=== PATIENT | male | born 1945 | race Caucasian/White ===

== ENCOUNTER → 2020-05-18 13:09 | Outpatient (BNVA) | payer MEDICARE, OTHER, SELFPAY | PROVIDERS: Visit Provider Urology | DX: Z13.89 Encounter for screening for other disorder (principal) | CPT/HCPCS: Q3014 ==

== ENCOUNTER 2020-05-29 07:12 | Day surgery (SDC) | payer MEDICARE, OTHER, SELFPAY ==
[2020-05-23 09:48] VITALS: BMI 25.1
--- NOTE | 2020-05-26 07:07 | HO.ANESPROP2 ---
Documented by User: Marisa Vasquez 05/26/20 07:07 HPI - Anesthesia Eval Consult details Narrative: 75yo M for Colonoscopy [facility] Active Problems Active Problems: All Active Problems (Updated 05/23/20 @ 09:13 by Gayla Conroy) Balanitis (Acute) Past Medical History Medical History Arthritis Elevated cholesterol GERD (gastroesophageal reflux disease) HTN (hypertension) Hx of meningioma of the brain Hx of renal calculi Hx of spinal stenosis Surgical History Surgical History H/O colonoscopy History of esophagogastroduodenoscopy (EGD) History of excision of pilonidal cyst Hx of arthroscopic knee surgery Hx of brain surgery Hx of lithotripsy Social History Social History Smoking Status: Never smoker Use of substances other than those prescribed or required for medical reasons: No Advance Directives Information Provided: No Meds Allergies Allergy/AdvReac Type Severity Reaction Status Date / Time aspirin [Aspirin] AdvReac Intermediate GI UPSET, Verified 05/23/20 09:13 abd pain, abd pain, abd pain, abd pain Home Medications Medication Instructions Recorded Confirmed Last Taken Type fluconazole 150 mg tablet 150 mg PO QWEEK 05/18/20 Unknown History lisinopril 5 mg tablet 5 mg PO DAILY 05/18/20 05/23/20 Unknown History lorazepam 1 mg tablet 1 mg PO DAILY PRN 05/18/20 Unknown History omeprazole 20 mg capsule,delayed 20 mg PO DAILY 05/18/20 05/23/20 Unknown History release multivitamin 1 tab PO DAILY 05/23/20 05/23/20 Unknown History Exam Exam Date and Time: May 26, 2020 0707 Height,Weight and Vital Signs: Height 5 ft 7.5 in Weight 73.936 kg Assessment and Plan Assessment Anesthesia Assessment: Chart Reviewed Documented by User: Janneth Verduzco 05/29/20 08:06 [facility] Past Medical History Medical History Arthritis Elevated cholesterol GERD (gastroesophageal reflux disease) HTN (hypertension) Hx of meningioma of the brain Hx of renal calculi Hx of spinal stenosis Surgical History Surgical History H/O colonoscopy History of esophagogastroduodenoscopy (EGD) History of excision of pilonidal cyst Hx of arthroscopic knee surgery Hx of brain surgery Hx of lithotripsy Social History Social History Smoking Status: Never smoker Use of substances other than those prescribed or required for medical reasons: No Advance Directives Information Provided: No Meds Allergies Allergy/AdvReac Type Severity Reaction Status Date / Time aspirin [Aspirin] AdvReac Intermediate GI UPSET, Verified 05/23/20 09:13 abd pain, abd pain, abd pain, abd pain Home Medications Medication Instructions Recorded Confirmed Last Taken Type fluconazole 150 mg tablet 150 mg PO QWEEK 05/18/20 Unknown History lisinopril 5 mg tablet 5 mg PO DAILY 05/18/20 05/23/20 Unknown History lorazepam 1 mg tablet 1 mg PO DAILY PRN 05/18/20 Unknown History omeprazole 20 mg capsule,delayed 20 mg PO DAILY 05/18/20 05/23/20 Unknown History release multivitamin 1 tab PO DAILY 05/23/20 05/23/20 Unknown History Exam Airway Mallampati Class: II TM Dist: >3cm Neck ROM: Full Loose/Missing/Broken Teeth: No Heart: RRR Lungs: CTA Assessment and Plan Assessment Anesthesia Assessment: Anesthesia Plan Discussed and Chart Reviewed Final Anesthetic Review NPO: Yes ASA Class: II Final Preanesthetic Review: Meds/Allgs Chart Reviewed, Consent Obtained/Reviewed and Anes Risks/Benef Reviewed Patient Risk: Low Procedure Risk: Low Anesthetic Plan Anesthetic Plan: MAC: Disposition: Standard PACU
[2020-05-29 07:52] VITALS: BP 138/87; PULSE 71; RESP 16; TEMP 36.1; O2SAT 100
[2020-05-29] MEDS: Lactated Ringers 1,000 ML 100 ML IVCONT (07:55)
[2020-05-29 09:38] VITALS: BP 97/51; PULSE 68; RESP 14; TEMP 36.1; O2SAT 97
--- NOTE | 2020-05-29 09:40 | PM.OP ---
Brief Operative Note Date of Service: 05/29/20 Pre-op diagnosis: Screening Post-op diagnosis: other (Colon polyps, Diverticulosis) Procedure: Colonoscopy to cecum and TI with snare polypectomies, biopsies, and placement of 2 Resolution clips on proximal ascending colon polypectomy site Surgeon: Eddie Santizo Anesthesia: MAC Estimated blood loss (mL): 4.0 Pathology: other (A. Cecal polyp B. Proximal ascending colon polyps) Condition: stable Disposition: PACU
[2020-05-29 09:54] VITALS: BP 101/63; PULSE 59; RESP 16; O2SAT 96
[2020-05-29 10:06] VITALS: BP 119/72; PULSE 58; RESP 16; O2SAT 99
--- NOTE | 2020-05-29 10:13 | OP_ITS ---
SURGEON: Eddie Santizo MD INDICATIONS: The patient presents for evaluation of personal history of tubular adenomas of the colon, and need for colorectal cancer screening. Full consent has been obtained from him for this, including risks of bleeding and perforation. PREOPERATIVE DIAGNOSIS: POSTOPERATIVE DIAGNOSIS: PROCEDURE PERFORMED: Colonoscopy to the cecum and terminal ileum with snare polypectomy, biopsy, and placement of 2 resolution clips on the proximal ascending colon polypectomy site. ESTIMATED BLOOD LOSS: COMPLICATIONS: ANESTHESIA: Monitored anesthesia care. ASSISTANTS: SPECIMENS: PREOPERATIVE DIAGNOSES: Personal history of tubular adenomas of the colon and colorectal cancer screening. POSTOPERATIVE DIAGNOSES: Personal history of tubular adenomas of the colon and colorectal cancer screening, colon polyps, diverticulosis, and internal hemorrhoids. DESCRIPTION OF PROCEDURE: The patient was placed in the left lateral decubitus position. The digital rectal exam revealed no abnormalities. The Olympus video pediatric colonoscope was entered into the rectum and advanced easily to the cecum. Once in the cecum, I did identify cecal pouch with appendiceal orifice and a normal-appearing ileocecal valve. The terminal ileum was cannulated and appeared normal. The scope was withdrawn back into the colon. The entire cecum was well visualized. In the cecum, was an approximately 8 mm slightly raised grossly adenomatous polyp, which was snared and recovered by suction. The polypectomy site appeared clean, without any sign of residual polyp nor bleeding. The remainder of the cecum appeared normal. The scope was then slowly withdrawn assessing all mucosal surfaces carefully. Preparation was excellent. In the very proximal most portion of the ascending colon just about bordering on entering the cecum, were 3 adenomatous appearing polyps from 8 to 10mm in diameter. Theses were all snared and recovered by suction. There was also a flat broad-based adenomatous appearing lesion encompassing at least 1/3 the circumference of the colon in this same area.. I removed about 1/3 of this with snare polypectomy in piecemeal fashion. Other portions were biopsied. All pieces were recovered by suction. I did place 2 resolution clips on a portion of the polypectomy site with good hemostasis and good deployment. These specimens were placed in the same container as the other 3 polyps in the same area Overall, there was a significant amount of polypoid tissue remaining and I felt that we needed to see what the pathology would show before attempting to remove any more. Given the size of this lesion and its location, this may ultimately need surgical resection or at least 1 or 2 more colonoscopies to remove it. The remainder of the colon appeared normal without any sign of other polyps, colitis, nor angiodysplasia. There was a moderate amount of diverticulosis of the sigmoid colon and a mild amount of diverticulosis in the ascending colon. In the rectum, scope was retroflexed visualizing internal hemorrhoids, but no other pathology. The rectal mucosa appeared normal. The scope was straightened out and withdrawn from the patient. He tolerated the procedure well and was returned to the recovery area in stable condition. IMPRESSION: 1. Colon polyps, status post snare polypectomy, biopsy, and placement of 2 resolution clips. 2. Diverticulosis. 3. Internal hemorrhoids. PLAN: The results of the pathology will be checked. As mentioned in the body of this report, we shall decide about further attempts at removal of the larger polyp once we have the pathology results. He was advised not to use any aspirin and NSAIDs for at least 2 weeks. He will be seen within a month or so in the office to review this and make further plans. This has been discussed with his . MD DAWNA Nichols/JEREMY / [id number] MTDD
--- NOTE | 2020-05-29 10:33 | PC.NURSE ---
1015 AWAKE ALERT BEAN PO MONITORS DCD IVF DC ASST OOB CH STEADY DRESSED SELF CALL ROWELL IN REACH PLAN DC IV AND AMB TO DC AREA
== END 2020-05-29 11:04 | disposition home or self-care (01) ==
PROVIDERS: PCP Family Medicine; Visit Provider Internal Medicine
PROC: 0DJD8ZZ Inspection of Lower Intestinal Tract, Via Natural or Artificial Opening Endoscopic (ICD-10-PCS; CPT 45378; principal; 2020-05-29 08:20)
DX: Z12.11 Encounter for screening for malignant neoplasm of colon (principal); Z86.010 Personal history of colon polyps; Z80.0 Family history of malignant neoplasm of digestive organs; D12.0 Benign neoplasm of cecum; D12.2 Benign neoplasm of ascending colon; K57.30 Diverticulosis of large intestine without perforation or abscess without bleeding; K64.8 Other hemorrhoids; K21.9 Gastro-esophageal reflux disease without esophagitis; K80.20 Calculus of gallbladder without cholecystitis without obstruction; I10 Essential (primary) hypertension; E78.5 Hyperlipidemia, unspecified; Z79.899 Other long term (current) drug therapy; Z86.011 Personal history of benign neoplasm of the brain; Z88.8 Allergy status to other drugs, medicaments and biological substances
CPT/HCPCS: 45385; 45380; 88305

== ENCOUNTER 2020-07-10 07:42 | Outpatient (REF) | payer MEDICARE, OTHER, SELFPAY ==
[2020-07-10 09:06] LABS: PSA,Total (Free>4and<10) 0.72 ng/mL (0.00-4.00)
== END 2020-07-10 07:43 | disposition home or self-care (01) ==
LOC: HO.LAB 07:42
PROVIDERS: PCP Family Medicine; Visit Provider Urology
DX: N40.0 Benign prostatic hyperplasia without lower urinary tract symptoms (principal); Z12.5 Encounter for screening for malignant neoplasm of prostate
CPT/HCPCS: 36415; 84153

== ENCOUNTER → 2020-07-20 08:36 | Outpatient (BNVA) | payer MEDICARE, OTHER, SELFPAY | PROVIDERS: Visit Provider Urology | DX: N28.1 Cyst of kidney, acquired (principal); N48.1 Balanitis | CPT/HCPCS: 51798; 99212 ==

== ENCOUNTER 2020-07-24 07:20 | Day surgery (SDC) | payer MEDICARE, OTHER, SELFPAY ==
[2020-07-18 14:55] VITALS: BMI 25.0
--- NOTE | 2020-07-19 10:13 | HO.ANESPROP2 ---
Documented by User: Marisa Vasquez 07/19/20 10:14 HPI - Anesthesia Eval Consult details Narrative: 75yo M for Colonoscopy s/p colonoscopy with MAC 05/2020. Repeat to futher remove large polyp PMFSH Active Problems Active Problems: All Active Problems (Updated 05/26/20 @ 07:07 by Marisa Vasquez) Balanitis (Acute) Past Medical History Medical History Arthritis BPH (benign prostatic hyperplasia) Chronic gastritis Elevated cholesterol Gall bladder stones GERD (gastroesophageal reflux disease) HTN (hypertension) HTN (hypertension) Hx of meningioma of the brain Hx of renal calculi Hx of spinal stenosis Tubular adenoma of colon Surgical History Surgical History H/O colonoscopy History of esophagogastroduodenoscopy (EGD) History of excision of pilonidal cyst Hx of arthroscopic knee surgery Hx of brain surgery Hx of lithotripsy Social History Social History Alcohol intake: current Alcohol intake frequency: a few times a week Smoking Status: Never smoker Use of substances other than those prescribed or required for medical reasons: No Have you been hit, kicked, punched, or otherwise hurt by someone within the past year? If so, by whom?: No Advance Directives Information Provided: No Recently lost weight without trying: No Eating poorly because of decreased appetite: No Nutrition Risks: No Nutritional Risk Meds Allergies Allergy/AdvReac Type Severity Reaction Status Date / Time aspirin [Aspirin] AdvReac Intermediate gastrointestinal Verified 07/24/20 07:59 upset/pain Home Medications Medication Instructions Recorded Confirmed Last Taken Type fluconazole 150 mg tablet 150 mg PO QWEEK 05/18/20 Unknown History lisinopril 5 mg tablet 5 mg PO DAILY 05/18/20 07/18/20 Unknown History lorazepam 1 mg tablet 1 mg PO DAILY PRN 05/18/20 07/18/20 Unknown History omeprazole 20 mg capsule,delayed 20 mg PO DAILY 05/18/20 07/18/20 Unknown History release multivitamin 1 tab PO DAILY 05/23/20 07/18/20 Unknown History [id number] C-Mn 1 cap PO DAILY 07/18/20 07/18/20 Unknown History [Glucosamine 1500 Complex] ketoconazole 2 % topical cream appl TOPICAL BEDTIME 07/20/20 Unknown History Exam Exam Date and Time: July 19, 2020 1013 Height,Weight and Vital Signs: Height 5 ft 7.5 in Weight 73.482 kg Assessment and Plan Assessment Anesthesia Assessment: Chart Reviewed Documented by User: Apolinar Mccoy MD 07/24/20 09:07 [facility] Past Medical History Medical History Arthritis BPH (benign prostatic hyperplasia) Chronic gastritis Elevated cholesterol Gall bladder stones GERD (gastroesophageal reflux disease) HTN (hypertension) HTN (hypertension) Hx of meningioma of the brain Hx of renal calculi Hx of spinal stenosis Tubular adenoma of colon Surgical History Surgical History H/O colonoscopy History of esophagogastroduodenoscopy (EGD) History of excision of pilonidal cyst Hx of arthroscopic knee surgery Hx of brain surgery Hx of lithotripsy Social History Social History Alcohol intake: current Alcohol intake frequency: a few times a week Smoking Status: Never smoker Use of substances other than those prescribed or required for medical reasons: No Have you been hit, kicked, punched, or otherwise hurt by someone within the past year? If so, by whom?: No Advance Directives Information Provided: No Recently lost weight without trying: No Eating poorly because of decreased appetite: No Nutrition Risks: No Nutritional Risk Meds Allergies Allergy/AdvReac Type Severity Reaction Status Date / Time aspirin [Aspirin] AdvReac Intermediate gastrointestinal Verified 07/24/20 07:59 upset/pain Home Medications Medication Instructions Recorded Confirmed Last Taken Type fluconazole 150 mg tablet 150 mg PO QWEEK 05/18/20 Unknown History lisinopril 5 mg tablet 5 mg PO DAILY 05/18/20 07/18/20 Unknown History lorazepam 1 mg tablet 1 mg PO DAILY PRN 05/18/20 07/18/20 Unknown History omeprazole 20 mg capsule,delayed 20 mg PO DAILY 05/18/20 07/18/20 Unknown History release multivitamin 1 tab PO DAILY 05/23/20 07/18/20 Unknown History [id number]-cor C-Mn 1 cap PO DAILY 07/18/20 07/18/20 Unknown History [Glucosamine 1500 Complex] ketoconazole 2 % topical cream appl TOPICAL BEDTIME 07/20/20 Unknown History Exam Airway Mallampati Class: III TM Dist: >3cm Neck ROM: Full Loose/Missing/Broken Teeth: No Heart: RRR Lungs: NL Assessment and Plan Assessment Anesthesia Assessment: Anesthesia Plan Discussed and Chart Reviewed Final Anesthetic Review NPO: Yes ASA Class: II Final Preanesthetic Review: No Changes in Pt Med Stat, Meds/Allgs Chart Reviewed, Consent Obtained/Reviewed and Anes Risks/Benef Reviewed Patient Risk: Low Procedure Risk: Low Anesthetic Plan Anesthetic Plan: MAC: Disposition: Standard PACU
[2020-07-24 08:01] VITALS: BP 145/90; PULSE 79; RESP 18; TEMP 36.6; O2SAT 98
[2020-07-24] MEDS: Lactated Ringers 1,000 ML 100 ML IVCONT (08:05)
--- NOTE | 2020-07-24 09:42 | P.BOP_ITS ---
Brief Operative Note Date of Service: 07/24/20 Pre-op diagnosis: Screening, Hx of colon polyps Post-op diagnosis: other (Colon polyp) Procedure: Colonoscopy to the cecum and TI with Orise submucosal injection, snare polypectomy, and placement of Resolution clips x 5. Surgeon: Eddie Santizo Anesthesia: MAC Was an [employer] Loan Orig[employer] Assistant used for this Procedure?: No Estimated blood loss (mL): 4.0 Pathology: other (A. Proximal Ascending colon polyp) Condition: stable Disposition: PACU
[2020-07-24 09:45] VITALS: BP 102/72; PULSE 78; RESP 16; TEMP 36; O2SAT 96
[2020-07-24 10:00] VITALS: BP 127/80; PULSE 57; RESP 16; TEMP 36.1; O2SAT 100
--- NOTE | 2020-07-24 21:14 | OP_ITS ---
SURGEON: Eddie Santizo MD INDICATIONS: Full consent has been obtained from him for this, including risks of bleeding and perforation. PREOPERATIVE DIAGNOSIS: POSTOPERATIVE DIAGNOSIS: PROCEDURE PERFORMED: Colonoscopy to the cecum and terminal ileum with snare polypectomy using ORISE submucosal injection, and subsequent placement of 5 resolution clips. ESTIMATED BLOOD LOSS: COMPLICATIONS: ANESTHESIA: Monitored anesthesia care. ASSISTANTS: SPECIMENS: PREOPERATIVE DIAGNOSES: Colorectal cancer screening and personal history of a tubulovillous adenoma of the proximal ascending colon. POSTOPERATIVE DIAGNOSES: Colorectal cancer screening and personal history of a tubulovillous adenoma of the proximal ascending colon, proximal ascending colon polyp, diverticulosis, and internal hemorrhoids. DESCRIPTION OF PROCEDURE: The patient was placed in the left lateral decubitus position. The digital rectal exam revealed no abnormalities. The Olympus video pediatric colonoscope was entered into the rectum and advanced easily to the cecum. Once in the cecum, I did identify normal-appearing cecal pouch with appendiceal orifice and a normal-appearing ileocecal valve. The terminal ileum was cannulated and appeared normal. The scope was withdrawn back in the colon. The entire cecum appeared normal. The scope was slowly withdrawn assessing all mucosal surfaces carefully. Preparation was excellent. In the very proximal ascending colon, at the location that had been worked on back in May, I was able to visualize a single remaining resolution clip that had been applied at that time. The area of the mucosa where the clip was located appeared normal and did not seem to have any residual adenomatous or polypoid tissue. Adjacent to this area, extending toward the ileocecal valve was the flat, but slightly raised residual polypoid tissue, which again appeared grossly adenomatous. A portion of this which was somewhat more raised was snared and removed, and then recovered by suction. This was approximately 1 cm in diameter. The polypectomy site at this area appeared clean, without any sign of residual polyp nor bleeding. The remaining adenomatous appearing tissue was quite flat and extending for about 1.5 to 2 cm in that area. Using the sclerotherapy needle and the ORISE solution, several injections were made just beneath the polypoid appearing tissue with good submucosal lift noted. Using the snare, I was able to remove and/or cauterize the great majority of this residual polypoid tissue without any sign of bleeding. However, I did apply 5 resolution clips along the polypectomy site. There was good deployment and good hemostasis. The area was irrigated and observed for at least 5 minutes, and there was no sign of any active bleeding. The scope was then slowly withdrawn assessing the remainder of the colon carefully. I did not visualize any other polyps, colitis, nor angiodysplasia. There was a mild amount of sigmoid diverticulosis. In the rectum, scope was retroflexed visualizing internal hemorrhoids, but no other pathology. The rectal mucosa appeared normal. The scope was straightened and withdrawn from the patient. He tolerated the procedure well and was returned to the recovery area in stable condition. IMPRESSION: Proximal ascending colon polyp, status post snare polypectomy with submucosal injection, and placement of 5 resolution clips. PLAN: The results of the pathology will be checked. I would recommend a repeat colonoscopy within 1 year for followup. He was advised to see me by the fall for a followup visit. He was advised not to use any aspirin and NSAIDs for at least 2 weeks. MD DAWNA Nichols/JEREMY / [id number] MTDD
== END 2020-07-24 11:04 | disposition home or self-care (01) ==
PROVIDERS: PCP Family Medicine; Visit Provider Internal Medicine
PROC: 0DJD8ZZ Inspection of Lower Intestinal Tract, Via Natural or Artificial Opening Endoscopic (ICD-10-PCS; CPT 45378; principal; 2020-07-24 08:30)
DX: Z12.11 Encounter for screening for malignant neoplasm of colon (principal); Z86.010 Personal history of colon polyps; D12.2 Benign neoplasm of ascending colon; K57.30 Diverticulosis of large intestine without perforation or abscess without bleeding; K64.8 Other hemorrhoids; I10 Essential (primary) hypertension; Z86.011 Personal history of benign neoplasm of the brain
CPT/HCPCS: 45385; 45381; 88305

== ENCOUNTER 2020-09-05 11:41 | Outpatient (REF) | payer MEDICARE, OTHER, SELFPAY ==
[2020-09-06 06:21] LABS: Lyme Abs Screen <0.90 index
== END 2020-09-05 11:42 | disposition home or self-care (01) ==
LOC: HO.LAB 11:41
PROVIDERS: PCP Family Medicine; Referring Provider Family Medicine; Visit Provider Internal Medicine
DX: T14.8XXA Other injury of unspecified body region, initial encounter (principal); W57.XXXA Bitten or stung by nonvenomous insect and other nonvenomous arthropods, initial encounter
CPT/HCPCS: 36415; 86617; 86618

== ENCOUNTER 2020-09-18 08:17 | Outpatient (REF) | payer MEDICARE, OTHER, SELFPAY ==
--- NOTE | ~2020-09-18 | US_ITS ---
EXAMINATION: US ABDOMEN COMPLETE CLINICAL INFORMATION: Right upper quadrant pain. History of cholelithiasis. Rule out cholecystitis. COMPARISON: Renal ultrasound 04/01/2019. Abdominal ultrasound 12/05/2014. CT abdomen and pelvis 08/01/2015. MR abdomen 07/09/2017. TECHNIQUE: Real-time imaging of the abdominal viscera. FINDINGS: PANCREAS: Not well visualized. ABDOMINAL AORTA: The proximal, mid, and distal segments are normal in caliber. INFERIOR VENA CAVA: Visualized portions are normal. LIVER: Liver echotexture is increased suggestive of fatty infiltration.. There is a 7.5 x 7 x 7.3 cm complex cyst in the right lobe of the liver. This has multiple thickened septations. This appears more complex than seen on previous MRI July 2017. This is increased in size from previous MRI when this measured 6 cm. There are 2 smaller cysts in the left lobe measuring 1.7 x 1.2 x 1.7 cm and 1.2 x 1.1 x 1.3 cm which also appear complex. GALLBLADDER: There is a large gallstone in the neck of the gallbladder measuring 2 x 3 cm. The gallbladder wall does not appear thickened or edematous. There is no pericholecystic fluid.. COMMON BILE DUCT: Normal in caliber measuring 0.5 cm in diameter. RIGHT KIDNEY: Normal. No hydronephrosis. No renal calculi or focal parenchymal lesions. The kidney measures 10.6 cm in maximum dimension. LEFT KIDNEY: There is a cyst in the upper pole measuring 5 x 2.8 x 3.9 cm. This appears complex with single thin septation. There is a 3 x 4 mm echogenic density with twinkle artifact in the lower pole suggestive of a stone. No hydronephrosis. The kidney measures 12.8 cm in maximum dimension. SPLEEN: Not well visualized. The spleen measures 9.0 cm in maximum dimension. FREE FLUID: None. US/US abdomen complete IMPRESSION: Large 2 x 3 cm gallstone in the neck of the gallbladder. No evidence of cholecystitis seen. Echogenic liver suggestive of fatty infiltration. Multiple liver cysts. The largest cyst in the right lobe appears complex with multiple thickened septations and slightly increased in size compared to previous exam. Follow-up contrast-enhanced CT or MRI should be considered. Smaller complex cysts in the left lobe of the liver and left kidney. Question small left renal stone. Limited visualization of the pancreas and spleen.
== END 2020-09-18 08:18 | disposition home or self-care (01) ==
LOC: HO.US 08:17
PROVIDERS: Visit Provider Family Medicine
DX: R10.10 Upper abdominal pain, unspecified (principal); K80.80 Other cholelithiasis without obstruction; N20.0 Calculus of kidney; N28.1 Cyst of kidney, acquired
CPT/HCPCS: 76700

== ENCOUNTER 2021-02-06 09:57 | Outpatient (REF) | payer MEDICARE, OTHER, SELFPAY ==
[2021-02-06 12:26] LABS: Alanine Aminotransferase 18 U/L (0-40); Anion Gap 12 (12-20); Aspartate Amino Transferase 18 U/L (5-37); Blood Urea Nitrogen 21 mg/dL (9-16); Carbon Dioxide 27 mmol/L (22-29); Chloride 105 mmol/L (96-108); Estimated Glomerular Filt Rate 59; Potassium 4.4 mmol/L (3.3-5.1); Sodium 140 mmol/L (135-145)
== END 2021-02-06 09:58 | disposition home or self-care (01) ==
LOC: HO.10HDL 09:57
PROVIDERS: Visit Provider Family Medicine
DX: I10 Essential (primary) hypertension (principal); K75.81 Nonalcoholic steatohepatitis (NASH)
CPT/HCPCS: 36415; 80051; 82565; 84450; 84460; 84520

== ENCOUNTER 2021-06-01 10:17 | Outpatient (REF) | payer MEDICARE, OTHER, SELFPAY ==
[2021-06-01 10:41] LABS: MANUAL DIFF FLAG NO
[2021-06-01 10:57] LABS: Basophils Absolute Auto 0.1 X10*3/uL (0.0-0.2); Basophils Percent Auto 1.1 % (0-2); Eosinophils Absolute Auto 0.2 X10*3/uL (0.0-0.4); Eosinophils Percent Auto 3.7 % (0-4); Hematocrit 41.6 % (42.0-52.0); Hemoglobin 13.7 g/dl (14.0-18.0); Imm Gran Abs Auto 0.02 X10*3/uL (0.00-0.03); Imm Gran Pct Auto 0.3 % (0.0-0.4); Lymphocytes Absolute Auto 1.8 X10*3/uL (1.2-4.9); Lymphocytes Percent Auto 28.1 % (20-40); Mean Corpuscular HGB Conc 32.9 g/dl (31.0-36.0); Mean Corpuscular Hemoglobin 31.5 pg (27.0-33.0); Mean Corpuscular Volume 95.6 fL (80.0-98.0); Mean Platelet Volume 9.2 fL (9.4-12.4); Monocytes Absolute Auto 0.8 X10*3/uL (0.1-1.2); Monocytes Percent Auto 11.6 % (2-11); Neutrophils Absolute Auto 3.6 x10*3/uL (2.0-8.3); Neutrophils Percent Auto 55.2 % (45-73); Platelet Count 280 X10*3/uL (160-400); Red Blood Count 4.35 X10*6/uL (4.60-5.80); Red Cell Distribution Width 11.9 % (11.0-16.0); White Blood Count 6.6 X10*3/uL (4.8-10.8)
[2021-06-01 11:59] LABS: Alanine Aminotransferase 23 U/L (0-40); Albumin Level 4.1 g/dL (3.5-5.0); Alkaline Phosphatase 88 U/L (39-117); Aspartate Amino Transferase 19 U/L (5-37); Bilirubin Direct 0.2 mg/dL (0.0-0.5); Bilirubin Total 0.5 mg/dL (0.0-1.0); Lipase 23 U/L (8-78); Total Protein 7.1 g/dL (6.5-8.0)
== END 2021-06-01 10:18 | disposition home or self-care (01) ==
LOC: HO.LAB 10:17
PROVIDERS: PCP Family Medicine; Visit Provider Family Medicine
DX: R10.13 Epigastric pain (principal)
CPT/HCPCS: 36415; 80076; 83690; 85025

== ENCOUNTER 2021-06-19 07:38 | Outpatient (REF) | payer MEDICARE, OTHER, SELFPAY ==
--- NOTE | ~2021-06-19 | US_ITS ---
EXAMINATION: US ABDOMEN COMPLETE CLINICAL INFORMATION: Right upper quadrant pain, history of gallstones. COMPARISON: Ultrasound abdomen complete 09/18/2020. US retroperitoneal limited (renal only) 04/01/2019. XR abdomen KUB 09/09/2018. MR abdomen without and with contrast 07/09/2017. CT abdomen and pelvis with contrast 08/01/2015. TECHNIQUE: Real-time imaging of the abdominal viscera. FINDINGS: PANCREAS: Body the pancreas is normal-appearing. The head and tail are not well visualized due to bowel gas. ABDOMINAL AORTA: There is evidence of atherosclerotic disease. The abdominal aorta is normal in caliber. INFERIOR VENA CAVA: Visualized portions are normal. LIVER: The liver is normal in size. The liver contour is normal. Parenchymal echogenicity is normal. There is a 1 cm echogenic lesion in the left lobe. There is a 1 cm cyst in the left lobe. There is a 5.5 x 4.9 x 5.5 cm complex cyst in the right lobe with thickened septations and thickened wall. This is slightly decreased in size from 7.5 x 7 x 7.3 cm on most recent ultrasound September 2020 and increased in complexity. There is no intrahepatic biliary duct dilatation seen. GALLBLADDER: The gallbladder is physiologically distended. There is a large gallstone measuring 2.6 x 1.6 x 2.1 cm. The gallbladder wall is normal. COMMON BILE DUCT: Normal in caliber measuring 0.6 cm in diameter. RIGHT KIDNEY: No hydronephrosis. No renal calculi or focal parenchymal lesions. The kidney measures 10.7 cm in maximum dimension. LEFT KIDNEY: There is a complex cyst in the upper pole that measures 6 x 3.3 x 3.2 cm. This demonstrates several septations. This is increased in size and complexity from previous ultrasound September 2020 when this measured 5 x 2.8 x 3.9 cm. There is a 6 x 3 x 3 mm stone in the lower pole. No hydronephrosis. The kidney measures 12.4 cm in maximum dimension. SPLEEN: Normal. The spleen measures 11.0 cm in maximum dimension. FREE FLUID: None. US/US abdomen complete IMPRESSION: Complex cyst in the right lobe the liver. This is decreased in size and increased in complexity compared to previous ultrasound September 2020. Other smaller simple cysts in the left lobe. 1 cm echogenic lesion questionable for a hemangioma in the left lobe. 6 x 3.3 x 3.2 cm complex cyst in the upper pole of the left kidney also increased in size and complexity from previous exams. Follow-up CT or MRI imaging with and without contrast of the liver and left kidney should be considered. Gallstone. Left renal stone. Limited visualization of the pancreas.
== END 2021-06-19 07:39 | disposition home or self-care (01) ==
LOC: HO.US 07:38
PROVIDERS: PCP Family Medicine; Visit Provider Family Medicine
DX: R10.11 Right upper quadrant pain (principal)
CPT/HCPCS: 76700

== ENCOUNTER 2021-07-02 14:38 | Outpatient (REF) | payer MEDICARE, OTHER, SELFPAY ==
[2021-07-02 16:02] LABS: Blood Urea Nitrogen 21 mg/dL (9-16); Estimated Glomerular Filt Rate 60
== END 2021-07-02 14:39 | disposition home or self-care (01) ==
LOC: HO.LAB 14:38
PROVIDERS: PCP Family Medicine; Visit Provider Family Medicine
DX: Z01.812 Encounter for preprocedural laboratory examination (principal); I10 Essential (primary) hypertension
CPT/HCPCS: 36415; 82565; 84520

== ENCOUNTER 2021-07-06 07:44 | Outpatient (REF) | payer MEDICARE, OTHER, SELFPAY ==
--- NOTE | ~2021-07-06 | CT_ITS ---
EXAMINATION: CT ABDOMEN AND PELVIS WITHOUT AND WITH CONTRAST CLINICAL INFORMATION: Liver and left kidney cyst, increasing. COMPARISON: Ultrasound abdomen 06/19/2021 TECHNIQUE: Multidetector volumetric imaging was performed of the abdomen and pelvis before and after the IV administration of 85 mL of Omnipaque 350 intravenous contrast. Sagittal and coronal reformatted images were obtained on the technologist's workstation. This CT examination was performed using dose optimization techniques as appropriate, variously including the following: *Automated exposure control *Adjustment of mA and/or kV according to patient size (this includes techniques or standardized protocols for targeted exams where dose is matched to indication/reason for exam; i.e. extremities or head) *Use of iterative reconstruction technique DLP: 559 mGy-cm FINDINGS: LUNG BASES: Both lung bases are well-expanded and clear. Heart size is normal. A small hiatal hernia is noted. LIVER, GALLBLADDER, AND BILIARY TREE: The liver is normal in size, shape, and attenuation. There are punctate hypodensities seen scattered throughout the liver, the largest in the right hepatic lobe segment 6, measures 5.0 x 4.6 x 4.8 cm. There is no intrahepatic ductal dilatation. The gallbladder is unremarkable with no evidence of radiopaque gallstones, gallbladder wall thickening, or obvious pericholecystic inflammatory changes. PANCREAS: Unremarkable SPLEEN: Unremarkable ADRENAL GLANDS: Unremarkable KIDNEYS AND URETERS: The kidneys are normal in size, shape, and attenuation. There is a 3 mm nonobstructive radiopaque calculi, lower pole left kidney. No additional radiopaque calculi are seen. There is a nonenhancing moderate size cyst, upper pole left kidney, extending through the cortex and measures 4.6 x 2.8 cm. BLADDER: Unremarkable GASTROINTESTINAL TRACT: There is diffuse colonic diverticuli with stool and gas without distention or diverticulitis. No mural thickening or pericolic fat stranding seen. The small bowel loops are normal caliber. Appendix is not visualized. ABDOMINAL WALL: No significant hernia is appreciated. LYMPH NODES: Normal VASCULAR: Unremarkable PELVIC VISCERA: The prostate gland is normal size. There is no free fluid. No abnormal pelvic lymph nodes. The right testes is positioned high in the inguinal ring. OSSEOUS STRUCTURES: There are degenerative disc changes with posterior spondylosis L1-L2, L2-L3, L3-L4, L5-S1 disc levels. Grade 1 anterolisthesis L4 over L5 is noted. CT/CT abdomen pelvis wo/w con IMPRESSION: 1. Large right hepatic lobe cyst without solid component and smaller cyst in the right and left hepatic lobes. 2. Moderate size left renal upper pole cyst without any solid component or septation. Nonobstructive radiopaque calculi, lower pole left kidney, without caliectasis or hydronephrosis. 3. Diffuse colonic diverticulosis without visible diverticulitis. Fleischner guidelines were followed.
[2021-07-06] MEDS: iohexoL 350 MG/ML 100 ML INFUS..BTL IV (08:44)
== END 2021-07-06 07:45 | disposition home or self-care (01) ==
LOC: HO.CT 07:44
PROVIDERS: PCP Family Medicine; Visit Provider Family Medicine
DX: N28.1 Cyst of kidney, acquired (principal); Q44.6 Cystic disease of liver
CPT/HCPCS: 74178; Q9967

== ENCOUNTER 2021-07-23 06:23 | Day surgery (SDC) | payer MEDICARE, OTHER, SELFPAY ==
[2021-07-17 15:34] VITALS: BMI 25.0
--- NOTE | 2021-07-20 10:48 | HO.ANESPROP2 ---
Documented by User: Marisa Vasquez NP 07/20/21 10:50 HPI - Anesthesia Eval Consult details Narrative: 76yo M for Colonoscopy s/p colo 07/2020 with [facility] PMFSH Active Problems Active Problems: All Active Problems (Updated 07/17/21 @ 15:32 by Jayda Harris, RN) Balanitis (Acute) Complex renal cyst (Acute) Past Medical History Medical History (Updated 07/17/21 @ 15:32 by Jayda Harris RN) Arthritis BPH (benign prostatic hyperplasia) Chronic gastritis Elevated cholesterol Gall bladder stones GERD (gastroesophageal reflux disease) HTN (hypertension) Hx of meningioma of the brain Hx of renal calculi Hx of spinal stenosis Transient global amnesia Tubular adenoma of colon Surgical History Surgical History (Updated 07/17/21 @ 15:26 by Jayda Harris RN) H/O colonoscopy History of esophagogastroduodenoscopy (EGD) History of excision of pilonidal cyst Hx of arthroscopic knee surgery Hx of brain surgery Hx of lithotripsy Social History Social History Alcohol intake: current Alcohol intake frequency: holidays/special occasions only Patient Tobacco Use Status: Never used Tobacco Use of substances other than those prescribed or required for medical reasons: No Are you DNR?: No Advance Directives: No Advance Directives Information Provided: Yes Meds Allergies Allergy/AdvReac Type Severity Reaction Status Date / Time aspirin [Aspirin] AdvReac Intermediate gastrointestinal Verified 07/23/21 06:31 upset/pain Home Medications Medication Instructions Recorded Confirmed Last Taken Type lisinopril 5 mg tablet 5 mg PO DAILY 05/18/20 07/17/21 Unknown History lorazepam 1 mg tablet 0.5 mg PO DAILY PRN 05/18/20 07/17/21 Unknown History omeprazole 20 mg capsule,delayed 20 mg PO DAILY 05/18/20 07/17/21 Unknown History release multivitamin 1 tab PO DAILY 05/23/20 07/17/21 Unknown History ywjknrjgtub-vuncqoyly-gfw C-Mn 500 1 cap PO DAILY 07/18/20 07/17/21 Unknown History mg-400 mg capsule ketoconazole 2 % topical cream appl TOPICAL BEDTIME 07/20/20 Unknown History buspirone 5 mg tablet 1 tab PO BEDTIME 07/17/21 07/17/21 Unknown History Exam Exam Date and Time: July 20, 2021 1048 Height,Weight and Vital Signs: Height 5 ft 7.5 in Weight 73.482 kg Pertinent Lab Results Pertinent Lab Results: Laboratory Tests 02/06/21 06/01/21 07/02/21 10:04 10:39 14:52 WBC 6.6 Hgb 13.7 L Hct 41.6 L Plt Count 280 Sodium 140 Potassium 4.4 Chloride 105 Carbon Dioxide 27 BUN 21 H Creatinine 1.18 Assessment and Plan Assessment Anesthesia Assessment: Chart Reviewed Documented by User: Bulmaro Sanders MD 07/23/21 07:57 PMFSH Past Medical History Medical History (Updated 07/17/21 @ 15:32 by Jayda Harris, RN) Arthritis BPH (benign prostatic hyperplasia) Chronic gastritis Elevated cholesterol Gall bladder stones GERD (gastroesophageal reflux disease) HTN (hypertension) Hx of meningioma of the brain Hx of renal calculi Hx of spinal stenosis Transient global amnesia Tubular adenoma of colon Functional capacity: independent ambulation Family History Family history of problems with anesthesia: No Surgical History Surgical History (Updated 07/17/21 @ 15:26 by Jayda Harris RN) H/O colonoscopy History of esophagogastroduodenoscopy (EGD) History of excision of pilonidal cyst Hx of arthroscopic knee surgery Hx of brain surgery Hx of lithotripsy History of Problems with Anesthesia: No Social History Social History Alcohol intake: current Alcohol intake frequency: holidays/special occasions only Patient Tobacco Use Status: Never used Tobacco Use of substances other than those prescribed or required for medical reasons: No Are you DNR?: No Advance Directives: No Advance Directives Information Provided: Yes Meds Allergies Allergy/AdvReac Type Severity Reaction Status Date / Time aspirin [Aspirin] AdvReac Intermediate gastrointestinal Verified 07/23/21 06:31 upset/pain Home Medications Medication Instructions Recorded Confirmed Last Taken Type lisinopril 5 mg tablet 5 mg PO DAILY 05/18/20 07/17/21 Unknown History lorazepam 1 mg tablet 0.5 mg PO DAILY PRN 05/18/20 07/17/21 Unknown History omeprazole 20 mg capsule,delayed 20 mg PO DAILY 05/18/20 07/17/21 Unknown History release multivitamin 1 tab PO DAILY 05/23/20 07/17/21 Unknown History lwqihnvwzvx-orgkdhmyl-uaj C-Mn 500 1 cap PO DAILY 07/18/20 07/17/21 Unknown History mg-400 mg capsule ketoconazole 2 % topical cream appl TOPICAL BEDTIME 07/20/20 Unknown History buspirone 5 mg tablet 1 tab PO BEDTIME 07/17/21 07/17/21 Unknown History Exam Airway Mallampati Class: III TM Dist: >3cm Neck ROM: Full Loose/Missing/Broken Teeth: Yes (Crowns . ) Heart: S1 , S2 Lungs: b/l breath sounds Assessment and Plan Assessment Anesthesia Assessment: Anesthesia Plan Discussed Final Anesthetic Review Family History of Problems with Anesthesia: No History of Problems with Anesthesia: No NPO: Yes ASA Class: III Final Preanesthetic Review: Meds/Allgs Chart Reviewed, Consent Obtained/Reviewed and Anes Risks/Benef Reviewed Patient Risk: Intermediate Procedure Risk: Intermediate Anesthetic Plan Anesthetic Plan: MAC: Disposition: Standard PACU
[2021-07-23 06:50] VITALS: BMI 25.0
[2021-07-23 06:54] VITALS: BP 135/75; PULSE 68; RESP 16; TEMP 36.4; O2SAT 98
[2021-07-23] MEDS: Lactated Ringers 1,000 ML 100 ML IVCONT (07:03)
[2021-07-23 08:39] VITALS: BP 110/48; PULSE 63; RESP 16; TEMP 36.1; O2SAT 97
--- NOTE | 2021-07-23 08:42 | PM.OP ---
Brief Operative Note Date of Service: 07/23/21 Pre-op diagnosis: Screening Post-op diagnosis: other (Colon polyps) Procedure: Colonoscopy to the cecum and TI with hot snare polypectomy x 2 with placement of Resolution clips on each site Surgeon: Eddie Santizo Anesthesia: MAC Was an Marine Steam Fitter used for this Procedure?: No Estimated blood loss (mL): 2.0 Pathology: other (A. Ascending colon polyp B. Transverse colon polyp) Condition: stable Disposition: PACU
[2021-07-23 08:54] VITALS: BP 120/71; PULSE 68; RESP 16; TEMP 36.1; O2SAT 98
--- NOTE | 2021-07-23 19:17 | OP_ITS ---
SURGEON: Eddie Santizo MD PREOPERATIVE DIAGNOSIS: POSTOPERATIVE DIAGNOSIS: PROCEDURE PERFORMED: Colonoscopy to the cecum and terminal ileum with hot snare polypectomy and placement of Resolution Clips. Full consent was obtained from him for this, including risks of bleeding and perforation. ESTIMATED BLOOD LOSS: COMPLICATIONS: ANESTHESIA: Monitored anesthesia care. ASSISTANTS: SPECIMENS: PREOPERATIVE DIAGNOSES: Colorectal cancer screening and personal history of tubular adenoma of the colon. POSTOPERATIVE DIAGNOSES: Colorectal cancer screening and personal history of tubular adenoma of the colon, colon polyps, diverticulosis, and internal hemorrhoids. DESCRIPTION OF PROCEDURE: The patient was placed in the left lateral decubitus position. The digital rectal exam revealed no abnormalities. The Olympus video pediatric colonoscope was entered into the rectum and advanced easily to the cecum. Once in the cecum, I did identify normal-appearing cecal pouch with appendiceal orifice and a normal-appearing ileocecal valve. The terminal ileum was cannulated and appeared normal. The scope was withdrawn back in the colon. The entire cecum and ileocecal valve appeared normal. The scope was then slowly withdrawn assessing all mucosal surfaces carefully. Preparation was excellent. In the proximal ascending colon, on a fold, was some residual polypoid tissue, which was removed completely with hot snare polypectomy. Post polypectomy, there did not appear to be any definitive residual polyp tissue nor bleeding. Three Resolution Clips were applied with good hemostasis and good deployment. In the area of the proximal transverse colon was another flat polyp on a fold measuring approximately 12 mm in diameter. This was removed in piecemeal fashion with hot snare polypectomy with small pieces recovered by suction. The polypectomy site did not have any sign of bleeding nor definitive residual polyp tissue. A single clip was applied with good deployment and good hemostasis. I did not visualize any other polyps, colitis, nor angiodysplasia. There was a moderate amount of diverticulosis in the transverse colon, descending colon, and sigmoid colon. In the rectum, scope was retroflexed visualizing some small internal hemorrhoids, but no other pathology. The rectal mucosa appeared normal. The scope was straightened and withdrawn from the patient. He tolerated the procedure well and was returned to recovery area in stable condition. IMPRESSION: 1. Colon polyps. 2. Diverticulosis. 3. Internal hemorrhoids. PLAN: The results of the pathology will be checked. He was advised not to use any aspirin and NSAIDs for least 1 week. I would recommend a repeat colonoscopy within 1-2 years for further surveillance. He will see me otherwise on a p.r.n. basis. This has been discussed with his . MD DAWNA Nichols/JEREMY / [id number] MTDD
== END 2021-07-23 09:31 | disposition home or self-care (01) ==
PROVIDERS: PCP Family Medicine; Visit Provider Internal Medicine
PROC: 0DJD8ZZ Inspection of Lower Intestinal Tract, Via Natural or Artificial Opening Endoscopic (ICD-10-PCS; CPT 45378; principal; 2021-07-23 07:30)
DX: Z12.11 Encounter for screening for malignant neoplasm of colon (principal); Z86.010 Personal history of colon polyps; D12.3 Benign neoplasm of transverse colon; D12.2 Benign neoplasm of ascending colon; K57.30 Diverticulosis of large intestine without perforation or abscess without bleeding; K64.8 Other hemorrhoids; K80.80 Other cholelithiasis without obstruction; K21.9 Gastro-esophageal reflux disease without esophagitis; I10 Essential (primary) hypertension; E78.5 Hyperlipidemia, unspecified; Z79.899 Other long term (current) drug therapy; Z86.011 Personal history of benign neoplasm of the brain; Z87.442 Personal history of urinary calculi
CPT/HCPCS: 45385; 88305

== ENCOUNTER 2021-08-18 10:13 | Outpatient (REF) | payer MEDICARE, OTHER, SELFPAY ==
[2021-08-18 11:30] LABS: Uric Acid 6.9 mg/dL (3.4-7.0)
[2021-08-18 11:49] LABS: Erythrocyte Sedimentation Rate 16 MM/HR (0-15)
== END 2021-08-18 10:14 | disposition home or self-care (01) ==
LOC: HO.LAB 10:13
PROVIDERS: PCP Family Medicine; Visit Provider Family Medicine
DX: M10.9 Gout, unspecified (principal)
CPT/HCPCS: 36415; 84550; 85652

== ENCOUNTER 2021-09-07 07:42 | Outpatient (REF) | payer MEDICARE, OTHER, SELFPAY ==
--- NOTE | ~2021-09-07 | US_ITS ---
EXAMINATION: US RETROPERITONEAL LIMITED (RENAL ONLY) CLINICAL INFORMATION: Cyst of kidney, acquired. COMPARISON: CT abdomen and pelvis 07/06/2021. Ultrasound abdomen complete 06/19/2021 and 09/18/2020. X-ray KUB 09/09/2018. MRI abdomen 07/09/2017. TECHNIQUE: Real-time imaging of the kidneys. FINDINGS: RIGHT KIDNEY: 11.6 x 6.1 x 5.8 cm (SAG x AP x TRV). The kidney is normal in size, contour, and echogenicity. Renal cortical thickness is normal. No calculi or focal parenchymal lesions. No hydronephrosis. LEFT KIDNEY: 12.1 x 5.1 x 4.4 cm (SAG x AP x TRV). The kidney is normal in size, contour, and echogenicity. Renal cortical thickness is normal. There is a 6 mm stone in the lower pole. There is a 5.5 x 4.2 x 3.2 cm complex cyst in the upper pole with septation. This is not appreciably changed in size. No hydronephrosis. US/US renal BI IMPRESSION: Stable complex cyst in the upper pole of the left kidney. Left renal stone.
== END 2021-09-07 07:43 | disposition home or self-care (01) ==
LOC: HO.US 07:42
PROVIDERS: PCP Family Medicine; Visit Provider Urology
DX: N28.1 Cyst of kidney, acquired (principal); N20.0 Calculus of kidney
CPT/HCPCS: 76775

== ENCOUNTER → 2021-09-20 09:38 | Outpatient (BNVA) | payer MEDICARE, OTHER, SELFPAY | PROVIDERS: PCP Family Medicine; Visit Provider Urology | DX: N28.1 Cyst of kidney, acquired (principal) | CPT/HCPCS: 99212 ==

== ENCOUNTER 2022-03-20 10:34 | Outpatient (REF) | payer MEDICARE, OTHER, SELFPAY ==
[2022-03-20 12:00] LABS: Anion Gap 12 (12-20); Blood Urea Nitrogen 18 mg/dL (9-16); Carbon Dioxide 25 mmol/L (22-29); Chloride 105 mmol/L (96-108); Estimated Glomerular Filt Rate > 60; Potassium 4.3 mmol/L (3.3-5.1); Sodium 138 mmol/L (135-145)
== END 2022-03-20 10:35 | disposition home or self-care (01) ==
LOC: HO.10HDL 10:34
PROVIDERS: Visit Provider Family Medicine
DX: I10 Essential (primary) hypertension (principal)
CPT/HCPCS: 36415; 80051; 82565; 84520

== ENCOUNTER 2022-04-10 11:17 | Emergency (ER) | payer MEDICARE, OTHER, SELFPAY ==
--- NOTE | ~2022-04-10 | CT_ITS ---
EXAMINATION: CT ABDOMEN AND PELVIS WITHOUT CONTRAST CLINICAL INFORMATION: Left flank pain. COMPARISON: Renal ultrasound 09/07/2021, CT abdomen pelvis 07/06/2021 TECHNIQUE: Multidetector volumetric imaging was performed from the superior aspect of the liver through the pubic symphysis. Sagittal and coronal reformatted images were obtained on the technologist's workstation. This CT examination was performed using dose optimization techniques as appropriate, variously including the following: *Automated exposure control *Adjustment of mA and/or kV according to patient size (this includes techniques or standardized protocols for targeted exams where dose is matched to indication/reason for exam; i.e. extremities or head) *Use of iterative reconstruction technique DLP: 448 mGy-cm FINDINGS: LUNG BASES: The visualized lung bases are unremarkable. Hiatal hernia is again seen. LIVER, GALLBLADDER, AND BILIARY TREE: The liver is normal in size, shape, and attenuation. Benign water density hepatic cysts are present. No worrisome solid focal hepatic lesion or biliary ductal dilatation is present. The gallbladder is unremarkable with no evidence of radiopaque gallstones, gallbladder wall thickening, or obvious pericholecystic inflammatory changes. PANCREAS: Unremarkable. 2 tiny punctate calcifications seen, one in the pancreatic head along with one in the pancreatic tail. No suspicious masses or ductal dilatation. SPLEEN: Unremarkable. ADRENAL GLANDS: Unremarkable. KIDNEYS AND URETERS: Left: There is a 3 mm obstructing mid ureteral calculus associated with dilatation of the proximal ureter and pelvicalyceal system. There is a nonobstructing left lower pole 4 mm calculus present. Which measures about 400 Hounsfield units and is 10 cm from the posterior axillary line. No left-sided renal masses are seen aside from the presence of an upper pole benign Bosniak class I simple cyst. Right: The right kidney and ureter appear normal.. BLADDER: Unremarkable. GASTROINTESTINAL TRACT: Extensive colonic diverticular changes are present without diverticulitis The small and large bowel are unremarkable. The appendix is unremarkable. ABDOMINAL WALL: No significant hernia is appreciated. Small inguinal hernias seen containing only fat. LYMPH NODES: No retroperitoneal lymphadenopathy VASCULAR: Calcific plaque present in the abdominal aorta and branch vessels without aneurysm PELVIC VISCERA: Mild BPH OSSEOUS STRUCTURES: Marked degenerative changes in spine most marked from L1 through L3 and L5-S1. CT/CT abdomen pelvis wo IV con IMPRESSION: 1. Obstructing 3 mm left mid ureteral calculus with associated hydronephrosis. 2. Nonobstructing 4 mm left lower pole renal calculus. 3. Other incidental findings as described above. Fleischner guidelines were followed.
[2022-04-10 11:19] VITALS: BP 136/80; PULSE 82; RESP 18; TEMP 36.7; O2SAT 98; BMI 27.4
--- NOTE | 2022-04-10 11:19 | ED_ITS ---
HPI - Abdominal Pain General Chief Complaint: Abdominal Pain <Yanira Watts NP - Last Filed: 04/10/22 11:21> Stated Complaint: Kidney stone <Yanira Watts NP - Last Filed: 04/10/22 11:21> Time Seen by Provider: 04/10/22 11:29 <Yanira Watts NP - Last Filed: 04/10/22 11:21> Source: patient <Meseret Miranda CNP - Last Filed: 04/10/22 18:06> Mode of arrival: ambulatory <Meseret Miranda CNP - Last Filed: 04/10/22 18:06> Limitations: no limitations <Meseret Miranda CNP - Last Filed: 04/10/22 18:06> History of Present Illness HPI narrative: Patient is a 76-year-old male presents emergency department for evaluation of left flank pain. He reports yesterday beginning with left flank pain that is radiating into the lateral side and the left abdomen. Has associated nausea. He reports a history of renal colic, large complicated renal cyst on the right. Denies fevers, chills, chest pain, shortness of breath, nausea, vomiting, upper abdominal pain, right-sided abdominal pain, dysuria, urinary frequency/urgency/hesitancy, hematuria, constipation, diarrhea. Denies any recent known sick contacts. <Meseret Miranda CNP - Last Filed: 04/10/22 18:06> Related Data Home Medications: Home Medications Medication Instructions Recorded Confirmed lisinopril 5 mg tablet 5 mg PO DAILY 05/18/20 04/10/22 lorazepam 1 mg tablet 0.5 mg PO Q12H PRN Anxiety 05/18/20 04/10/22 omeprazole 20 mg capsule,delayed 20 mg PO DAILY 05/18/20 04/10/22 release multivitamin 1 tab PO DAILY 05/23/20 04/10/22 buspirone 5 mg tablet 1 tab PO BEDTIME 07/17/21 04/10/22 Previous Rx's Medication Instructions Recorded oxycodone 5 mg tablet 5 mg PO Q6H PRN pain #14 tabs 04/10/22 prednisone 20 mg tablet 20 mg PO DAILY #5 tabs 04/10/22 tamsulosin 0.4 mg capsule 0.4 mg PO DAILY #10 caps 04/10/22 <Yanira Watts NP - Last Filed: 04/10/22 11:21> Allergies/Adverse Reactions: Allergies Allergy/AdvReac Type Severity Reaction Status Date / Time aspirin [Aspirin] AdvReac Intermediate gastrointestinal Verified 09/20/21 09:46 upset/pain <Yanira Watts NP - Last Filed: 04/10/22 11:21> FORMERLY [facility] Past Medical History Medical History: Medical History Arthritis BPH (benign prostatic hyperplasia) Chronic gastritis Elevated cholesterol Gall bladder stones GERD (gastroesophageal reflux disease) HTN (hypertension) Hx of meningioma of the brain Hx of renal calculi Hx of spinal stenosis Transient global amnesia Tubular adenoma of colon <Yanira Watts NP - Last Filed: 04/10/22 11:21> Surgical History: Surgical History H/O colonoscopy History of esophagogastroduodenoscopy (EGD) History of excision of pilonidal cyst Hx of arthroscopic knee surgery Hx of brain surgery Hx of lithotripsy <Yanira Watts NP - Last Filed: 04/10/22 11:21> Social History Social History: Social History Alcohol intake: current Alcohol intake frequency: a few times a week Alcohol type: wine Patient Tobacco Use Status: Never used Tobacco Smoked in Last 30 Days: No Use of substances other than those prescribed or required for medical reasons: No Advance Directives: No Advance Directives Information Provided: Yes <Yanira Watts NP - Last Filed: 04/10/22 11:21> Physical Exam ED Vital Signs: Vital Signs - 24 hr 04/10/22 11:19 04/10/22 14:27 04/10/22 15:59 Temperature 98.1 F 98.4 F Pulse Rate 82 73 81 Respiratory Rate 18 20 20 Blood Pressure 136/80 143/78 H 133/70 Pulse Oximetry 98 95 97 Oxygen Delivery Method Room Air Room Air Room Air 04/10/22 18:00 Temperature 98.9 F Pulse Rate 80 Respiratory Rate 16 Blood Pressure 131/70 Pulse Oximetry 98 Oxygen Delivery Method Room Air BMI result Body Mass Index 27.4 <Yanira Watts NP - Last Filed: 04/10/22 11:21> Vital Signs - 24 hr 04/10/22 11:19 04/10/22 14:27 04/10/22 15:59 Temperature 98.1 F 98.4 F Pulse Rate 82 73 81 Respiratory Rate 18 20 20 Blood Pressure 136/80 143/78 H 133/70 Pulse Oximetry 98 95 97 Oxygen Delivery Method Room Air Room Air Room Air 04/10/22 18:00 Temperature 98.9 F Pulse Rate 80 Respiratory Rate 16 Blood Pressure 131/70 Pulse Oximetry 98 Oxygen Delivery Method Room Air BMI result Body Mass Index 27.4 <Meseret Miranda CNP - Last Filed: 04/10/22 18:06> Vital Signs - 24 hr 04/10/22 11:19 04/10/22 14:27 04/10/22 15:59 Temperature 98.1 F 98.4 F Pulse Rate 82 73 81 Respiratory Rate 18 20 20 Blood Pressure 136/80 143/78 H 133/70 Pulse Oximetry 98 95 97 Oxygen Delivery Method Room Air Room Air Room Air 04/10/22 18:00 Temperature 98.9 F Pulse Rate 80 Respiratory Rate 16 Blood Pressure 131/70 Pulse Oximetry 98 Oxygen Delivery Method Room Air BMI result Body Mass Index 27.4 <PATRICK Hinton - Last Filed: 04/10/22 19:34> Course Course Course Narrative: This is a rapid medical exam. Defer additional HPI, ROS, PE to primary provider. 76-year-old male w/ history of renal colic, left sided renal cyst, brain tumor (meningioma) s/p resection 2007 here with left-sided flank pain with radiation to the left abdomen since yesterday with nausea. History renal colic. No other symptoms. WIll obtain labs, UA, covid screen. VSS. <Yanira Watts NP - Last Filed: 04/10/22 11:21> Reevaluation(s) Reevaluation #1: CBC reveals mild leukocytosis 12.5 with left shift. CMP reveals acute kidney injury with BUN 23 creatinine 1.7, urinalysis without evidence of infection or microscopic hematuria. patient to receive 1 L normal saline IV fluid, morphine IV for pain, zofran for nausea <Meseret Enrique LESTER Miranda - Last Filed: 04/10/22 18:06> Reevaluation #2: CT reveals an obstructing 3 mm left mid ureteral calculus with hydronephrosis. At this time patient reports improvement in pain, currently 2/10, not completely resolved after receiving morphine. Patient received an additional L of lactated Ringer's, repeat renal function in afterwards. Con sulted with Urology, Dr. Brenner, if renal function improves after hydration, patient can be discharged home with outpatient follow-up, patient will be discharged with prednisone, tamsulosin, oxycodone. Patient is a gdoinez a bowl with plan of care. <Meseret Miranda CNP - Last Filed: 04/10/22 18:06> Time: 16:42 <Meseret Miranda CNP - Last Filed: 04/10/22 18:06> Reevaluation #3: Patient signed out to Arely NGUYEN pending repeat BMP. <Meseret Miranda CNP - Last Filed: 04/10/22 18:06> Time: 17:53 <Meseret Miranda CNP - Last Filed: 04/10/22 18:06> Additional Reevaluation(s): I went to speak to patient, he tells me he is feeling better. Requesting to drink p.o. fluids, tolerating p.o. without difficulty. Repeat BMP with improvement in acute kidney injury, I did offer patient hospital admission for observation, hydration and re-evaluation of kidney function, patient is adamant that he would like to go home tells me he will follow up with Dr. Brenner and he would not like to stay in the hospital tonight. I explained to him risks versus benefits he verbalizes understanding. At this time patient will go home. Educated patient on diagnosis and treatment plan, answered all question, patient verbalizes understanding. At this time patient will be discharged home, advised to return with new or worsening symptoms. Educated on worrisome signs and symptoms and when to return. At this time I feel comfortable discharge home. <PATRICK Hinton - Last Filed: 04/10/22 19:34> Medical Decision Making Medical Decision Making MDM Narrative: Patient is a 76-year-old male with past medical history of renal colic, complex renal cyst on the left, meningioma s/p resection 2007 presenting to emergency department for evaluation of left flank/ABD pain. Patient at the time of examination appears uncomfortable, vitals are currently stable, afebrile without tachycardia tachypnea or hypoxia. Will obtain CBC to evaluate for leukocytosis/ anemia, CMP and lipase to evaluate for abnormal electrolytes / abnormal renal function/ abnormal hepatic/biliary function, CT of the abdomen and pelvis and Urinalysis. <Meseret Miranda CNP - Last Filed: 04/10/22 18:06> Differential Diagnosis Differential Diagnoses: The differential diagnosis associated with the presentation includes (Pyelonephritis, nephrolithiasis, ureteral calculus, hydronephrosis, obstructive stone, urinary tract infection, diverticulitis, bowel obstruction, colitis, musculoskeletal pain) <Meseret Miranda CNP - Last Filed: 04/10/22 18:06> Lab Data MDM Lab Attestation statement: I reviewed the patient's lab results. <Meseret Miranda CNP - Last Filed: 04/10/22 18:06> Result Diagrams: 04/10/22 11:30 04/10/22 11:30 <Yanira Watts NP - Last Filed: 04/10/22 11:21> Labs: Lab Results 04/10/22 04/10/22 04/10/22 Range/Units 11:30 11:30 11:30 WBC 12.5 H (4.8-10.8) X10*3/uL RBC 4.79 (4.60-5.80) X10*6/uL Hgb 15.3 (14.0-18.0) g/dl Hct 44.7 (42.0-52.0) % MCV 93.3 (80.0-98.0) fL MCH 31.9 (27.0-33.0) pg MCHC 34.2 (31.0-36.0) g/dl RDW 11.9 (11.0-16.0) % Plt Count 270 (160-400) X10*3/uL MPV 9.8 (9.4-12.4) fL Immature Gran % (Auto) 0.5 H (0.0-0.4) % Neut % (Auto) 75.3 H (45-73) % Lymph % (Auto) 12.9 L (20-40) % [place] % (Auto) 9.7 (2-11) % Eos % (Auto) 1.1 (0-4) % Baso % (Auto) 0.5 (0-2) % Lymph # (Auto) 1.6 (1.2-4.9) X10*3/uL [place] # (Auto) 1.2 (0.1-1.2) X10*3/uL Eos # (Auto) 0.1 (0.0-0.4) X10*3/uL Baso # (Auto) 0.1 (0.0-0.2) X10*3/uL Abs Immat Gran (auto) 0.06 H (0.00-0.03) X10*3/uL Absolute Neuts (auto) 9.4 H (2.0-8.3) x10*3/uL Absolute Nucleated RBC 0.000 (0.0-0.012) X10*3/uL Nucleated RBC % (auto) 0.0 (0.0-0.2) /100WBC Sodium 137 (135-145) mmol/L Potassium 4.4 (3.3-5.1) mmol/L Chloride 104 (96-108) mmol/L Carbon Dioxide 26 (22-29) mmol/L Anion Gap 11 L (12-20) BUN 23 H (9-16) mg/dL Creatinine 1.70 H (0.5-1.4) mg/dL Estim Creat Clear Calc 35.5 Estimated GFR 39 Random Glucose 122 H (60-115) mg/dL Calcium 9.2 (8.4-10.2) mg/dL Total Bilirubin 1.5 H (0.0-1.0) mg/dL Direct Bilirubin 0.4 (0.0-0.5) mg/dL AST 25 (5-37) U/L ALT 22 (0-40) U/L Alkaline Phosphatase 99 (39-117) U/L Total Protein 7.2 (6.5-8.0) g/dL Albumin 4.3 (3.5-5.0) g/dL Lipase 10 (8-78) U/L Urine Color Urine Appearance Urine pH (5.0-9.0) Ur Specific [place] (1.005-1.025) Urine Protein (Neg-Trace) mg/dL Urine Glucose (UA) (Negative) mg/dL Urine Ketones (Negative) mg/dL Urine Blood (Negative) Urine Nitrite (Negative) Ur Leukocyte Esterase (Negative) COVID-19 (CARA) Negative (Negative) COVID-19 Clin Com See Note 04/10/22 04/10/22 Range/Units 13:10 18:13 WBC (4.8-10.8) X10*3/uL RBC (4.60-5.80) X10*6/uL Hgb (14.0-18.0) g/dl Hct (42.0-52.0) % MCV (80.0-98.0) fL MCH (27.0-33.0) pg MCHC (31.0-36.0) g/dl RDW (11.0-16.0) % Plt Count (160-400) X10*3/uL MPV (9.4-12.4) fL Immature Gran % (Auto) (0.0-0.4) % Neut % (Auto) (45-73) % Lymph % (Auto) (20-40) % [place] % (Auto) (2-11) % Eos % (Auto) (0-4) % Baso % (Auto) (0-2) % Lymph # (Auto) (1.2-4.9) X10*3/uL [place] # (Auto) (0.1-1.2) X10*3/uL Eos # (Auto) (0.0-0.4) X10*3/uL Baso # (Auto) (0.0-0.2) X10*3/uL Abs Immat Gran (auto) (0.00-0.03) X10*3/uL Absolute Neuts (auto) (2.0-8.3) x10*3/uL Absolute Nucleated RBC (0.0-0.012) X10*3/uL Nucleated RBC % (auto) (0.0-0.2) /100WBC Sodium 134 L (135-145) mmol/L Potassium 4.8 (3.3-5.1) mmol/L Chloride 105 (96-108) mmol/L Carbon Dioxide 25 (22-29) mmol/L Anion Gap 9 L (12-20) BUN 19 H (9-16) mg/dL Creatinine 1.53 H (0.5-1.4) mg/dL Estim Creat Clear Calc 39.5 Estimated GFR 44 Random Glucose 119 H (60-115) mg/dL Calcium 8.3 L D (8.4-10.2) mg/dL Total Bilirubin (0.0-1.0) mg/dL Direct Bilirubin (0.0-0.5) mg/dL AST (5-37) U/L ALT (0-40) U/L Alkaline Phosphatase (39-117) U/L Total Protein (6.5-8.0) g/dL Albumin (3.5-5.0) g/dL Lipase (8-78) U/L Urine Color Yellow Urine Appearance Clear Urine pH 6.0 (5.0-9.0) Ur Specific [place] >= 1.030 H (1.005-1.025) Urine Protein Negative (Neg-Trace) mg/dL Urine Glucose (UA) Negative (Negative) mg/dL Urine Ketones 15 (Negative) mg/dL Urine Blood Negative (Negative) Urine Nitrite Negative (Negative) Ur Leukocyte Esterase Negative (Negative) COVID-19 (CARA) (Negative) COVID-19 Clin Com <Yanira Watts, GLOBAL MANAGER - Last Filed: 04/10/22 11:21> Lab Results 04/10/22 04/10/22 04/10/22 Range/Units 11:30 11:30 11:30 WBC 12.5 H (4.8-10.8) X10*3/uL RBC 4.79 (4.60-5.80) X10*6/uL Hgb 15.3 (14.0-18.0) g/dl Hct 44.7 (42.0-52.0) % MCV 93.3 (80.0-98.0) fL MCH 31.9 (27.0-33.0) pg MCHC 34.2 (31.0-36.0) g/dl RDW 11.9 (11.0-16.0) % Plt Count 270 (160-400) X10*3/uL MPV 9.8 (9.4-12.4) fL Immature Gran % (Auto) 0.5 H (0.0-0.4) % Neut % (Auto) 75.3 H (45-73) % Lymph % (Auto) 12.9 L (20-40) % [place] % (Auto) 9.7 (2-11) % Eos % (Auto) 1.1 (0-4) % Baso % (Auto) 0.5 (0-2) % Lymph # (Auto) 1.6 (1.2-4.9) X10*3/uL [place] # (Auto) 1.2 (0.1-1.2) X10*3/uL Eos # (Auto) 0.1 (0.0-0.4) X10*3/uL Baso # (Auto) 0.1 (0.0-0.2) X10*3/uL Abs Immat Gran (auto) 0.06 H (0.00-0.03) X10*3/uL Absolute Neuts (auto) 9.4 H (2.0-8.3) x10*3/uL Absolute Nucleated RBC 0.000 (0.0-0.012) X10*3/uL Nucleated RBC % (auto) 0.0 (0.0-0.2) /100WBC Sodium 137 (135-145) mmol/L Potassium 4.4 (3.3-5.1) mmol/L Chloride 104 (96-108) mmol/L Carbon Dioxide 26 (22-29) mmol/L Anion Gap 11 L (12-20) BUN 23 H (9-16) mg/dL Creatinine 1.70 H (0.5-1.4) mg/dL Estim Creat Clear Calc 35.5 Estimated GFR 39 Random Glucose 122 H (60-115) mg/dL Calcium 9.2 (8.4-10.2) mg/dL Total Bilirubin 1.5 H (0.0-1.0) mg/dL Direct Bilirubin 0.4 (0.0-0.5) mg/dL AST 25 (5-37) U/L ALT 22 (0-40) U/L Alkaline Phosphatase 99 (39-117) U/L Total Protein 7.2 (6.5-8.0) g/dL Albumin 4.3 (3.5-5.0) g/dL Lipase 10 (8-78) U/L Urine Color Urine Appearance Urine pH (5.0-9.0) Ur Specific [place] (1.005-1.025) Urine Protein (Neg-Trace) mg/dL Urine Glucose (UA) (Negative) mg/dL Urine Ketones (Negative) mg/dL Urine Blood (Negative) Urine Nitrite (Negative) Ur Leukocyte Esterase (Negative) COVID-19 (CARA) Negative (Negative) COVID-19 Clin Com See Note 04/10/22 04/10/22 Range/Units 13:10 18:13 WBC (4.8-10.8) X10*3/uL RBC (4.60-5.80) X10*6/uL Hgb (14.0-18.0) g/dl Hct (42.0-52.0) % MCV (80.0-98.0) fL MCH (27.0-33.0) pg MCHC (31.0-36.0) g/dl RDW (11.0-16.0) % Plt Count (160-400) X10*3/uL MPV (9.4-12.4) fL Immature Gran % (Auto) (0.0-0.4) % Neut % (Auto) (45-73) % Lymph % (Auto) (20-40) % [place] % (Auto) (2-11) % Eos % (Auto) (0-4) % Baso % (Auto) (0-2) % Lymph # (Auto) (1.2-4.9) X10*3/uL [place] # (Auto) (0.1-1.2) X10*3/uL Eos # (Auto) (0.0-0.4) X10*3/uL Baso # (Auto) (0.0-0.2) X10*3/uL Abs Immat Gran (auto) (0.00-0.03) X10*3/uL Absolute Neuts (auto) (2.0-8.3) x10*3/uL Absolute Nucleated RBC (0.0-0.012) X10*3/uL Nucleated RBC % (auto) (0.0-0.2) /100WBC Sodium 134 L (135-145) mmol/L Potassium 4.8 (3.3-5.1) mmol/L Chloride 105 (96-108) mmol/L Carbon Dioxide 25 (22-29) mmol/L Anion Gap 9 L (12-20) BUN 19 H (9-16) mg/dL Creatinine 1.53 H (0.5-1.4) mg/dL Estim Creat Clear Calc 39.5 Estimated GFR 44 Random Glucose 119 H (60-115) mg/dL Calcium 8.3 L D (8.4-10.2) mg/dL Total Bilirubin (0.0-1.0) mg/dL Direct Bilirubin (0.0-0.5) mg/dL AST (5-37) U/L ALT (0-40) U/L Alkaline Phosphatase (39-117) U/L Total Protein (6.5-8.0) g/dL Albumin (3.5-5.0) g/dL Lipase (8-78) U/L Urine Color Yellow Urine Appearance Clear Urine pH 6.0 (5.0-9.0) Ur Specific [place] >= 1.030 H (1.005-1.025) Urine Protein Negative (Neg-Trace) mg/dL Urine Glucose (UA) Negative (Negative) mg/dL Urine Ketones 15 (Negative) mg/dL Urine Blood Negative (Negative) Urine Nitrite Negative (Negative) Ur Leukocyte Esterase Negative (Negative) COVID-19 (CARA) (Negative) COVID-19 Clin Com <Meseret Miranda, HUNTING SALES LEADER - Last Filed: 04/10/22 18:06> Lab Results 04/10/22 04/10/22 04/10/22 Range/Units 11:30 11:30 11:30 WBC 12.5 H (4.8-10.8) X10*3/uL RBC 4.79 (4.60-5.80) X10*6/uL Hgb 15.3 (14.0-18.0) g/dl Hct 44.7 (42.0-52.0) % MCV 93.3 (80.0-98.0) fL MCH 31.9 (27.0-33.0) pg MCHC 34.2 (31.0-36.0) g/dl RDW 11.9 (11.0-16.0) % Plt Count 270 (160-400) X10*3/uL MPV 9.8 (9.4-12.4) fL Immature Gran % (Auto) 0.5 H (0.0-0.4) % Neut % (Auto) 75.3 H (45-73) % Lymph % (Auto) 12.9 L (20-40) % [place] % (Auto) 9.7 (2-11) % Eos % (Auto) 1.1 (0-4) % Baso % (Auto) 0.5 (0-2) % Lymph # (Auto) 1.6 (1.2-4.9) X10*3/uL [place] # (Auto) 1.2 (0.1-1.2) X10*3/uL Eos # (Auto) 0.1 (0.0-0.4) X10*3/uL Baso # (Auto) 0.1 (0.0-0.2) X10*3/uL Abs Immat Gran (auto) 0.06 H (0.00-0.03) X10*3/uL Absolute Neuts (auto) 9.4 H (2.0-8.3) x10*3/uL Absolute Nucleated RBC 0.000 (0.0-0.012) X10*3/uL Nucleated RBC % (auto) 0.0 (0.0-0.2) /100WBC Sodium 137 (135-145) mmol/L Potassium 4.4 (3.3-5.1) mmol/L Chloride 104 (96-108) mmol/L Carbon Dioxide 26 (22-29) mmol/L Anion Gap 11 L (12-20) BUN 23 H (9-16) mg/dL Creatinine 1.70 H (0.5-1.4) mg/dL Estim Creat Clear Calc 35.5 Estimated GFR 39 Random Glucose 122 H (60-115) mg/dL Calcium 9.2 (8.4-10.2) mg/dL Total Bilirubin 1.5 H (0.0-1.0) mg/dL Direct Bilirubin 0.4 (0.0-0.5) mg/dL AST 25 (5-37) U/L ALT 22 (0-40) U/L Alkaline Phosphatase 99 (39-117) U/L Total Protein 7.2 (6.5-8.0) g/dL Albumin 4.3 (3.5-5.0) g/dL Lipase 10 (8-78) U/L Urine Color Urine Appearance Urine pH (5.0-9.0) Ur Specific [place] (1.005-1.025) Urine Protein (Neg-Trace) mg/dL Urine Glucose (UA) (Negative) mg/dL Urine Ketones (Negative) mg/dL Urine Blood (Negative) Urine Nitrite (Negative) Ur Leukocyte Esterase (Negative) COVID-19 (CARA) Negative (Negative) COVID-19 Clin Com See Note 04/10/22 04/10/22 Range/Units 13:10 18:13 WBC (4.8-10.8) X10*3/uL RBC (4.60-5.80) X10*6/uL Hgb (14.0-18.0) g/dl Hct (42.0-52.0) % MCV (80.0-98.0) fL MCH (27.0-33.0) pg MCHC (31.0-36.0) g/dl RDW (11.0-16.0) % Plt Count (160-400) X10*3/uL MPV (9.4-12.4) fL Immature Gran % (Auto) (0.0-0.4) % Neut % (Auto) (45-73) % Lymph % (Auto) (20-40) % [place] % (Auto) (2-11) % Eos % (Auto) (0-4) % Baso % (Auto) (0-2) % Lymph # (Auto) (1.2-4.9) X10*3/uL [place] # (Auto) (0.1-1.2) X10*3/uL Eos # (Auto) (0.0-0.4) X10*3/uL Baso # (Auto) (0.0-0.2) X10*3/uL Abs Immat Gran (auto) (0.00-0.03) X10*3/uL Absolute Neuts (auto) (2.0-8.3) x10*3/uL Absolute Nucleated RBC (0.0-0.012) X10*3/uL Nucleated RBC % (auto) (0.0-0.2) /100WBC Sodium 134 L (135-145) mmol/L Potassium 4.8 (3.3-5.1) mmol/L Chloride 105 (96-108) mmol/L Carbon Dioxide 25 (22-29) mmol/L Anion Gap 9 L (12-20) BUN 19 H (9-16) mg/dL Creatinine 1.53 H (0.5-1.4) mg/dL Estim Creat Clear Calc 39.5 Estimated GFR 44 Random Glucose 119 H (60-115) mg/dL Calcium 8.3 L D (8.4-10.2) mg/dL Total Bilirubin (0.0-1.0) mg/dL Direct Bilirubin (0.0-0.5) mg/dL AST (5-37) U/L ALT (0-40) U/L Alkaline Phosphatase (39-117) U/L Total Protein (6.5-8.0) g/dL Albumin (3.5-5.0) g/dL Lipase (8-78) U/L Urine Color Yellow Urine Appearance Clear Urine pH 6.0 (5.0-9.0) Ur Specific [place] >= 1.030 H (1.005-1.025) Urine Protein Negative (Neg-Trace) mg/dL Urine Glucose (UA) Negative (Negative) mg/dL Urine Ketones 15 (Negative) mg/dL Urine Blood Negative (Negative) Urine Nitrite Negative (Negative) Ur Leukocyte Esterase Negative (Negative) COVID-19 (CARA) (Negative) COVID-19 Clin Com <PATRICK Hinton - Last Filed: 04/10/22 19:34> Independent Interpretation I performed an independent interpretation of an: CT Scan <Meseret Miranda CNP - Last Filed: 04/10/22 18:06> Radiology Impression Discussion of test interpretation with radiology: I have reviewed the radiologist's reading. <Meseret Miranda CNP - Last Filed: 04/10/22 18:06> Radiologist Impression: CT/CT abdomen pelvis wo IV con IMPRESSION: 1.? Obstructing 3 mm left mid ureteral calculus with associated hydronephrosis. 2.? Nonobstructing 4 mm left lower pole renal calculus. 3.? Other incidental findings as described above. ? Fleischner guidelines were followed. <Meseret Miranda CNP - Last Filed: 04/10/22 18:06> Prescription Management I considered prescription management with: Pain Medication <Meseretluba Miranda CNP - Last Filed: 04/10/22 18:06> Medications Administered Discontinued Medications Generic Name Dose Route Start Last Admin Trade Name Freq PRN Reason Stop Dose Admin Sodium Chloride 1,000 mls @ 999 mls/hr 04/10/22 13:30 04/10/22 16:50 Ns IV 04/10/22 14:30 Infused .Q1H1M SLADE Infusion Lactated Ringer's 1,000 mls @ 999 mls/hr 04/10/22 17:00 04/10/22 17:09 Lr IV 04/10/22 18:00 999 mls/hr .Q1H1M SLADE Administration Morphine Sulfate 4 mg 04/10/22 13:27 04/10/22 14:30 Morphine Sulfate 4 Mg/Ml Cartridge IVPUSH 04/10/22 13:28 4 mg ONCE ONE Administration Protocol Ondansetron HCl 4 mg 04/10/22 13:27 04/10/22 14:30 Ondansetron Hcl 4 Mg/2 Ml Vial IVPUSH 04/10/22 13:28 4 mg ONCE ONE Administration <Yanira Watts NP - Last Filed: 04/10/22 11:21> Medications Administered Discontinued Medications Generic Name Dose Route Start Last Admin Trade Name [place] PRN Reason Stop Dose Admin Sodium Chloride 1,000 mls @ 999 mls/hr 04/10/22 13:30 04/10/22 16:50 Ns IV 04/10/22 14:30 Infused .Q1H1M SLADE Infusion Lactated Ringer's 1,000 mls @ 999 mls/hr 04/10/22 17:00 04/10/22 17:09 Lr IV 04/10/22 18:00 999 mls/hr .Q1H1M SLADE Administration Morphine Sulfate 4 mg 04/10/22 13:27 04/10/22 14:30 Morphine Sulfate 4 Mg/Ml Cartridge IVPUSH 04/10/22 13:28 4 mg ONCE ONE Administration Protocol Ondansetron HCl 4 mg 04/10/22 13:27 04/10/22 14:30 Ondansetron Hcl 4 Mg/2 Ml Vial IVPUSH 04/10/22 13:28 4 mg ONCE ONE Administration <Meseret Miranda CNP - Last Filed: 04/10/22 18:06> Medications Administered Discontinued Medications Generic Name Dose Route Start Last Admin Trade Name Jt PRN Reason Stop Dose Admin Sodium Chloride 1,000 mls @ 999 mls/hr 04/10/22 13:30 04/10/22 16:50 Ns IV 04/10/22 14:30 Infused .Q1H1M SLADE Infusion Lactated Ringer's 1,000 mls @ 999 mls/hr 04/10/22 17:00 04/10/22 17:09 Lr IV 04/10/22 18:00 999 mls/hr .Q1H1M SLADE Administration Morphine Sulfate 4 mg 04/10/22 13:27 04/10/22 14:30 Morphine Sulfate 4 Mg/Ml Cartridge IVPUSH 04/10/22 13:28 4 mg ONCE ONE Administration Protocol Ondansetron HCl 4 mg 04/10/22 13:27 04/10/22 14:30 Ondansetron Hcl 4 Mg/2 Ml Vial IVPUSH 04/10/22 13:28 4 mg ONCE ONE Administration <PATRICK Hinton - Last Filed: 04/10/22 19:34> Discharge Plan Discharge Clinical Impression: Hydronephrosis with urinary obstruction due to ureteral calculus, Acute kidney injury <Yanira Watts NP - Last Filed: 04/10/22 11:21> Patient Disposition: Still a Patient <Yanira Watts NP - Last Filed: 04/10/22 11:21> Instructions: Ureteral Stones (ED) <Yanira Watts NP - Last Filed: 04/10/22 11:21> Additional Instructions: A prescription for tamsulosin was sent to your pharmacy to take daily, in addition to prednisone to take daily, and oxycodone to use as needed for severe pain in addition to Tylenol. The oxycodone is a narcotic medication, it can be addictive, it can make you drowsy. Should not drive or drink alcohol while taking this medication. IT IS IMPORTANT to not take your Ativan/ Lorazepam while taking oxycodone as the combination of these medications may be dangerous It is important to let your family members know if you are taking this medication, because it may cause your walking to be unsteady. Contact Urology office tomorrow to arrange for a follow-up appointment. <Yanira Watts NP - Last Filed: 04/10/22 11:21> Prescriptions: New tamsulosin 0.4 mg capsule 0.4 mg PO DAILY Qty: 10 0RF prednisone 20 mg tablet 20 mg PO DAILY Qty: 5 0RF oxycodone 5 mg tablet 5 mg PO Q6H PRN (Reason: pain) Qty: 14 0RF Rx Instructions: Partial Fill upon patient request. No Action multivitamin Tablet 1 tab PO DAILY buspirone 5 mg tablet 1 tab PO BEDTIME lorazepam 1 mg tablet 0.5 mg PO Q12H PRN (Reason: Anxiety) omeprazole 20 mg capsule,delayed release(DR/EC) 20 mg PO DAILY lisinopril 5 mg tablet 5 mg PO DAILY <Yanira Watts NP - Last Filed: 04/10/22 11:21> Referrals: Stu Brenner MD [Physician] - Arnold Pandya MD [Primary Care Provider] - <Yanira Watts NP - Last Filed: 04/10/22 11:21> Stand Alone Forms: Work/School Release <Yanira Watts NP - Last Filed: 04/10/22 11:21>
[2022-04-10 11:39] LABS: MANUAL DIFF FLAG NO
[2022-04-10 11:45] LABS: Basophils Absolute Auto 0.1 X10*3/uL (0.0-0.2); Basophils Percent Auto 0.5 % (0-2); Eosinophils Absolute Auto 0.1 X10*3/uL (0.0-0.4); Eosinophils Percent Auto 1.1 % (0-4); Hematocrit 44.7 % (42.0-52.0); Hemoglobin 15.3 g/dl (14.0-18.0); Imm Gran Abs Auto 0.06 X10*3/uL (0.00-0.03); Imm Gran Pct Auto 0.5 % (0.0-0.4); Lymphocytes Absolute Auto 1.6 X10*3/uL (1.2-4.9); Lymphocytes Percent Auto 12.9 % (20-40); Mean Corpuscular HGB Conc 34.2 g/dl (31.0-36.0); Mean Corpuscular Hemoglobin 31.9 pg (27.0-33.0); Mean Corpuscular Volume 93.3 fL (80.0-98.0); Mean Platelet Volume 9.8 fL (9.4-12.4); Monocytes Absolute Auto 1.2 X10*3/uL (0.1-1.2); Monocytes Percent Auto 9.7 % (2-11); Neutrophils Absolute Auto 9.4 x10*3/uL (2.0-8.3); Neutrophils Percent Auto 75.3 % (45-73); Platelet Count 270 X10*3/uL (160-400); Red Blood Count 4.79 X10*6/uL (4.60-5.80); Red Cell Distribution Width 11.9 % (11.0-16.0); White Blood Count 12.5 X10*3/uL (4.8-10.8)
[2022-04-10 11:51] LABS: COVID-19 Test Negative (Negative); IDNOW Serial# 16C4AD1C
[2022-04-10 12:02] LABS: Alanine Aminotransferase 22 U/L (0-40); Albumin Level 4.3 g/dL (3.5-5.0); Alkaline Phosphatase 99 U/L (39-117); Anion Gap 11 (12-20); Aspartate Amino Transferase 25 U/L (5-37); Bilirubin Direct 0.4 mg/dL (0.0-0.5); Bilirubin Total 1.5 mg/dL (0.0-1.0); Blood Urea Nitrogen 23 mg/dL (9-16); Calcium 9.2 mg/dL (8.4-10.2); Carbon Dioxide 26 mmol/L (22-29); Chloride 104 mmol/L (96-108); Creatinine Clr Calc Pharmacy 35.5; Estimated Glomerular Filt Rate 39; Glucose Random 122 mg/dL (60-115); Lipase 10 U/L (8-78); Potassium 4.4 mmol/L (3.3-5.1); Sodium 137 mmol/L (135-145); Total Protein 7.2 g/dL (6.5-8.0)
[2022-04-10 13:17] LABS: Appearance Urine Clear; Color Urine Yellow; Glucose Urine UA Negative (Negative); Leukocyte Esterase Urine Negative (Negative); Nitrite Urine Negative (Negative); Specific Gravity - Urine >= 1.030 (1.005-1.025); Urine Blood Negative (Negative); Urine Ketones 15 mg/dL (Negative); Urine Protein Negative (Neg-Trace)
[2022-04-10] MEDS: 0.9 % Sodium Chloride 1,000 ML 999 ML IV (14:14)
[2022-04-10 14:27] VITALS: BP 143/78; PULSE 73; RESP 20; O2SAT 95
[2022-04-10] MEDS: ondansetron HCL 4 MG/2 ML VIAL IVPUSH (14:30)
[2022-04-10] MEDS: Morphine Sulfate 4 MG/ML CARTRIDGE IVPUSH (14:30)
[2022-04-10 15:59] VITALS: BP 133/70; PULSE 81; RESP 20; TEMP 36.9; O2SAT 97
[2022-04-10] MEDS: Lactated Ringers 1,000 ML 999 ML IV (17:09)
[2022-04-10 18:00] VITALS: BP 131/70; PULSE 80; RESP 16; TEMP 37.2; O2SAT 98
--- NOTE | 2022-04-10 18:14 | MHC.EDTECH ---
PT 1800 VITALS SIGN TAKEN AND REPEATED LAB DRAWN AND SEND TO LAB .
[2022-04-10 18:43] LABS: Anion Gap 9 (12-20); Blood Urea Nitrogen 19 mg/dL (9-16); Calcium 8.3 mg/dL (8.4-10.2); Carbon Dioxide 25 mmol/L (22-29); Chloride 105 mmol/L (96-108); Creatinine Clr Calc Pharmacy 39.5; Estimated Glomerular Filt Rate 44; Glucose Random 119 mg/dL (60-115); Potassium 4.8 mmol/L (3.3-5.1); Sodium 134 mmol/L (135-145)
--- NOTE | 2022-04-10 19:16 | PHA.MEDREC ---
Pharmacy Consult ? Medication Reconciliation Pharmacy has completed the medication reconciliation.
[2022-04-10] MEDS: Tamsulosin HCL 0.4 MG CAPSULE PO (19:42)
[2022-04-10 19:43] VITALS: BP 136/68; PULSE 70; RESP 16; TEMP 36.3; O2SAT 98
== END 2022-04-10 19:48 | disposition still patient (30) ==
PROVIDERS: Nurse Practitioner Family; Emergency Provider Student in an Organized Health Care Education/Training Program; PCP Family Medicine
DX: N13.1 Hydronephrosis with ureteral stricture, not elsewhere classified (principal); Z20.822 Contact with and (suspected) exposure to COVID-19; Z20.828 Contact with and (suspected) exposure to other viral communicable diseases; Z79.899 Other long term (current) drug therapy
CPT/HCPCS: 36415; 74176; 80048; 80076; 81003; 83690; 85025; 87635; 96361; 96374; 96375; 99284; 99285; J2270; J2405

== ENCOUNTER 2022-08-29 07:41 | Outpatient (REF) | payer MEDICARE, OTHER, SELFPAY ==
--- NOTE | ~2022-08-29 | US_ITS ---
EXAMINATION: US RETROPERITONEAL LIMITED (RENAL ONLY) CLINICAL INFORMATION: Cyst of kidney, acquired. COMPARISON: CT abdomen and pelvis 04/10/2022. Renal ultrasound 09/07/2021. Ultrasound abdomen complete 06/19/2021. X-ray KUB 09/09/2018. MRI abdomen 07/09/2017. TECHNIQUE: Real-time imaging of the kidneys. FINDINGS: RIGHT KIDNEY: 11.1 x 5.1 x 4.8 cm (SAG x AP x TRV). The kidney is normal in size, contour, and echogenicity. Renal cortical thickness is normal. No calculi or focal parenchymal lesions. No hydronephrosis. LEFT KIDNEY: 12.2 x 6.6 x 3.9 cm (SAG x AP x TRV). The kidney is normal in size, contour, and echogenicity. Renal cortical thickness is normal. No calculi or focal parenchymal lesions. No hydronephrosis. US/US renal BI IMPRESSION: No abnormalities.
== END 2022-08-29 07:42 | disposition home or self-care (01) ==
LOC: HO.US 07:41
PROVIDERS: PCP Family Medicine; Visit Provider Urology
DX: N28.1 Cyst of kidney, acquired (principal)
CPT/HCPCS: 76775

== ENCOUNTER 2022-12-13 09:33 | Emergency (ER) | payer MEDICARE, OTHER, SELFPAY ==
[2022-12-13 09:36] VITALS: BP 114/69; PULSE 113; RESP 16; TEMP 36.8; O2SAT 96; BMI 24.3
--- NOTE | 2022-12-13 09:52 | ED.GENADULT ---
HPI - General Adult General Chief complaint: Abdominal Pain Stated complaint: Abd Pain Sent By Dr Pandya Time Seen by Provider: 12/13/22 09:51 Source: patient Mode of arrival: ambulatory Limitations: no limitations History of Present Illness HPI narrative: Patient is a 77 year old assigned male at with a history of diverticulosis, renal cysts, kidney stones, and liver cysts presenting to the emergency department today with lower abdominal pain. Patient states that he is having lower abdominal pain while having a BM. Patient denies any dizziness, lightheadedness, nausea, vomiting, fever, chills, blurry vision, double vision, loss of vision, chest pain, difficulty breathing, shortness of breath, back pain, night sweats, pain with urination, increased urinary frequency, increased urinary urgency, blood in his urine or stool, syncope or a near syncopal episode, recent trauma or falls, bowel incontinence, bladder incontinence, bowel retention, bladder retention, or any other complaints at this time. Onset (ago): day(s) Location: abdomen Radiation: non-radiation Severity: mild Severity scale (1-10): 3 Quality: aching and dull Pain Consistency: intermittent and now resolved Relieving factors: none Exacerbating factors: other (bowel movement) Associated symptoms: denies other symptoms Treatments prior to arrival: none Related Data Home Medications Medication Instructions Recorded Confirmed lisinopril 5 mg tablet 5 mg PO DAILY 05/18/20 04/10/22 lorazepam 1 mg tablet 0.5 mg PO Q12H PRN Anxiety 05/18/20 04/10/22 omeprazole 20 mg capsule,delayed 20 mg PO DAILY 05/18/20 04/10/22 release multivitamin 1 tab PO DAILY 05/23/20 04/10/22 buspirone 5 mg tablet 1 tab PO BEDTIME 07/17/21 04/10/22 Previous Rx's Medication Instructions Recorded oxycodone 5 mg tablet 5 mg PO Q6H PRN pain #14 tabs 04/10/22 prednisone 20 mg tablet 20 mg PO DAILY #5 tabs 04/10/22 tamsulosin 0.4 mg capsule 0.4 mg PO DAILY #10 caps 04/10/22 amoxicillin 875 mg-potassium 1 tab PO BID 10 days #20 tabs 12/13/22 clavulanate 125 mg tablet Allergies Allergy/AdvReac Type Severity Reaction Status Date / Time aspirin [Aspirin] AdvReac Intermediate gastrointestinal Verified 09/20/21 09:46 upset/pain Review of Systems Constitutional: Constitutional: Reports no additional constitutional complaints, Denies chills, Denies fever(s) and Denies night sweats Eyes: Eyes: Reports no additional eye complaints, Denies blurry vision, Denies change in vision, Denies diplopia, Denies eye discharge, Denies loss of vision and Denies eye pain ENT: Denies dizziness Cardiovascular: Cardiovascular: Reports no additional cardiovascular complaints, Denies chest pain, Denies lightheadedness, Denies Loss of Consciousness and Denies dyspnea Respiratory: Respiratory: Reports no additional respiratory complaints and Denies dyspnea Gastrointestinal: Gastrointestinal: Reports abdominal pain, Denies melena, Denies hematochezia, Denies change in bowel habits, Denies change in stool character, Denies constipation, Denies diarrhea, Denies nausea and Denies vomiting Genitourinary: Genitourinary: Reports no additional male genitourinary complaints, Denies hematuria, Denies oliguria, Denies difficulty urinating, Denies dysuria, Denies urinary frequency, Denies urinary hesitancy, Denies urinary incontinence and Denies urinary urgency Musculoskeletal: Musculoskeletal: Reports no additional musculoskeletal complaints, Denies numbness and Denies tingling Neurologic: Denies dizziness, Denies loss of vision, Denies numbness and Denies tingling Psychiatric: Psychiatric: Reports no additional psychiatric complaints Endocrine: Endocrine: Reports no additional endocrine complaints Hematologic/Lymphatic: Hematologic/Lymphatic: Reports no additional hematologic/lymphatic complaints Allergic/Immunologic: Allergic/Immunologic: Reports no additional allergic/immunologic complaints [facility] Past Medical History Attestation statement: The following information was validated with the patient. Source: old records reviewed and nursing notes reviewed Medical History Transient global amnesia BPH (benign prostatic hyperplasia) Gall bladder stones Chronic gastritis HTN (hypertension) Tubular adenoma of colon Arthritis Hx of meningioma of the brain GERD (gastroesophageal reflux disease) Hx of renal calculi Hx of spinal stenosis Elevated cholesterol Surgical History History of excision of pilonidal cyst Hx of arthroscopic knee surgery Hx of lithotripsy Hx of brain surgery History of esophagogastroduodenoscopy (EGD) H/O colonoscopy Social History Social History Alcohol intake: current Alcohol intake frequency: a few times a week Alcohol type: wine Patient Tobacco Use Status: Never used Tobacco Smoked in Last 30 Days: No Use of substances other than those prescribed or required for medical reasons: No Advance Directives: No Advance Directives Information Provided: Yes Physical Exam ED Vital Signs: Vital Signs - 24 hr 12/13/22 09:36 12/13/22 11:14 12/13/22 14:54 Temperature 98.3 F 97.4 F 98.2 F Pulse Rate 113 H 89 85 Respiratory Rate 16 18 16 Blood Pressure 114/69 108/61 110/63 Pulse Oximetry 96 96 96 Oxygen Delivery Method Room Air Room Air Room Air BMI result Body Mass Index 24.3 Const General: cooperative, no acute distress, alert and awake Nutritional Appearance: well nourished Orientation/consciousness: patient oriented x3 Limitations: no limitations HENMT Head: Yes normal to inspection and Yes atraumatic Ears: hearing grossly normal bilaterally and external ears normal General nose exam: Normal external nose present, no nasal discharge noted and no epistaxis Face and sinus: Yes normal facial exam, No abrasion and No laceration Mouth: Normal oral and palatal mucosa present, no drooling and no muffled voice Eyes General: appearance normal, both eyes and all related structures Periorbital: periorbital findings normal Eyelids: Yes eyelids normal Conjunctivae: conjunctivae normal Pupils: Equal, round and reactive pupils present EOM: EOMs intact bilaterally Neck Neck: Yes normal visual inspection, Yes full ROM and Yes no lymphadenopathy Chest Chest palpation & inspection: normal inspection of the chest Resp Effort & Inspection: normal respiratory effort and able to speak in complete sentences Auscultation: clear to auscultation bilaterally Cardio Rate: regular rate Rhythm: regular rhythm GI Other: lower left abdomen tender and mildly firm to palpation compared to right. Abdomen symmetric, nondistended, no herniation present. Inspection: Yes normal to inspection Palpation (GI): Soft to palpation, not firm, nontender and no guarding Neuro General: patient oriented x3 and moves all extremities Cranial nerves: Yes Equal, round and reactive pupils present Cognition (Neuro): normal cognition Motor exam (neuro): 5/5 motor strength present throughout Sensory Exam: Normal double simultaneous stimulation for sensation Coordination: [id number] test normal Extrem General: Yes normal to inspection, Yes full ROM and Yes capillary refill normal Psych Appearance: grossly normal Mental Status: mental status grossly normal Affect: normal affect Attitude: cooperative Thought process: Normal thought process present Thought content: Normal thought content present Insight: Good insight present (Psych) Medications Administered Discontinued Medications Generic Name Dose Route Start Last Admin Trade Name Jt PRN Reason Stop Dose Admin Iohexol 85 ml 12/13/22 11:59 12/13/22 12:01 Iohexol 350 Mg/Ml 100 Ml Infus..Btl IV 12/13/22 12:00 85 ml ONCE ONE Administration Medical Decision Making Medical Decision Making MDM Narrative: Patient is a 77 year old assigned male at with a history of kidney stones, diverticulosis, cystic liver, and cystic kidneys presenting to the emergency department today with abdominal pain. Patient's physical exam was unremarkable. Patient's blood work was unremarkable. Patient's urine showed no acute process. Patient's abdomen / pelvis CT showed diverticulitis. I explained my physical exam findings as well as all test results to the patient. I answered all questions asked by the patient. I stressed the importance of the patient taking his medication as prescribed. I stressed the importance of the patient following up with his primary care provider and his GI specialist. I stressed the importance of the patient returning to the emergency department immediately if his symptoms were to worsen or if he were to develop any dizziness, shortness of breath, difficulty breathing, chest pain, blurry vision, loss of vision, nausea, vomiting, abdominal pain, fever, chills, back pain, or any other complaints. Patient verbalized agreement and understanding with this treatment plan and discharge. Differential Diagnosis Differential Diagnoses: The differential diagnosis associated with the presentation includes Abdominal pain Diverticulitis Admission/Observation Consideration of admission/observation: Escalation of care including admission/observation considered Patient would have been admitted to the hospital had his work up had any findings where hospital admission was appropriate and his clinical presentation warranted hospital admission. Lab Data MDM Lab Attestation statement: I reviewed the patient's lab results. My interpretation of these studies and their corresponding values is that they are grossly normal. 12/13/22 10:34 12/13/22 10:34 Labs: Lab Results 12/13/22 12/13/22 Range/Units 10:34 13:01 WBC 10.6 (4.8-10.8) X10*3/uL RBC 4.09 L (4.60-5.80) X10*6/uL Hgb 13.1 L (14.0-18.0) g/dl Hct 38.8 L (42.0-52.0) % MCV 94.9 (80.0-98.0) fL MCH 32.0 (27.0-33.0) pg MCHC 33.8 (31.0-36.0) g/dl RDW 12.5 (11.0-16.0) % Plt Count 213 (160-400) X10*3/uL MPV 9.6 (9.4-12.4) fL Immature Gran % (Auto) 0.4 (0.0-0.4) % Neut % (Auto) 76.9 H (45-73) % Lymph % (Auto) 10.0 L (20-40) % [place] % (Auto) 11.3 H (2-11) % Eos % (Auto) 0.9 (0-4) % Baso % (Auto) 0.5 (0-2) % Lymph # (Auto) 1.1 L (1.2-4.9) X10*3/uL [place] # (Auto) 1.2 (0.1-1.2) X10*3/uL Eos # (Auto) 0.1 (0.0-0.4) X10*3/uL Baso # (Auto) 0.1 (0.0-0.2) X10*3/uL Abs Immat Gran (auto) 0.04 H (0.00-0.03) X10*3/uL Absolute Neuts (auto) 8.1 (2.0-8.3) x10*3/uL Absolute Nucleated RBC 0.000 (0.0-0.012) X10*3/uL Nucleated RBC % (auto) 0.0 (0.0-0.2) /100WBC Sodium 137 (135-145) mmol/L Potassium 4.5 (3.3-5.1) mmol/L Chloride 105 (96-108) mmol/L Carbon Dioxide 21 L (22-29) mmol/L Anion Gap 16 (12-20) BUN 17 H (9-16) mg/dL Creatinine 1.05 (0.5-1.4) mg/dL Estim Creat Clear Calc 54.2 Estimated GFR > 60 Random Glucose 156 H (60-115) mg/dL Calcium 8.6 (8.4-10.2) mg/dL Magnesium 2.1 (1.6-2.6) mg/dL Total Bilirubin 0.9 (0.0-1.0) mg/dL AST 16 (5-37) U/L ALT 11 (0-40) U/L Alkaline Phosphatase 72 (39-117) U/L Total Protein 6.8 (6.5-8.0) g/dL Albumin 3.7 (3.5-5.0) g/dL Urine Color Yellow Urine Appearance Clear Urine pH 6.5 (5.0-9.0) Ur Specific [place] >= 1.030 H (1.005-1.025) Urine Protein Negative (Neg-Trace) mg/dL Urine Glucose (UA) Negative (Negative) mg/dL Urine Ketones Negative (Negative) mg/dL Urine Blood Negative (Negative) Urine Nitrite Negative (Negative) Ur Leukocyte Esterase Negative (Negative) Independent Interpretation I performed an independent interpretation of an: CT Scan Interpretation: My interpretation is in agreement with the radiologist's impression of this imaging study. EXAMINATION: CT ABDOMEN AND PELVIS WITH CONTRAST CLINICAL INFORMATION: Abdominal pain COMPARISON: CT abdomen and pelvis from 04/10/2022 and 07/06/2021 TECHNIQUE: Multidetector volumetric images were obtained from the superior aspect of the liver through the pubic symphysis following administration 85 mL of Omnipaque 350 intravenous contrast. Sagittal and coronal reformatted images were obtained on the technologist's workstation. Oral contrast: Not administered This CT examination was performed using dose optimization techniques as appropriate, variously including the following: *Automated exposure control *Adjustment of mA and/or kV according to patient size (this includes techniques or standardized protocols for targeted exams where dose is matched to indication/reason for exam; i.e. extremities or head) *Use of iterative reconstruction technique DLP: 432 mGy-cm FINDINGS: LUNG BASES: The visualized lung bases are unremarkable. LIVER, GALLBLADDER, AND BILIARY TREE: There are stable cysts in the left lobe of the liver. Another low-attenuation lesion in segment 7 of right lobe of the liver measured 3.1 x 2.5 x 2.4 cm diminished in size since previous examinations, there is trace of ascites adjacent to the right lobe of the liver and inseparable from the cyst. Gallbladder is unremarkable. PANCREAS: Unremarkable. SPLEEN: Unremarkable. ADRENAL GLANDS: Unremarkable. KIDNEYS AND URETERS: Seen previously cyst in the left upper lobe has been resolved, replaced by cortical scarring and small left upper renal cyst. There is nonobstructing 0.4 cm calculus in the lower pole of left kidney right kidney is unremarkable. BLADDER: Unremarkable. GASTROINTESTINAL TRACT: Extensive degenerative changes of diverticulosis and there is sigmoid colon diverticulitis with haziness of the surrounding mesentery no obvious abscess formation or perforation seen. Appendix is not seen. ABDOMINAL WALL: No significant hernia is appreciated. LYMPH NODES: Normal. VASCULAR: There are calcifications seen are the fractures nondilated. PELVIC VISCERA: Unremarkable. OSSEOUS STRUCTURES: Multilevel degenerative changes in lumbar spine. There is grade 1 anterior listhesis of L4 over L5. CT/CT abdomen pelvis w IV con IMPRESSION: 1. Sigmoid colon diverticulitis and diverticular. 2. Stable cysts in the left lobe of the liver. 3. Decrease in size of low-attenuation lesion/cyst in the right lobe of the liver with trace of perihepatic ascites. 4. Left renal cyst resolved on the current study and nonobstructing calculus in the lower pole of the left kidney. 5. Degenerative changes in lumbar spine with grade 1 anterolisthesis of L4 over L5. Fleischner guidelines were followed. Dictated By: Carroll Pandya MD Signed By: Electronically signed by Carroll Pandya MD 12/13/22 3042 Radiology Impression Discussion of test interpretation with radiology: I have reviewed the radiologist's reading. External Record Review External record reviewed: Office record and Outpatient record Prescription Management I considered prescription management with: Antibiotic (Patient prescribed an antibiotic for his diverticulitis.) Discharge Plan Discharge Clinical Impression: Abdominal pain, Diverticulitis Patient Disposition: Home, Self-Care Instructions: Diverticulitis (ED), Abdominal Pain (ED) Additional Instructions: Follow up with your primary care provider and your GI specialist. Return to the emergency department immediately if your symptoms worsen or if you develop any dizziness, shortness of breath, difficulty breathing, chest pain, blurry vision, loss of vision, nausea, vomiting, abdominal pain, fever, chills, back pain, or any other complaints. Prescriptions: New amoxicillin-pot clavulanate 875-125 mg tablet 1 tab PO BID 10 Days Qty: 20 0RF No Action multivitamin Tablet 1 tab PO DAILY tamsulosin 0.4 mg capsule 0.4 mg PO DAILY Qty: 10 0RF prednisone 20 mg tablet 20 mg PO DAILY Qty: 5 0RF oxycodone 5 mg tablet 5 mg PO Q6H PRN (Reason: pain) Qty: 14 0RF Rx Instructions: Partial Fill upon patient request. buspirone 5 mg tablet 1 tab PO BEDTIME lorazepam 1 mg tablet 0.5 mg PO Q12H PRN (Reason: Anxiety) omeprazole 20 mg capsule,delayed release(DR/EC) 20 mg PO DAILY lisinopril 5 mg tablet 5 mg PO DAILY Referrals: Arnold Pandya MD [Primary Care Provider] - Eddie Santizo MD [Physician] - (Follow up with your GI specialist.) Interventions: ED Discharge Assessment Last Done: 12/13/22 15:49 Discharge Date/Time: 12/13/22 15:50 Print Language: Hungarian
[2022-12-13 11:14] VITALS: BP 108/61; PULSE 89; RESP 18; TEMP 36.3; O2SAT 96
--- NOTE | 2022-12-13 14:26 | PC.NURSE ---
pt resting comfortably with eyes closed, breathing even and unlabored. awaiting CT results
[2022-12-13 14:54] VITALS: BP 110/63; PULSE 85; RESP 16; TEMP 36.8; O2SAT 96
== END 2022-12-13 15:50 | disposition home or self-care (01) ==
PROVIDERS: Emergency Provider Emergency Medicine; PCP Family Medicine
DX: K57.32 Diverticulitis of large intestine without perforation or abscess without bleeding (principal); R10.30 Lower abdominal pain, unspecified; I10 Essential (primary) hypertension; E78.5 Hyperlipidemia, unspecified; Z79.899 Other long term (current) drug therapy
CPT/HCPCS: 36415; 74177; 80053; 81003; 83735; 85025; 99284; Q9967

== ENCOUNTER 2023-06-18 08:43 | Outpatient (REF) | payer MEDICARE, OTHER, SELFPAY ==
[2023-06-18 10:04] LABS: Anion Gap 13 (12-20); Blood Urea Nitrogen 17 mg/dL (9-16); Carbon Dioxide 26 mmol/L (22-29); Chloride 105 mmol/L (96-108); Estimated Glomerular Filt Rate > 60; Potassium 4.1 mmol/L (3.3-5.1); Sodium 140 mmol/L (135-145)
== END 2023-06-18 08:44 | disposition home or self-care (01) ==
LOC: HO.LAB 08:43
PROVIDERS: PCP Family Medicine; Visit Provider Family Medicine
DX: I10 Essential (primary) hypertension (principal)
CPT/HCPCS: 36415; 80051; 82565; 84520

== ENCOUNTER 2023-06-30 14:53 | Outpatient (REF) | payer MEDICARE, OTHER, SELFPAY ==
--- NOTE | ~2023-06-30 | US_ITS ---
EXAMINATION: US PELVIS LIMITED (BLADDER) CLINICAL INFORMATION: Rule out urinary retention. COMPARISON: CT abdomen and pelvis 12/13/2022. Renal ultrasound 08/29/2022 and 09/07/2021. X-ray abdomen 09/09/2018. MR abdomen without and with contrast 07/09/2017. TECHNIQUE: Real-time imaging of the bladder. FINDINGS: BLADDER: Well distended and normal. Bilateral ureteral jets are demonstrated. Prevoid bladder volume is 157 mL. Postvoid bladder volume is 110 mL. The prostate volume is 25.6 mL. US/US bladder IMPRESSION: Large post void residual.
[2023-06-30 16:16] LABS: Appearance Urine Clear; Color Urine Yellow; Glucose Urine UA Negative (Negative); Leukocyte Esterase Urine Moderate (2+) (Negative); Nitrite Urine Positive (Negative); PH 5.5 (5.0-9.0); UMIC TRIGGER UA YES; Urine Blood Trace (Negative); Urine Ketones Negative (Negative); Urine Protein Negative (Neg-Trace)
[2023-06-30 16:23] LABS: Bacteria Urine 4+ (None Seen); Hyaline Casts Urine 0-2 /LPF (0-2); RBC Urine 0-2 /HPF (0-2); WBC Urine >50 /HPF (0-5)
== END 2023-06-30 14:54 | disposition home or self-care (01) ==
LOC: HO.US 14:53
PROVIDERS: PCP Family Medicine; Visit Provider Family Medicine
DX: Z12.5 Encounter for screening for malignant neoplasm of prostate (principal); N40.0 Benign prostatic hyperplasia without lower urinary tract symptoms; R35.1 Nocturia; R35.0 Frequency of micturition
CPT/HCPCS: 36415; 76857; 81001; 84153

== ENCOUNTER 2023-07-16 08:20 | Day surgery (SDC) | payer MEDICARE, OTHER, SELFPAY ==
[2023-07-15 06:58] VITALS: BMI 23.8
--- NOTE | 2023-07-15 09:09 | HO.ANESPROP2 ---
Documented by User: Marisa Vasquez NP 07/15/23 09:10 HPI - Anesthesia Eval Consult details Narrative: 78yo M for Colonoscopy PMFSH Active Problems Active Problems: All Active Problems Complex renal cyst (Acute) Balanitis (Acute) Past Medical History Medical History Kidney stone Meningioma Spinal stenosis H/O pilonidal cyst Transient global amnesia BPH (benign prostatic hyperplasia) Gall bladder stones Chronic gastritis HTN (hypertension) Tubular adenoma of colon Arthritis Hx of meningioma of the brain GERD (gastroesophageal reflux disease) Hx of renal calculi Hx of spinal stenosis Elevated cholesterol Family History Family history of problems with anesthesia: No Surgical History Surgical History History of excision of pilonidal cyst Hx of arthroscopic knee surgery Hx of lithotripsy Hx of brain surgery History of esophagogastroduodenoscopy (EGD) H/O colonoscopy History of Problems with Anesthesia: No Social History Social History Alcohol intake: current Alcohol intake frequency: a few times a week Alcohol type: wine Patient Tobacco Use Status: Never used Tobacco Use of substances other than those prescribed or required for medical reasons: No Are you DNR?: No Advance Directives: No Advance Directives Information Provided: Yes Meds Allergies Allergy/AdvReac Type Severity Reaction Status Date / Time aspirin [Aspirin] AdvReac Intermediate gastrointestinal Verified 09/20/21 09:46 upset/pain Home Medications ?Medication ?Instructions ?Recorded ?Confirmed ?Last Taken ?Type lisinopril 5 mg tablet 5 mg PO DAILY 05/18/20 07/15/23 04/09/22 History lorazepam 1 mg tablet 0.5 mg PO Q12H PRN Anxiety 05/18/20 07/15/23 04/09/22 History omeprazole 20 mg capsule,delayed 20 mg PO DAILY 05/18/20 07/15/23 04/09/22 History release multivitamin 1 tab PO DAILY 05/23/20 07/15/23 04/09/22 History Exam Height,Weight and Vital Signs: Height 5 ft 7 in Weight 68.946 kg Pertinent Lab Results Pertinent Lab Results: Laboratory Tests 12/13/22 06/18/23 10:34 09:00 WBC 10.6 Hgb 13.1 L Hct 38.8 L Plt Count 213 Sodium 140 Potassium 4.1 Chloride 105 Carbon Dioxide 26 BUN 17 H Creatinine 0.99 Assessment and Plan Assessment Anesthesia Assessment: Chart Reviewed Final Anesthetic Review Family History of Problems with Anesthesia: No History of Problems with Anesthesia: No Documented by User: Micheal Bailon MD 07/16/23 09:55 PMF Past Medical History Medical History Kidney stone Meningioma Spinal stenosis H/O pilonidal cyst Transient global amnesia BPH (benign prostatic hyperplasia) Gall bladder stones Chronic gastritis HTN (hypertension) Tubular adenoma of colon Arthritis Hx of meningioma of the brain GERD (gastroesophageal reflux disease) Hx of renal calculi Hx of spinal stenosis Elevated cholesterol Surgical History Surgical History History of excision of pilonidal cyst Hx of arthroscopic knee surgery Hx of lithotripsy Hx of brain surgery History of esophagogastroduodenoscopy (EGD) H/O colonoscopy Social History Social History Alcohol intake: current Alcohol intake frequency: a few times a week Alcohol type: wine Patient Tobacco Use Status: Never used Tobacco Use of substances other than those prescribed or required for medical reasons: No Are you DNR?: No Advance Directives: No Advance Directives Information Provided: Yes Meds Allergies Allergy/AdvReac Type Severity Reaction Status Date / Time aspirin [Aspirin] AdvReac Intermediate gastrointestinal Verified 09/20/21 09:46 upset/pain Home Medications ?Medication ?Instructions ?Recorded ?Confirmed ?Last Taken ?Type lisinopril 5 mg tablet 5 mg PO DAILY 05/18/20 07/15/23 04/09/22 History lorazepam 1 mg tablet 0.5 mg PO Q12H PRN Anxiety 05/18/20 07/15/23 04/09/22 History omeprazole 20 mg capsule,delayed 20 mg PO DAILY 05/18/20 07/15/23 04/09/22 History release multivitamin 1 tab PO DAILY 05/23/20 07/15/23 04/09/22 History Exam Airway Mallampati Class: II TM Dist: >3cm Neck ROM: Full Loose/Missing/Broken Teeth: No Heart: ok Lungs: ok Assessment and Plan Assessment Anesthesia Assessment: Anesthesia Plan Discussed Final Anesthetic Review NPO: Yes ASA Class: III Final Preanesthetic Review: No Changes in Pt Med Stat, Meds/Allgs Chart Reviewed, Consent Obtained/Reviewed and Anes Risks/Benef Reviewed Patient Risk: High Procedure Risk: Low Anesthetic Plan Anesthetic Plan: MAC: and Agree w/ Assess. and Plan Disposition: Standard PACU
[2023-07-16 08:51] VITALS: BMI 21.3
[2023-07-16] MEDS: Sodium Phosphate,Mono-Dibasic 133 ML ENEMA PR (09:03)
[2023-07-16 09:13] VITALS: BP 132/66; PULSE 59; RESP 20; TEMP 36.7; O2SAT 100
[2023-07-16] MEDS: Lactated Ringers 1,000 ML 100 ML IVCONT (09:27)
[2023-07-16 10:36] VITALS: BP 97/60; PULSE 86; RESP 18; TEMP 36.7; O2SAT 95
--- NOTE | 2023-07-16 10:36 | P.BOP_ITS ---
Brief Operative Note Date of Service: 07/16/23 Pre-op diagnosis: Screening Post-op diagnosis: other (Polyps) Procedure: Colonoscopy to the cecum with hot snare polypectomy x 2 Surgeon: Eddie Santizo MD Anesthesia: MAC Was an Chemical Laboratory Chief used for this Procedure?: No Estimated blood loss (mL): 0 Pathology: other (A. Ascending colon polyps) Condition: stable Disposition: PACU
[2023-07-16 10:51] VITALS: BP 101/66; PULSE 78; RESP 16; O2SAT 99
[2023-07-16 11:06] VITALS: BP 113/60; PULSE 72; RESP 18; TEMP 36.4; O2SAT 100
--- NOTE | 2023-07-17 00:07 | OP_ITS ---
DATE OF SERVICE: 07/16/2023 SURGEON: Eddie Santizo MD INDICATIONS: The patient presents for followup of colorectal cancer screening and personal history of tubular adenoma of the colon. Full consent has been obtained from him for this, including risks of bleeding and perforation. PREOPERATIVE DIAGNOSIS: POSTOPERATIVE DIAGNOSIS: PROCEDURE PERFORMED: Colonoscopy to the cecum with hot snare polypectomy x2. ESTIMATED BLOOD LOSS: COMPLICATIONS: ANESTHESIA: Monitored anesthesia care. ASSISTANTS: SPECIMENS: PREOPERATIVE DIAGNOSES: Colorectal cancer screening, personal history of tubular adenoma of the colon, family history of colon cancer. POSTOPERATIVE DIAGNOSES: Colorectal cancer screening, personal history of tubular adenoma of the colon, family history of colon cancer, colon polyps, diverticulosis, and internal hemorrhoids. Limited prep in the left colon. DESCRIPTION OF PROCEDURE: The patient was placed in left decubitus position. The digital rectal exam revealed no abnormalities. The [employer] video pediatric colonoscope was entered into the rectum and advanced easily to the cecum. Once in the cecum, I did identify a normal-appearing cecal pouch with appendiceal orifice and a normal-appearing ileocecal valve. The entire cecum was well visualized and appeared normal. The scope was then slowly withdrawn assessing all mucosal surfaces carefully. Preparation in the ascending and transverse colon was very good. Preparation in the left colon and sigmoid colon was somewhat limited due to retained liquid stool, which was irrigated and suctioned away as best as possible but did limit the view to some degree. In the area of what appeared to be either the distal ascending colon or proximal transverse colon, possibly in the area of his previous polyps, were 2 polypoid lesions. One was approximately 8 to 10 mm in diameter and was removed by hot snare polypectomy and recovered by suction. The polypectomy site appeared clean, without any sign of residual polyp nor bleeding. In the same vicinity was a larger approximately 1.5 cm flat but raised polyp, which was removed by hot snare polypectomy in piecemeal fashion and recovered by suction as well. The polypectomy site appeared clean, without any sign of residual polyp nor bleeding. I did not visualize any other polyps, colitis, nor angiodysplasia. There was a moderate amount of sigmoid diverticulosis. In the rectum, scope was retroflexed visualizing internal hemorrhoids but no other pathology. The rectal mucosa appeared normal. The scope was straightened and withdrawn from the patient. He tolerated the procedure well and was returned to the recovery area in stable condition. IMPRESSION: 1. Colon polyps. 2. Diverticulosis. 3. Internal hemorrhoids. 4. Limited colon prep in left colon. PLAN: The results of the pathology will be checked. He was advised not to use any aspirin or NSAIDs for at least 1 week. Given his previous history, family history, and today's findings, I would recommend a repeat colonoscopy within 1 to 2 years for further screening and surveillance. However, at that point, he would be at least 79 years old, and we would need to take his clinical condition to account. This has been discussed with his . MD DAWNA Nichols/JEREMY / [id number]
== END 2023-07-16 11:14 | disposition home or self-care (01) ==
PROVIDERS: PCP Family Medicine; Visit Provider Internal Medicine
PROC: 0DJD8ZZ Inspection of Lower Intestinal Tract, Via Natural or Artificial Opening Endoscopic (ICD-10-PCS; CPT 45378; principal; 2023-07-16 09:40)
DX: Z12.11 Encounter for screening for malignant neoplasm of colon (principal); D12.2 Benign neoplasm of ascending colon; K57.30 Diverticulosis of large intestine without perforation or abscess without bleeding; K64.8 Other hemorrhoids; Z86.010 Personal history of colon polyps; Z80.0 Family history of malignant neoplasm of digestive organs; I10 Essential (primary) hypertension
CPT/HCPCS: 45385; 88305; J2704

== ENCOUNTER 2023-08-01 09:56 | Inpatient (IN) | payer MEDICARE, OTHER, SELFPAY ==
[2023-08-01] VITALS (17 sets, daily range): BP systolic 97–124; BP diastolic 51–66; PULSE 61–100; RESP 14–18; TEMP 36.4–39.1; O2SAT 92–99; BMI 20.4; BMI 22.2
--- NOTE | ~2023-08-01 | FL_ITS ---
EXAMINATION: XR FLUOROSCOPY WITH IMAGES CLINICAL INFORMATION: Retrograde stent placement COMPARISON: CT abdomen pelvis 08/01/2023 TECHNIQUE: Fluoroscopy Supervised By: Urology. Fluoroscopy Time: 15 seconds. Cumulative Dose: 3.29 mGy. Images: 0. FINDINGS: Fluoroscopy provided. FL/FL guidance in OR IMPRESSION: Fluoroscopy provided.
--- NOTE | ~2023-08-01 | XR_ITS ---
EXAMINATION: XR CHEST CLINICAL INFORMATION: Shortness of breath. COMPARISON: Chest radiograph dated 04/19/2013. TECHNIQUE: Frontal view of the chest was obtained. FINDINGS: The cardiac silhouette remains stable in size and configuration. The lungs are clear. There is no pleural effusion. No pneumothorax. No acute osseous abnormality. XR/XR chest 1V IMPRESSION: No acute cardiopulmonary disease.
--- NOTE | ~2023-08-01 | CT_ITS ---
EXAMINATION: CT ABDOMEN AND PELVIS WITH CONTRAST CLINICAL INFORMATION: Abdominal pain. Weight loss. COMPARISON: 12/13/2022 TECHNIQUE: Multidetector volumetric images were obtained from the superior aspect of the liver through the pubic symphysis following administration 85 mL of Omnipaque 350 intravenous contrast. Sagittal and coronal reformatted images were obtained on the technologist's workstation. Oral contrast: No This CT examination was performed using dose optimization techniques as appropriate, variously including the following: *Automated exposure control *Adjustment of mA and/or kV according to patient size (this includes techniques or standardized protocols for targeted exams where dose is matched to indication/reason for exam; i.e. extremities or head) *Use of iterative reconstruction technique DLP: 356 mGy-cm FINDINGS: LUNG BASES: No pleural or pericardial effusion. Small hiatal hernia. LIVER, GALLBLADDER, AND BILIARY TREE: The liver is normal size and contour. There is a hypodensity in the posterior right hepatic lobe measuring 2.1 x 2.7 x 2.4 cm with extension to the hepatic capsule where there is capsular retraction. There are scattered hepatic cysts that require no further imaging follow-up. No biliary ductal dilatation is present. Possible tumefactive sludge in the gallbladder. PANCREAS: No ductal dilatation. Scattered parenchymal calcifications. SPLEEN: Not enlarged. ADRENAL GLANDS: No adrenal mass. KIDNEYS AND URETERS: 5 mm calculus in the mid left ureter with mild to moderate left hydroureteronephrosis. There is irregular appearance of the left renal parenchyma with ill-defined infiltrative hypodensity involving the upper pole of the left kidney. The left kidney enhances entirely heterogeneously with striated nephrograms. There is left perinephric stranding. The right kidney is unremarkable. BLADDER: Mild wall thickening left superior bladder dome. No gas in the urinary bladder. GASTROINTESTINAL TRACT: Pericolonic stranding of the sigmoid colon with extensive underlying diverticular disease. There is a focal diverticulum adherent to the bladder dome with surrounding inflammation on image 31 of series 6. There is no definite fistulous communication on the current study. No small bowel obstruction. ABDOMINAL WALL: No significant hernia is appreciated. LYMPH NODES: No bulky lymphadenopathy. VASCULAR: Normal caliber abdominal aorta. PELVIC VISCERA: Enlarged prostate gland. OSSEOUS STRUCTURES: No destructive bone lesions. CT/CT abdomen pelvis w IV con IMPRESSION: 5 mm calculus in the left mid ureter with mild to moderate left hydroureteronephrosis. Heterogeneous enhancement and enlargement of the left kidney with associated striated nephrograms. This could represent acute pyelonephritis. Correlation with urinalysis is recommended. Follow-up imaging is advised to exclude underlying mass. Inflammatory stranding of the mid sigmoid colon with extensive underlying diverticular disease. There is an inflamed diverticulum adherent to the left superior bladder dome causing wall thickening. Short interval follow-up imaging is advised. Indeterminate liver hypodensity in the posterior right hepatic lobe measuring 2.1 x 2.7 x 2.4 cm with capsular retraction. MRI abdomen is recommended for further characterization. Findings were reviewed and discussed with PATRICK Murdock at 1:20 PM on 08/01/2023.
--- NOTE | 2023-08-01 09:59 | ECG_ITS ---
Test Reason : weakness Blood Pressure : / mmHG Vent. Rate : 101 BPM Atrial Rate : 101 BPM P-R Int : 116 ms QRS Dur : 090 ms QT Int : 346 ms P-R-T Axes : 046 008 046 degrees QTc Int : 448 ms Sinus tachycardia with frequent Premature ventricular complexes Otherwise normal ECG When compared with ECG of 01-AUG-2015 00:47, Premature ventricular complexes are now Present Referred By: Pauly Murdock Electronically Signed By:Wayne Erazo
--- NOTE | 2023-08-01 10:10 | ED.GENADULT ---
HPI - General Adult General Chief complaint: General Medical Stated complaint: weakness Time Seen by Provider: 08/01/23 10:00 Source: patient and other (PCP office PCP came w/ ) Mode of arrival: ambulatory Limitations: no limitations History of Present Illness ED Provider: Greer RENEE HPI narrative: This is a 78-year-old male history of essential tremor, BPH, depression, hyperlipidemia, anxiety, hypertension, IBS presenting to the emergency department for evaluation of fatigue, malaise, myalgias, weakness, unintentional weight loss of 20 lb over the past few weeks, urinary frequency, incomplete emptying, mild abd discomfort throughout, poor p.o. intake ongoing for the past few weeks. Patient reports that he started experiencing all of this about 2 weeks ago and symptoms have been worsening ever since. He reports this not like him at all. Thinks he may have a urinary tract infection. Reports recent colonoscopy which was unremarkable and done here at [facility] by Dr. Santizo. Reports fevers and chills at night that come and go. No cp, sob, hx of malignancy, nausea, vomting, headache, vision changes, dizziness. Related Data Home Medications ?Medication ?Instructions ?Recorded ?Confirmed lisinopril 5 mg tablet 5 mg PO DAILY 05/18/20 07/15/23 lorazepam 1 mg tablet 0.5 mg PO Q12H PRN Anxiety 05/18/20 07/15/23 omeprazole 20 mg capsule,delayed 20 mg PO DAILY 05/18/20 07/15/23 release multivitamin 1 tab PO DAILY 05/23/20 07/15/23 Allergies Allergy/AdvReac Type Severity Reaction Status Date / Time aspirin [Aspirin] AdvReac Intermediate gastrointestinal Verified 08/01/23 10:05 upset/pain Review of Systems Review of Systems: Yes all other systems are reviewed and are negative PMFSH Past Medical History Attestation statement: The following information was validated with the patient. Source: old records reviewed and nursing notes reviewed Medical History (Updated 08/01/23 @ 13:22 by PATRICK Hinton) Kidney stone Meningioma Spinal stenosis H/O pilonidal cyst Transient global amnesia BPH (benign prostatic hyperplasia) Gall bladder stones Chronic gastritis HTN (hypertension) Tubular adenoma of colon Arthritis Hx of meningioma of the brain GERD (gastroesophageal reflux disease) Hx of renal calculi Hx of spinal stenosis Elevated cholesterol Surgical History History of excision of pilonidal cyst Hx of arthroscopic knee surgery Hx of lithotripsy Hx of brain surgery History of esophagogastroduodenoscopy (EGD) H/O colonoscopy Social History Social History Alcohol intake: current Alcohol intake frequency: a few times a week Alcohol type: wine Patient Tobacco Use Status: Never used Tobacco Advance Directives: Yes Advance Directives on File: Yes Advance Directives Date on File: 12/17/22 Physical Exam ED Vital Signs: Vital Signs - 24 hr 08/01/23 10:03 08/01/23 10:33 08/01/23 12:04 Temperature 98.2 F 102.4 F H Pulse Rate 100 78 Respiratory Rate 18 18 Blood Pressure 112/58 L 100/51 L Pulse Oximetry 92 95 Oxygen Delivery Method Room Air Room Air 08/01/23 12:19 08/01/23 12:34 Temperature 99.1 F Pulse Rate 80 85 Respiratory Rate 18 16 Blood Pressure 105/57 L 119/54 L Pulse Oximetry 96 96 Oxygen Delivery Method Room Air Room Air BMI result Body Mass Index 20.4 hypotension tachy febrile Appearance: Alert.? Oriented X3.? No acute distress.? Head: Normocephalic, atraumatic, no step-offs or deformities Eyes: Pupils equal, round and reactive to light.? Neck: Normal inspection.? Neck supple.? CVS: Rapid rate normal rhythm likely sinus tachycardia.? Pulses normal.? Respiratory: No respiratory distress.? Breath sounds normal.? Abdomen: Soft and mild abd discomfort throughout normal BS throughout .? Skin: Skin warm and dry.? Normal skin color.? Normal skin turgor.? Extremities: No lower extremity edema.? No calf ttp. Gloabal weakness. Neuro: Oriented X 3.? No motor deficit.? No sensory deficit. CN 2-12 intact Course Reevaluation(s) Reevaluation #1: Nursing recorded and elevated temperature reading 102.4, hypotension, tahcycardia, patient is 92% on room air. White count 17.5. Chemistry pending. At this time infection is suspected, blood cultures, lactic acid were ordered previously I will cover with empiric antibiotics and give a 30 cc/kilos bolus. Septic focused exam was done on arrival. Time: 10:37 Reevaluation #2: Differential showing elevated neutrophil count as well as elevated band count concerning for sepsis. Chemistry with low sodium 132 IV fluids running. BUN and creatinine elevated likely secondary to acute infection and or sepsis or from postobstructive process will rule out with CT abdomen. Elevated transaminases as well as alk-phos again likely secondary to sepsis/UTI and or obstructive process. Again imaging is still pending. Tylenol was ordered for the fever. Fluids are running, antibiotics ordered. Time: 11:12 Reevaluation #3: Obstructive stone in the left mid ureter, likely causing MAURA, infection. Discuss this with urology who will likely stent patient later today. Plan is for hospital admission. Time: 13:30 Medications Administered Discontinued Medications Generic Name Dose Route Start Last Admin Trade Name Freq PRN Reason Stop Dose Admin Acetaminophen 650 mg 08/01/23 10:36 08/01/23 10:41 Acetaminophen 325 Mg Tablet PO 08/01/23 10:37 650 mg ONCE ONE Administration Sodium Chloride 1,824 mls @ 1,824 mls/hr 08/01/23 10:36 08/01/23 11:50 Ns 30 ml/kg infuse over 1 hr (1824 ml) 08/01/23 11:35 Infused IV Infusion .Q1H STA Ceftriaxone Sodium 1 gm/ 50 mls @ 100 mls/hr 08/01/23 10:36 08/01/23 11:11 Sodium Chloride IV 08/01/23 11:05 Infused ONCE ONE Infusion Iohexol 100 ml 08/01/23 12:02 08/01/23 12:02 Iohexol 350 Mg/Ml 100 Ml Infus..Btl IV 08/01/23 12:03 85 ml ONCE ONE Administration Medical Decision Making Medical Decision Making [facility] Narrative: 1012 78-year-old male presents with urinary symptoms, unintentional weight loss ongoing for the past 2 weeks. Also reporting fatigue, malaise and myalgias. Brought in by his primary care provider. Physical exam global weakness. Patient appears cachectic. Rapid rate normal rhythm likely sinus tachycardia. Vital signs stable. Concerns for possible malignancy versus UTI versus cystitis versus obstructing uropathy versus kidney stone. Will rule out metabolic derangements. Unlikely eating disorder. Dehydration suspection. Plan at this time labs, imaging, urine. Differential Diagnosis Differential Diagnoses: The differential diagnosis associated with the presentation includes Concerns for possible malignancy versus UTI versus cystitis versus obstructing uropathy versus kidney stone. Will rule out metabolic derangements. Unlikely eating disorder.Dehydration suspection. Admission/Observation Consideration of admission/observation: Escalation of care including admission/observation considered Likely Consult Healthcare Provider Management of the patient was discussed with: Primary Care Provider (PCP ) Lab Data MDM Lab Attestation statement: I reviewed the patient's lab results. 08/01/23 10:21 08/01/23 10:21 Labs: Lab Results 08/01/23 08/01/23 08/01/23 Range/Units 10:21 10:22 10:33 WBC 17.5 H (4.8-10.8) X10*3/uL RBC 3.97 L (4.60-5.80) X10*6/uL Hgb 12.5 L (14.0-18.0) g/dl Hct 36.3 L (42.0-52.0) % MCV 91.4 (80.0-98.0) fL MCH 31.5 (27.0-33.0) pg MCHC 34.4 (31.0-36.0) g/dl RDW 13.7 (11.0-16.0) % Plt Count 194 (160-400) X10*3/uL MPV 10.3 (9.4-12.4) fL Immature Gran % (Auto) Cancelled Neut % (Auto) Cancelled Lymph % (Auto) Cancelled [place] % (Auto) Cancelled Eos % (Auto) Cancelled Baso % (Auto) Cancelled Lymph # (Auto) Cancelled [place] # (Auto) Cancelled Eos # (Auto) Cancelled Baso # (Auto) Cancelled Abs Immat Gran (auto) Cancelled Absolute Neuts (auto) Cancelled Absolute Nucleated RBC 0.000 (0.0-0.012) X10*3/uL Nucleated RBC % (auto) 0.0 (0.0-0.2) /100WBC Neutrophils % (Manual) 90 H (45-73) % Band Neutrophils % 6 H (3-5) % Lymphocytes % (Manual) 1 L (20-40) % Monocytes % (Manual) 2 (2-11) % Metamyelocytes % 1 % Abs Neuts (Manual) 16.8 H (2.0-8.3) X10*3/uL Lymphocytes # (Manual) 0.2 L (1.2-4.9) X10*3/uL Monocytes # (Manual) 0.4 (0.1-1.2) X10*3/uL Metamyelocytes # 0.2 X10*3/uL Toxic Vacuolation PRESENT Dohle Bodies PRESENT Platelet Estimate NORMAL (NORMAL) Plt Morphology Comment NORMAL RBC Morphology NOTED [place] Cells 2+ (3-5) /OIF Acanthocytes (Spur) 1+ (0-2) /OIF PT 13.0 (11.1-13.3) SEC INR 1.1 (0.9-1.1) Sodium 132 L (135-145) mmol/L Potassium 4.4 (3.3-5.1) mmol/L Chloride 101 (96-108) mmol/L Carbon Dioxide 19 L (22-29) mmol/L Anion Gap 16 (12-20) BUN 35 H (9-16) mg/dL Creatinine 1.46 H (0.5-1.4) mg/dL Estim Creat Clear Calc 35.2 Estimated GFR 47 Random Glucose 137 H (60-115) mg/dL Lactic Acid 1.0 (0.5-2.0) mmol/L Calcium 8.2 L (8.4-10.2) mg/dL Magnesium 2.1 (1.6-2.6) mg/dL Total Bilirubin 0.9 (0.0-1.0) mg/dL AST 79 H (5-37) U/L ALT 54 H (0-40) U/L Alkaline Phosphatase 159 H (39-117) U/L Troponin I High Sens 16.8 (<3.5-35.0) ng/L Total Protein 7.4 (6.5-8.0) g/dL Albumin 3.0 L (3.5-5.0) g/dL Urine Color Dark Yellow Urine Appearance Turbid Urine pH 5.5 (5.0-9.0) Ur Specific [place] 1.020 (1.005-1.025) Urine Protein 100 (2+) H (Neg-Trace) mg/dL Urine Glucose (UA) Negative (Negative) mg/dL Urine Ketones Trace (Negative) mg/dL Urine Blood Large (3+) H (Negative) Urine Nitrite Positive H (Negative) Ur Leukocyte Esterase Large (3+) H (Negative) Urine RBC 3-5 H (0-2) /HPF Urine WBC >50 H (0-5) /HPF Ur Squamous Epith Cells 3-5 (0-2) /HPF Urine Bacteria 4+ (None Seen) Hyaline Casts 0-2 (0-2) /LPF Independent Interpretation I performed an independent interpretation of an: CT Scan Radiology Impression Discussion of test interpretation with radiology: I have reviewed the radiologist's reading. Independent Historian Clinical information obtained from an independent historian. History obtained from or confirmed by: Other (Patients PCP ) External Record Review External record reviewed: Inpatient record, Office record, Outpatient record, Prior outpatient labs, Prior outpatient radiology, Primary care record and Outside ED record Chronic Conditions Patient?s care impacted by: Other (tremor, bph, depression, anxiety, hld, ibs ) Critical Care Time Critical Care Time Critical Care Time: Yes Total Critical Care Time: 60 Attestation: I attest to this time spent taking care of the patient, obtaining history, physical, reviewing labs, imaging, speaking to my attending, specialist or hospitalist. Discharge Plan Discharge Clinical Impression: Sepsis, Acute UTI, MAURA (acute kidney injury), Transaminitis, Acute hyponatremia, Acute pyelonephritis, Obstructed, uropathy Patient Disposition: Admitted As Inpatient Prescriptions: No Action multivitamin Tablet 1 tab PO DAILY lorazepam 1 mg tablet 0.5 mg PO Q12H PRN (Reason: Anxiety) omeprazole 20 mg capsule,delayed release(DR/EC) 20 mg PO DAILY lisinopril 5 mg tablet 5 mg PO DAILY Print Language: Georgian
[2023-08-01 10:27] LABS: Hematocrit 36.3 % (42.0-52.0); Hemoglobin 12.5 g/dl (14.0-18.0); Mean Corpuscular HGB Conc 34.4 g/dl (31.0-36.0); Mean Corpuscular Hemoglobin 31.5 pg (27.0-33.0); Mean Corpuscular Volume 91.4 fL (80.0-98.0); Mean Platelet Volume 10.3 fL (9.4-12.4); Platelet Count 194 X10*3/uL (160-400); Red Blood Count 3.97 X10*6/uL (4.60-5.80); Red Cell Distribution Width 13.7 % (11.0-16.0); White Blood Count 17.5 X10*3/uL (4.8-10.8)
[2023-08-01 10:38] LABS: INTERNATIONAL NORM RATIO 1.1 (0.9-1.1)
[2023-08-01 10:41] LABS: Appearance Urine Turbid; Color Urine Dark Yellow; Glucose Urine UA Negative (Negative); Leukocyte Esterase Urine Large (3+) (Negative); Nitrite Urine Positive (Negative); PH 5.5 (5.0-9.0); UMIC TRIGGER UACC YES; Urine Blood Large (3+) (Negative); Urine Ketones Trace mg/dL (Negative); Urine Protein 100 (2+) mg/dL (Neg-Trace)
[2023-08-01] MEDS: Acetaminophen 325 MG TABLET 650 MG PO (10:41)
[2023-08-01] MEDS: cefTRIAXone sodium 1 GM in 0.9 % Sodium Chloride 50 ML IV (10:41)
[2023-08-01] MEDS: SODIUM CHLORIDE 1824 ML IV (10:42)
[2023-08-01 10:49] LABS: Band Neutrophils Percent 6 % (3-5); Lymphocytes Absolute Manual 0.2 X10*3/uL (1.2-4.9); Lymphocytes Percent Manual 1 % (20-40); Metamyelocytes Absolute 0.2 X10*3/uL; Metamyelocytes Percent 1 %; Monocytes Absolute Manual 0.4 X10*3/uL (0.1-1.2); Monocytes Percent Manual 2 % (2-11); Neutrophils Absolute Manual 16.8 X10*3/uL (2.0-8.3); Neutrophils Percent Manual 90 % (45-73)
[2023-08-01 10:53] LABS: Alanine Aminotransferase 54 U/L (0-40); Alkaline Phosphatase 159 U/L (39-117); Anion Gap 16 (12-20); Aspartate Amino Transferase 79 U/L (5-37); Bilirubin Total 0.9 mg/dL (0.0-1.0); Blood Urea Nitrogen 35 mg/dL (9-16); Calcium 8.2 mg/dL (8.4-10.2); Carbon Dioxide 19 mmol/L (22-29); Chloride 101 mmol/L (96-108); Creatinine Clr Calc Pharmacy 35.2; Estimated Glomerular Filt Rate 47; Glucose Random 137 mg/dL (60-115); Magnesium 2.1 mg/dL (1.6-2.6); Potassium 4.4 mmol/L (3.3-5.1); Sodium 132 mmol/L (135-145); Total Protein 7.4 g/dL (6.5-8.0)
[2023-08-01 10:54] LABS: Acanthocytes 1+ (0-2) /OIF; Burr Cells 2+ (3-5) /OIF; Dohle Bodies PRESENT; Platelet Estimate NORMAL (NORMAL); Platelet Morphology Comment NORMAL; RBC Morphology NOTED; Toxic Vacuolation PRESENT
[2023-08-01 10:57] LABS: Bacteria Urine 4+ (None Seen); Hyaline Casts Urine 0-2 /LPF (0-2); UACC Culture Trigger YES; WBC Urine >50 /HPF (0-5)
[2023-08-01 10:59] LABS: Troponin-I High Sensitivity 16.8 ng/L (<3.5-35.0)
[2023-08-01] MEDS: iohexoL 350 MG/ML 100 ML INFUS..BTL IV (12:02)
--- NOTE | 2023-08-01 13:52 | PM.IMHP ---
History of Present Illness Date of Service: 08/01/23 Chief Complaint: urinary frequency 78M PMH htn, bph, mood disorder, presented with urinary frequency, fatigue, unintentional 20 lb weight loss. Patient denies any fevers, chills, flank pain. UA grossly positive, febrile with leukocytosis in the ED. CT abdomen with 5 mm calculus in the left mid ureter with mild to moderate left hydronephrosis, heterogeneous enhancement and enlargement of the left kidney with associated history of nephrograms consistent with acute pyelonephritis can not rule out underlying mass, indeterminate liver hypodensity. Also with MAURA, creatinine 1.46. Review of Systems Review of Systems: Yes all other systems are reviewed and are negative [facility] Medical History Kidney stone Meningioma Spinal stenosis H/O pilonidal cyst Transient global amnesia BPH (benign prostatic hyperplasia) Gall bladder stones Chronic gastritis HTN (hypertension) Tubular adenoma of colon Arthritis Hx of meningioma of the brain GERD (gastroesophageal reflux disease) Hx of renal calculi Hx of spinal stenosis Elevated cholesterol Surgical History History of excision of pilonidal cyst Hx of arthroscopic knee surgery Hx of lithotripsy Hx of brain surgery History of esophagogastroduodenoscopy (EGD) H/O colonoscopy Social History Alcohol intake: current Alcohol intake frequency: a few times a week Alcohol type: wine Patient Tobacco Use Status: Never used Tobacco Advance Directives: Yes Advance Directives on File: Yes Advance Directives Date on File: 12/17/22 Meds Allergies Allergy/AdvReac Type Severity Reaction Status Date / Time aspirin [Aspirin] AdvReac Intermediate gastrointestinal Verified 08/01/23 10:05 upset/pain Home Medications ?Medication ?Instructions ?Recorded ?Confirmed ?Last Taken ?Type lisinopril 5 mg tablet 5 mg PO DAILY 05/18/20 07/15/23 04/09/22 History omeprazole 20 mg capsule,delayed 20 mg PO DAILY 05/18/20 07/15/23 04/09/22 History release multivitamin 1 tab PO DAILY 05/23/20 07/15/23 04/09/22 History prazosin 1 mg capsule 1 mg PO BEDTIME 08/01/23 08/01/23 Unknown History Physical Exam Vital Signs and Narrative: Vital Signs: Last Vital Signs Temp 99.1 F 08/01/23 12:34 Pulse 85 08/01/23 12:34 Resp 16 08/01/23 12:34 BP 119/54 L 08/01/23 12:34 Pulse Ox 96 08/01/23 12:34 O2 Del Method Room Air 08/01/23 12:34 BMI result Body Mass Index 20.4 General: AO X 3, no acute distress Resp: CTA bilateral, no accessory muscles used CVS: S1,S2,RRR GI: soft, non tender, non distended Neuro: motor grossly intact, alert Psych: appropriate affect, appropriate insight Results Labs 08/01/23 10:21 08/01/23 10:21 Labs: Laboratory Results - last 24 hr 08/01/23 08/01/23 08/01/23 10:21 10:22 10:33 MCV 91.4 MCH 31.5 MCHC 34.4 RDW 13.7 Plt Count 194 MPV 10.3 Immature Gran % (Auto) Cancelled Neut % (Auto) Cancelled Lymph % (Auto) Cancelled [place] % (Auto) Cancelled Eos % (Auto) Cancelled Baso % (Auto) Cancelled Lymph # (Auto) Cancelled [place] # (Auto) Cancelled Eos # (Auto) Cancelled Baso # (Auto) Cancelled Abs Immat Gran (auto) Cancelled Absolute Neuts (auto) Cancelled Absolute Nucleated RBC 0.000 Nucleated RBC % (auto) 0.0 Neutrophils % (Manual) 90 H Band Neutrophils % 6 H Lymphocytes % (Manual) 1 L Monocytes % (Manual) 2 Metamyelocytes % 1 Abs Neuts (Manual) 16.8 H Lymphocytes # (Manual) 0.2 L Monocytes # (Manual) 0.4 Metamyelocytes # 0.2 Toxic Vacuolation PRESENT Dohle Bodies PRESENT Platelet Estimate NORMAL Plt Morphology Comment NORMAL RBC Morphology NOTED [place] Cells 2+ (3-5) Acanthocytes (Spur) 1+ (0-2) PT 13.0 INR 1.1 Anion Gap 16 Estim Creat Clear Calc 35.2 Estimated GFR 47 Random Glucose 137 H Lactic Acid 1.0 Calcium 8.2 L Magnesium 2.1 Total Bilirubin 0.9 AST 79 H ALT 54 H Alkaline Phosphatase 159 H Troponin I High Sens 16.8 Total Protein 7.4 Albumin 3.0 L Urine Color Dark Yellow Urine Appearance Turbid Urine pH 5.5 Ur Specific [place] 1.020 Urine Protein 100 (2+) H Urine Glucose (UA) Negative Urine Ketones Trace Urine Blood Large (3+) H Urine Nitrite Positive H Ur Leukocyte Esterase Large (3+) H Urine RBC 3-5 H Urine WBC >50 H Ur Squamous Epith Cells 3-5 Urine Bacteria 4+ Hyaline Casts 0-2 Imaging Radiologist's Impressions: Impressions Abdomen/Pelvis CT 08/01/23 12:01 IMPRESSION: 5 mm calculus in the left mid ureter with mild to moderate left hydroureteronephrosis. Heterogeneous enhancement and enlargement of the left kidney with associated striated nephrograms. This could represent acute pyelonephritis. Correlation with urinalysis is recommended. Follow-up imaging is advised to exclude underlying mass. Inflammatory stranding of the mid sigmoid colon with extensive underlying diverticular disease. There is an inflamed diverticulum adherent to the left superior bladder dome causing wall thickening. Short interval follow-up imaging is advised. Indeterminate liver hypodensity in the posterior right hepatic lobe measuring 2.1 x 2.7 x 2.4 cm with capsular retraction. MRI abdomen is recommended for further characterization. Findings were reviewed and discussed with PATRICK Murdock at 1:20 PM on 08/01/2023. Assessment and Plan (1) Acute pyelonephritis: Status: Acute Plan 78M PMH htn, bph, mood disorder, presented with urinary frequency, fatigue, unintentional 20 lb weight loss Sepsis secondary to acute pyelonephritis due to obstructing left ureteral stone with [id number] hydronephrosis Ceftriaxone, urology eval, follow-up cultures Acute kidney injury Likely combination of obstructive and prerenal IV fluids, Urology eval, monitor Unintentional weight loss Question underlying renal malignancy Hypertension Low normal blood pressures, will hold antihypertensives for now DVT prophylaxis with Lovenox Full Code Patient with sepsis due to pyelonephritis, and MAURA, requiring IV antibiotics and IV fluids close monitoring of labs and following up with blood cultures, therefore expected require at least 2 midnights inpatient Quality Stroke Does the patient have a stroke diagnosis?: No VTE Prior VTE?: No VTE Risk Level:: Medical - moderate - high VTE Device Contraindication: Treatment Not Indicated VTE Drug Contraindication: N/A - Med Ordered
--- NOTE | 2023-08-01 14:01 | PHA.MEDREC ---
Pharmacy Consult ? Medication Reconciliation Pharmacy has completed the medication reconciliation.Confirmed meds with patient. Patient stated he is no longer taking the lorazepam.
--- NOTE | 2023-08-01 14:54 | P.CNUR_ITS ---
History of Present Illness Consult details Consult date: 08/01/23 Narrative: Consulting complaint: Mid left ureteric stone with question sepsis 78-year-old male Presentation to emergency room with febrile leukocytosis. Unintentional 20 lb weight loss. Primary care concern regarding neoplastic process Creatinine 1.5, BUN 35, white count 17, PSA 14.3, alk-phos 160, albumin 3.0 Imaging - CT 5 mm calculus in the mid left ureter with mild to moderate left hydroureteronephrosis. There is irregular appearance of the left renal parenchyma with ill-defined infiltrative hypodensity involving the upper pole of the left kidney. The left kidney enhances entirely heterogeneously with striated nephrograms Acute kidney injury - plan for cystoscopy, left retrograde, stent placement Review of Systems 2 Constitutional: Constitutional: Reports as per HPI and Reports no additional constitutional complaints Cardiovascular: Cardiovascular: Reports as per HPI and Reports no additional cardiovascular complaints Respiratory: Respiratory: Reports as per HPI and Reports no additional respiratory complaints Gastrointestinal: Gastrointestinal: Reports as per HPI and Reports no additional gastrointestinal complaints Genitourinary: Genitourinary: Reports as per HPI Musculoskeletal: Musculoskeletal: Reports no additional musculoskeletal complaints and Reports as per HPI Neurologic: Reports system reviewed and no additional complaints, except as documented and Reports as per HPI PMFSH Past Medical History Medical History Kidney stone Meningioma Spinal stenosis H/O pilonidal cyst Transient global amnesia BPH (benign prostatic hyperplasia) Gall bladder stones Chronic gastritis HTN (hypertension) Tubular adenoma of colon Arthritis Hx of meningioma of the brain GERD (gastroesophageal reflux disease) Hx of renal calculi Hx of spinal stenosis Elevated cholesterol Surgical History Surgical History History of excision of pilonidal cyst Hx of arthroscopic knee surgery Hx of lithotripsy Hx of brain surgery History of esophagogastroduodenoscopy (EGD) H/O colonoscopy Social History Social History Alcohol intake: current Alcohol intake frequency: a few times a week Alcohol type: wine Patient Tobacco Use Status: Never used Tobacco Advance Directives: Yes Advance Directives on File: Yes Advance Directives Date on File: 12/17/22 Meds Allergies Allergy/AdvReac Type Severity Reaction Status Date / Time aspirin [Aspirin] AdvReac Intermediate gastrointestinal Verified 08/01/23 10:05 upset/pain Active Medications: Current Medications Buspirone HCl (Buspirone Hcl 5 Mg Tablet) 5 mg PO DAILY [facility] Enoxaparin Sodium (Enoxaparin Sodium 40 Mg/0.4 Ml Syringe) 40 mg SUBCUT Q24H [facility] Ceftriaxone Sodium 1 gm/ (Sodium Chloride) 50 mls @ 100 mls/hr IV Q24H [facility] Sodium Chloride (Ns) 1,000 mls @ 80 mls/hr IVCONT .[id number] [facility] Levofloxacin (Levaquin) 500 mg in 100 mls @ 100 mls/hr IV PREOP ONE Stop: 08/01/23 15:35 Multivitamins/Vitamin C (Multivitamin Tablet) 1 tab PO DAILY [facility] Omeprazole (Omeprazole 20 Mg Capsule.Dr) 20 mg PO DAILY@0630 [facility] Prazosin HCl (Prazosin Hcl 1 Mg Capsule) 1 mg PO BEDTIME [facility]; Protocol Sertraline HCl (Sertraline Hcl 25 Mg Tablet) 25 mg PO DAILY [facility] Sodium Chloride (0.9 % Sodium Chloride Flush 3 Ml Syringe) 3 ml IVFLUSH QSHIFT [facility] Home Medications ?Medication ?Instructions ?Recorded ?Confirmed ?Last Taken ?Type lisinopril 5 mg tablet 5 mg PO DAILY 05/18/20 08/01/23 04/09/22 History omeprazole 20 mg capsule,delayed 20 mg PO DAILY 05/18/20 08/01/23 04/09/22 History release multivitamin 1 tab PO DAILY 05/23/20 08/01/23 04/09/22 History buspirone 5 mg tablet 5 mg PO DAILY 08/01/23 08/01/23 Unknown History prazosin 1 mg capsule 1 mg PO BEDTIME 08/01/23 08/01/23 Unknown History sertraline 25 mg tablet 25 mg PO QAM 08/01/23 08/01/23 Unknown History Physical Exam 2 Vital Signs: Vital Signs: Last Vital Signs Temp 97.6 F 08/01/23 14:38 Pulse 70 08/01/23 14:38 Resp 14 08/01/23 14:38 BP 112/66 08/01/23 14:38 Pulse Ox 96 08/01/23 14:38 O2 Del Method Room Air 08/01/23 14:38 BMI result Body Mass Index 20.4 Const: General: cooperative, healthy appearing, comfortable and no acute distress Orientation/consciousness: patient oriented x3 HEENT: Face and sinus: Yes normal facial exam Mouth: moist mucous membranes Neck: Neck: Yes normal visual inspection, Yes full ROM and Yes trachea midline Chest: Chest palpation & inspection: normal inspection of the chest Resp: Effort & Inspection: normal respiratory effort, able to speak in complete sentences and no respiratory distress GI: Inspection: Yes normal to inspection Back/Spine/Pelvis: Cervical Spine: normal cervical lordosis Thoracic/Lumbar Spine: thoracic and lumbar spine normal to inspection Skin: General skin exam: no rashes or lesions noted Neuro: General: patient oriented x3, tone normal and moves all extremities Extrem: General: Yes normal to inspection and Yes capillary refill normal Results Labs 08/01/23 10:21 08/01/23 10:21 Labs: Abnormal lab results 08/01/23 08/01/23 Range/Units 10:21 10:33 WBC 17.5 H (4.8-10.8) X10*3/uL RBC 3.97 L (4.60-5.80) X10*6/uL Hgb 12.5 L (14.0-18.0) g/dl Hct 36.3 L (42.0-52.0) % Neutrophils % (Manual) 90 H (45-73) % Band Neutrophils % 6 H (3-5) % Lymphocytes % (Manual) 1 L (20-40) % Abs Neuts (Manual) 16.8 H (2.0-8.3) X10*3/uL Lymphocytes # (Manual) 0.2 L (1.2-4.9) X10*3/uL Sodium 132 L (135-145) mmol/L Carbon Dioxide 19 L (22-29) mmol/L BUN 35 H (9-16) mg/dL Creatinine 1.46 H (0.5-1.4) mg/dL Random Glucose 137 H (60-115) mg/dL Calcium 8.2 L (8.4-10.2) mg/dL AST 79 H (5-37) U/L ALT 54 H (0-40) U/L Alkaline Phosphatase 159 H (39-117) U/L Albumin 3.0 L (3.5-5.0) g/dL Urine Protein 100 (2+) H (Neg-Trace) mg/dL Urine Blood Large (3+) H (Negative) Urine Nitrite Positive H (Negative) Ur Leukocyte Esterase Large (3+) H (Negative) Urine RBC 3-5 H (0-2) /HPF Urine WBC >50 H (0-5) /HPF Short CBC 08/01/23 Range/Units 10:21 WBC 17.5 H (4.8-10.8) X10*3/uL Hgb 12.5 L (14.0-18.0) g/dl Hct 36.3 L (42.0-52.0) % Plt Count 194 (160-400) X10*3/uL BMP 08/01/23 10:21 Sodium 132 L Potassium 4.4 Chloride 101 Carbon Dioxide 19 L BUN 35 H Creatinine 1.46 H Calcium 8.2 L Liver Function 08/01/23 Range/Units 10:21 Total Bilirubin 0.9 (0.0-1.0) mg/dL AST 79 H (5-37) U/L ALT 54 H (0-40) U/L Alkaline Phosphatase 159 H (39-117) U/L Albumin 3.0 L (3.5-5.0) g/dL Urine 08/01/23 Range/Units 10:33 Urine Color Dark Yellow Urine Appearance Turbid Urine pH 5.5 (5.0-9.0) Ur Specific [place] 1.020 (1.005-1.025) Urine Protein 100 (2+) H (Neg-Trace) mg/dL Urine Glucose (UA) Negative (Negative) mg/dL All other labs normal. Assessment and Plan (1) Kidney stone: Status: Acute (2) Sepsis: Status: Acute (3) Acute pyelonephritis: Status: Acute Plan Risks, benefits and alternatives to therapy were discussed. These include but are not limited to infection, bleeding, damage to local organs and tissues, need for further interventions. Anesthetic risks regarding cardiac arrhythmia, blood clots, and potential mortality were discussed. The patient understands the typical recovery time and the outpatient nature of the procedure. After consideration of these risks the patient gives full informed consent and they wish to move ahead with the procedure. Cystoscopy, left retrograde, stent placement Procedures Date of Service Date of Service: 08/01/23
--- NOTE | 2023-08-01 15:24 | PC.NURSE ---
pt to OR. report given
--- NOTE | 2023-08-01 15:40 | P.CONAN_ITS ---
[facility] Active Problems Active Problems: All Active Problems Kidney stone (Acute) Obstructed, uropathy (Acute) Acute pyelonephritis (Acute) Acute hyponatremia (Acute) Transaminitis (Acute) MAURA (acute kidney injury) (Acute) Acute UTI (Acute) Sepsis (Acute) Complex renal cyst (Acute) Balanitis (Acute) Past Medical History Medical History (Updated 08/01/23 @ 14:58 by Stu Brenner MD) Kidney stone Meningioma Spinal stenosis H/O pilonidal cyst Transient global amnesia BPH (benign prostatic hyperplasia) Gall bladder stones Chronic gastritis HTN (hypertension) Tubular adenoma of colon Arthritis Hx of meningioma of the brain GERD (gastroesophageal reflux disease) Hx of renal calculi Hx of spinal stenosis Elevated cholesterol Family History Family history of problems with anesthesia: No Surgical History Surgical History History of excision of pilonidal cyst Hx of arthroscopic knee surgery Hx of lithotripsy Hx of brain surgery History of esophagogastroduodenoscopy (EGD) H/O colonoscopy History of Problems with Anesthesia: No Social History Social History Alcohol intake: current Alcohol intake frequency: a few times a week Alcohol type: wine Patient Tobacco Use Status: Never used Tobacco Advance Directives: Yes Advance Directives on File: Yes Advance Directives Date on File: 12/17/22 Meds Allergies Allergy/AdvReac Type Severity Reaction Status Date / Time aspirin [Aspirin] AdvReac Intermediate gastrointestinal Verified 08/01/23 10:05 upset/pain Active Medications: Current Medications Buspirone HCl (Buspirone Hcl 5 Mg Tablet) 5 mg PO DAILY [facility] Enoxaparin Sodium (Enoxaparin Sodium 40 Mg/0.4 Ml Syringe) 40 mg SUBCUT Q24H [facility] Ceftriaxone Sodium 1 gm/ (Sodium Chloride) 50 mls @ 100 mls/hr IV Q24H [facility] Sodium Chloride (Ns) 1,000 mls @ 80 mls/hr IVCONT .[id number] [facility] Multivitamins/Vitamin C (Multivitamin Tablet) 1 tab PO DAILY [facility] Omeprazole (Omeprazole 20 Mg Capsule.Dr) 20 mg PO DAILY@0630 [facility] Prazosin HCl (Prazosin Hcl 1 Mg Capsule) 1 mg PO BEDTIME [facility]; Protocol Sertraline HCl (Sertraline Hcl 25 Mg Tablet) 25 mg PO DAILY [facility] Sodium Chloride (0.9 % Sodium Chloride Flush 3 Ml Syringe) 3 ml IVFLUSH QSHIFT [facility] Home Medications ?Medication ?Instructions ?Recorded ?Confirmed ?Last Taken ?Type lisinopril 5 mg tablet 5 mg PO DAILY 05/18/20 08/01/23 04/09/22 History omeprazole 20 mg capsule,delayed 20 mg PO DAILY 05/18/20 08/01/23 04/09/22 History release multivitamin 1 tab PO DAILY 05/23/20 08/01/23 04/09/22 History buspirone 5 mg tablet 5 mg PO DAILY 08/01/23 08/01/23 Unknown History prazosin 1 mg capsule 1 mg PO BEDTIME 08/01/23 08/01/23 Unknown History sertraline 25 mg tablet 25 mg PO QAM 08/01/23 08/01/23 Unknown History Exam Height,Weight and Vital Signs: Height 5 ft 8 in Weight 60.8 kg Last Vital Signs Temp 97.6 F 08/01/23 14:38 Pulse 70 08/01/23 14:38 Resp 14 08/01/23 14:38 BP 112/66 08/01/23 14:38 Pulse Ox 96 08/01/23 14:38 O2 Del Method Room Air 08/01/23 14:38 Pertinent Lab Results Pertinent Lab Results: Laboratory Tests 08/01/23 08/01/23 08/01/23 10:21 10:22 10:33 WBC 17.5 H RBC 3.97 L Hgb 12.5 L Hct 36.3 L MCV 91.4 MCH 31.5 MCHC 34.4 RDW 13.7 Plt Count 194 MPV 10.3 Immature Gran % (Auto) Cancelled Neut % (Auto) Cancelled Lymph % (Auto) Cancelled Will % (Auto) Cancelled Eos % (Auto) Cancelled Baso % (Auto) Cancelled Lymph # (Auto) Cancelled Will # (Auto) Cancelled Eos # (Auto) Cancelled Baso # (Auto) Cancelled Abs Immat Gran (auto) Cancelled Absolute Neuts (auto) Cancelled Absolute Nucleated RBC 0.000 Nucleated RBC % (auto) 0.0 Neutrophils % (Manual) 90 H Band Neutrophils % 6 H Lymphocytes % (Manual) 1 L Monocytes % (Manual) 2 Metamyelocytes % 1 Abs Neuts (Manual) 16.8 H Lymphocytes # (Manual) 0.2 L Monocytes # (Manual) 0.4 Metamyelocytes # 0.2 Toxic Vacuolation PRESENT Dohle Bodies PRESENT Platelet Estimate NORMAL Plt Morphology Comment NORMAL RBC Morphology NOTED [place] Cells 2+ (3-5) Acanthocytes (Spur) 1+ (0-2) PT 13.0 INR 1.1 Sodium 132 L Potassium 4.4 Chloride 101 Carbon Dioxide 19 L Anion Gap 16 BUN 35 H Creatinine 1.46 H Estim Creat Clear Calc 35.2 Estimated GFR 47 Random Glucose 137 H Lactic Acid 1.0 Calcium 8.2 L Magnesium 2.1 Total Bilirubin 0.9 AST 79 H ALT 54 H Alkaline Phosphatase 159 H Troponin I High Sens 16.8 Total Protein 7.4 Albumin 3.0 L Urine Color Dark Yellow Urine Appearance Turbid Urine pH 5.5 Ur Specific [place] 1.020 Urine Protein 100 (2+) H Urine Glucose (UA) Negative Urine Ketones Trace Urine Blood Large (3+) H Urine Nitrite Positive H Ur Leukocyte Esterase Large (3+) H Urine RBC 3-5 H Urine WBC >50 H Ur Squamous Epith Cells 3-5 Urine Bacteria 4+ Hyaline Casts 0-2 Airway Mallampati Class: II TM Dist: >3cm Neck ROM: Full Loose/Missing/Broken Teeth: No Heart: rrr Lungs: cta Assessment and Plan Assessment Anesthesia Assessment: Anesthesia Plan Discussed and Chart Reviewed Final Anesthetic Review Family History of Problems with Anesthesia: No History of Problems with Anesthesia: No NPO: Yes ASA Class: III and Emergency Final Preanesthetic Review: Meds/Allgs Chart Reviewed, Consent Obtained/Reviewed and Anes Risks/Benef Reviewed Patient Risk: Intermediate Procedure Risk: Intermediate Anesthetic Plan Anesthetic Plan: GA Disposition: Standard PACU
--- NOTE | 2023-08-01 15:50 | PC.NURSE ---
Patient arrived to preop from ED. One PRN angio present, #20 right AC. Site asymptomatic, flushed well.
--- NOTE | 2023-08-01 16:13 | MHC.SHP ---
Pre-Procedural Eval Section A - 24 Hr Update-Section A only Date of Service: 08/01/23 The patient is an INPATIENT: Yes Changes since office visit: No Cold of Flu in the past 2 weeks, No New Medical Problems, No Changes in Medication and No Patient answered all questions The patient has been examined within 24 hours of the surgical procedure. The History & Physical has been completed within 30 days and I have reviewed it.: Yes Section B - Complete if H&P > 30 days Chief Complaint: sepsis uti Allergies: Allergies Allergy/AdvReac Type Severity Reaction Status Date / Time aspirin [Aspirin] AdvReac Intermediate gastrointestinal Verified 08/01/23 15:53 upset/pain Plan Diagnosis/Plan: Unchanged (cysto, left retro, left stent placement) I have reviewed the history and physical and performed a pertinent physical examination on my patient. No changes have occurred unless specified. Time Spent With Patient Time: Total time managing care of this patient today ____ minutes.
--- NOTE | 2023-08-01 16:45 | W.PM.OPN ---
Operative Note Operative Note Date of Service: 08/01/23 Narrative: PreOperative Diagnosis: MAURA with urosepsis and obstructing left ureteric stone Post Operative Diagnosis: The above Procedure: Cystoscopy, left retrograde, left stent placement Surgeon: Dr Stu Brenner Anesthesia: Sedation Indications for procedure: MAURA with creatinine 1.5, WBC 17.[address] obstructing mid left ureteric stone Procedure: After informed consent was verified the patient was brought to the operating room and placed in a supine position. Anesthesia was administered per protocol. The patient was placed in modified dorsal lithotomy position and prepped and draped in a sterile fashion. A safety pause time-out was performed. Laterality of procedure and antibiotics were confirmed, appropriate imaging was available A 22 Lebanese cystoscope was introduced per urethra. No abnormality was noted of urethra or bladder. Both ureteric orifices were seen in a normal position. Mucous seen throughout bladder. The left ureter was cannulated with an open ended catheter and a retrograde examination was performed. Stone seen with proximal hydrodistention. Sensor wire placed. Open-ended catheter advanced. Wire removed. Aspiration performed which will be sent for culture. . A Sensor guidewire was placed under fluoroscopy and a good coil was seen within the renal pelvis. A 6 Lebanese by 26 cm double J stent was advanced over the wire and up to the level of the renal pelvis under fluoroscopic and direct visualization. The stent was seen with appropriate coil within the renal pelvis and in the bladder after deployment. Decision made to place Card catheter to allow drainage for next 12-24 hours. The patient tolerated the procedure well and was transferred in a stable condition to the recovery area. Pathology: Renal aspiration Drains: As above
[2023-08-01] MEDS: 0.9 % Sodium Chloride 1,000 ML 80 ML IVCONT (18:12)
[2023-08-01] MEDS: Sertraline HCL 25 MG TABLET PO (19:57)
[2023-08-01] MEDS: Prazosin HCL 1 MG CAPSULE PO (19:57)
[2023-08-01] MEDS: Enoxaparin Sodium 40 MG/0.4 ML SYRINGE SUBCUT (19:57)
[2023-08-02 00:20] VITALS: BP 117/61; PULSE 100; RESP 18; TEMP 37.1; O2SAT 93
[2023-08-02 03:46] VITALS: BP 103/62; PULSE 82; RESP 16; TEMP 36.4; O2SAT 96
[2023-08-02] MEDS: Omeprazole 20 MG CAPSULE.DR PO (05:52)
[2023-08-02] MEDS: 0.9 % Sodium Chloride 1,000 ML 80 ML IVCONT ×2 (05:53→14:49)
[2023-08-02 06:44] LABS: Hematocrit 32.4 % (42.0-52.0); Mean Corpuscular Hemoglobin 31.3 pg (27.0-33.0); Mean Platelet Volume 10.4 fL (9.4-12.4); Platelet Count 153 X10*3/uL (160-400); Red Blood Count 3.52 X10*6/uL (4.60-5.80); Red Cell Distribution Width 14.1 % (11.0-16.0); White Blood Count 12.8 X10*3/uL (4.8-10.8)
[2023-08-02 06:58] LABS: Blood Urea Nitrogen 27 mg/dL (9-16); Estimated Glomerular Filt Rate > 60; Glucose Fasting 117 mg/dL (60-99)
[2023-08-02 07:15] LABS: Anion Gap 13 (12-20); Calcium 7.4 mg/dL (8.4-10.2); Carbon Dioxide 21 mmol/L (22-29); Chloride 107 mmol/L (96-108); Potassium 3.4 mmol/L (3.3-5.1); Sodium 138 mmol/L (135-145)
[2023-08-02 07:50] VITALS: BP 103/59; PULSE 72; RESP 20; TEMP 36.5; O2SAT 97
[2023-08-02] MEDS: Multivitamin TABLET 1 TAB PO (08:24)
[2023-08-02] MEDS: Sertraline HCL 25 MG TABLET PO (08:25)
[2023-08-02] MEDS: busPIRone HCl 5 MG TABLET PO (08:25)
[2023-08-02] MEDS: 0.9 % Sodium Chloride Flush 3 ML SYRINGE IVFLUSH (08:25)
[2023-08-02] MEDS: cefTRIAXone sodium 1 GM in 0.9 % Sodium Chloride 50 ML IV (08:26)
--- NOTE | 2023-08-02 09:32 | HO.PM.IMPN ---
Subjective Subjective Date of Service: 08/02/23 Interval History: no new complaints Physical Exam Vital Signs: Vital Signs: Last Vital Signs Temp 97.7 F 08/02/23 07:50 Pulse 72 08/02/23 07:50 Resp 20 08/02/23 07:50 BP 103/59 L 08/02/23 07:50 Pulse Ox 97 08/02/23 07:50 O2 Del Method Room Air 08/02/23 07:50 O2 Flow Rate 6 08/01/23 17:03 BMI result Body Mass Index 22.2 Const: General: cooperative, healthy appearing, comfortable and no acute distress Orientation/consciousness: patient oriented x3 HEENT: Face and sinus: Yes normal facial exam Mouth: moist mucous membranes Neck: Neck: Yes normal visual inspection, Yes full ROM and Yes trachea midline Chest: Chest palpation & inspection: normal inspection of the chest Resp: Effort & Inspection: normal respiratory effort, able to speak in complete sentences and no respiratory distress GI: Inspection: Yes normal to inspection Back/Spine/Pelvis: Cervical Spine: normal cervical lordosis Thoracic/Lumbar Spine: thoracic and lumbar spine normal to inspection Skin: General skin exam: no rashes or lesions noted Neuro: General: patient oriented x3, tone normal and moves all extremities Extrem: General: Yes normal to inspection and Yes capillary refill normal Objective Data Active Medications Buspirone HCl (Buspirone Hcl 5 Mg Tablet) 5 mg PO DAILY [facility] Last Admin: 08/02/23 08:25 Dose: 5 mg Documented By: YAO Enoxaparin Sodium (Enoxaparin Sodium 40 Mg/0.4 Ml Syringe) 40 mg SUBCUT Q24H [facility] Last Admin: 08/01/23 19:57 Dose: 40 mg Documented By: OSMAN Ceftriaxone Sodium 1 gm/ (Sodium Chloride) 50 mls @ 100 mls/hr IV Q24H [facility] Last Infusion: 08/02/23 09:01 Dose: Infused Documented By: YAO Sodium Chloride (Ns) 1,000 mls @ 80 mls/hr IVCONT .[id number] [facility] Last Admin: 08/02/23 05:53 Dose: 80 mls/hr Documented By: OSMAN Multivitamins/Vitamin C (Multivitamin Tablet) 1 tab PO DAILY [facility] Last Admin: 08/02/23 08:24 Dose: 1 tab Documented By: YAO Omeprazole (Omeprazole 20 Mg Capsule.Dr) 20 mg PO DAILY@0630 [facility] Last Admin: 08/02/23 05:52 Dose: 20 mg Documented By: OSMAN Prazosin HCl (Prazosin Hcl 1 Mg Capsule) 1 mg PO BEDTIME [facility]; Protocol Last Admin: 08/01/23 19:57 Dose: 1 mg Documented By: OSMAN Sertraline HCl (Sertraline Hcl 25 Mg Tablet) 25 mg PO DAILY [facility] Last Admin: 08/02/23 08:25 Dose: 25 mg Documented By: YAO Sodium Chloride (0.9 % Sodium Chloride Flush 3 Ml Syringe) 3 ml IVFLUSH QSHIFT [facility] Last Admin: 08/02/23 08:25 Dose: 3 ml Documented By: YAO Labs 08/02/23 06:20 08/02/23 06:20 Labs: Laboratory Results - last 24 hr 08/01/23 08/01/23 08/01/23 10:21 10:22 10:33 MCV 91.4 MCH 31.5 MCHC 34.4 RDW 13.7 Plt Count 194 MPV 10.3 Immature Gran % (Auto) Cancelled Neut % (Auto) Cancelled Lymph % (Auto) Cancelled [place] % (Auto) Cancelled Eos % (Auto) Cancelled Baso % (Auto) Cancelled Lymph # (Auto) Cancelled [place] # (Auto) Cancelled Eos # (Auto) Cancelled Baso # (Auto) Cancelled Abs Immat Gran (auto) Cancelled Absolute Neuts (auto) Cancelled Absolute Nucleated RBC 0.000 Nucleated RBC % (auto) 0.0 Neutrophils % (Manual) 90 H Band Neutrophils % 6 H Lymphocytes % (Manual) 1 L Monocytes % (Manual) 2 Metamyelocytes % 1 Abs Neuts (Manual) 16.8 H Lymphocytes # (Manual) 0.2 L Monocytes # (Manual) 0.4 Metamyelocytes # 0.2 Toxic Vacuolation PRESENT Dohle Bodies PRESENT Platelet Estimate NORMAL Plt Morphology Comment NORMAL RBC Morphology NOTED [place] Cells 2+ (3-5) Acanthocytes (Spur) 1+ (0-2) PT 13.0 INR 1.1 Anion Gap 16 Estim Creat Clear Calc 35.2 Estimated GFR 47 Random Glucose 137 H Fasting Glucose Lactic Acid 1.0 Calcium 8.2 L Magnesium 2.1 Total Bilirubin 0.9 AST 79 H ALT 54 H Alkaline Phosphatase 159 H Troponin I High Sens 16.8 Total Protein 7.4 Albumin 3.0 L Urine Color Dark Yellow Urine Appearance Turbid Urine pH 5.5 Ur Specific [place] 1.020 Urine Protein 100 (2+) H Urine Glucose (UA) Negative Urine Ketones Trace Urine Blood Large (3+) H Urine Nitrite Positive H Ur Leukocyte Esterase Large (3+) H Urine RBC 3-5 H Urine WBC >50 H Ur Squamous Epith Cells 3-5 Urine Bacteria 4+ Hyaline Casts 0-2 08/02/23 06:20 MCV 92.0 MCH 31.3 MCHC 34.0 RDW 14.1 Plt Count 153 L MPV 10.4 Immature Gran % (Auto) Neut % (Auto) Lymph % (Auto) [place] % (Auto) Eos % (Auto) Baso % (Auto) Lymph # (Auto) [place] # (Auto) Eos # (Auto) Baso # (Auto) Abs Immat Gran (auto) Absolute Neuts (auto) Absolute Nucleated RBC 0.000 Nucleated RBC % (auto) 0.0 Neutrophils % (Manual) Band Neutrophils % Lymphocytes % (Manual) Monocytes % (Manual) Metamyelocytes % Abs Neuts (Manual) Lymphocytes # (Manual) Monocytes # (Manual) Metamyelocytes # Toxic Vacuolation Dohle Bodies Platelet Estimate Plt Morphology Comment RBC Morphology [place] Cells Acanthocytes (Spur) PT INR Anion Gap 13 Estim Creat Clear Calc 54.0 Estimated GFR > 60 Random Glucose Fasting Glucose 117 H Lactic Acid Calcium 7.4 L D Magnesium 2.0 Total Bilirubin AST ALT Alkaline Phosphatase Troponin I High Sens Total Protein Albumin Urine Color Urine Appearance Urine pH Ur Specific [place] Urine Protein Urine Glucose (UA) Urine Ketones Urine Blood Urine Nitrite Ur Leukocyte Esterase Urine RBC Urine WBC Ur Squamous Epith Cells Urine Bacteria Hyaline Casts Microbiology Microbiology Results: Microbiology 08/01/23 10:32 Blood Culture - Preliminary Blood - Venous Gram negative stefanie 08/01/23 10:21 Blood Culture - Preliminary Blood - Venous Gram negative stefanie Assessment and Plan (1) Obstructed, uropathy: Status: Acute Plan 78M PMH htn, bph, mood disorder, presented with urinary frequency, fatigue, unintentional 20 lb weight loss Sepsis secondary to acute pyelonephritis due to obstructing left ureteral stone with [id number] hydronephrosis complicated by GNR bacteremia Ceftriaxone, follow-up cultures s/p left ureteral stent 08/01/23 Acute kidney injury Likely combination of obstructive and prerenal IV fluids, resolved Unintentional weight loss Question underlying renal malignancy also with questionable liver lesion - outpatient mri Hypertension Low normal blood pressures, will hold antihypertensives for now DVT prophylaxis with Lovenox Full Code reason for continued hospitalization:awaiting cultures Quality Stroke Does the patient have a stroke diagnosis?: No VTE Prior VTE?: No VTE Risk Level:: Medical - moderate - high VTE Device Contraindication: Treatment Not Indicated VTE Drug Contraindication: N/A - Med Ordered
--- NOTE | 2023-08-02 15:43 | HO.POSTANES ---
Post Anesthesia Evaluation Post Anesthesia Evaluation Date of Service: 08/02/23 Vital Signs: Vital Signs Temp Pulse Resp BP Pulse Ox O2 Del Method 08/02/23 07:50 97.7 F 72 20 103/59 L 97 Room Air 08/02/23 03:46 97.6 F 82 16 103/62 96 Room Air Anesthesia: General LMA Mental Status: Awake Pain Control: Satisfactory Nausea/Vomiting: None Hydration: Adequate Anesthesia-Related Issues: No Anes. Related Issues
[2023-08-02 15:51] VITALS: BP 100/53; PULSE 80; RESP 20; TEMP 37.3; O2SAT 97
--- NOTE | 2023-08-02 18:13 | PC.NURSE ---
paged pt requesting something to help him sleep tonight.
[2023-08-02 19:39] VITALS: BP 113/65; PULSE 70; RESP 18; TEMP 36.6; O2SAT 95
[2023-08-02] MEDS: Enoxaparin Sodium 40 MG/0.4 ML SYRINGE SUBCUT (20:03)
[2023-08-02] MEDS: traZODone HCL 50 MG TABLET PO (21:36)
[2023-08-03 02:11] VITALS: BP 129/65; PULSE 74; RESP 18; TEMP 37.4; O2SAT 93
[2023-08-03] MEDS: Omeprazole 20 MG CAPSULE.DR PO (05:54)
[2023-08-03] MEDS: 0.9 % Sodium Chloride 1,000 ML 80 ML IVCONT (05:55)
[2023-08-03] MEDS: ondansetron HCL 4 MG/2 ML VIAL IVPUSH (06:48)
[2023-08-03 07:06] LABS: Hematocrit 34.8 % (42.0-52.0); Hemoglobin 11.7 g/dl (14.0-18.0); Mean Corpuscular HGB Conc 33.6 g/dl (31.0-36.0); Mean Corpuscular Hemoglobin 30.9 pg (27.0-33.0); Mean Corpuscular Volume 91.8 fL (80.0-98.0); Mean Platelet Volume 10.9 fL (9.4-12.4); Platelet Count 173 X10*3/uL (160-400); Red Blood Count 3.79 X10*6/uL (4.60-5.80); White Blood Count 13.1 X10*3/uL (4.8-10.8)
--- NOTE | 2023-08-03 07:11 | PC.NURSE ---
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 MD Eli was notified of the situation. PRN Zofran was ordered and administrated to pt at 06:48AM, effectiveness pending. Will continue to monitor.
[2023-08-03 07:16] LABS: Anion Gap 11 (12-20); Blood Urea Nitrogen 20 mg/dL (9-16); Calcium 7.6 mg/dL (8.4-10.2); Carbon Dioxide 24 mmol/L (22-29); Chloride 105 mmol/L (96-108); Creatinine Clr Calc Pharmacy 61.7; Estimated Glomerular Filt Rate > 60; Glucose Fasting 106 mg/dL (60-99); Potassium 3.8 mmol/L (3.3-5.1); Sodium 136 mmol/L (135-145)
[2023-08-03 07:36] VITALS: BP 138/66; PULSE 66; RESP 17; TEMP 36.6; O2SAT 97
--- NOTE | 2023-08-03 08:41 | P.PNIM_ITS ---
Subjective Subjective Date of Service: 08/03/23 Interval History: no new complaints Physical Exam 2 Vital Signs: Vital Signs: Last Vital Signs Temp 97.9 F 08/03/23 07:36 Pulse 66 08/03/23 07:36 Resp 17 08/03/23 07:36 BP 138/66 08/03/23 07:36 Pulse Ox 97 08/03/23 07:36 O2 Del Method Room Air 08/03/23 07:36 O2 Flow Rate 6 08/01/23 17:03 BMI result Body Mass Index 22.2 Const: General: cooperative, healthy appearing, comfortable and no acute distress Orientation/consciousness: patient oriented x3 HEENT: Face and sinus: Yes normal facial exam Mouth: moist mucous membranes Neck: Neck: Yes normal visual inspection, Yes full ROM and Yes trachea midline Chest: Chest palpation & inspection: normal inspection of the chest Resp: Effort & Inspection: normal respiratory effort, able to speak in complete sentences and no respiratory distress GI: Inspection: Yes normal to inspection Back/Spine/Pelvis: Cervical Spine: normal cervical lordosis Thoracic/Lumbar Spine: thoracic and lumbar spine normal to inspection Skin: General skin exam: no rashes or lesions noted Neuro: General: patient oriented x3, tone normal and moves all extremities Extrem: General: Yes normal to inspection and Yes capillary refill normal Objective Data Active Medications Buspirone HCl (Buspirone Hcl 5 Mg Tablet) 5 mg PO DAILY [facility] Last Admin: 08/02/23 08:25 Dose: 5 mg Documented By: YAO Enoxaparin Sodium (Enoxaparin Sodium 40 Mg/0.4 Ml Syringe) 40 mg SUBCUT Q24H [facility] Last Admin: 08/02/23 20:03 Dose: 40 mg Documented By: OSMAN Ceftriaxone Sodium 1 gm/ (Sodium Chloride) 50 mls @ 100 mls/hr IV Q24H [facility] Last Infusion: 08/02/23 09:01 Dose: Infused Documented By: YAO Sodium Chloride (Ns) 1,000 mls @ 80 mls/hr IVCONT .[id number] [facility] Last Admin: 08/03/23 05:55 Dose: 80 mls/hr Documented By: OSMAN Multivitamins/Vitamin C (Multivitamin Tablet) 1 tab PO DAILY [facility] Last Admin: 08/02/23 08:24 Dose: 1 tab Documented By: YAO Omeprazole (Omeprazole 20 Mg Capsule.) 20 mg PO DAILY@0630 [facility] Last Admin: 08/03/23 05:54 Dose: 20 mg Documented By: OSMAN Ondansetron HCl (Ondansetron Hcl 4 Mg/2 Ml Vial) 4 mg IVPUSH Q6H PRN PRN Reason: Nausea and Vomiting Last Admin: 08/03/23 06:48 Dose: 4 mg Documented By: OSMAN Prazosin HCl (Prazosin Hcl 1 Mg Capsule) 1 mg PO BEDTIME [facility]; Protocol Last Admin: 08/02/23 20:11 Dose: Not Given Documented By: OSMAN Non-Admin Reason: Physician Held Med Comments: pt had 2 low BP's 100/53, 103/59. MD Eli made aware and to hold medication. Sertraline HCl (Sertraline Hcl 25 Mg Tablet) 25 mg PO DAILY [facility] Last Admin: 08/02/23 08:25 Dose: 25 mg Documented By: YAO Sodium Chloride (0.9 % Sodium Chloride Flush 3 Ml Syringe) 3 ml IVFLUSH QSHIFT [facility] Last Admin: 08/03/23 00:19 Dose: Not Given Documented By: OSMAN Non-Admin Reason: IV Running Trazodone HCl (Trazodone Hcl 50 Mg Tablet) 50 mg PO BEDTIME PRN PRN Reason: Insomnia Last Admin: 08/02/23 21:36 Dose: 50 mg Documented By: OSMAN Labs 08/03/23 06:14 08/03/23 06:14 Labs: Laboratory Results - last 24 hr 08/03/23 06:14 MCV 91.8 MCH 30.9 MCHC 33.6 RDW 14.0 Plt Count 173 MPV 10.9 Absolute Nucleated RBC 0.000 Nucleated RBC % (auto) 0.0 Anion Gap 11 L Estim Creat Clear Calc 61.7 Estimated GFR > 60 Fasting Glucose 106 H Calcium 7.6 L Microbiology Microbiology Results: Microbiology 08/01/23 10:32 Blood Culture - Preliminary Blood - Venous Gram negative stefanie 08/01/23 10:21 Blood Culture - Preliminary Blood - Venous Gram negative stefanie 08/01/23 17:05 Urine Culture - Final Urine Catheterized - Straight Catheter Escherichia coli 08/01/23 Unknown Urine Culture - Preliminary Urine clean catch - Urine godinez top Culture in progress. Assessment and Plan (1) Obstructed, uropathy: Status: Acute Plan 78M PMH htn, bph, mood disorder, presented with urinary frequency, fatigue, unintentional 20 lb weight loss Sepsis secondary to acute pyelonephritis due to obstructing left ureteral stone with oimo-[id number]-oddtpluf hydronephrosis complicated by GNR bacteremia Ceftriaxone, follow-up blood cultures, urine growing ecoli s/p left ureteral stent 08/01/23 Acute kidney injury Likely combination of obstructive and prerenal IV fluids, resolved Unintentional weight loss Question underlying renal malignancy also with questionable liver lesion - outpatient mri Hypertension Low normal blood pressures, will hold antihypertensives for now DVT prophylaxis with Lovenox Full Code reason for continued hospitalization:awaiting cultures Quality Stroke Does the patient have a stroke diagnosis?: No VTE Prior VTE?: No VTE Risk Level:: Medical - moderate - high VTE Device Contraindication: Treatment Not Indicated VTE Drug Contraindication: N/A - Med Ordered
[2023-08-03] MEDS: Sertraline HCL 25 MG TABLET PO (09:00)
[2023-08-03] MEDS: Multivitamin TABLET 1 TAB PO (09:00)
[2023-08-03] MEDS: cefTRIAXone sodium 1 GM in 0.9 % Sodium Chloride 50 ML IV (09:00)
[2023-08-03] MEDS: busPIRone HCl 5 MG TABLET PO (09:00)
[2023-08-03] MEDS: 0.9 % Sodium Chloride Flush 3 ML SYRINGE IVFLUSH ×3 (09:02→19:38)
[2023-08-03 15:00] VITALS: O2SAT 97
[2023-08-03 16:00] VITALS: BP 112/69; PULSE 70; RESP 18; TEMP 36.4; O2SAT 97
[2023-08-03 19:14] VITALS: BP 124/68; PULSE 67; RESP 18; TEMP 36.2; O2SAT 97
[2023-08-03] MEDS: Enoxaparin Sodium 40 MG/0.4 ML SYRINGE SUBCUT (19:36)
[2023-08-03] MEDS: traZODone HCL 50 MG TABLET PO (19:36)
[2023-08-03] MEDS: Prazosin HCL 1 MG CAPSULE PO (19:36)
[2023-08-04 03:23] VITALS: BP 134/70; PULSE 80; RESP 18; TEMP 37.1; O2SAT 96
[2023-08-04] MEDS: Omeprazole 20 MG CAPSULE.DR PO (06:39)
[2023-08-04 07:06] VITALS: BP 127/69; PULSE 68; RESP 16; TEMP 36.8; O2SAT 96
[2023-08-04] MEDS: cefTRIAXone sodium 1 GM in 0.9 % Sodium Chloride 50 ML IV (08:09)
[2023-08-04] MEDS: 0.9 % Sodium Chloride Flush 3 ML SYRINGE IVFLUSH (08:11)
[2023-08-04] MEDS: Sertraline HCL 25 MG TABLET PO (08:13)
[2023-08-04] MEDS: busPIRone HCl 5 MG TABLET PO (08:13)
[2023-08-04] MEDS: Multivitamin TABLET 1 TAB PO (08:13)
--- NOTE | 2023-08-04 10:40 | P.DS_ITS ---
DS: Providers Provider Date of Service: 08/04/23 Date of admission: 08/01/23 13:58 Primary care physician: Arnold Pandya MD Consults: 08/01/23 13:51 Consult to Urology Routine Consulting Provider: Stu Brenner Reason for consultation: obstructing stone DS: Diagnosis Discharge Diagnosis (1) Obstructed, uropathy: Status: Acute DS: Summary Hospital Course Hospital Course: from initial hpi: 78M PMH htn, bph, mood disorder, presented with urinary frequency, fatigue, unintentional 20 lb weight loss. Patient denies any fevers, chills, flank pain. UA grossly positive, febrile with leukocytosis in the ED. CT abdomen with 5 mm calculus in the left mid ureter with mild to moderate left hydronephrosis, heterogeneous enhancement and enlargement of the left kidney with associated history of nephrograms consistent with acute pyelonephritis can not rule out underlying mass, indeterminate liver hypodensity. Also with MAURA, creatinine 1.46. hospital course: Patient was admitted for sepsis secondary to acute pyelonephritis due to obstructing left ureteral stone with [id number] hydronephrosis complicated by E coli bacteremia. He was she was ceftriaxone and sepsis resolved. He underwent cystoscopy with left ureteral stent 08/01/2023. We will continue 7 more days of cefuroxime and follow up with Urology as outpatient. For acute kidney injury likely combination of obstructive and prerenal, improved after stent placement and IV fluids. For unintentional weight loss there is a question of underlying renal malignancy and also question of liver lesion, MRI liver should be done as outpatient and should follow up with Urology regarding possible renal malignancy. For hypertension patient had low normal blood pressures and lisinopril has been held. Patient is feeling better will be discharged home. Time Attestation Discharge Coordination Time (in mins): 35 Quality: Safe Use of Opioids Does Pt have an Active Cancer Diagnosis on the Problem List?: No Quality: Stroke Does the patient have a stroke diagnosis?: No Physical Exam Vital Signs: Vital Signs: Last Vital Signs Temp 98.3 F 08/04/23 07:06 Pulse 68 08/04/23 07:06 Resp 16 08/04/23 07:06 BP 127/69 08/04/23 07:06 Pulse Ox 96 08/04/23 07:06 O2 Del Method Room Air 08/04/23 07:06 O2 Flow Rate 6 05/24/24 17:03 BMI result Body Mass Index 22.2 General: AO X 3, no acute distress Resp: CTA bilateral, no accessory muscles used CVS: S1,S2,RRR GI: soft, non tender, non distended Neuro: motor grossly intact, alert Psych: appropriate affect, appropriate insight DS: Data Data Completed and Pending Labs on day of discharge: Preliminary micro results at discharge 08/01/23 Unknown Urine Culture - Preliminary Urine clean catch - Urine godinez top Escherichia coli Discharge Plan Discharge Anticipated Discharge Date/Time: 08/04/23 10:38 Patient Disposition: Home, Self-Care Discharge Diagnosis: sepsis, uti, kidney stone, maura Referrals: Stu Brenner MD [Physician] - 1 Week Arnold Pandya MD [Primary Care Provider] - 1 Week Discharge Medications: New cefuroxime axetil 500 mg tablet 500 mg PO BID Qty: 14 0RF Continued multivitamin Tablet 1 tab PO DAILY prazosin 1 mg capsule 1 mg PO BEDTIME buspirone 5 mg tablet 5 mg PO DAILY sertraline 25 mg tablet 25 mg PO QAM omeprazole 20 mg capsule,delayed release(DR/EC) 20 mg PO DAILY Discontinued lisinopril 5 mg tablet 5 mg PO DAILY Discharge Orders: Discharge Order (Routine); Ordered 08/04/23 Ordered By: Dennis Estes Diet: Advance to usual diet Activity on Discharge: As tolerated Stand Alone Forms: Patient Portal Discharge page Print Language: [place] Care Plan Goals: [facility] Concerns: Urinary tract infection with kidney stone Plan of Treatment: 1 more week of cefuroxime, follow-up with Urology, lisinopril held For now for low normal blood pressures, continue to monitor Assessment: See above
--- NOTE | 2023-08-04 10:49 | MHC.CM.PN ---
PT REPORTS HE LIVES AT HOME WITH HIS AND IS INDEPENDENT WITH CARE AND MOBILITY PT HAS NO SERVICES AND NO DME HE COMPLETED A NEW HCP YESTERDAY NAMING HIS SON HIS AGENT, NOW ON FILE MOLST ALSO ON FILE PCP: [facility] IMM DELIVERED PT WILL DC HOME TODAY WITH NO SERVICES VIA FAM[facility] TRAN[facility]
--- NOTE | 2023-08-04 14:24 | PC.NURSE ---
Pt voided twice this shift after mittal removal. Denies pain
== END 2023-08-04 15:53 | disposition home or self-care (01) | DRG 854 ==
LOC: HO.ED 13:31 → HO.EDOVER 14:05 → HO.S3 18:08
PROVIDERS: Physician Assistant; Urology; Admitting Provider Internal Medicine; Emergency Provider Emergency Medicine Emergency Medical Services; PCP Family Medicine; Visit Provider Internal Medicine
PROC: 0T778DZ Dilation of Left Ureter with Intraluminal Device, Via Natural or Artificial Opening Endoscopic (ICD-10-PCS; principal; 2023-08-01 16:30)
DX: A41.9 Sepsis, unspecified organism (principal); C64.2 Malignant neoplasm of left kidney, except renal pelvis; N13.6 Pyonephrosis; N17.9 Acute kidney failure, unspecified; B96.20 Unspecified Escherichia coli [E. coli] as the cause of diseases classified elsewhere; K76.9 Liver disease, unspecified; I10 Essential (primary) hypertension; G25.0 Essential tremor; Z79.899 Other long term (current) drug therapy
CPT/HCPCS: 36415; 71045; 74177; 80048; 80053; 81001; 83605; 83735; 84484; 85007; 85027; 85610; 87040; 87077; 87086; 87088; 87186; 87205; 93005; 99284; C1758; C1769; C2617; J0696; J1650; J1956; J2405; J2704; J3010; Q9967

== ENCOUNTER → 2023-08-01 09:59 | Outpatient (BNV) | payer MEDICARE, OTHER, SELFPAY | PROVIDERS: Admitting Provider Internal Medicine; Emergency Provider Emergency Medicine Emergency Medical Services; PCP Family Medicine; Visit Provider Internal Medicine Cardiovascular Disease | DX: R53.1 Weakness (principal) | CPT/HCPCS: 93010 ==

== ENCOUNTER → 2023-08-01 10:55 | Outpatient (BNV) | payer MEDICARE, OTHER, SELFPAY | PROVIDERS: Emergency Provider Emergency Medicine Emergency Medical Services; PCP Family Medicine; Visit Provider Internal Medicine | DX: A41.9 Sepsis, unspecified organism (principal); N10 Acute pyelonephritis; N13.9 Obstructive and reflux uropathy, unspecified; R63.4 Abnormal weight loss | CPT/HCPCS: 99223; 99232; 99239 ==

== ENCOUNTER → 2023-08-01 13:58 | Outpatient (BNV) | payer MEDICARE, OTHER, SELFPAY | PROVIDERS: Admitting Provider Internal Medicine; Emergency Provider Emergency Medicine Emergency Medical Services; PCP Family Medicine; Visit Provider Urology | DX: N20.0 Calculus of kidney (principal); A41.9 Sepsis, unspecified organism; N10 Acute pyelonephritis | CPT/HCPCS: 52332; 74420; 99223 ==

== ENCOUNTER 2023-08-08 12:35 | Outpatient (AMB) | payer MEDICARE, OTHER, SELFPAY ==
--- NOTE | 2023-08-08 12:44 | MHC.OFFVIS ---
Intake Visit Reasons: Discuss next Procedure ([place] [facility] [place] Intake Note: Patient presents today to discuss next procedure: Meds- Prazosin Allergies to Antibiotic- No Known Allergies Blood Thinner- None Senior Engineering Team Leader Required: No Accompanied by: Self / Same As Patient Allergies aspirin [Aspirin] Adverse Reaction (Intermediate, Verified 08/08/23 12:47) gastrointestinal upset/pain HPI Comments Details: Bony is a 78-year-old male who was initially evaluated by Dr. Brenner in consultation on 08/01/2023, due to MAURA with UTI sepsis secondary to obstructing left ureteral stone. Both blood cultures and urine cultures were positive for E coli. He is status post cystoscopy left ureteral stent on 08/01/2023. I have discussed definitive management of ureteral stone with ureteroscopy laser lithotripsy. [facility] Medical History Kidney stone Meningioma Spinal stenosis H/O pilonidal cyst Transient global amnesia BPH (benign prostatic hyperplasia) Gall bladder stones Chronic gastritis HTN (hypertension) Tubular adenoma of colon Arthritis Hx of meningioma of the brain GERD (gastroesophageal reflux disease) Hx of renal calculi Hx of spinal stenosis Elevated cholesterol Surgical History History of excision of pilonidal cyst Hx of arthroscopic knee surgery Hx of lithotripsy Hx of brain surgery History of esophagogastroduodenoscopy (EGD) H/O colonoscopy Social History Household Members: Spouse Housing: House Do you presently have visiting nurse or other home services: No Alcohol intake: current Alcohol intake frequency: does not drink Alcohol type: wine Patient Tobacco Use Status: Never used Tobacco Advance Directives Date on File: 12/17/22 service: Yes Review of Systems Const All systems reviewed & are unremarkable except as noted in HPI and below Reports no additional complaints Eyes Reports no additional complaints ENT Reports no additional complaints Card Reports no additional complaints Resp Reports no additional complaints GI Reports no additional complaints Reports as per HPI Musc Reports no additional complaints Skin/Breast Reports system reviewed and no additional complaints, except as documented Neuro Reports no additional complaints Psych Reports no additional complaints Endo Reports no additional complaints Larry/Lymph Reports no additional complaints Aller/Immun Reports no additional complaints Results AMB Urinalysis, Automated UA Leukoctes 70 Lamine/uL Last Edit by Frantz Saleem [facility] on 08/08/23 13:04 1+ Frantz Saleem 08/08/23 13:04 UA Nitrite Negative Last Edit by Frantz Saleem [facility] on 08/08/23 13:04 UA Urobilinogen 0.2 mg/dL Last Edit by Frantz Saleem [facility] on 08/08/23 13:04 UA Protein 30 mg/dL Last Edit by Frantz Saleem, [facility] on 08/08/23 13:04 1+ Frantz Saleem 08/08/23 13:04 UA pH 6.0 Last Edit by Frantz Saleem [facility] on 08/08/23 13:04 UA Blood 200 Scott/uL Last Edit by Frantz Saleem [facility] on 08/08/23 13:04 3+ Frantz Saleem 08/08/23 13:04 UA Specific [place] 1.015 Last Edit by Frantz Saleem [facility] on 08/08/23 13:04 UA Ketone Negative Last Edit by Frantz Saleem [facility] on 08/08/23 13:04 UA Bilirubin 0 mg/dL Last Edit by Frantz Saleem [facility] on 08/08/23 13:04 UA Glucose 0 mg/dL Last Edit by Frantz Saleem [facility] on 08/08/23 13:04 Results Reviewed Results Reviewed: Laboratory Last Values Urine pH (Auto) 6.0 08/08/23 12:54 Specific [place] (Auto) 1.015 08/08/23 12:54 Urine Protein (Auto) 30 mg/dL 08/08/23 12:54 Glucose (UA)(Auto) 0 mg/dL 08/08/23 12:54 Urine Ketones (Auto) Negative 08/08/23 12:54 Urine Blood (Auto) 200 Scott/uL 08/08/23 12:54 Urine Nitrite (Auto) Negative 08/08/23 12:54 Urine Bilirubin (Auto) 0 mg/dL 08/08/23 12:54 Urine Urobilinogen (Auto) 0.2 mg/dL 08/08/23 12:54 Leukocyte Esterase (Auto) 70 Lamine/uL 08/08/23 12:54 Date of Service: 08/01/23 EXAMINATION: CT ABDOMEN AND PELVIS WITH CONTRAST CLINICAL INFORMATION: Abdominal pain. Weight loss. COMPARISON: 12/13/2022 TECHNIQUE: Multidetector volumetric images were obtained from the superior aspect of the liver through the pubic symphysis following administration 85 mL of Omnipaque 350 intravenous contrast. Sagittal and coronal reformatted images were obtained on the technologist's workstation. Oral contrast: No This CT examination was performed using dose optimization techniques as appropriate, variously including the following: *Automated exposure control *Adjustment of mA and/or kV according to patient size (this includes techniques or standardized protocols for targeted exams where dose is matched to indication/reason for exam; i.e. extremities or head) *Use of iterative reconstruction technique DLP: 356 mGy-cm FINDINGS: LUNG BASES: No pleural or pericardial effusion. Small hiatal hernia. LIVER, GALLBLADDER, AND BILIARY TREE: The liver is normal size and contour. There is a hypodensity in the posterior right hepatic lobe measuring 2.1 x 2.7 x 2.4 cm with extension to the hepatic capsule where there is capsular retraction. There are scattered hepatic cysts that require no further imaging follow-up. No biliary ductal dilatation is present. Possible tumefactive sludge in the gallbladder. PANCREAS: No ductal dilatation. Scattered parenchymal calcifications. SPLEEN: Not enlarged. ADRENAL GLANDS: No adrenal mass. KIDNEYS AND URETERS: 5 mm calculus in the mid left ureter with mild to moderate left hydroureteronephrosis. There is irregular appearance of the left renal parenchyma with ill-defined infiltrative hypodensity involving the upper pole of the left kidney. The left kidney enhances entirely heterogeneously with striated nephrograms. There is left perinephric stranding. The right kidney is unremarkable. BLADDER: Mild wall thickening left superior bladder dome. No gas in the urinary bladder. GASTROINTESTINAL TRACT: Pericolonic stranding of the sigmoid colon with extensive underlying diverticular disease. There is a focal diverticulum adherent to the bladder dome with surrounding inflammation on image 31 of series 6. There is no definite fistulous communication on the current study. No small bowel obstruction. ABDOMINAL WALL: No significant hernia is appreciated. LYMPH NODES: No bulky lymphadenopathy. VASCULAR: Normal caliber abdominal aorta. PELVIC VISCERA: Enlarged prostate gland. OSSEOUS STRUCTURES: No destructive bone lesions. IMPRESSION: 5 mm calculus in the left mid ureter with mild to moderate left hydroureteronephrosis. Heterogeneous enhancement and enlargement of the left kidney with associated striated nephrograms. This could represent acute pyelonephritis. Correlation with urinalysis is recommended. Follow-up imaging is advised to exclude underlying mass. Inflammatory stranding of the mid sigmoid colon with extensive underlying diverticular disease. There is an inflamed diverticulum adherent to the left superior bladder dome causing wall thickening. Short interval follow-up imaging is advised. Indeterminate liver hypodensity in the posterior right hepatic lobe measuring 2.1 x 2.7 x 2.4 cm with capsular retraction. MRI abdomen is recommended for further characterization. Assessment & Plan Assessment & Plan (1) Obstructed, uropathy: Code(s): N13.9 - Obstructive and reflux uropathy, unspecified Category: Medical (2) Urolithiasis: Code(s): N20.9 - Urinary calculus, unspecified Category: Medical (3) Pyelonephritis: Code(s): N12 - Tubulo-interstitial nephritis, not specified as acute or chronic Category: Medical (4) Left ureteral stone: Code(s): N20.1 - Calculus of ureter Category: Medical Plan Plan for Cystoscopy, leftureteroscopy, possible laser lithotripsy, possible ureteral stent exchange verrsus stent removal. Risks discussed included but not limited to, possible need to repeat procedure if stone is not completely fragmented, Irritative voiding symptoms, bladder spasms, urgency, blood in urine. Orders: Orders AMB Urinalysis Automated 08/08/23 Z13.9 - Encounter for screening, unspecified XR KUB 08/11/23 N20.9 - Urinary calculus, unspecified, N20.1 - Calculus of ureter Patient Instructions: The patient had an opportunity to ask questions regarding treatment plan. The patient expressed understanding and agreement with the above treatment plan. The patient is aware they should contact our office by phone for worsening of their current condition or the appearance of new symptoms. Compliance is encouraged with any medications and followup testing that is ordered. It is a privilege to be allowed the opportunity to participate in the urologic care of your patient. If you have any questions or concerns regarding treatment for the above conditions please do not hesitate to contact me. The office telephone contact is [phone]. This note is constructed in part using voice recognition software. While every effort has been made to ensure accuracy penology professor errors may have been included. Yours sincerely, Lyndsey Pulliam MD Coding Level of Care Code Est Pt Level 4 (77479) Diagnoses Obstructed, uropathy N13.9 Urolithiasis N20.9 Pyelonephritis N12 Left ureteral stone N20.1
== END 2023-08-08 13:48 | disposition home or self-care (01) ==
PROVIDERS: PCP Family Medicine; Visit Provider Urology
DX: N13.9 Obstructive and reflux uropathy, unspecified (principal); N20.9 Urinary calculus, unspecified; N12 Tubulo-interstitial nephritis, not specified as acute or chronic; N20.1 Calculus of ureter
CPT/HCPCS: 99214

== ENCOUNTER → 2023-08-08 12:35 | Outpatient (BNVA) | payer MEDICARE, OTHER, SELFPAY | PROVIDERS: PCP Family Medicine; Visit Provider Urology | DX: N13.9 Obstructive and reflux uropathy, unspecified (principal); N20.9 Urinary calculus, unspecified; N12 Tubulo-interstitial nephritis, not specified as acute or chronic; N20.1 Calculus of ureter | CPT/HCPCS: 81003; 99212 ==

== ENCOUNTER 2023-08-11 09:33 | Outpatient (REF) | payer MEDICARE, OTHER, SELFPAY ==
--- NOTE | ~2023-08-11 | XR_ITS ---
EXAMINATION: XR ABDOMEN KUB CLINICAL INDICATION: Urinary calculus, unspecified COMPARISON: None available. TECHNIQUE: AP view of the abdomen. FINDINGS: The bowel gas pattern is normal with no evidence of ileus or obstruction. There is a double-J ureteral stent extending from the midportion of the left kidney to the bladder. The kidneys and bladder are obscured by bowel gas and stool. Small calcification is seen in the left side of the pelvis which likely represents a phlebolith. No acute osseous abnormality. Multilevel degenerative changes are seen in the lumbar spine. XR/XR KUB IMPRESSION: 1. Double-J ureteral stent in place. 2. The kidneys and bladder are obscured by bowel gas and stool.
== END 2023-08-11 09:34 | disposition home or self-care (01) ==
LOC: HO.XRAY 09:33
PROVIDERS: PCP Family Medicine; Visit Provider Urology
DX: N20.9 Urinary calculus, unspecified (principal); N20.1 Calculus of ureter; K76.9 Liver disease, unspecified
CPT/HCPCS: 74018

== ENCOUNTER 2023-09-09 07:14 | Day surgery (SDC) | payer MEDICARE, OTHER, SELFPAY ==
[2023-09-09] VITALS (8 sets, daily range): BP systolic 120–142; BP diastolic 67–83; PULSE 61–72; RESP 14–16; TEMP 36.1–36.6; O2SAT 99; BMI 20.2
--- NOTE | ~2023-09-09 | FL_ITS ---
EXAMINATION: XR FLUOROSCOPY WITH IMAGES CLINICAL INFORMATION: Cysto, uretero, retro, laser, left. COMPARISON: CT of the abdomen and pelvis 08/01/2023. TECHNIQUE: Fluoroscopy Supervised By: Dr. Pulliam. Fluoroscopy Time: 6.2 sec. Cumulative Dose: 1.28 mGy. DAP: None given. Images: 10. FINDINGS: Intraoperative fluoroscopy and spot films were performed during a procedure in the OR. The cystoscope along with guidewires are seen in the left renal collecting system. One image demonstrates the midportion of a presumed ureteral stent. Neither the proximal or distal ends are included on the radiographs. Please correlate with Dr. Pulliam's report for complete details. FL/FL guidance in OR IMPRESSION: Intraoperative fluoroscopy and spot films were obtained. Please see Dr. Pulliam's report for complete details.
[2023-09-09] MEDS: Lactated Ringers 1,000 ML 80 ML IVCONT (07:53)
--- NOTE | 2023-09-09 07:54 | P.CONAN_ITS ---
[facility] Active Problems Active Problems: All Active Problems Left ureteral stone (Acute) Pyelonephritis (Acute) Urolithiasis (Acute) Obstructed, uropathy (Acute) Acute pyelonephritis (Acute) Acute UTI (Acute) Complex renal cyst (Acute) Balanitis (Acute) Kidney stone (Acute) Past Medical History Medical History Kidney stone Meningioma Spinal stenosis H/O pilonidal cyst Transient global amnesia BPH (benign prostatic hyperplasia) Gall bladder stones Chronic gastritis HTN (hypertension) Tubular adenoma of colon Arthritis Hx of meningioma of the brain GERD (gastroesophageal reflux disease) Hx of renal calculi Hx of spinal stenosis Elevated cholesterol Family History Family history of problems with anesthesia: No Surgical History Surgical History History of excision of pilonidal cyst Hx of arthroscopic knee surgery Hx of lithotripsy Hx of brain surgery History of esophagogastroduodenoscopy (EGD) H/O colonoscopy History of Problems with Anesthesia: No Social History Social History Household Members: Spouse Housing: House Do you presently have visiting nurse or other home services: No Alcohol intake: current Alcohol intake frequency: does not drink Alcohol type: wine Patient Tobacco Use Status: Never used Tobacco Use of substances other than those prescribed or required for medical reasons: No Are you DNR?: No Advance Directives: No Advance Directives Information Provided: Yes Advance Directives Date on File: 12/17/22 service: Yes Meds Allergies Allergy/AdvReac Type Severity Reaction Status Date / Time aspirin [Aspirin] AdvReac Intermediate gastrointestinal Verified 09/09/23 07:24 upset/pain Active Medications: Current Medications Lactated Ringer's (Lr) 1,000 mls @ 80 mls/hr IVCONT .[id number] SLADE Last Admin: 09/09/23 07:53 Dose: 80 mls/hr Home Medications ?Medication ?Instructions ?Recorded ?Confirmed ?Last Taken ?Type omeprazole 20 mg capsule,delayed 20 mg PO DAILY 05/18/20 08/01/23 04/09/22 History release multivitamin 1 tab PO DAILY 05/23/20 08/01/23 04/09/22 History buspirone 5 mg tablet 5 mg PO DAILY 08/01/23 08/01/23 Unknown History prazosin 1 mg capsule 1 mg PO BEDTIME 08/01/23 08/01/23 Unknown History sertraline 25 mg tablet 25 mg PO QAM 08/01/23 08/01/23 Unknown History Exam Height,Weight and Vital Signs: Height 5 ft 8 in Weight 60.328 kg Last Vital Signs Temp 97.9 F 09/09/23 07:51 Pulse 72 09/09/23 07:51 Resp 16 09/09/23 07:51 BP 138/71 09/09/23 07:51 Pulse Ox 99 09/09/23 07:51 O2 Del Method Room Air 09/09/23 07:51 Airway Mallampati Class: III TM Dist: >3cm Neck ROM: Limited Loose/Missing/Broken Teeth: No Heart: RRR Lungs: CTA Assessment and Plan Assessment Anesthesia Assessment: Anesthesia Plan Discussed and Chart Reviewed Final Anesthetic Review Family History of Problems with Anesthesia: No History of Problems with Anesthesia: No NPO: Yes ASA Class: III Final Preanesthetic Review: Meds/Allgs Chart Reviewed, Consent Obtained/Reviewed and Anes Risks/Benef Reviewed Patient Risk: Intermediate Procedure Risk: Low Anesthetic Plan Anesthetic Plan: GA Disposition: Standard PACU
--- NOTE | 2023-09-09 08:58 | MHC.SHP ---
Pre-Procedural Eval Section A - 24 Hr Update-Section A only Date of Service: 09/09/23 The patient is an INPATIENT: No The patient has been examined within 24 hours of the surgical procedure. The History & Physical has been completed within 30 days and I have reviewed it.: Yes Section B - Complete if H&P > 30 days Chief Complaint: Calculus of ureter Allergies: Allergies Allergy/AdvReac Type Severity Reaction Status Date / Time aspirin [Aspirin] AdvReac Intermediate gastrointestinal Verified 09/09/23 07:24 upset/pain Plan Diagnosis/Plan: Unchanged I have reviewed the history and physical and performed a pertinent physical examination on my patient. No changes have occurred unless specified. Plan for Cystoscopy, Left ureteroscopy, possible laser lithotripsy, ureteral stent exchange. Risks discussed included but not limited to, possible need to repeat procedure if stone is not completely fragmented, Irritative voiding symptoms, bladder spasms, urgency, blood in urine. Time Spent With Patient Time: Total time managing care of this patient today ____ minutes.
--- NOTE | 2023-09-09 10:27 | P.OP_ITS ---
Operative Note Operative Note Date of Service: 09/09/23 Narrative: PreOperative Diagnosis:?? left ureteral stone, s/p left ureteral stent Post Operative Diagnosis:?? left ureteral stone, s/p left ureteral stent Procedure: Cystoscopy, left ureteroscopy stone extraction, stent removal Surgeon:?Dr Lyndsey Pulliam Anesthesia:? General Procedure: After informed consent was verified the patient was brought to the operating placed on the OR table in supine position.? General Anesthesia was administered per protocol.? The patient was placed in lithotomy position, prepped and draped in the usual sterile fashion.? Safety pause time-out and side of surgery confirmed.? Antibiotics confirmed. A 22 Green[place] cystoscope was inserted transurethrally, the bulbous urethra was within normal limits. The prostatic urethra noted bilobar enlargement. The bladder was visualized.? Both ureteric orifices were in normal position. The left ureteral stent was curled in the bladder. The distal end of the ureteral stent was grasped with the flexible grasping forceps. The stent was pulled retrograde through the urethra. A guidewire was passed through the stent. The cystoscope was removed, leaving the guidewire in place. The guidewire was used as the safety and was attached to the draping. The semi rigid ureteroscope was passed transurethrally to the level of the stone the 0 degree basket was used to remove the stone which was small and it was sent for analysis. The ureteroscope was removed. The cystoscope was passed transurethrally, the guide wire was removed. The bladder was emptied.? The rigid cystoscope was removed. ? The patient tolerated the procedure well and was brought to the recovery room in stable condition. Complications: None Drains: none
[2023-09-09] MEDS: Phenazopyridine HCL 200 MG TABLET PO (10:46)
[2023-09-17 21:49] LABS: Stone Source URETERAL STONE
== END 2023-09-09 12:10 | disposition home or self-care (01) ==
PROVIDERS: PCP Family Medicine; Visit Provider Urology
PROC: (CPT 52352; principal; 2023-09-09 09:00)
DX: N20.1 Calculus of ureter (principal); Z46.6 Encounter for fitting and adjustment of urinary device; Z87.442 Personal history of urinary calculi; N40.0 Benign prostatic hyperplasia without lower urinary tract symptoms; I10 Essential (primary) hypertension; E78.00 Pure hypercholesterolemia, unspecified; G45.4 Transient global amnesia; Z86.011 Personal history of benign neoplasm of the brain; Z79.899 Other long term (current) drug therapy; Z88.4 Allergy status to anesthetic agent; Z98.890 Other specified postprocedural states
CPT/HCPCS: 52352; 82365; 87086; 88300; C1758; C1769; J1100; J1956; J2405; J2704; J3010; Q9967

== ENCOUNTER → 2023-09-09 07:14 | Outpatient (BNV) | payer MEDICARE, OTHER, SELFPAY | PROVIDERS: PCP Family Medicine; Visit Provider Urology | DX: N20.1 Calculus of ureter (principal) | CPT/HCPCS: 52352 ==

== ENCOUNTER 2023-09-19 10:23 | Outpatient (AMB) | payer MEDICARE, OTHER, SELFPAY ==
--- NOTE | 2023-09-19 10:27 | MHC.OFFVIS ---
Intake Visit Reasons: FU ureteroscopy Intake Note: Patient presents today for stent removal Meds- Prazosin Allergies to Antibiotic- No Known Allergies Blood Thinner- None [employer] Technician Required: No Accompanied by: Self / Same As Patient Allergies aspirin [Aspirin] Adverse Reaction (Intermediate, Verified 09/19/23 10:28) gastrointestinal upset/pain HPI Comments Details: 09/19/23--Bony is s/p ureteroscopy, stone extraction and stent removal on 09/09/23--he is here for follow up. On renal US left kidney noted ill defined mass. Plan MRI abd, and discussed metabolic work up. Review of chart: 08/08/23--Bony is a 78-year-old male who was initially evaluated by Dr. Brenner in consultation on 08/01/2023, due to MAURA with UTI sepsis secondary to obstructing left ureteral stone. Both blood cultures and urine cultures were positive for E coli. He is status post cystoscopy left ureteral stent on 08/01/2023. I have discussed definitive management of ureteral stone with ureteroscopy laser lithotripsy. [facility] Medical History Kidney stone Meningioma Spinal stenosis H/O pilonidal cyst Transient global amnesia BPH (benign prostatic hyperplasia) Gall bladder stones Chronic gastritis HTN (hypertension) Tubular adenoma of colon Arthritis Hx of meningioma of the brain GERD (gastroesophageal reflux disease) Hx of renal calculi Hx of spinal stenosis Elevated cholesterol Surgical History History of excision of pilonidal cyst Hx of arthroscopic knee surgery Hx of lithotripsy Hx of brain surgery History of esophagogastroduodenoscopy (EGD) H/O colonoscopy Social History Household Members: Spouse Housing: House Do you presently have visiting nurse or other home services: No Alcohol intake: current Alcohol intake frequency: does not drink Alcohol type: wine Patient Tobacco Use Status: Never used Tobacco Advance Directives Date on File: 12/17/22 service: Yes Review of Systems Const All systems reviewed & are unremarkable except as noted in HPI and below Reports no additional complaints Eyes Reports no additional complaints ENT Reports no additional complaints Card Reports no additional complaints Resp Reports no additional complaints GI Reports no additional complaints Reports as per HPI Musc Reports no additional complaints Skin/Breast Reports system reviewed and no additional complaints, except as documented Neuro Reports no additional complaints Psych Reports no additional complaints Endo Reports no additional complaints Larry/Lymph Reports no additional complaints Aller/Immun Reports no additional complaints Results AMB Urinalysis, Automated UA Leukoctes 0 Lamine/uL Last Edit by QUYNH Cabrera on 09/19/23 10:55 UA Nitrite Negative Last Edit by Elzbieta Baxter [facility] on 09/19/23 10:55 UA Urobilinogen 0.2 mg/dL Last Edit by Elzbieta Baxter [facility] on 09/19/23 10:55 UA Protein 0 mg/dL Last Edit by Elzbieta Baxter [facility] on 09/19/23 10:55 UA pH 6.0 Last Edit by Elzbieta Baxter [facility] on 09/19/23 10:55 UA Blood 0 Scott/uL Last Edit by Elzbieta Baxter [facility] on 09/19/23 10:55 UA Specific [place] 1.020 Last Edit by Elzbieta Baxter [facility] on 09/19/23 10:55 UA Ketone Negative Last Edit by Elzbieta Baxter [facility] on 09/19/23 10:55 UA Bilirubin 0 mg/dL Last Edit by Elzbieta Baxter [facility] on 09/19/23 10:55 UA Glucose 0 mg/dL Last Edit by Elzbieta Baxter [facility] on 09/19/23 10:55 Results Reviewed Results Reviewed: Laboratory Last Values Urine pH (Auto) 6.0 09/19/23 10:54 Specific [place] (Auto) 1.020 09/19/23 10:54 Urine Protein (Auto) 0 mg/dL 09/19/23 10:54 Glucose (UA)(Auto) 0 mg/dL 09/19/23 10:54 Urine Ketones (Auto) Negative 09/19/23 10:54 Urine Blood (Auto) 0 Scott/uL 09/19/23 10:54 Urine Nitrite (Auto) Negative 09/19/23 10:54 Urine Bilirubin (Auto) 0 mg/dL 09/19/23 10:54 Urine Urobilinogen (Auto) 0.2 mg/dL 09/19/23 10:54 Leukocyte Esterase (Auto) 0 Lamine/uL 07/12/24 10:54 FOSTER: 09/09/23 STATUS: COMP REQ : [id number] RECD: 09/09/23-[address]: Lyndsey Pulliam MD COMP: 09/17/23-2148 ENTERED: 09/09/23-[address] [facility] [address]: Arnold Pandya MD ORDERED: Kidney Stone QUERIES: Kidney Stone Source: [id number] Test Result Flag Reference Component 1 SEE NOTE Calcium Oxalate Dihydrate (Weddellite) 20% Calcium Oxalate Monohydrate (Whewellite) 80% Unable to photograph, tiny stone submitted. Stone Weight 0.001 g This test was developed and its analytical performance characteristics have been determined by [employer]. It has not been cleared or approved by FDA. This assay has been validated pursuant to the CLIA regulations and is used for clinical purposes. THIS TEST WAS PERFORMED AT: [employer]/[facility] [address] [place] [address] ROYA SUERO MD,PHD,JENNIFER Stone Source URETERAL STONE Date of Service: 08/01/23 EXAMINATION: CT ABDOMEN AND PELVIS WITH CONTRAST CLINICAL INFORMATION: Abdominal pain. Weight loss. COMPARISON: 12/13/2022 TECHNIQUE: Multidetector volumetric images were obtained from the superior aspect of the liver through the pubic symphysis following administration 85 mL of Omnipaque 350 intravenous contrast. Sagittal and coronal reformatted images were obtained on the technologist's workstation. Oral contrast: No This CT examination was performed using dose optimization techniques as appropriate, variously including the following: *Automated exposure control *Adjustment of mA and/or kV according to patient size (this includes techniques or standardized protocols for targeted exams where dose is matched to indication/reason for exam; i.e. extremities or head) *Use of iterative reconstruction technique DLP: 356 mGy-cm FINDINGS: LUNG BASES: No pleural or pericardial effusion. Small hiatal hernia. LIVER, GALLBLADDER, AND BILIARY TREE: The liver is normal size and contour. There is a hypodensity in the posterior right hepatic lobe measuring 2.1 x 2.7 x 2.4 cm with extension to the hepatic capsule where there is capsular retraction. There are scattered hepatic cysts that require no further imaging follow-up. No biliary ductal dilatation is present. Possible tumefactive sludge in the gallbladder. PANCREAS: No ductal dilatation. Scattered parenchymal calcifications. SPLEEN: Not enlarged. ADRENAL GLANDS: No adrenal mass. KIDNEYS AND URETERS: 5 mm calculus in the mid left ureter with mild to moderate left hydroureteronephrosis. There is irregular appearance of the left renal parenchyma with ill-defined infiltrative hypodensity involving the upper pole of the left kidney. The left kidney enhances entirely heterogeneously with striated nephrograms. There is left perinephric stranding. The right kidney is unremarkable. BLADDER: Mild wall thickening left superior bladder dome. No gas in the urinary bladder. GASTROINTESTINAL TRACT: Pericolonic stranding of the sigmoid colon with extensive underlying diverticular disease. There is a focal diverticulum adherent to the bladder dome with surrounding inflammation on image 31 of series 6. There is no definite fistulous communication on the current study. No small bowel obstruction. ABDOMINAL WALL: No significant hernia is appreciated. LYMPH NODES: No bulky lymphadenopathy. VASCULAR: Normal caliber abdominal aorta. PELVIC VISCERA: Enlarged prostate gland. OSSEOUS STRUCTURES: No destructive bone lesions. IMPRESSION: 5 mm calculus in the left mid ureter with mild to moderate left hydroureteronephrosis. Heterogeneous enhancement and enlargement of the left kidney with associated striated nephrograms. This could represent acute pyelonephritis. Correlation with urinalysis is recommended. Follow-up imaging is advised to exclude underlying mass. Inflammatory stranding of the mid sigmoid colon with extensive underlying diverticular disease. There is an inflamed diverticulum adherent to the left superior bladder dome causing wall thickening. Short interval follow-up imaging is advised. Indeterminate liver hypodensity in the posterior right hepatic lobe measuring 2.1 x 2.7 x 2.4 cm with capsular retraction. MRI abdomen is recommended for further characterization. Assessment & Plan Assessment & Plan (1) Kidney stone: Code(s): N20.0 - Calculus of kidney Category: Medical (2) Abnormal ultrasound of kidney: Code(s): R93.429 - Abnormal radiologic findings on diagnostic imaging of unspecified kidney Category: Medical Plan History of nephrolithiasis. Stone analysis calcium oxalate. 24 hour urine collection Heterogeneous changes left kidney. MRI abdomen Orders: Orders AMB Urinalysis Automated 09/19/23 Z13.9 - Encounter for screening, unspecified MR abdomen wo/w con 3 Months N28.89 - Other specified disorders of kidney and ureter Patient Instructions: The patient had an opportunity to ask questions regarding treatment plan. The patient expressed understanding and agreement with the above treatment plan. The patient is aware they should contact our office by phone for worsening of their current condition or the appearance of new symptoms. Compliance is encouraged with any medications and followup testing that is ordered. It is a privilege to be allowed the opportunity to participate in the urologic care of your patient. If you have any questions or concerns regarding treatment for the above conditions please do not hesitate to contact me. The office telephone contact is [phone]. This note is constructed in part using voice recognition software. While every effort has been made to ensure accuracy hearing specialist errors may have been included. Yours sincerely, Lyndsey Pulliam MD Coding Level of Care Code Est Pt Level 4 (40515) Diagnoses Kidney stone N20.0 Abnormal ultrasound of kidney R93.429
== END 2023-09-19 11:27 | disposition home or self-care (01) ==
PROVIDERS: PCP Family Medicine; Visit Provider Urology
DX: N20.0 Calculus of kidney (principal); R93.429 Abnormal radiologic findings on diagnostic imaging of unspecified kidney
CPT/HCPCS: 99214

== ENCOUNTER → 2023-09-19 10:23 | Outpatient (BNVA) | payer MEDICARE, OTHER, SELFPAY | PROVIDERS: PCP Family Medicine; Visit Provider Urology | DX: N20.0 Calculus of kidney (principal); R93.429 Abnormal radiologic findings on diagnostic imaging of unspecified kidney | CPT/HCPCS: 81003; 99212 ==

== ENCOUNTER 2023-09-22 09:48 | Outpatient (REF) | payer MEDICARE, OTHER, SELFPAY ==
[2023-09-22 10:01] LABS: MANUAL DIFF FLAG NO
[2023-09-22 10:39] LABS: Basophils Absolute Auto 0.1 X10*3/uL (0.0-0.2); Eosinophils Absolute Auto 0.2 X10*3/uL (0.0-0.4); Eosinophils Percent Auto 1.8 % (0-4); Hematocrit 38.9 % (42.0-52.0); Hemoglobin 12.9 g/dl (14.0-18.0); Imm Gran Abs Auto 0.06 X10*3/uL (0.00-0.03); Imm Gran Pct Auto 0.7 % (0.0-0.4); Lymphocytes Absolute Auto 2.5 X10*3/uL (1.2-4.9); Lymphocytes Percent Auto 27.8 % (20-40); Mean Corpuscular HGB Conc 33.2 g/dl (31.0-36.0); Mean Corpuscular Hemoglobin 31.4 pg (27.0-33.0); Mean Corpuscular Volume 94.6 fL (80.0-98.0); Mean Platelet Volume 9.2 fL (9.4-12.4); Monocytes Absolute Auto 0.7 X10*3/uL (0.1-1.2); Monocytes Percent Auto 7.7 % (2-11); Neutrophils Absolute Auto 5.6 x10*3/uL (2.0-8.3); Platelet Count 346 X10*3/uL (160-400); Red Blood Count 4.11 X10*6/uL (4.60-5.80); White Blood Count 9.1 X10*3/uL (4.8-10.8)
[2023-09-22 11:03] LABS: Iron 100 mcg/dL (45-160); Percent Iron Saturation 39 % (15-50); Total Iron Binding Capacity 258 mcg/dL (228-428); Unsaturated Iron Binding 158 ug/dL
[2023-09-22 11:22] LABS: Ferritin 285 ng/mL (20-250)
[2023-09-22 12:19] LABS: Folate 12.9 ng/mL (> or = 4.0); Vitamin B12 308 pg/mL (200-900)
== END 2023-09-22 09:49 | disposition home or self-care (01) ==
LOC: HO.LAB 09:48
PROVIDERS: PCP Family Medicine; Visit Provider Family Medicine
DX: D64.9 Anemia, unspecified (principal); R63.4 Abnormal weight loss
CPT/HCPCS: 36415; 82607; 82728; 82746; 83540; 84439; 85025

== ENCOUNTER 2024-01-13 15:54 | Outpatient (REF) | payer MEDICARE, OTHER, SELFPAY ==
[2024-01-13] MEDS: gadobutroL 7.5 ML VIAL IVPUSH (16:40)
== END 2024-01-13 15:55 | disposition home or self-care (01) ==
LOC: HO.MRI 15:54
PROVIDERS: PCP Family Medicine; Visit Provider Urology
DX: K76.9 Liver disease, unspecified (principal); N28.89 Other specified disorders of kidney and ureter
CPT/HCPCS: 74183; A9585

== ENCOUNTER → 2024-01-13 16:37 | Outpatient (BNV) | payer MEDICARE, OTHER, SELFPAY | PROVIDERS: PCP Family Medicine; Visit Provider Radiology Diagnostic Radiology | DX: N28.1 Cyst of kidney, acquired (principal) | CPT/HCPCS: 74183 ==

== ENCOUNTER 2024-03-22 08:03 | Outpatient (REF) | payer MEDICARE, OTHER, SELFPAY | END 2024-03-22 08:04 | disposition home or self-care (01) | LOC: HO.LNP 08:03 | PROVIDERS: PCP Family Medicine; Visit Provider Urology | DX: N39.0 Urinary tract infection, site not specified (principal); B96.20 Unspecified Escherichia coli [E. coli] as the cause of diseases classified elsewhere; R97.20 Elevated prostate specific antigen [PSA]; N20.0 Calculus of kidney; N40.1 Benign prostatic hyperplasia with lower urinary tract symptoms; R82.71 Bacteriuria; Z13.9 Encounter for screening, unspecified | CPT/HCPCS: 81003; 87086; 87088; 87186; 99212 ==

== ENCOUNTER 2024-03-22 08:03 | Outpatient (AMB) | payer MEDICARE, OTHER, SELFPAY ==
--- NOTE | 2024-03-21 14:36 | MHC.OFFVIS ---
Intake Visit Reasons: MRI/Litholink results Intake Note: Patient is present for MRI/Litholink results Urology Med: None Antibiotic Allergy: None Blood Thinner: None LABS: Patient Symptoms: Accompanied by: Spouse Allergies aspirin [Aspirin] Adverse Reaction (Intermediate, Verified 03/22/24 08:36) gastrointestinal upset/pain HPI Comments Details: 03/22/24--Bony is followed for h/o kidney stones. Prior CT has questionable left kidney indeterminant lesion. MRI abdomen reviewed--No kidney lesion, 3 cm cyst in liver (3 cm nonenhancing cystic lesion with hemorrhagic/blood products components suggesting possible biopsy.) I reviewed MRI results-no suspicious renal lesions.Discussed 24 hour urine results: Total volume 1.94 mL, Calcium 67 mg; Oxalate 27 mg, Sodium 132, Citrate 230 mg. Instructed on importance of fluid intake, adding citrate 2 diet. Low oxalate diet, low sodium diet. Pamphlet provided. The patient states that he was told he had an elevated PSA of up to 18. I will start Avodart and follow-up in 3 months with a PSA at that time. Urinalysis leukocytes present, nitrite positive. Patient denies UTI symptoms. We will send urine culture. Review of chart: 09/19/23--Bony is s/p ureteroscopy, stone extraction and stent removal on 09/09/23--he is here for follow up. On renal US left kidney noted ill defined mass. Plan MRI abd, and discussed metabolic work up. 08/08/23--Bony is a 78-year-old male who was initially evaluated by Dr. Brenner in consultation on 08/01/2023, due to MAURA with UTI sepsis secondary to obstructing left ureteral stone. Both blood cultures and urine cultures were positive for E coli. He is status post cystoscopy left ureteral stent on 08/01/2023. I have discussed definitive management of ureteral stone with ureteroscopy laser lithotripsy. [facility] Medical History Kidney stone Meningioma Spinal stenosis H/O pilonidal cyst Transient global amnesia BPH (benign prostatic hyperplasia) Gall bladder stones Chronic gastritis HTN (hypertension) Tubular adenoma of colon Arthritis Hx of meningioma of the brain GERD (gastroesophageal reflux disease) Hx of renal calculi Hx of spinal stenosis Elevated cholesterol Surgical History History of excision of pilonidal cyst Hx of arthroscopic knee surgery Hx of lithotripsy Hx of brain surgery History of esophagogastroduodenoscopy (EGD) H/O colonoscopy Social History Household Members: Spouse Housing: House Do you presently have visiting nurse or other home services: No Alcohol intake: current Alcohol intake frequency: does not drink Alcohol type: wine Patient Tobacco Use Status: Never used Tobacco Advance Directives Date on File: 12/17/22 service: Yes Review of Systems Const All systems reviewed & are unremarkable except as noted in HPI and below Reports no additional complaints Eyes Reports no additional complaints ENT Reports no additional complaints Card Reports no additional complaints Resp Reports no additional complaints GI Reports no additional complaints Reports as per HPI Musc Reports no additional complaints Skin/Breast Reports system reviewed and no additional complaints, except as documented Neuro Reports no additional complaints Psych Reports no additional complaints Endo Reports no additional complaints Larry/Lymph Reports no additional complaints Aller/Immun Reports no additional complaints Results AMB Urinalysis, Automated UA Leukoctes 70 Lamine/uL Last Edit by Deanne Harris CMA on 03/22/24 08:52 UA Nitrite Positive Last Edit by Deanne Harris CMA on 03/22/24 08:52 UA Urobilinogen 0.2 mg/dL Last Edit by Deanne Harris CMA on 03/22/24 08:52 UA Protein 15 mg/dL Last Edit by Deanne Harris, GERALD on 03/22/24 08:52 UA pH 5.0 Last Edit by Deanne Harris, GERALD on 03/22/24 08:52 UA Blood 0 Scott/uL Last Edit by Deanne Harris CMA on 03/22/24 08:52 UA Specific [place] 1.020 Last Edit by Deanne Harris CMA on 03/22/24 08:52 UA Ketone Negative Last Edit by Deanne Harris CMA on 03/22/24 08:52 UA Bilirubin 0 mg/dL Last Edit by Deanne Harris, GERALD on 03/22/24 08:52 UA Glucose 0 mg/dL Last Edit by Deanne Harris CMA on 03/22/24 08:52 Results Reviewed Results Reviewed: Laboratory Last Values Urine pH (Auto) 5.0 03/22/24 08:47 Specific [place] (Auto) 1.020 03/22/24 08:47 Urine Protein (Auto) 15 mg/dL 03/22/24 08:47 Glucose (UA)(Auto) 0 mg/dL 03/22/24 08:47 Urine Ketones (Auto) Negative 03/22/24 08:47 Urine Blood (Auto) 0 Scott/uL 03/22/24 08:47 Urine Nitrite (Auto) Positive 03/22/24 08:47 Urine Bilirubin (Auto) 0 mg/dL 03/22/24 08:47 Urine Urobilinogen (Auto) 0.2 mg/dL 03/22/24 08:47 Leukocyte Esterase (Auto) 70 Lamine/uL 03/22/24 08:47 Date of Service: 01/13/24 MR ABDOMEN WITHOUT AND WITH CONTRAST CLINICAL INFORMATION: Liver lesions. Weight loss. COMPARISON: No prior MRI abdomen. Correlated to CT abdomen dated August 01, 2023. TECHNIQUE: MR abdomen was performed without and with use of 7 mL intravenous Gadavist gadolinium contrast. Postcontrast images are performed in multiphase dynamic sequences. Imaging was performed in 3 planes. No reported immediate complications FINDINGS: Submitted for interpretation on February 26, 2024. LIVER, GALLBLADDER, AND BILIARY TREE: Liver measures 16 cm. There are multifocal, lobulated, less than 2 cm, hypointense T1 and hyperintense T2 nonrestricted diffusion and no arterial enhancing lesions throughout the parenchyma. There is a 3 cm lobulated nonenhancing lesion with a intrinsic hyperintense T1 center in the peripheral posterior right hepatic lobe extending to the hepatic capsule with the a focal parenchymal defect. The main portal veins, hepatic veins and intrahepatic portions of the IVC are patent. There is a 2 cm hypointense T2 intraluminal lesion in the gallbladder. No pericholecystic fluid collection or gallbladder wall thickening. Common bile duct measures 5 mm. PANCREAS: No focal mass. No peripancreatic fluid collection. Volume loss. No main pancreatic ductal dilatation. SPLEEN: 9 cm. No focal mass. ADRENAL GLANDS: No nodular lesions KIDNEYS AND URETERS: No renal mass. No hydronephrosis. Normal enhancement pattern. GASTROINTESTINAL TRACT: Abundant stool within the large intestine with scattered diverticula in the left hemicolon. No intestinal obstruction pattern. No ascites. ABDOMINAL WALL: Small tiny fat-containing umbilical hernia. LYMPH NODES: Nonspecific prominent lymph nodes, retroperitoneal and mesenteric. VASCULAR: No aneurysm or dissection abdominal aorta. OSSEOUS STRUCTURES: Multilevel thoracolumbar spondylosis more conspicuous at T9-10, L1 to, L3-4 and L5-S1 levels. Grade 1 anterolisthesis L4-5. Grade 1 retrolisthesis L5-S1 and likely L1-2.. IMPRESSION: Probable hepatic cysts, stable since prior MRI abdomen dated July 09, 2017. 3 cm nonenhancing cystic lesion with hemorrhagic/blood products components suggesting possible biopsy. Cholelithiasis. Diverticular disease. Multilevel thoracolumbar spondylosis. FOSTER: 09/09/23 STATUS: COMP REQ : [id number] RECD: 09/09/[address]: Lyndsey Pulliam MD COMP: 09/17/23 ENTERED: 09/09/23-[address]: Arnold Pandya MD ORDERED: Kidney Stone QUERIES: Kidney Stone Source: [id number] Test Result Flag Reference Component 1 SEE NOTE Calcium Oxalate Dihydrate (Weddellite) 20% Calcium Oxalate Monohydrate (Whewellite) 80% Unable to photograph, tiny stone submitted. Stone Weight 0.001 g This test was developed and its analytical performance characteristics have been determined by [employer]. It has not been cleared or approved by FDA. This assay has been validated pursuant to the CLIA regulations and is used for clinical purposes. THIS TEST WAS PERFORMED AT: [employer] [id number] [place] [address] ROYA SUERO MD,PHD,JENNIFER Stone Source URETERAL STONE Date of Service: 08/01/23 EXAMINATION: CT ABDOMEN AND PELVIS WITH CONTRAST CLINICAL INFORMATION: Abdominal pain. Weight loss. COMPARISON: 12/13/2022 TECHNIQUE: Multidetector volumetric images were obtained from the superior aspect of the liver through the pubic symphysis following administration 85 mL of Omnipaque 350 intravenous contrast. Sagittal and coronal reformatted images were obtained on the technologist's workstation. Oral contrast: No This CT examination was performed using dose optimization techniques as appropriate, variously including the following: *Automated exposure control *Adjustment of mA and/or kV according to patient size (this includes techniques or standardized protocols for targeted exams where dose is matched to indication/reason for exam; i.e. extremities or head) *Use of iterative reconstruction technique DLP: 356 mGy-cm FINDINGS: LUNG BASES: No pleural or pericardial effusion. Small hiatal hernia. LIVER, GALLBLADDER, AND BILIARY TREE: The liver is normal size and contour. There is a hypodensity in the posterior right hepatic lobe measuring 2.1 x 2.7 x 2.4 cm with extension to the hepatic capsule where there is capsular retraction. There are scattered hepatic cysts that require no further imaging follow-up. No biliary ductal dilatation is present. Possible tumefactive sludge in the gallbladder. PANCREAS: No ductal dilatation. Scattered parenchymal calcifications. SPLEEN: Not enlarged. ADRENAL GLANDS: No adrenal mass. KIDNEYS AND URETERS: 5 mm calculus in the mid left ureter with mild to moderate left hydroureteronephrosis. There is irregular appearance of the left renal parenchyma with ill-defined infiltrative hypodensity involving the upper pole of the left kidney. The left kidney enhances entirely heterogeneously with striated nephrograms. There is left perinephric stranding. The right kidney is unremarkable. BLADDER: Mild wall thickening left superior bladder dome. No gas in the urinary bladder. GASTROINTESTINAL TRACT: Pericolonic stranding of the sigmoid colon with extensive underlying diverticular disease. There is a focal diverticulum adherent to the bladder dome with surrounding inflammation on image 31 of series 6. There is no definite fistulous communication on the current study. No small bowel obstruction. ABDOMINAL WALL: No significant hernia is appreciated. LYMPH NODES: No bulky lymphadenopathy. VASCULAR: Normal caliber abdominal aorta. PELVIC VISCERA: Enlarged prostate gland. OSSEOUS STRUCTURES: No destructive bone lesions. IMPRESSION: 5 mm calculus in the left mid ureter with mild to moderate left hydroureteronephrosis. Heterogeneous enhancement and enlargement of the left kidney with associated striated nephrograms. This could represent acute pyelonephritis. Correlation with urinalysis is recommended. Follow-up imaging is advised to exclude underlying mass. Inflammatory stranding of the mid sigmoid colon with extensive underlying diverticular disease. There is an inflamed diverticulum adherent to the left superior bladder dome causing wall thickening. Short interval follow-up imaging is advised. Indeterminate liver hypodensity in the posterior right hepatic lobe measuring 2.1 x 2.7 x 2.4 cm with capsular retraction. MRI abdomen is recommended for further characterization. Assessment & Plan Assessment & Plan (1) Elevated PSA: Code(s): R97.20 - Elevated prostate specific antigen [PSA] Category: Medical (2) Kidney stone: Code(s): N20.0 - Calculus of kidney Category: Medical (3) BPH loc w urin obs/LUTS: Code(s): N40.1 - Benign prostatic hyperplasia with lower urinary tract symptoms Category: Medical (4) Bacteriuria: Code(s): R82.71 - Bacteriuria Category: Medical Plan History of nephrolithiasis. Nitrite positive urine. Patient denies irritative lower urinary tract symptoms. Urine culture sent. Elevated PSA. Avodart. Repeat PSA in 3 months. Orders: Orders AMB Urinalysis Automated Today Z13.9 - Encounter for screening, unspecified PSA,Total (Free>4and<10) 3 Months R97.20 - Elevated prostate specific antigen [PSA] Medications: New dutasteride (Avodart) 0.5 mg PO DAILY 30 caps 4RF enlarged prostate Patient Instructions: The patient had an opportunity to ask questions regarding treatment plan. The patient expressed understanding and agreement with the above treatment plan. The patient is aware they should contact our office by phone for worsening of their current condition or the appearance of new symptoms. Compliance is encouraged with any medications and followup testing that is ordered. It is a privilege to be allowed the opportunity to participate in the urologic care of your patient. If you have any questions or concerns regarding treatment for the above conditions please do not hesitate to contact me. The office telephone contact is [phone]. This note is constructed in part using voice recognition software. While every effort has been made to ensure accuracy dust box worker errors may have been included. Yours sincerely, Lyndsey Pulliam MD Coding Level of Care Code Est Pt Level 4 (67383) Diagnoses Elevated PSA R97.20 Kidney stone N20.0 BPH loc w urin obs/LUTS N40.1 Bacteriuria R82.71
--- NOTE | 2024-03-22 09:32 | MHC.OFFVIS ---
Intake Visit Reasons: MRI/[facility] results Allergies aspirin [Aspirin] Adverse Reaction (Intermediate, Verified 03/22/24 08:36) gastrointestinal upset/pain PFSH Medical History Kidney stone Meningioma Spinal stenosis H/O pilonidal cyst Transient global amnesia BPH (benign prostatic hyperplasia) Gall bladder stones Chronic gastritis HTN (hypertension) Tubular adenoma of colon Arthritis Hx of meningioma of the brain GERD (gastroesophageal reflux disease) Hx of renal calculi Hx of spinal stenosis Elevated cholesterol Surgical History History of excision of pilonidal cyst Hx of arthroscopic knee surgery Hx of lithotripsy Hx of brain surgery History of esophagogastroduodenoscopy (EGD) H/O colonoscopy Social History Household Members: Spouse Housing: House Do you presently have visiting nurse or other home services: No Alcohol intake: current Alcohol intake frequency: does not drink Alcohol type: wine Patient Tobacco Use Status: Never used Tobacco Advance Directives Date on File: 12/17/22 service: Yes Results AMB Urinalysis, Automated UA Leukoctes 70 Lamine/uL Last Edit by Deanne Harris CMA on 03/22/24 08:52 UA Nitrite Positive Last Edit by Deanne Harris CMA on 03/22/24 08:52 UA Urobilinogen 0.2 mg/dL Last Edit by Deanne Harris CMA on 03/22/24 08:52 UA Protein 15 mg/dL Last Edit by Deanne Harris CMA on 03/22/24 08:52 UA pH 5.0 Last Edit by Deanne Harris CMA on 03/22/24 08:52 UA Blood 0 Scott/uL Last Edit by Deanne Harris CMA on 03/22/24 08:52 UA Specific [place] 1.020 Last Edit by Deanne Harris CMA on 03/22/24 08:52 UA Ketone Negative Last Edit by Deanne Harris CMA on 03/22/24 08:52 UA Bilirubin 0 mg/dL Last Edit by Deanne Harris CMA on 03/22/24 08:52 UA Glucose 0 mg/dL Last Edit by Deanne Harris CMA on 03/22/24 08:52 Results Reviewed Results Reviewed: Laboratory Last Values Urine pH (Auto) 5.0 03/22/24 08:47 Specific [place] (Auto) 1.020 03/22/24 08:47 Urine Protein (Auto) 15 mg/dL 03/22/24 08:47 Glucose (UA)(Auto) 0 mg/dL 03/22/24 08:47 Urine Ketones (Auto) Negative 03/22/24 08:47 Urine Blood (Auto) 0 Scott/uL 03/22/24 08:47 Urine Nitrite (Auto) Positive 03/22/24 08:47 Urine Bilirubin (Auto) 0 mg/dL 03/22/24 08:47 Urine Urobilinogen (Auto) 0.2 mg/dL 03/22/24 08:47 Leukocyte Esterase (Auto) 70 Lamine/uL 03/22/24 08:47 Assessment & Plan Assessment & Plan (1) Elevated PSA: Code(s): R97.20 - Elevated prostate specific antigen [PSA] Category: Medical (2) Kidney stone: Code(s): N20.0 - Calculus of kidney Category: Medical (3) BPH loc w urin obs/LUTS: Code(s): N40.1 - Benign prostatic hyperplasia with lower urinary tract symptoms Category: Medical (4) Bacteriuria: Code(s): R82.71 - Bacteriuria Category: Medical Orders: Orders AMB Urinalysis Automated Today Z13.9 - Encounter for screening, unspecified PSA,Total (Free>4and<10) 3 Months R97.20 - Elevated prostate specific antigen [PSA] Medications: New dutasteride (Avodart) 0.5 mg PO DAILY 30 caps 4RF enlarged prostate Coding Diagnoses Elevated PSA R97.20 Kidney stone N20.0 BPH loc w urin obs/LUTS N40.1 Bacteriuria R82.71
== END 2024-03-22 09:17 | disposition home or self-care (01) ==
PROVIDERS: PCP Family Medicine; Visit Provider Urology
DX: R97.20 Elevated prostate specific antigen [PSA] (principal); N20.0 Calculus of kidney; N40.1 Benign prostatic hyperplasia with lower urinary tract symptoms; R82.71 Bacteriuria; Z13.9 Encounter for screening, unspecified
CPT/HCPCS: 99214

== ENCOUNTER 2024-06-24 09:16 | Outpatient (REF) | payer MEDICARE, OTHER, SELFPAY ==
--- OUTSIDE RECORDS SUMMARY | 2024-06-24 10:27 | XMS_ITS | Clinical Summary ---
Author Organization [facility] Address [address] [place] [address] [address] [place] [address] Phone Care Team Providers Care [facility] Sales Name Role Phone Arnold Pandya MD Primary Care Provider [phone] Allergies Active Allergy Reactions Criticality Noted Date Comments Aspirin Diarrhea 07/19/2020 Medications omeprazole (PriLOSEC) [address] capsule Take 1 capsule by mouth 1 (one) time each day Active lisinopril (PRINIVIL,ZESTR IL) 5 MG tablet Take 1 tablet by mouth 1 (one) time each day Active busPIRone (BUSPAR) 5 MG tablet Take 5 mg by mouth if needed 07/11/2021 Active prazosin (MINIPRESS) 5 MG capsule Take 5 mg by mouth every night Active Active Problems Problem Noted Date Diagnosed Date Chronic kidney disease 07/19/2020 Hyperlipidemia 07/19/2020 Hypertensive disorder 07/19/2020 Renal stone 07/19/2020 Simple renal cyst 07/19/2020 Family History Medical History Relation Comments Cancer Father Hypertension Father Heart disease Mother Kidney disease Mother Relation Status Comments Father Mother Social History Tobacco Use Types Packs/Day Years Used Date Smoking Tobacco: Never Smokeless Tobacco: Never Alcohol Use Standard Drinks/Week Comments Yes 0 (1 standard drink = 0.6 oz pure alcohol) Alcoholic Drinks/day: 1-2 drinks per day Sex and Gender Information Value Date Recorded Sex Assigned at Male 07/15/2022 9:30 AM EDT Legal Sex Male 4:43 PM EST Gender Identity Male 07/15/2022 9:30 AM EDT Sexual Orientation Straight 07/15/2022 9: 30 AM EDT Last Filed Vital Signs Vital Sign Reading Time Taken Comments Blood Pressure 112/64 07/22/2022 1:14 PM EDT Pulse 75 07/22/2022 1:14 PM EDT Temperature - - Respiratory Rate - - Oxygen Saturation 97% 07/22/2022 1:14 PM EDT Inhaled Oxygen Concentration - - Weight 73.5 kg (162 lb) 07/22/2022 1:14 PM EDT Height 172.7 cm (5' 8 ) 07/22/2022 1:14 PM EDT Body Mass Index 24.63 07/22/2022 1:14 PM EDT Plan of Treatment Health Maintenance Due Date Last Done Comments Pneumococcal Vaccine: 50+ Years (2 of 2 - PCV) 04/05/2017 04/05/2016 Influenza Vaccine (Season Ended) 2024 12/19/2020, 12/19/2020, 11/23/2019 Pneumococcal Vaccine: Peds (0 to 5 Years) and At-Risk Patients (6 to 49 Years) Discontinued 04/05/2016 Hepatitis B Vaccine Aged Out No longe r eligible based on patient's age to complete this topic Insurance [facility] Medicare [facility] Care [facility] Sales Relationship Specialty Start Date End Date Arnold Pandya MD [address] [place] [address] [address] [place] PCP - General 03/20/20
--- OUTSIDE RECORDS SUMMARY | 2024-06-24 10:27 | XMS_ITS ---
Author Organization [facility] Address [address] [place] [address] Care Team Providers Care Client Portfolio Manager Name Role Phone Arnold Pandya MD Primary Care Provider Unavailab Lita Love Unavailable [phone] Black, Sana Unavailable [phone] Allergies Allergen (clinical drug ingredient) Drug/Non Drug Allergy documented on EMR Reaction Allergy Type Onset Date Status aspirin Aspirin upset stomach Drug Allergy Act ramiro REASON FOR VISIT Pcp-11/10/23, Open sore - Toe Medications Medication SIG (Take, Route, Frequency, Duration) Notes Start Date End Date Status LORazepam 1 MG 1 tablet at bedtime as needed Orally Once a day Active Omeprazole 20 MG 1 capsule 30 minutes before morning meal Orally Once a day for 30 day(s) Active Ammonium Lactate 12 % 1 application Exte rnally to feet except for between the toes Twice a day for 30 days Active Lisinopril 5 MG 1 tablet Orally Once a day for 30 day(s) Not-Taking busPIRone HCl 5 MG 1 tablet Orally Twic e a day Not-Taking Social History Tobacco Use: Social History Observation Description Date Details (start date - stop date) Never Smoker NA - NA Tobacco Use/Smoking Question Answer Notes Are you a: nonsmoker Additional Findings: Tobacco Non-User Current no n-smoker Tobacco use other than smoking: Question Answer Notes Are you an other tobacco user? No Problems Problem Type SNOMED Code ICD Code Onset Dates Problem Status W/U Status Risk Notes Problem Ulcer of toe of left foot (disorder) (2079531563 3079263) Skin ulcer of toe of left foot, limited to breakdown of skin (L97.521) Active confirmed Response to treatment,No napplicable Vital Signs Height 5 ft 8 in in 12/01/2023 Weight 150 lbs 12/01/2023 BMI 22.8 kg/m2 12/01/2023 Blood pressure systolic 116 mm Hg 12/01/19 24 Blood pressure diastolic 65 mm Hg 024 Procedures Procedure Date Ordered Date Performed Result [place] e [address]48- Debride <25 sq cm 12/01/2023 N/A Encounters Encounter Location Date Provider Diagnosis [facility] [address] [place] [address] 12/01/2023 Sana Black Skin ulcer of toe of left foot, limited to breakdown of skin L97.521 Assessments Encounter Date Diagnosis (ICD Code) Assessment Notes Treatment Notes Treatment Clinical Notes Section Notes 12/01/2023 Skin ulcer of toe of left foot, limited to breakdown of skin (ICD-10 - L97.521) Response to treatment,Nonap plicable Patient Educated with: WOUND CARE INSTRUCTIONS.p df (WOUND CARE INSTRUCTIONS.p df) 12/01/2023 Other Plan Of Treatment Treatment Notes Assessment Notes Skin ulcer of toe of left fo ot, limited to breakdown of skin Patient Educated with: WOUND CARE INSTRUCTIONS.pdf (WOUND CARE INSTRUCTIONS.pdf) Pending Test Test Name Order Date 84929- Debride <25 sq cm 12/01/2023 Next Appt Details Follow Up: prn, Reason: Provider Name:Galilea Trujillo taylor, 08/10/2024 09:15:00 AM, [address] [facility], [address], [place], [address], Procedure Notes * Category Sub-Category Detail Notes Debride skin< 25 sq cm Open wound Physician of record performed open wound selective debridement of first 25 sq cm or less, of devitilized necrotic/nonviable soft tissue, fibrin, and exudate extending from the epidermis through the dermis, utilizing sharp dissection with sterile 15 blade, and/or tissue nippers. Sterile antibiotic dressing applied, ANESTHESIA- was accomplished TOPICALLY with Lidocaine Hydrochloride Jelly 2 percent. Hemostasis was achieved through direct pressure. Post debridement measurements:8 mm x 3 mm x 2 mm. Character of the wound post debridement is stable (20002) Progress Notes * Bony MAS MDOB: 5 (78 yo M)Acc No.[id number]:12/01/2023 Progress Notes Patient:?Bony Mas Provider:?Sana Herrera DPM :1945???Age:78 Y???Sex:Male Arun e:12/01/2023 Address:[address] [place] [address] Pcp:Arnold Pandya MD Subjective: * Chief Complaints: * ???Pcp-11/10/23Open sore - T oe * HPI: ???Skin problems:?Treatments:?soaks , Topical abx.? * Medical History:? * Surgical History:?colonoscop y x2 2020,rain Meningioma * [place]/Major Diagno stic [place] [facility] [place] * Family History:?No Family Hi story documented..? * Social History:?Tobacco Use:?Tobacco Use/Smoking?Are you a:?nonsmoker ?Additional Findings: Tobacco Non-User?Current non-smoker ?Tobacco use other than smoking?Are you an other tobacco user??No ???Miscellaneous:?Caffeine: yes, 1-2 cups per day. ?Exercise: yes, riding bike - Home Gym. ?Marital status: . 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 * Medications:?TakingLORazepam 1 MG Tablet 1 tablet at bedtime as needed Orally Once a dayOmeprazole 20 MG Capsule Delayed Release 1 capsule 30 minutes before morning meal Orally Once a dayAmmonium Lactate 12 % Cream 1 application Externally to feet except for between the toes Twice a dayTaking LORazepam 1 MG Tablet 1 tablet at bedtime as needed Orally Once a dayTaking Omeprazole 20 MG Capsule Delayed Release 1 capsule 30 minutes before morning meal Orally Once a dayTaking Ammonium Lactate 12 % Cream 1 application Externally to feet except for between the toes Twice a dayNot-Taking/PRNLisinopril 5 MG Tablet 1 tablet Orally Once a daybusPIRone HCl 5 MG Tablet 1 tablet Orally Twice a dayMedication List reviewed and reconciled with the patientNot-Taking/PRN Lisinopril 5 MG Tablet 1 tablet Orally Once a dayNot- Taking/PRN busPIRone HCl 5 MG Tablet 1 tablet Orally Twice a dayMedication List reviewed and reconciled with the patient * Allergies:?Aspirin: upset st solitario[Allergies Verified] Objective: * Vitals:?Ht: 5 ft 8 in, Wt: 1 50, BMI: 22.8, Shoe size: 9.5, BP: 116/65 mm Hg, Wt- k.04 kg. * Examination: ???Dermatologic: ?ULCER:? LOCATION,TA?Dorsal, , SIZE, 10mm X 4mm X 2mm, BASE, granular, RIM, hyperkeratotic, UNDERMINING, absent, TRACKING, Full thickness breakdown of skin, DRAINAGE, serosanguineous, mild, NECROTIC TISSUE, loosely-adherent, yellow slough, MALODOR, absent, CALOR, absent, ERYTHEMA, absent, PAIN ON PALPATION, present, Medial,??.? Assessment: * Assessment: 1.?Skin ulcer of toe of left foot, limited to breakdown of skin - L97.521, Response to treatment,Nonapplicable? Plan: * Treatment: * Procedures:?Debride skin< 25 sq cm:?Open wound?Physician of record performed open wound selective debridement of first 25 sq cm or less, of devitilized necrotic/nonviable soft tissue, fibrin, and exudate extending from the epidermis through the dermis, utilizing sharp dissection with sterile 15 blade, and/or tissue nippers. Sterile antibiotic dressing applied, ANESTHESIA- was accomplished TOPICALLY with Lidocaine Hydrochloride Jelly 2 percent. Hemostasis was achieved through direct pressure. Post debridement measurements:8 mm x 3 mm x 2 mm. Character of the wound post debridement is stable (76299).? * Procedure Codes:?67287 ACTIV E WOUND CARE/20 CM OR <, Modifiers: TA * Preventive Medicine:? ??Counseling:?Ulcer:?A detailed plan of care was reviewed with the patient. We emphasized the fact that the patient takes on an active participating role in the treatment process and emphasized to them that they are an included, valued, and important member of the wound healing team in order to reach an expedient successful outcome. The patient agreed to follow their medically recommended diet while increasing their protein intake if safely able to do so, maintain proper bodily hydaration, abide by weight-bearing restrictions at all times, quit all current smoking habits if any, and diligently follow any/all dressing change instructions. It was clearly made known to the patient that if they fail to do their part, they will likely extend their course of treatment as well as possibly increase their risk of adverse events including amputation. The patient was instructed on importance of proper wound care consisting of pressure reduction, and proper maintainance of a moist wound environment. The patient is to cleanse the wound with warm soapy water/peroxide/saline, or betadine BID based on product availability. The patient is to apply ( Neosporin, Polysporin, or Triple, ____ ) Antibiotic to the wound and cover with a DSD as directed. The patient was instructed to change dressings according to orders, or PRN saturation, leaks. The patient was instructed to monitor and report any signs or symptoms of infection or any untoward reactions. Precautions Taken: Offloading/Pressure reduction via rest/ limited activity to essential to daily life only, cane/ crutches/ walker/ knee scooter/ wheel chair, shoe modification, accommodative padding, sharp debridement, and take/apply medication as directed. THE GOALS of wound debridement to remove devitilized tissue, decrease risk for infection, promote wound healing and prevent further complication were discussed/reviewed. Debridement frequency as indicated.? * Follow Up:?prn * Images: * Sign off status: Completed true * Provider:?Sana Herrera DPM Date:?2023 Generated for Rl ballard/Claudia/Brayan on:?06/24/2024 10:27 AM EDT History and Physical Notes * HPI (History of Present Illness) Category Sub-Category Detail Notes Category Not es Skin problems Treatments: soaks , Topical abx Examination Category Sub-Category Detail Notes Category Not es Dermatologic ULCER: LOCATION,TA Dors al, , SIZE, 10mm X 4mm X 2mm, BASE, granular, RIM, hyperkeratotic, UNDERMINING, absent, TRACKING, Full thickness breakdown of skin, DRAINAGE, serosanguineous, mild, NECROTIC TISSUE, loosely-adherent, yellow slough, MALODOR, absent, CALOR, absent, ERYTHEMA, absent, PAIN ON PALPATION, present, Medial,
--- OUTSIDE RECORDS SUMMARY | 2024-06-24 10:28 | XMS_ITS | Patient Health Record ---
Author Organization [facility] Address [address] [place] [address] Care Team Providers Care Obstetrician/Gynecologist Name Role Phone Mumtaz RHODES, Arnold Primary Care Provider Eddie Purdy Unavailable [phone] Allergies Allergen (clinical drug ingredient) Drug/Non Drug Allergy documented on EMR Reaction Allergy Type Onset Date Status aspirin Aspirin Unknown Drug Allergy Active Results Component Value Reference Range Notes Pathology (Not yet reviewed by provider) Interpretation: Performing Lab:[facility], [address] [place] [id number] Notes/Report: Name: Alberta Mas Age/Sex: 78/M : 1945 Unit#: [id number] Attend Dr: Eddie Santizo Re07/16/23 Status : [facility] Location: [facility] Disch: SPEC : [id number] RECD : 07/16/23 STATUS: ANGE STACY NUM: [id number] FOSTER: 07/16/23-1026 [facility] DR: Eddie Santizo ENTERED: 07/16/23-10 59 SP TYPE: Surgical OTHR DR: Arnold Pandya MD ORDERED: HE Stain/3, Gross Micro L4 Diagnosis Colon, ascending, po lypectomies: Fragments of tubular adenomata; negative for high-grade dysplasia or carcinoma. Clinical History Pre-Op Dx: Screening, h/o polyps Post-Op Dx: Colon po lyps, diverticulosis, hemorrhoids Microscopic Description Microscopic sections reviewed. Material Received Ascending colon polyps Gross Description Received in formalin labeled ?ascending colon polyps? along with copious obrien and green-brown debris are several m inute to 0.2 cm in greatest dimension obrien-pink irregular tissue fragments aggregatin g 1.5 x 1.5 x 0.5 cm, submitted in toto in a cassette labeled A. CEDS Copies To: Arnold Pandya MD [address] [place] [address] [address] [place] [address] Eddie Santizo [address] [place] [address] [address] [place] [id number] Signed (si gnature on file) Mo Palacios MD 07/18/23 1027 END OF REPORT Reason For Referral No Information Medications Medication SIG (Take, Route, Fr equency, Duration) Notes Start Date End Date Status LORazepam 0.5 MG 0.5 ml as needed Orally prn Active Omeprazole 20 MG 1 capsule Orally Once a day/prn Active Multivitamin Adults Active Lisinopril 5 MG TAKE 1 TABLET BY PATRICK TH ONCE A DAY Oral for 90 Active Immunizations Vaccine Route Administration Date Status Comme nts Influenza Unknown 11/09/2019 Administered Influenza Unknown 12/08/2020 Administered Influenza Unknown 03/10/2023 Administered Social History Alcohol Screen Question Answer Notes Did you have a drink containing alcohol in the p ast year? No Points 0 Interpretation Negative Section Notes: 1 Glass of wine QD but stopp ed due to the RUQ discomfort, nonsmoker 1 Glass of wine QD but stopp ed due to the RUQ discomfort, nonsmoker 1 Glass of wine QD but stopp ed due to the RUQ discomfort, nonsmoker 1 Glass of wine QD but stopp ed due to the RUQ discomfort, nonsmoker Problems Problem Type SNOMED Code ICD Code Onset Dates Problem Status W/U Status Risk Notes Problem Screening for malignant neoplasm of colon (704360994) Encounter for screening for malignant neoplasm of colon (Z12.11) Active confirmed Problem History of adenomatous polyp of colon (705758164) History of adenomatous polyp of colon (Z86.010) Active confirmed Problem Diverticular disease of colon (809360657) Diverticulosis of large intestine without perforation or abscess without bleeding (K57.30) Active confirmed Problem 395717007 Diverticulitis (K57.92) Active confirmed Problem Family History of Cancer of Colon (Situation) (915244699) Family history of colon cancer (Z80.0) Active confirmed Problem Gallstones (810348260) Gallstones (K80.20) Active confirmed Problem Right upper quadrant pain (809478102) RUQ abdominal pain (R10.11) Active confirmed Problem Diverticulosis of colon (117918148) Diverticulosis of colon (K57.30) Active confirmed Problem 837561385 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 confirmed Encounters Encounter Location Date Provider Diagnosis [facility] [address] [place] [address] [id number] 07/16/2023 Eddie Santizo Encounter for screen ing colonoscopy Z12.11 ; Colon polyps K63.5 ; Diverticulosis of large intestine without perforation or abscess without bleeding K57.30 and Other hemorrhoids K64.8 [facility] [address] [place] [address] 05/20/2024 Eddie Santizo Assessments Encounter Date Diagnosis (ICD Code) Assessment Notes Treatment Notes Treatment Clinical Notes Section Notes 07/16/2023 Encounter for screening colonoscopy (ICD-10 - Z12.11) 07/16/2023 Colon polyps (ICD-10 - K63.5) 07/16/2023 Diverticulosis of large intestine without perforation or abscess without bleeding (ICD-10 - K57.30) 07/16/2023 Other hemorrhoids (ICD-10 - K64.8) Plan Of Treatment Pending Test Test Name Order Date Pathology 07/16/2023 Future Test Test Name Order Date COLONOSCOPY 10/18/2014 COLONOSCOPY 05/04/2020 COLONOSCOPY 06/22/2020 COLONOSCOPY 01/16/2021 COLONOSCOPY 03/19/2023 Insurance Providers Payer Name Payer Address Payer Phone Subscriber Number Group Number Insured Name Patient Relationship to Insured Coverage Start Date Coverage End Date MEDICARE OF [place] [address] [place] [address] [phone] [id number] ALBERTA MAS Self - [facility] the insured [facility] [address] [place] [address] [id number] ALBERTA MAS Self - patient is the insured Medical (General) History Medical History History ICD Code 10/26/2008 Colonoscopy -tubu lar adenoma removed--diverticulosis and internal hemorrhoids; tubular adenoma removed in 2004 Hypertension Hyperlipidemia Hx of known gallstones with occ. RUQ dis comfort Pilonidal cyst Denies ND,DM,CVA,Lung disease,renal dise ase Spinal stenosis Meningioma as below Kidney stone Episode of transient global amnesia in 2 012 GERD-EGD with Dr. Mooney in 2010-small HH, no esophagitis nor Harris's esophagus Complex renal cyst in left kidney- Dr. Orlando williamson Arthritis Colonoscopy in 12/2014 with a small tubu lar adenoma removed Colonoscopy in 05/2020--cecal tubular adenoma removed; proximal ascending colon polyps removed x 3, but he had a larger flat tubulovillous adenoma in the proximal ascending colon as well that was only partially removed--there was no high-grade dysplasia and no cancer Followup colonoscopy in July of 2020 with further removal of the proximal ascending colon tubulovillous adenoma--this was treated with submucosal injection, polypectomy, and placement of Resolution clips Uncomplicated sigmoid divert iculitis seen on ER CT scan in 12/2022--treated as an outpatient with Augmentin Colonoscopy in July of 2021 w ith removal of residual adenomatous tissue from the proximal ascending colon, as well as another adenoma in the transverse colon. Surgical History Surgery Date(Month/Year) Brain tumor surgery w/Dr. Flores--meningi alexandre 02/15/2008 Knee surgery Pilonidal cyst excision Hospitalization History Reason Date(Month/Year) lower left abdominal pain, ER for the da y 12/30
--- OUTSIDE RECORDS SUMMARY | 2024-06-24 10:28 | XMS_ITS ---
Author Organization [facility] Address [address] [place] [address] Care Team Providers Care Geology Instructor Name Role Phone Arnold Pandya MD Primary Care Provider Unavailab Lita Love Unavailable [phone] Black, Sana Unavailable [phone] Allergies Allergen (clinical drug ingredient) Drug/Non Drug Allergy documented on EMR Reaction Allergy Type Onset Date Status aspirin Aspirin upset stomach Drug Allergy Act ramiro REASON FOR VISIT Painful nail(s) aggravated by shoes causing difficulty standing/walking, Ingrown Nail, Skin problem(s) Medications Medication SIG (Take, Route, Frequency, Duration) Notes Start Date End Date Status Ammonium Lactate 12 % 1 application Exte rnally to feet except for between the toes Twice a day for 30 days Active busPIRone HCl 5 MG 1 tablet Orally Twic e a day Not-Taking Omeprazole 20 MG 1 capsule 30 minutes before morning meal Orally Once a day for 30 day(s) Active Lisinopril 5 MG 1 tablet Orally Once a day for 30 day(s) Not-Taking LORazepam 1 MG 1 tablet at bedtime as needed Orally Once a day Active Social History Tobacco Use: Social History Observation Description Date Details (start date - stop date) Never Smoker NA - NA Tobacco Use/Smoking Question Answer Notes Are you a: nonsmoker Additional Findings: Tobacco Non-User Current no n-smoker Alcohol Screen Question Answer Notes Did you have a drink containing alcohol in the p ast year? No Points 0 Interpretation Negative Tobacco use other than smoking: Question Answer Notes Are you an other tobacco user? No Vital Signs Height 5 ft 8 in in 11/17/2023 Weight 145 lbs 11/17/2023 BMI 22.04 kg/m2 11/17/2023 Blood pressure systolic 126 mm Hg 11/17/19 24 Blood pressure diastolic 80 mm Hg 024 Procedures Procedure Date Ordered Date Performed Result Body Sit e 95101-AIMQVLO NAIL, 6 OR MORE 11/17/2023 N/A 54430-Pyoxxedo Plate 11/17/2023 N/A Encounters Encounter Location Date Provider Diagnosis [facility] [address] [place] [address] 11/17/2023 Sana Black Tinea unguium B35.1 ; Xerosis of skin L85.3 ; Pain in right toe(s) M79.674 ; Pain in left toe(s) M79.675 and Ingrown nail L60.0 Assessments Encounter Date Diagnosis (ICD Code) Assessment Notes Treatment Notes Treatment Clinical Notes Section Notes 11/17/2023 Tinea unguium (ICD-10 - B35.1) 11/17/2023 Xerosis of skin (ICD-10 - L85.3) 11/17/2023 Pain in right toe(s) (ICD-10 - M79.674) 11/17/2023 Pain in left toe(s) (ICD-10 - M79.675) 11/17/2023 Ingrown nail (ICD-10 - L60.0) Plan Of Treatment Medication Medication Name Sig Start Date Stop Date Notes Ammonium Lactate 12 % 1 application Exte rnally to feet except for between the toes Twice a day for 30 days Pending Test Test Name Order Date 96402-DXSZKVE NAIL, 6 OR MORE 11/17/2023 75682-Hcjdildr Plate 11/17/2023 Next Appt Details Follow Up: 2 Weeks, Reason: Provider Name:Galilea vazquez, 08/10/2024 09:15:00 AM, [address] [facility], [address], [place], [address], Procedure Notes * Category Sub-Category Detail Notes Nail Avulsion Procedure A fine sterile e levator was placed between the eponychium, nail fold, and nail plate to separate the structures. A sterile nail splitter, and/or sterile 316 blade, was then used to longitudinally section the nail along its entire length through the eponychium to the area under the nail fold. The offending portion of nail was from the nail bed with a rolling action and then removed with a hemostat. No underlying bone was identified. There was minimal bleeding as hemostasis was achieved through the temporary use of either a digital tourniquet or the aforementioned local with epinephrine. A bacitracin sterile dressing was applied. Local wound aftercare instructions were discussed and dispensed. The patient was informed of both conservative and future surgical procedures to prevent recurrence. Tylenol or Motrin was recommended for pain or discomfort (34262) , Pt DEFERS matricectomy Anesthesia 3cc of 1 percent Lid ocaine Plain local anesthesic utilizing aseptic technique Location Medial nail border , TA Debride Nail 6-10 Nail debridement Performance o f this nail treatment by a nonprofessional would put this patients foot and overall health at risk. Therefore, nail debridement was performed extensively to reduce/remove overall nail length, girth, thickness, subungual debris, and necrotic tissue, by manual and/or electrical means through the use of a nail nipper and/or dremel-type sand mill grinder, to a more viable healthy nail plate or bed tissue 6-10. Silver nitrate used for any petechial bleeding as necessary. Definitive antifungal treatment options have been reviewed and discussed with the patient. The patient chooses, no pharmaceutical tx - 72653 Progress Notes * Bony MAS MDOB: 5 (78 yo M)Acc No.[id number]:11/17/2023 Progress Note Patient:?Bony Mas Provider:?Sana Herrera DPM :1945???Age:78 Y???Sex:Male Arun e:11/17/2023 Address:[address] [place], [place] [id number] Pcp:Arnold Pandya MD Subjective: * Chief Complaints: * ???Painful nail(s) aggravate d by shoes causing difficulty standing/walkingIngrown NailSkin problem(s) * HPI: ???Painful Nails:?Pt States Last PCP Visit:?Date:?10/03/2023 ???Skin problems:?Nature:?dryness , scaling.?Location:?B/L .?Duration:?several days.?Course:?worse.? * ROS:?General/Constitutional:?Nausea?denies.?Vomiting?denies.?Hunger Thirst?denies.?Loss appetite?denies.?Chills?denies.?Fatigue?denies.?Fever?denies.?Night Sweats?denies.?Unexplained weight loss?denies.?Unexplained weight gain?denies.?HEENTM:?Dentures?denies.?Dizziness?denies.?Glasses/contacts?admits.?Retinopathy?de nies.?Blurred/double vision?denies.?TMJ?denies.?Discharge/drainage?denies.?Implants?denies.?Sore throat?denies.?Dental implants?denies.?Hard of hearing ?denies.?Difficulty chewing/swallowing/speaking?denies.?Nose bleeds?denies.?Sore mouth?denies.?Respiratory:?On Oxygen?denies.?Pneumonia/pleurisy?denies.?Bronchitis?denies.?Emphysema?denies.?C oughing?denies.?Cough blood?denies.?Shortness of breath?denies.?Wheezing?denies.?Cardiovascular:?Pacemaker?denies.?MVP?denies.?WPW?denies.?CHF?denies.?Heart attack?denies.?Septal defect?denies.?Rapid beat?denies.?Chest pain ?denies.?Atrial Fib.?denies.?Murmur/Palpitations?denies.?Gastrointestinal:?Hemorrhoids?denies.?Stomach/Abdominal pain?denies.?Dark blood stool?denies.?Irritable bowel ?denies.?Constipation?denies.?Diarrhea?denies.?Hematology:?Swelling?denies.?Clots?denies.?Varicose Veins?denies.?Bruising?denies.?Bleeding problem?denies.?Genitourinary:?Blood urine?denies.?Frequent/Painfu/urination/bladder control?denies.?Kidney stones?denies.?Infection (UTI)?denies.?Nephropathy?denies.?sex trans dis (STD)?denies.?Prostate?admits.?Musculoskeletal:?Hammertoes?denies.?Bunions?denies.?Back Pain?admits.?Muscle Cramps/ Resting?denies.?Muscle cramps / walking?denies.?Generalized aches and pains?admits.?Weakness?denies.?Integ.:?Gomez?denies.?Scars?denies.?Corns/calluses?denies.?Ingrown nails?admits.?Painful nails?admits.?Open Sores?denies.?Rashes?denies.?Neurologic:?Difficulty sleeping?denies.?Brain disorder?denies.?Numbness?denies.?Balance trouble?denies.?Confusion?denies.?Fainting/blackouts?denies.?Tingling?denies.?Tr emors?denies.? * Medical History:? 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 * Social History:?Tobacco Use:?Tobacco Use/Smoking?Are you a:?nonsmoker ?Additional Findings: Tobacco Non-User?Current non-smoker ?Tobacco use other than smoking?Are you an other tobacco user??No ???Drugs/Alcohol:?Drugs?Have you used drugs other than those for medical reasons in the past 12 months??No ?Alcohol Screen?Did you have a drink containing alcohol in the past year??No ?Points?0 ?Interpretation?Negative ???Miscellaneous:?Caffeine: yes, 1-2 cups per day. ?Exercise: yes, riding bike - [employer]. ?Marital status: . 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 * Medications:?TakingLORazepam 1 MG Tablet 1 tablet at bedtime as needed Orally Once a dayOmeprazole 20 MG Capsule Delayed Release 1 capsule 30 minutes before morning meal Orally Once a dayTaking LORazepam 1 MG Tablet 1 tablet at bedtime as needed Orally Once a dayTaking Omeprazole 20 MG Capsule Delayed Release 1 capsule 30 minutes before morning meal Orally Once a dayNot-Taking/PRNLisinopril 5 MG Tablet 1 tablet Orally Once a daybusPIRone HCl 5 MG Tablet 1 tablet Orally Twice a dayMedication List reviewed and reconciled with the patientNot-Taking/PRN Lisinopril 5 MG Tablet 1 tablet Orally Once a dayNot-Taking/PRN busPIRone HCl 5 MG Tablet 1 tablet Orally Twice a dayMedication List reviewed and reconciled with the patient * Allergies:?Aspirin: upset [facility][Allergies Verified] Objective: * Vitals:?Ht: 5 ft 8 in, Wt: 1 45, BMI: 22.04, Shoe size: 9.5, BP: 126/80 mm Hg, Wt-k.77 kg. * Examination: ???Nails: ?NAILS are:?Elongated, overgrown, dystrophic, lytic, greater than 3mm thick, discolored and friable with crumbly malodorous subungual debris, with pain on palpation , 1-5 Right foot , 2-5 Left foot.?Ingrown Nail: ?INSPECTION:?Reveals nail incurvation, pain on palpation, groove hypertrophy , groove ischemia , Medial nail border , TA.?Dermatologic: ?SKIN FINDINGS:?Skin shows sign(s) of, dryness, scaling, in a stocking fashion, no fissure(s) present, B/L.? Assessment: * Assessment: 1.?Tinea unguium - B35.1?2.? Xerosis of skin - L85.3 (Primary), Acute problem, Uncomplicated (3),Rx Management (4)?3.?Pain in right toe(s) - M79.674?4.?Pain in left toe(s) - M79.675?5.?Ingrown nail - L60.0? Plan: * Treatment: 2.?Tinea unguium?Procedure: 08279-ECXISCA NAIL, 6 OR MORE 3.?Ingrown nail?Procedure: 61495-Zphzkygp Plate * Procedures:?Debride Nail 6-10:?Nail debridement?Performance of this nail treatment by a nonprofessional would put this patients foot and overall health at risk. Therefore, nail debridement was performed extensively to reduce/remove overall nail length, girth, thickness, subungual debris, and necrotic tissue, by manual and/or electrical means through the use of a nail nipper and/or dremel-type sand mill grinder, to a more viable healthy nail plate or bed tissue 6-10. Silver nitrate used for any petechial bleeding as necessary. Definitive antifungal treatment options have been reviewed and discussed with the patient. The patient chooses, no pharmaceutical tx - 02914.?Nail Avulsion:?Location?Medial nail border , TA.?Anesthesia?3cc of 1 percent Lidocaine Plain local anesthesic utilizing aseptic technique.?Procedure?A fine sterile elevator was placed between the eponychium, nail fold, and nail plate to separate the structures. A sterile nail splitter, and/or sterile 316 blade, was then used to longitudinally section the nail along its entire length through the eponychium to the area under the nail fold. The offending portion of nail was from the nail bed with a rolling action and then removed with a hemostat. No underlying bone was identified. There was minimal bleeding as hemostasis was achieved through the temporary use of either a digital tourniquet or the aforementioned local with epinephrine. A bacitracin sterile dressing was applied. Local wound aftercare instructions were discussed and dispensed. The patient was informed of both conservative and future surgical procedures to prevent recurrence. Tylenol or Motrin was recommended for pain or discomfort (45721) , Pt DEFERS matricectomy.? * Procedure Codes:?30163 DEBRI DE NAIL, 6 OR MORE, Modifiers: XS 43801 Avulsion Plate, Modifiers: TA * Preventive Medicine:? ??Counseling:?Discussion:?-13: Office or other outpatient visit for the evaluation and management of an established patient, which required a medically appropriate history and/or examination and LOW level of DECISION MAKING for: 1 STABLE ACUTE UNCOMPLICATED PROBLEM, 2 OR MORE MINOR PROBLEMS, OR 1 STABLE CHRONIC PROBLEM, THAT POSE(S) A LOW RISK FOR MORBIDITY/MORTALITY. The visit on the day of the encounter encompassed interpreting the data and educating the patient as to the nature of their condition, treatment options available according to their individual PMH, meds, allergies, and overall health/living conditions, as well as any potential risks or complications that may occur from a failure to adhere to, and participate in, the recommended course of therapy. The discussion included a complete verbal, and/or written explanation of the examination results, any x-rays taken, the proposed diagnosis, and outline of the treatment plan. A schedule for future care needs was also explained. The patient verbalized an understanding of the instructions at this time and agreed to be an active participant in their treatment. If the patient should think of any questions or concerns after the visit, I have encouraged the patient to call the office.?Xerosis:?The patient was counseled on the diagnosis, potential etiologies, and treatment options for their skin condition. We discussed the risks and benefits of each option from performing no treatment, to utilizing OTC topical skin creams/ointments, to utilizing prescription topical creams/ointments, to utilizing customized compounded topical medications and use of nocturnal occlusion with any/all previously detailed therapies. We discussed the advantages and disadvantages of each possible treatment and importance for adherence to all the recommended therapies for optimum success and avoid potential complications such as open sore/infection/possible hospitalization. We discussed the potential effectiveness of each topical preparation as well as each ones possible side effects and/or patient medication interactions. Patient questions re: use, dosage, successful outcomes, and application consistency were reviewed and the patient verbalized that all answers were clearly understood. The patient has decided to apply Rx skin creams to their feet save the interspaces while paying special attention to the heels. Such was sent to their pharmacy at the time of visit.? * Follow Up:?2 Weeks * Images: * Sign off status: Completed true * Provider:?Sana Herrera DPM Date:?2023 Generated for Rl ballard/Claudia/Brayan on:?06/24/2024 10:28 AM EDT History and Physical Notes * HPI (History of Present Illness) Category Sub-Category Detail Notes Category Not es Painful Nails Pt States Last PCP Visit: Date:: 10/03/2023 Skin problems Nature: dryness , scaling Location: B/L Duration: several days Course: worse Examination Category Sub-Category Detail Notes Category Not es Ingrown Nail INSPECTION: Reveals nail inc urvation, pain on palpation, groove hypertrophy , groove ischemia , Medial nail border , TA Dermatologic SKIN FINDINGS: Skin shows sign( s) of, dryness, scaling, in a stocking fashion, no fissure(s) present, B/L Nails NAILS are: Elongated, overg rown, dystrophic, lytic, greater than 3mm thick, discolored and friable with crumbly malodorous subungual debris, with pain on palpation , 1-5 Right foot , 2-5 Left foot
--- OUTSIDE RECORDS SUMMARY | 2024-06-24 10:28 | XMS_ITS ---
Author Organization [facility] Address [address] [place] [address] Care Team Providers Care Weigh And Charge Worker Name Role Phone Mumtaz RHODES, Arnold Primary Care Provider Eddie Purdy [phone] Allergies Allergen (clinical drug ingredient) Drug/Non Drug Allergy documented on EMR Reaction Allergy Type Onset Date Status aspirin Aspirin Unknown Drug Allergy Active REASON FOR VISIT Patient presents today for a colon screening Medications Medication SIG (Take, Route, Fr equency, Duration) Notes Start Date End Date Status LORazepam 0.5 MG 0.5 ml as needed Orally prn Active Multivitamin Adults Active Lisinopril 5 MG TAKE 1 TABLET BY ONCE A DAY Oral for 90 Active Omeprazole 20 MG 1 capsule Orally Once a day/prn Active Social History Alcohol Screen Question Answer Notes Did you have a drink containing alcohol in the p ast year? No Points 0 Interpretation Negative Section Notes: 1 Glass of wine QD but stopp ed due to the RUQ discomfort, nonsmoker Problems Problem Type SNOMED Code ICD Code Onset Dates Problem Status W/U Status Risk Notes Problem 782067366 Diverticulitis (K57.92) Active confirmed Vital Signs Temperature 97.8 degrees Fahrenheit 03/19/19 24 Blood pressure systolic 000 mm Hg 03/19/19 24 Blood pressure diastolic 00 mm Hg 024 Height 67.5 in 03/19/2023 Weight 152 lbs 03/19/2023 BMI 23.45 kg/m2 03/19/2023 Encounters Encounter Location Date Provider Diagnosis [facility] [address] [place] [address] 03/19/2023 Eddie Santizo Diverticulosis of co felipe K57.30 ; Diverticulitis K57.92 ; History of adenomatous polyp of colon Z86.010 ; Encounter for screening for malignant neoplasm of colon Z12.11 and Family history of colon cancer Z80.0 Assessments Encounter Date Diagnosis (ICD Code) Assessment Notes Treatment Notes Treatment Clinical Notes Section Notes 03/19/2023 Diverticulosis of colon (ICD-10 - K57.30) Overall, Alberta appears quite well. We did review his recent history of diverticulitis in detail. At this point his exam is benign and is not having any particular residual symptoms. I did advise him that he should use Metamucil on a daily and regular basis rather than just using it p.r.n. when he feels somewhat constipated. We did review that diverticulitis can certainly recur and be associated with complications and/or need for surgery. However, at this point I don't think any further evaluation nor treatment of that is required and hopefully the use of daily Metamucil will help to avoid constipation and decrease the risk of recurrent diverticulitis. I did recommend a followup colonoscopy given the history of his tubular adenomas, including a relativel flat and large polyp, and significant family history of colorectal cancer. We did review the rationale for that in regard to colorectal cancer prevention. Full consent was obtained from him for this, including risks of bleeding and perforation. The procedure will be done with monitored anesthesia care. Alberta was comfortable with this plan. Thank you again for allowing me to participate in Alberta's care. I shall continue to keep you advised of his progress. 03/19/2023 Diverticulitis (ICD-10 - K57.92) Use the Metamucil every morning on a regular basis Overall, Alberta appears quite well. We did review his recent history of diverticulitis in detail. At this point his exam is benign and is not having any particular residual symptoms. I did advise him that he should use Metamucil on a daily and regular basis rather than just using it p.r.n. when he feels somewhat constipated. We did review that diverticulitis can certainly recur and be associated with complications and/or need for surgery. However, at this point I don't think any further evaluation nor treatment of that is required and hopefully the use of daily Metamucil will help to avoid constipation and decrease the risk of recurrent diverticulitis. I did recommend a followup colonoscopy given the history of his tubular adenomas, including a relativel flat and large polyp, and significant family history of colorectal cancer. We did review the rationale for that in regard to colorectal cancer prevention. Full consent was obtained from him for this, including risks of bleeding and perforation. The procedure will be done with monitored anesthesia care. Alberta was comfortable with this plan. Thank you again for allowing me to participate in Alberta's care. I shall continue to keep you advised of his progress. 03/19/2023 History of adenomatous polyp of colon (ICD-10 - Z86.010) Overall, Alberta appears quite well. We did review his recent history of diverticulitis in detail. At this point his exam is benign and is not having any particular residual symptoms. I did advise him that he should use Metamucil on a daily and regular basis rather than just using it p.r.n. when he feels somewhat constipated. We did review that diverticulitis can certainly recur and be associated with complications and/or need for surgery. However, at this point I don't think any further evaluation nor treatment of that is required and hopefully the use of daily Metamucil will help to avoid constipation and decrease the risk of recurrent diverticulitis. I did recommend a followup colonoscopy given the history of his tubular adenomas, including a relativel flat and large polyp, and significant family history of colorectal cancer. We did review the rationale for that in regard to colorectal cancer prevention. Full consent was obtained from him for this, including risks of bleeding and perforation. The procedure will be done with monitored anesthesia care. Alberta was comfortable with this plan. Thank you again for allowing me to participate in Alberta's care. I shall continue to keep you advised of his progress. 03/19/2023 Encounter for screening for malignant neoplasm of colon (ICD-10 - Z12.11) Overall, Alberta appears quite well. We did review his recent history of diverticulitis in detail. At this point his exam is benign and is not having any particular residual symptoms. I did advise him that he should use Metamucil on a daily and regular basis rather than just using it p.r.n. when he feels somewhat constipated. We did review that diverticulitis can certainly recur and be associated with complications and/or need for surgery. However, at this point I don't think any further evaluation nor treatment of that is required and hopefully the use of daily Metamucil will help to avoid constipation and decrease the risk of recurrent diverticulitis. I did recommend a followup colonoscopy given the history of his tubular adenomas, including a relativel flat and large polyp, and significant family history of colorectal cancer. We did review the rationale for that in regard to colorectal cancer prevention. Full consent was obtained from him for this, including risks of bleeding and perforation. The procedure will be done with monitored anesthesia care. Alberta was comfortable with this plan. Thank you again for allowing me to participate in Alberta's care. I shall continue to keep you advised of his progress. 03/19/2023 Family history of colon cancer (ICD-10 - Z80.0) Overall, Alberta appears quite well. We did review his recent history of diverticulitis in detail. At this point his exam is benign and is not having any particular residual symptoms. I did advise him that he should use Metamucil on a daily and regular basis rather than just using it p.r.n. when he feels somewhat constipated. We did review that diverticulitis can certainly recur and be associated with complications and/or need for surgery. However, at this point I don't think any further evaluation nor treatment of that is required and hopefully the use of daily Metamucil will help to avoid constipation and decrease the risk of recurrent diverticulitis. I did recommend a followup colonoscopy given the history of his tubular adenomas, including a relativel flat and large polyp, and significant family history of colorectal cancer. We did review the rationale for that in regard to colorectal cancer prevention. Full consent was obtained from him for this, including risks of bleeding and perforation. The procedure will be done with monitored anesthesia care. Alberta was comfortable with this plan. Thank you again for allowing me to participate in Alberta's care. I shall continue to keep you advised of his progress. Plan Of Treatment Treatment Notes Assessment Notes Diverticulitis Use the Metamucil ev angus morning on a regular basis Future Test Test Name Order Date COLONOSCOPY 03/19/2023 Next Appt Details Follow Up: prn, Reason: Progress Notes * ALBERTA MAS MDOB: [birth year] (78 yo M)Acc No.[id number]:03/19/2023 Progress Notes Patient:?ALBERTA MAS Provider:?Eddie Santizo MD :1945???Age:77 Y???Sex:Male Arun e:03/19/2023 Address:[address] [place], [place] [id number] Pcp:Arnold Pandya MD Subjective: * Chief Complaints: * ???Patient presents today fo r a colon screening * HPI: ???incontinence:? I saw Alberta in followup today in regard to his personal history of tubular adenomas of the colon, family history of colon cancer, some mild constipation, and a recent episode of diverticulitis. ?I last saw Alberta in July of 2021, at which time he underwent a followup colonoscopy with removal of some residual adenomatous polyps. Since that time he had been feeling well. However, he developed some left lower quadrant tenderness and discomfort in December of 2022 which was evaluated with a CT scan in the ER. This revealed evidence of uncomplicated sigmoid diverticulitis and he was treated with an outpatient course of Augmentin. He describes that since that time he has not had any further problems although sometimes the area in the left lower quadrant will feel somewhat firm and uncomfortable if he pushes on it. He describes that his bowel movements are fairly regular but he does take Metamucil about every other day when he feels that he is having trouble having a bowel movement. There's been no sign of bleeding, other abdominal pains, hematuria, nor fevers. He enjoys a good appetite, without any significant heartburn or dysphagia. He denies any jaundice. He has lost about 10 pounds since he was here 2 years ago but in general reports that his weight has stabilized. He does describe hiking 3 miles several times per week. He also describes some stress in relation to his 47-year-old son [place] and who is in the midst being treated for stage IV colon cancer at the present time. * ROS:?General/Constitutional:?Change in appetite?denies.?Chills?denies.?Fatigue?denies.?Ophthalmologic:?Comments?all negative.?ENT:?Comments?all negative.?Respiratory:?hemoptysis?denies.?Cough?denies.?Cardiovascular:?Chest pain?denies.?Orthopnea?denies.?Gastrointestinal:?Comments?See HPI for details.?Genitourinary:?Hematuria?denies.?Dysuria?denies.?Musculoskeletal:?Patient complaining of?Back pain.?Weakness?denies.?Skin:?Itching?denies.?Rash?denies.?Neurologic:?Headache?denies.?Seizures?denies.?Psychiatric:?Comments?all negative.?pt declines flu vaccine. * Medical History:? * Surgical History:?Brain tumo r surgery w/Dr. Flores--meningioma 02/15/2008Knee surgery Pilonidal cyst excision * Hospitalization/Major Diagno stic Procedure:?lower left abdominal pain, ER for the day 12/30 * Family History:?Father: dece ased, Colon cancer in his 70's, diagnosed with Colon cancer.?Mother: , diagnosed with Heart disease, HTN (hypertension).? 47yo son has Stage IV colon cancer. * Social History:?Tobacco Use:?Tobacco Use/Smoking?Are you a: nonsmoker.?Drugs/Alcohol:?Alcohol Screen?Did you have a drink containing alcohol in the past year??No,?Points?0,?Interpretation?Negative.?Miscellaneous:?Exercise: hikes. Marital status: . Occupation: retired. ???1 Glass of wine QD but stopped due to the RUQ discomfort, nonsmoker. * Medications:?TakingLisinopri l 5 MG Tablet TAKE 1 TABLET BY MOUTH ONCE A DAY Oral Omeprazole 20 MG Capsule Delayed Release 1 capsule Orally Once a day/prnMultivitamin Adults LORazepam 0.5 MG Tablet 0.5 ml as needed Orally prnTaking Lisinopril 5 MG Tablet TAKE 1 TABLET BY MOUTH ONCE A DAY Oral Taking Omeprazole 20 MG Capsule Delayed Release 1 capsule Orally Once a day/prnTaking Multivitamin Adults Taking LORazepam 0.5 MG Tablet 0.5 ml as needed Orally prnDiscontinuedMineral Complex Glucosamine Chondr 1500 Complx Medication List reviewed and reconciled with the patientDiscontinued Mineral Complex Discontinued Glucosamine Chondr 1500 Complx Medication List reviewed and reconciled with the patient * Allergies:?Aspirinyes[Allerg ies Verified] Objective: * Vitals:?Wt: 152 lbs, Ht: 67. 5 in, BMI:23.45 Index, BP: 000/00 mm Hg, Temp: 97.8. * Examination: ???General Examination: ?GENERAL APPEARANCE:?pleasant, well nourished, well developed, in no acute distress.?EYES:?sclera non-icteric.?ORAL CAVITY:?mucosa moist.?NECK/THYROID:?no cervical lymphadenopathy, neck supple.?SKIN:?nonjaundiced, no spider angiomata.?HEART:?S1, S2 normal.?LUNGS:?clear to auscultation bilaterally.?ABDOMEN:?normal bowel sounds, no guarding or rigidity, no guarding or rigidity, no masses palpable, soft, nontender, nondistended.?EXTREMITIES:?no edema.?NEUROLOGIC:?alert and oriented.? Assessment: * Assessment: 1.?Diverticulitis - K57.92 ( Primary)?2.?Diverticulosis of colon - K57.30?3.?History of adenomatous polyp of colon - Z86.010?4.?Encounter for screening for malignant neoplasm of colon - Z12.11?5.?Family history of colon cancer - Z80.0? Overall, Alberta appears quite well. We did review his recent history of diverticulitis in detail. At this point his exam is benign and is not having any particular residual symptoms. I did advise him that he should use Metamucil on a daily and regular basis rather than just using it p.r.n. when he feels somewhat constipated. We did review that diverticulitis can certainly recur and be associated with complications and/or need for surgery. However, at this point I don't think any further evaluation nor treatment of that is required and hopefully the use of daily Metamucil will help to avoid constipation and decrease the risk of recurrent diverticulitis. I did recommend a followup colonoscopy given the history of his tubular adenomas, including a relativel flat and large polyp, and significant family history of colorectal cancer. We did review the rationale for that in regard to colorectal cancer prevention. Full consent was obtained from him for this, including risks of bleeding and perforation. The procedure will be done with monitored anesthesia care. Alberta was comfortable with this plan. Thank you again for allowing me to participate in Alberta's care. I shall continue to keep you advised of his progress. Plan: * Treatment: 2.?History of adenomatous po lyp of colon?Procedure: COLONOSCOPY (Ordered for 03/19/2023) 3.?Encounter for screening for malignant neoplasm of colon?Procedure: COLONOSCOPY (Ordered for 03/19/2023)* with MACsched for 07/16/23 at 9:40 ammiralax 4.?Family history of colon cancer?Procedure: COLONOSCOPY (Ordered for 03/19/2023)* with MACsched for 07/16/23 at 9:40 ammiralax * Procedure Codes:?1036F TOBAC CO NON-[id number] BP SCR NOT PRFRM REC REASON NOS * Follow Up:?prn * * Sign off status: Completed true * Provider:?Eddie Santioz MD Date:? 024 Generated for Rl ballard/Claudia/eTransmitting on:?06/24/2024 10:27 AM EDT History and Physical Notes * HPI (History of Present Illness) Category Sub-Category Detail Notes Category Not es incontinence I saw Alberta in followup today in regard to his personal history of tubular adenomas of the colon, family history of colon cancer, some mild constipation, and a recent episode of diverticulitis. I last saw Alberta in July of 2021, at which time he underwent a followup colonoscopy with removal of some residual adenomatous polyps. Since that time he had been feeling well. However, he developed some left lower quadrant tenderness and discomfort in December of 2022 which was evaluated with a CT scan in the ER. This revealed evidence of uncomplicated sigmoid diverticulitis and he was treated with an outpatient course of Augmentin. He describes that since that time he has not had any further problems although sometimes the area in the left lower quadrant will feel somewhat firm and uncomfortable if he pushes on it. He describes that his bowel movements are fairly regular but he does take Metamucil about every other day when he feels that he is having trouble having a bowel movement. There's been no sign of bleeding, other abdominal pains, hematuria, nor fevers. He enjoys a good appetite, without any significant heartburn or dysphagia. He denies any jaundice. He has lost about 10 pounds since he was here 2 years ago but in general reports that his weight has stabilized. He does describe hiking 3 miles several times per week. He also describes some stress in relation to his 47-year-old son who lives out west and who is in the midst being treated for stage IV colon cancer at the present time. Examination Category Sub-Category Detail Notes Category Not es General Examination GENERAL APPEARANCE: pleasant , well nourished, well developed, in no acute distress HEAD: EYES: sclera non-icteric EARS: NOSE: THROAT: NECK/THYROID: no cervical lymphade nopathy, neck supple HEART: S1, S2 normal CHEST: LUNGS: clear to auscultatio n bilaterally ABDOMEN: normal bowel sounds, no guarding or rigidity, no guarding or rigidity, no masses palpable, soft, nontender, nondistended NEUROLOGIC: alert and oriented SKIN: nonjaundiced, no spi nat angiomata EXTREMITIES: no edema PERIPHERAL PULSES: BACK: BREASTS: MUSCULOSKELETAL: MALE GENITOURINARY: LYMPH NODES: RECTAL EXAM: FEMALE GENITOURINARY: ORAL CAVITY: mucosa moist
--- OUTSIDE RECORDS SUMMARY | 2024-06-24 10:28 | XMS_ITS ---
Author Organization [facility] Address [address] [place] [address] Care Team Providers Care Airport Clerk Name Role Phone Mumtaz RHODES, Arnold Primary Care Provider Unavailab Eddie Pitt [phone] REASON FOR VISIT screening,hx polyps,fam hx colon ca Problems Problem Type SNOMED Code ICD Code Onset Dates Problem Status W/U Status Risk Notes Problem Diverticular disease of colon (858162063) Diverticulosis of large intestine without perforation or abscess without bleeding (K57.30) Active confirmed Encounters Encounter Location Date Provider Diagnosis [facility] [address] [place] [phone] 07/16/2023 Eddie Santizo Encounter for scre ening [...] ALBERTA MAS MDOB: [birth year] (79 yo M)Acc No.[id number]:07/16/2023 COLON WITH MAC Patient:?ALBERTA MAS Provider:?Eddie Santizo MD :1945???Age:78 Y???Sex:Male Arun e:07/16/2023 Address:[address] [place], [place] [id number] Pcp:Arnold Pandya MD Subjective: * Chief Complaints: * ???1. Screening,hx polyps,fa m hx colon ca. * Medical History:? Objective: * Vitals:? Assessment: * Assessment: 1.?Encounter for screening c olonoscopy - Z12.11 (Primary)???2.?Colon polyps - K63.5???3.?Diverticulosis of large intestine without perforation or abscess without bleeding - K57.30???4.?Other hemorrhoids - K64.8??? Plan: * Treatment: * Procedure Codes:?66141 LESIO N REMOVAL COLONOSCOPY, Modifiers: PT , 0529F INTRVL 3+YRS PTS CLNSCP DOCD, Modifiers: 1P , 0528F RCMND FLW-UP 10 YRS DOCD, Modifiers: 1P * * The named appointment provid er may or may not be the originator of this progress note, and it is not deemed complete until electronically signed by the appointment provider. Sign off status: Pending * Provider:?Eddie Santizo MD Date:? 024 Generated for Rl ballard/Claudia/eTransmitting on:?06/24/2024 10:28 AM EDT
--- OUTSIDE RECORDS SUMMARY | 2024-06-24 10:29 | XMS_ITS | Patient Health Record ---
Author Organization [facility] Address [address] [place] [address] Care Team Providers Care Principal Architect Name Role Phone Mumtaz RHODES, Arnold Primary Care Provider Unavailab Lita Love Unavailable [phone] Black, Sana Unavailable [phone] Allergies Allergen (clinical drug ingredient) Drug/Non Drug Allergy documented on EMR Reaction Allergy Type Onset Date Status aspirin Aspirin upset stomach Drug Allergy Act ramiro Reason For Referral No Information Medications Medication SIG (Take, Route, Frequency, Duration) [...] Problem Status W/U Status Risk Notes Problem 608406800 Hammer toe of right foot (M20.41) Active confirmed Problem 520241224 Hammer toe of left foot (M20.42) Active confirmed Problem 299020904248234 Osteoarthritis of right ankle and foot (M19.071) Active confirmed Problem Ulcer of toe of left foot (disorder) (7368532894955186 2) Skin ulcer of toe of left foot, limited to breakdown of skin (L97.521) Active confirmed Response to treatment, Nonapplica ble Vital Signs Blood pressure diastolic 65 mm Hg 12/01/2023 Height 5 ft 8 in in 12/01/2023 Blood pressure systolic 116 mm Hg 12/01/2023 Weight 150 lbs 12/01/2023 BMI 22.8 kg/m2 12/01/2023 Procedures Procedure Date Ordered Date Performed Result Body Sit e 14571-DHNCQTK NAIL, 6 OR MORE 11/17/2023 N/A 06926-Finljgbv Plate 11/17/2023 N/A 96269- Debride <25 sq cm 12/01/2023 N/A Encounters Encounter Location Date Provider Diagnosis [facility] [address] [address] 11/17/2023 Sana Black Tinea unguium B35.1 ; Xerosis of skin L85.3 ; Pain in right toe(s) M79.674 ; Pain in left toe(s) M79.675 and Ingrown nail L60.0 [facility] [address] [address] 12/01/2023 Sana Black Skin ulcer of toe of left foot, limited to breakdown of skin L97.521 Assessments Encounter Date Diagnosis (ICD Code) Assessment Notes Treatment Notes Treatment Clinical Notes Section Notes 11/17/2023 Tinea unguium (ICD-10 - B35.1) 11/17/2023 Xerosis of skin (ICD-10 - L85.3) 12/01/2023 Skin ulcer of toe of left foot, limited to breakdown of skin (ICD-10 - L97.521) Response to treatment,Nonap plicable Patient Educated with: WOUND CARE INSTRUCTIONS.p df (WOUND CARE INSTRUCTIONS.p df) 11/17/2023 Pain in right toe(s) (ICD-10 - M79.674) 11/17/2023 Pain in left toe(s) (ICD-10 - M79.675) 11/17/2023 Ingrown nail (ICD-10 - L60.0) 12/01/2023 Other Plan Of Treatment Pending Test Test Name Order Date [id number]-QSSOAVA NAIL, 6 OR MORE 11/17/2023 38041-Vrcsjmeq Plate 11/17/2023 58904- Debride <25 sq cm 12/01/2023 X ray : Ankle, right 3V 10/30/2021 Next Appt Details Provider Name:Galilea Trujillo taylor, 08/10/2024 09:15:00 AM, [address] [facility], [address], [place], [address], Insurance Providers Payer Name Payer Address Payer Phone Subscriber Number Group Number Insured Name Patient Relationship to Insured Coverage Start Date Coverage End Date Medicare [employer] [address] [place] [address] [id number] Bony Moy Self - patient is the insured [facility] [facility] [address] [place] [address] [phone] [id number] Nathaly Moy Spouse - patient is the spouse of the insured Medical (General) History Medical History History ICD Code Anxiety Back,Hip,and Knee pain Diverticulosis Sciatica Measles Mumps Chicken pox Prostate cancer Surgical History Surgery Date(Month/Year) colonoscopy x2 2020,2021 Brain Meningioma Hospitalization History Reason Date(Month/Year) urinary tract infection- [facility] [place] 09/30
--- OUTSIDE RECORDS SUMMARY | 2024-06-24 10:29 | XMS_ITS ---
Author Organization [facility] Address [address] [place] [address] Care Team Providers Care Appeals And Generalist Clerk Name Role Phone Mumtaz RHODES, Arnold Primary Care Provider Unavailab Eddie Pitt [phone] REASON FOR VISIT l/m 05/24 Encounters Encounter Location Date Provider Diagnosis [facility] [address] [place] [address] 05/20/2024 Eddie Santizo Plan Of Treatment No Information Progress Notes * ALBERTA MAS MDOB: 5 (79 yo M)Acc No.[id number]:05/20/2024 Patient:?ALBERTA MAS :1945???Age:79 Y???Sex:Male Address:[address] [place] [address] * true * Date:? Generated for Rl ballard/Claudia/eTransmitting on:?06/24/2024 10:28 AM EDT
[2024-06-24 10:52] LABS: PSA,Total (Free>4and<10) 0.38 ng/mL (0.00-4.00)
== END 2024-06-24 09:17 | disposition home or self-care (01) ==
LOC: HO.10HDL 09:16
PROVIDERS: Visit Provider Urology
DX: Z12.5 Encounter for screening for malignant neoplasm of prostate (principal); R97.20 Elevated prostate specific antigen [PSA]
CPT/HCPCS: 36415; 84153

== ENCOUNTER 2024-06-29 08:09 | Outpatient (AMB) | payer MEDICARE, OTHER, SELFPAY ==
--- NOTE | 2024-06-29 08:12 | A.OFFVIS_ITS ---
Intake Visit Reasons: 3m Followup/PSA Intake Note: Patient is present for a 3 month follow up/PSA 06/24 Total PSA:0.38 Urology Med: None Antibiotic Allergy: None Blood Thinner: None PVR:54ml Accompanied by: Spouse Allergies aspirin [Aspirin] Adverse Reaction (Intermediate, Verified 06/29/24 08:17) gastrointestinal upset/pain HPI Comments Details: 06/29/24--79-year-old male Bony is followed for h/o kidney stones, BPH and elevated PSA presenting for follow-up of a urinary tract infection. The urinary tract infection has been treated previously with antibiotics and his PSA level has normalized to 0.38 ng/mL. The patient experiences improved urinary function. A liver lesion found on MRI. Will send referral to gastroenterology for further examination. The patient's stated that she was and regarding the liver lesion MRI she has a health provider and her family further of the findings. Urinary Symptoms Review - No acute urinary symptoms currently reported - History of urinary tract infection treated with antibiotics Results - Labs: PSA level 06/24/24--at 0.38 ng/mL - Tests and Diagnostics: MRI showing a non-enhancing 3 cm liver lesion; nitrite positive urinalysis conducted 03/22/24--Bony is followed for h/o kidney stones. Prior CT has questionable left kidney indeterminant lesion. MRI abdomen reviewed--No kidney lesion, 3 cm cyst in liver (3 cm nonenhancing cystic lesion with hemorrhagic/blood products components suggesting possible biopsy.) I reviewed MRI results-no suspicious renal lesions.Discussed 24 hour urine results: Total volume 1.94 mL, Calcium 67 mg; Oxalate 27 mg, Sodium 132, Citrate 230 mg. Instructed on importance of fluid intake, adding citrate 2 diet. Low oxalate diet, low sodium diet. Pamphlet provided. The patient states that he was told he had an elevated PSA of up to 18. I will start Avodart and follow-up in 3 months with a PSA at that time. Urinalysis leukocytes present, nitrite positive. Patient denies UTI symptoms. We will send urine culture. 09/19/23--Bony is s/p ureteroscopy, stone extraction and stent removal on 09/09/23--he is here for follow up. On renal US left kidney noted ill defined mass. Plan MRI abd, and discussed metabolic work up. 08/08/23--Bony is a 78-year-old male who was initially evaluated by Dr. Brenner in consultation on 08/01/2023, due to MAURA with UTI sepsis secondary to obstructing left ureteral stone. Both blood cultures and urine cultures were positive for E coli. He is status post cystoscopy left ureteral stent on 08/01/2023. I have discussed definitive management of ureteral stone with ureteroscopy laser lithotripsy. [facility] Medical History Kidney stone Meningioma Spinal stenosis H/O pilonidal cyst Transient global amnesia BPH (benign prostatic hyperplasia) Gall bladder stones Chronic gastritis HTN (hypertension) Tubular adenoma of colon Arthritis Hx of meningioma of the brain GERD (gastroesophageal reflux disease) Hx of renal calculi Hx of spinal stenosis Elevated cholesterol Surgical History History of excision of pilonidal cyst Hx of arthroscopic knee surgery Hx of lithotripsy Hx of brain surgery History of esophagogastroduodenoscopy (EGD) H/O colonoscopy Social History Household Members: Spouse Housing: House Do you presently have visiting nurse or other home services: No Alcohol intake: current Alcohol intake frequency: does not drink Alcohol type: wine Patient Tobacco Use Status: Never used Tobacco Advance Directives Date on File: 12/17/22 service: Yes Review of Systems Const All systems reviewed & are unremarkable except as noted in HPI and below Reports no additional complaints Eyes Reports no additional complaints ENT Reports no additional complaints Card Reports no additional complaints Resp Reports no additional complaints GI Reports no additional complaints Reports as per HPI Musc Reports no additional complaints Skin/Breast Reports system reviewed and no additional complaints, except as documented Neuro Reports no additional complaints Psych Reports no additional complaints Endo Reports no additional complaints Larry/Lymph Reports no additional complaints Aller/Immun Reports no additional complaints Results Reviewed Results Reviewed: Date of Service: 01/13/24 MR ABDOMEN WITHOUT AND WITH CONTRAST CLINICAL INFORMATION: Liver lesions. Weight loss. COMPARISON: No prior MRI abdomen. Correlated to CT abdomen dated August 01, 2023. TECHNIQUE: MR abdomen was performed without and with use of 7 mL intravenous Gadavist gadolinium contrast. Postcontrast images are performed in multiphase dynamic sequences. Imaging was performed in 3 planes. No reported immediate complications FINDINGS: Submitted for interpretation on February 26, 2024. LIVER, GALLBLADDER, AND BILIARY TREE: Liver measures 16 cm. There are multifocal, lobulated, less than 2 cm, hypointense T1 and hyperintense T2 nonrestricted diffusion and no arterial enhancing lesions throughout the parenchyma. There is a 3 cm lobulated nonenhancing lesion with a intrinsic hyperintense T1 center in the peripheral posterior right hepatic lobe extending to the hepatic capsule with the a focal parenchymal defect. The main portal veins, hepatic veins and intrahepatic portions of the IVC are patent. There is a 2 cm hypointense T2 intraluminal lesion in the gallbladder. No pericholecystic fluid collection or gallbladder wall thickening. Common bile duct measures 5 mm. PANCREAS: No focal mass. No peripancreatic fluid collection. Volume loss. No main pancreatic ductal dilatation. SPLEEN: 9 cm. No focal mass. ADRENAL GLANDS: No nodular lesions KIDNEYS AND URETERS: No renal mass. No hydronephrosis. Normal enhancement pattern. GASTROINTESTINAL TRACT: Abundant stool within the large intestine with scattered diverticula in the left hemicolon. No intestinal obstruction pattern. No ascites. ABDOMINAL WALL: Small tiny fat-containing umbilical hernia. LYMPH NODES: Nonspecific prominent lymph nodes, retroperitoneal and mesenteric. VASCULAR: No aneurysm or dissection abdominal aorta. OSSEOUS STRUCTURES: Multilevel thoracolumbar spondylosis more conspicuous at T9-10, L1 to, L3-4 and L5-S1 levels. Grade 1 anterolisthesis L4-5. Grade 1 retrolisthesis L5-S1 and likely L1-2.. IMPRESSION: Probable hepatic cysts, stable since prior MRI abdomen dated July 09, 2017. 3 cm nonenhancing cystic lesion with hemorrhagic/blood products components suggesting possible biopsy. Cholelithiasis. Diverticular disease. Multilevel thoracolumbar spondylosis. FOSTER: 09/09/23 STATUS: COMP REQ : [id number] RECD: 09/09/[address]: Lyndsey Pulliam MD COMP: 09/17/23 ENTERED: 09/09/23-1224 [facility] DR: Arnold Pandya MD ORDERED: Kidney Stone QUERIES: Kidney Stone Source: [id number] Test Result Flag Reference Component 1 SEE NOTE Calcium Oxalate Dihydrate (Weddellite) 20% Calcium Oxalate Monohydrate (Whewellite) 80% Unable to photograph, tiny stone submitted. Stone Weight 0.001 g This test was developed and its analytical performance characteristics have been determined by [employer]. It has not been cleared or approved by FDA. This assay has been validated pursuant to the CLIA regulations and is used for clinical purposes. THIS TEST WAS PERFORMED AT: [place]/[facility] [address] [place] [address] ROYA SUERO MD,PHD,JENNIFER Stone Source URETERAL STONE Date of Service: 08/01/23 EXAMINATION: CT ABDOMEN AND PELVIS WITH CONTRAST CLINICAL INFORMATION: Abdominal pain. Weight loss. COMPARISON: 12/13/2022 TECHNIQUE: Multidetector volumetric images were obtained from the superior aspect of the liver through the pubic symphysis following administration 85 mL of Omnipaque 350 intravenous contrast. Sagittal and coronal reformatted images were obtained on the technologist's workstation. Oral contrast: No This CT examination was performed using dose optimization techniques as appropriate, variously including the following: *Automated exposure control *Adjustment of mA and/or kV according to patient size (this includes techniques or standardized protocols for targeted exams where dose is matched to indication/reason for exam; i.e. extremities or head) *Use of iterative reconstruction technique DLP: 356 mGy-cm FINDINGS: LUNG BASES: No pleural or pericardial effusion. Small hiatal hernia. LIVER, GALLBLADDER, AND BILIARY TREE: The liver is normal size and contour. There is a hypodensity in the posterior right hepatic lobe measuring 2.1 x 2.7 x 2.4 cm with extension to the hepatic capsule where there is capsular retraction. There are scattered hepatic cysts that require no further imaging follow-up. No biliary ductal dilatation is present. Possible tumefactive sludge in the gallbladder. PANCREAS: No ductal dilatation. Scattered parenchymal calcifications. SPLEEN: Not enlarged. ADRENAL GLANDS: No adrenal mass. KIDNEYS AND URETERS: 5 mm calculus in the mid left ureter with mild to moderate left hydroureteronephrosis. There is irregular appearance of the left renal parenchyma with ill-defined infiltrative hypodensity involving the upper pole of the left kidney. The left kidney enhances entirely heterogeneously with striated nephrograms. There is left perinephric stranding. The right kidney is unremarkable. BLADDER: Mild wall thickening left superior bladder dome. No gas in the urinary bladder. GASTROINTESTINAL TRACT: Pericolonic stranding of the sigmoid colon with extensive underlying diverticular disease. There is a focal diverticulum adherent to the bladder dome with surrounding inflammation on image 31 of series 6. There is no definite fistulous communication on the current study. No small bowel obstruction. ABDOMINAL WALL: No significant hernia is appreciated. LYMPH NODES: No bulky lymphadenopathy. VASCULAR: Normal caliber abdominal aorta. PELVIC VISCERA: Enlarged prostate gland. OSSEOUS STRUCTURES: No destructive bone lesions. IMPRESSION: 5 mm calculus in the left mid ureter with mild to moderate left hydroureteronephrosis. Heterogeneous enhancement and enlargement of the left kidney with associated striated nephrograms. This could represent acute pyelonephritis. Correlation with urinalysis is recommended. Follow-up imaging is advised to exclude underlying mass. Inflammatory stranding of the mid sigmoid colon with extensive underlying diverticular disease. There is an inflamed diverticulum adherent to the left superior bladder dome causing wall thickening. Short interval follow-up imaging is advised. Indeterminate liver hypodensity in the posterior right hepatic lobe measuring 2.1 x 2.7 x 2.4 cm with capsular retraction. MRI abdomen is recommended for further characterization. Assessment & Plan Assessment & Plan (1) Kidney stone: Code(s): N20.0 - Calculus of kidney Category: Medical (2) BPH loc w urin obs/LUTS: Code(s): N40.1 - Benign prostatic hyperplasia with lower urinary tract symptoms Category: Medical (3) Liver lesion: Code(s): K76.9 - Liver disease, unspecified Category: Medical (4) Hx of renal calculi: Code(s): Z87.442 - Personal history of urinary calculi Category: Medical (5) Bacteriuria: Code(s): R82.71 - Bacteriuria Category: Medical (6) Renal cyst, left: Code(s): N28.1 - Cyst of kidney, acquired Category: Medical Plan Plan - Continue taking dutasteride as prescribed. - Await call from nurse regarding urine culture results before starting antibiotics. - Follow up with Dr. Eddie Santizo for further evaluation of the liver lesion. - Plan for a follow-up appointment in three months. - Report any changes in urinary symptoms or concerns immediately. - Schedule the renal and bladder ultrasound as instructed. Orders: Orders US retroperitoneal comp 7 Weeks N28.1 - Cyst of kidney, acquired, N40.1 - Benign prostatic hyperplasia with lower urinary tract symptoms, R82.71 - Bacteriuria, Z87.442 - Personal history of urinary calculi Referrals Gastroenterology Referral K76.9 - Liver disease, unspecified Patient Instructions: The patient had an opportunity to ask questions regarding treatment plan. The patient expressed understanding and agreement with the above treatment plan. The patient is aware they should contact our office by phone for worsening of their current condition or the appearance of new symptoms. Compliance is encouraged with any medications and followup testing that is ordered. It is a privilege to be allowed the opportunity to participate in the urologic care of your patient. If you have any questions or concerns regarding treatment for the above conditions please do not hesitate to contact me. The office telephone contact is [phone]. This note is constructed in part using voice recognition software. While every effort has been made to ensure accuracy engine oiler errors may have been included. Yours sincerely, Lyndsey Pulliam MD Scribe Plan - Not visible on output: Patient was informed and verbally consented to the use of an ambient scribe for clinic note documentation during this visit. Coding Level of Care Code Est Pt Level 4 (56658) Complex EM visit Add On G2211 Diagnoses Kidney stone N20.0 BPH loc w urin obs/LUTS N40.1 Liver lesion K76.9 Hx of renal calculi Z87.442 Bacteriuria R82.71 Renal cyst, left N28.1
--- OUTSIDE RECORDS SUMMARY | 2024-06-29 08:20 | XMS_ITS ---
Author Organization [facility] Address [address] [place] [address] Care Team Providers Care Electronic Publications Specialist Name Role Phone Arnold Pandya MD Primary Care Provider Unavailab Lita Love Unavailable [phone] Black, Sana Unavailable [phone] Allergies Allergen (clinical drug ingredient) Drug/Non Drug [...] Ulcer of toe of left foot (disorder) ([id number]) Skin ulcer of toe of left foot, limited to breakdown of skin (L97.521) Active confirmed Response to treatment,No napplicable Vital Signs Height 5 ft 8 in in 12/01/2023 Weight 150 lbs 12/01/2023 BMI 22.8 kg/m2 12/01/2023 Blood pressure systolic 116 mm Hg 12/01/19 24 Blood pressure diastolic 65 mm Hg 024 Procedures Procedure Date Ordered Date Performed Result Body Sit e 79530- Debride <25 sq cm 12/01/2023 N/A Encounters Encounter Location Date Provider Diagnosis [facility] [place] [address] [place] [address] 12/01/2023 Sana Black Skin ulcer of toe [...] INSTRUCTIONS.pdf) Pending Test Test Name Order Date 86244- Debride <25 sq cm 12/01/2023 Next Appt Details Follow Up: prn, Reason: Provider Name:Galilea Trujillo taylor, 08/10/2024 09:15:00 AM, [address] [facility], [address], [place], [address], Procedure Notes * Category Sub-Category Detail Notes [...] of the wound post debridement is stable (59041) Progress Notes * Bony MAS MDOB: 5 (78 yo M)Acc No.[id number]:12/01/2023 Progress Notes Patient:?Bony Mas Provider:?Sana Herrera DPM :1945???Age:78 Y???Sex:Male Arun e:12/01/2023 Address:[address] [place] [address] Pcp:Arnold Pandya MD Subjective: * Chief Complaints: * ???Pcp-11/10/23Open sore - T oe * HPI: ???Skin problems:?Treatments:?soaks , Topical abx.? * Medical History:? * Surgical History:?colonoscop y x2 2020,rain Meningioma * Hospitalization/Major Diagno stic Procedure:?urinary tract infection- [facility] 09/30 * Family History:?No Family Hi story documented..? * Social History:?Tobacco Use:?Tobacco Use/Smoking?Are you a:?nonsmoker ?Additional Findings: Tobacco Non-User?Current non-smoker ?Tobacco use other than smoking?Are you an other tobacco user??No ???Miscellaneous:?Caffeine: yes, 1-2 cups per day. ?Exercise: yes, riding bike - Home [employer]. ?Marital status: . 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 * Medications:?TakingLORazepam 1 MG Tablet 1 tablet [...] of the wound post debridement is stable (79559).? * Procedure Codes:?37184 ACTIV E WOUND CARE/20 CM OR <, [...] Herrera DPM Date:?2023 Generated for Rl ballard/Claudia/Brayan on:?06/29/2024 08:20 AM EDT History and Physical Notes * [...]
--- OUTSIDE RECORDS SUMMARY | 2024-06-29 08:20 | XMS_ITS | Clinical Summary ---
Author Organization [facility] Address [address] [place] [address] [address] [place] [address] Phone Care Team Providers Care Certified Nursing Attendant Name Role Phone Arnold Pandya MD Primary Care Provider [phone] Allergies Active Allergy Reactions Criticality Noted Date [...] patient's age to complete this topic Insurance [facility] Care Teams Certified Nursing Attendant Relationship Specialty Start Date End Date Arnold Pandya MD [address] [place] [address] [address] [place] ID PCP - General 03/20/20
--- OUTSIDE RECORDS SUMMARY | 2024-06-29 08:21 | XMS_ITS ---
Author Organization [facility] Address [address] [place] [address] Care Team Providers Care Juice Weigher Name Role Phone Mumtaz RHODES, Arnold Primary Care Provider Unavailab Eddie Pitt [phone] REASON FOR VISIT l/m 05/24 Encounters Encounter Location Date Provider Diagnosis [facility] [address] [place] [address] 05/20/2024 Eddie Santizo Plan Of Treatment No Information Progress Notes * ALBERTA MAS MDOB: 5 (79 yo M)Acc No.[id number]:05/20/2024 Patient:?ALBERTA MAS :1945???Age:79 Y???Sex:Male Address:[address] [place] [address] * true * Date:? Generated for Rl ballard/Claudia/eTransmitting on:?06/29/2024 08:21 AM EDT
--- OUTSIDE RECORDS SUMMARY | 2024-06-29 08:21 | XMS_ITS ---
Author Organization [facility] Address [address] [place] [address] Care Team Providers Care Food And Nutrition Supervisor Name Role Phone Arnold Pandya MD Primary Care Provider Unavailab Lita Love Unavailable [phone] Black, Sana Unavailable [phone] Allergies Allergen (clinical drug ingredient) Drug/Non Drug [...] Ordered Date Performed Result Body Sit e 39927-ZFAJYPY NAIL, 6 OR MORE 11/17/2023 N/A 57086-Ppjbfntx Plate 11/17/2023 N/A Encounters Encounter Location Date Provider Diagnosis [facility] [address] [address] [place] [address] 11/17/2023 Sana Black Tinea unguium B35.1 ; [...] days Pending Test Test Name Order Date 91423-NCFGTDS NAIL, 6 OR MORE 11/17/2023 57052-Ozenbrau Plate 11/17/2023 Next Appt Details Follow Up: 2 Weeks, Reason: Provider Name:Galilea vazquez, 08/10/2024 09:15:00 AM, [address] [facility], [address], [place], [address], Procedure Notes * Category Sub-Category Detail Notes [...] Motrin was recommended for pain or discomfort (73845) , Pt DEFERS matricectomy Anesthesia 3cc of [...] use of a nail nipper and/or dremel-type paint grinder, to a more viable healthy nail plate or bed tissue 6-10. Silver nitrate used for any petechial bleeding as necessary. Definitive antifungal treatment options have been reviewed and discussed with the patient. The patient chooses, no pharmaceutical tx - 23491 Progress Notes * Bony MAS MDOB: 5 (78 yo M)Acc No.[id number]:11/17/2023 Progress Note Patient:?Bony Mas Provider:?Sana Herrera DPM :1945???Age:78 Y???Sex:Male Arun e:11/17/2023 Address:[address] [place], [place] [id number] Pcp:Arnold Pandya MD Subjective: * Chief Complaints: [...] * Hospitalization/Major Diagno stic Procedure:?urinary tract infection- [facility] 09/30 * Family History:?No Family Hi story [...] ?Marital status: . 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 * Medications:?TakingLORazepam 1 MG Tablet 1 tablet [...] reconciled with the patient * Allergies:?Aspirin: upset [facility][Allergies Verified] Objective: * Vitals:?Ht: 5 ft [...] - L60.0? Plan: * Treatment: 2.?Tinea unguium?Procedure: 44413-LQEBNKX NAIL, 6 OR MORE 3.?Ingrown nail?Procedure: 18600-Mclazhjq Plate * Procedures:?Debride Nail 6-10:?Nail debridement?Performance of this nail treatment by a nonprofessional would put this patients foot and overall health at risk. Therefore, nail debridement was performed extensively to reduce/remove overall nail length, girth, thickness, subungual debris, and necrotic tissue, by manual and/or electrical means through the use of a nail nipper and/or dremel-type paint grinder, to a more viable healthy nail plate or bed tissue 6-10. Silver nitrate used for any petechial bleeding as necessary. Definitive antifungal treatment options have been reviewed and discussed with the patient. The patient chooses, no pharmaceutical tx - 13598.?Nail Avulsion:?Location?Medial nail border , TA.?Anesthesia?3cc of 1 [...] Motrin was recommended for pain or discomfort (80084) , Pt DEFERS matricectomy.? * Procedure Codes:?84689 DEBRI DE NAIL, 6 OR MORE, Modifiers: XS 71201 Avulsion Plate, Modifiers: TA * Preventive Medicine:? [...]
--- OUTSIDE RECORDS SUMMARY | 2024-06-29 08:21 | XMS_ITS ---
Author Organization [facility] Address [address] [place] [address] Care Team Providers Care New Car Inspector Name Role Phone Mumtaz RHDOES, Arnold Primary Care Provider Eddie Purdy [phone] Allergies Allergen (clinical drug ingredient) Drug/Non Drug [...] Problem Status W/U Status Risk Notes Problem [id number] Diverticulitis (K57.92) Active confirmed Vital Signs Temperature 97.8 degrees Fahrenheit 03/19/19 24 Blood pressure systolic 000 mm Hg 03/19/19 24 Blood pressure diastolic 00 mm Hg 024 Height 67.5 in 03/19/2023 Weight 152 lbs 03/19/2023 BMI 23.45 kg/m2 03/19/2023 Encounters Encounter Location Date Provider Diagnosis [facility] [address] [place] [address] 03/19/2023 Eddei Santizo Diverticulosis of co felipe K57.30 ; [...] ALBERTA MAS MDOB: 5 (78 yo M)Acc No.[id number]:03/19/2023 Progress Notes Patient:?ALBERTA MAS Provider:?Eddie Santizo MD :1945???Age:77 Y???Sex:Male Arun e:03/19/2023 Address:[address] [place], [place] [id number] Pcp:Arnold Pandya MD Subjective: * Chief Complaints: [...] 9:40 ammiralax * Procedure Codes:?1036F TOBAC CO NON-GARVN2809 BP SCR NOT PRFRM REC REASON NOS * Follow Up:?prn * * Sign off status: Completed true * Provider:?Eddie Santizo MD Date:? 024 Generated for Rl ballard/Claudia/eTransmitting on:?06/29/2024 08:20 AM EDT History and Physical [...]
--- OUTSIDE RECORDS SUMMARY | 2024-06-29 08:21 | XMS_ITS | Patient Health Record ---
Author Organization [facility] Address [address] [place] [address] Care Team Providers Care Processor Solid Propellant Name Role Phone Mumtaz RHODES, Arnold Primary Care Provider Eddie Purdy Unavailable [phone] Allergies Allergen (clinical drug ingredient) Drug/Non Drug Allergy documented on EMR Reaction Allergy Type Onset Date Status aspirin Aspirin Unknown Drug Allergy Active Results Component Value Reference Range Notes Pathology (Not yet reviewed by provider) Interpretation: Performing Lab:[facility], [address] [place] [address] Notes/Report: Name: Alberta Mas Age/Sex: 78/M : 1945 Unit#: [id number] Attend Dr: Edide Santizo Re07/16/23 Status : [facility] Location: [facility] Disch: SPEC : [id number] RECD : 07/16/23 STATUS: ANGE STACY NUM: [id number] FOSTER: 07/16/23-1026 [facility] DR: Eddie Santizo ENTERED: 07/16/23-10 59 SP [...] A. CEDS Copies To: Arnold Pandya MD [address] [place] [address] [address] [place] [address] Eddie Santizo [address] [place] [address] [address] [place] [address] Signed (si gnature on file) Mo Palacios [...] Problem Screening for malignant neoplasm of colon (260987378) Encounter for screening for malignant neoplasm of colon (Z12.11) Active confirmed Problem History of adenomatous polyp of colon (408062657) History of adenomatous polyp of colon (Z86.010) Active confirmed Problem Diverticular disease of colon (017818381) Diverticulosis of large intestine without perforation or abscess without bleeding (K57.30) Active confirmed Problem 839669242 Diverticulitis (K57.92) Active confirmed Problem Family History of Cancer of Colon (Situation) (821416045) Family history of colon cancer (Z80.0) Active confirmed Problem Gallstones (148592794) Gallstones (K80.20) Active confirmed Problem Right upper quadrant pain (880416843) RUQ abdominal pain (R10.11) Active confirmed Problem Diverticulosis of colon (899951797) Diverticulosis of colon (K57.30) Active confirmed Problem 809803962 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 confirmed Encounters Encounter Location Date Provider Diagnosis [facility] [place] [address] [place] [phone] 07/16/2023 Eddie Santizo Encounter for screen ing colonoscopy Z12.11 ; Colon polyps K63.5 ; Diverticulosis of large intestine without perforation or abscess without bleeding K57.30 and Other hemorrhoids K64.8 [facility] [address] [place] [address] 05/20/2024 Eddie Santizo Assessments Encounter Date Diagnosis [...] Date MEDICARE OF [place] [address] [place] [address] [phone] [id number] ALBERTA MAS Self - patient is the insured [facility] [address] [place] [address] [id number] ALBERTA MAS Self - patient is the insured Medical (General) History Medical History History ICD Code 10/26/2008 Colonoscopy -tubu lar adenoma removed--diverticulosis and internal hemorrhoids; tubular adenoma removed in 2004 Hypertension Hyperlipidemia Hx of known gallstones with occ. RUQ dis comfort Pilonidal cyst Denies VA,DM,CVA,Lung disease,renal dise ase Spinal stenosis Meningioma as [...]
--- OUTSIDE RECORDS SUMMARY | 2024-06-29 08:21 | XMS_ITS ---
Author Organization [facility] Address [address] [place] [address] Care Team Providers Care Art History Professor Name Role Phone Mumtaz RHODES, Arnold Primary Care Provider Unavailab Eddie Pitt [phone] REASON FOR VISIT screening,hx polyps,fam hx colon ca Problems Problem Type SNOMED Code ICD Code Onset Dates Problem Status W/U Status Risk Notes Problem Diverticular disease of colon (195163142) Diverticulosis of large intestine without perforation or abscess without bleeding (K57.30) Active confirmed Encounters Encounter Location Date Provider Diagnosis [facility] [place] [address] [place] [phone] 07/16/2023 Eddie Santizo Encounter for scre ening [...] ALBERTA MAS MDOB: 5 (79 yo M)Acc No.[id number]:07/16/2023 COLON WITH MAC Patient:?ALBERTA MAS Provider:?Eddie Santizo MD :1945???Age:78 Y???Sex:Male Arun e:07/16/2023 Address:[address] [place], [place] [phone] Pcp:Arnold Pandya MD Subjective: * Chief Complaints: * ???1. Screening,hx polyps,fa m hx colon ca. * Medical History:? Objective: * Vitals:? Assessment: * Assessment: 1.?Encounter for screening c olonoscopy - Z12.11 (Primary)???2.?Colon polyps - K63.5???3.?Diverticulosis of large intestine without perforation or abscess without bleeding - K57.30???4.?Other hemorrhoids - K64.8??? Plan: * Treatment: * Procedure Codes:?35232 LESIO N REMOVAL COLONOSCOPY, Modifiers: PT , [...] Date:? 024 Generated for Rl ballard/Claudia/eTransmitting on:?06/29/2024 08:21 AM EDT
--- OUTSIDE RECORDS SUMMARY | 2024-06-29 08:22 | XMS_ITS | Patient Health Record ---
Author Organization [facility] Address [address] [place] [address] Care Team Providers Care Associate Consulting Engineer Name Role Phone Mumtaz RHODES, Arnold Primary Care Provider Unavailab Lita Love Unavailable [phone] Black, Sana Unavailable [phone] Allergies Allergen (clinical drug ingredient) Drug/Non Drug [...] Problem Status W/U Status Risk Notes Problem 346043849 Hammer toe of right foot (M20.41) Active confirmed Problem 405362131 Hammer toe of left foot (M20.42) Active confirmed Problem 009740533810952 Osteoarthritis of right ankle and foot (M19.071) Active confirmed Problem Ulcer of toe of left foot (disorder) (7126720930776823 2) Skin ulcer of toe of left foot, limited to breakdown of skin (L97.521) Active confirmed Response to treatment, Nonapplica ble Vital Signs Blood pressure diastolic 65 mm Hg 12/01/2023 Height 5 ft 8 in in 12/01/2023 Blood pressure systolic 116 mm Hg 12/01/2023 Weight 150 lbs 12/01/2023 BMI 22.8 kg/m2 12/01/2023 Procedures Procedure Date Ordered Date Performed Result Body Sit e 79988-NGVMUOV NAIL, 6 OR MORE 11/17/2023 N/A 48969-Xqescxvd Plate 11/17/2023 N/A 54190- Debride <25 sq cm 12/01/2023 N/A Encounters Encounter Location Date Provider Diagnosis [facility] [address] [address] 11/17/2023 Sana Black Tinea unguium B35.1 ; Xerosis of skin L85.3 ; Pain in right toe(s) M79.674 ; Pain in left toe(s) M79.675 and Ingrown nail L60.0 [facility] [address] [address] 12/01/2023 Sana Black Skin ulcer of toe [...] Treatment Pending Test Test Name Order Date 82653-OAYICPN NAIL, 6 OR MORE 11/17/2023 63257-Vnlzxjfa Plate 11/17/2023 40824- Debride <25 sq cm 12/01/2023 X ray : Ankle, right 3V 10/30/2021 Next Appt Details Provider Name:Galilea Trujillo taylor, 08/10/2024 09:15:00 AM, [address] [facility], [address], [place], [address], Insurance Providers Payer Name Payer Address Payer Phone Subscriber Number Group Number Insured Name Patient Relationship to Insured Coverage Start Date Coverage End Date Medicare National [employer]t Sv[employer] [address] [place] [address] [id number] Bony Moy Self - patient is the insured [employer] [address] [place] [address] [phone] [id number] Nathaly Moy Spouse - patient is the spouse of the insured Medical (General) History Medical History History ICD Code Anxiety Back,Hip,and Knee pain Diverticulosis Sciatica Measles Mumps Chicken pox Prostate cancer Surgical History Surgery Date(Month/Year) colonoscopy x2 2020,2021 Brain Meningioma Hospitalization History Reason Date(Month/Year) urinary tract [place] [facility] [place]
== END 2024-06-29 09:10 | disposition home or self-care (01) ==
LOC: HO.HUSH 08:09
PROVIDERS: PCP Family Medicine; Visit Provider Urology
DX: N20.0 Calculus of kidney (principal); N40.1 Benign prostatic hyperplasia with lower urinary tract symptoms; K76.9 Liver disease, unspecified; Z87.442 Personal history of urinary calculi; R82.71 Bacteriuria; N28.1 Cyst of kidney, acquired; Z13.9 Encounter for screening, unspecified
CPT/HCPCS: 99214; G2211

== ENCOUNTER 2024-06-29 08:09 | Outpatient (REF) | payer MEDICARE, OTHER, SELFPAY ==
--- OUTSIDE RECORDS SUMMARY | 2024-06-29 18:45 | XMS_ITS | Clinical Summary ---
Author Organization [facility] Address [address] [place] [address] [address] [place] [address] Phone Care Team Providers Care Fur Plucker Name Role Phone Arnold Pandya MD Primary Care Provider [phone] Allergies Active Allergy Reactions Criticality Noted Date [...] patient's age to complete this topic Insurance [facility] Medicare [facility] Medicare Care Teams Fur Plucker Relationship Specialty Start Date End Date Arnold Pandya MD [address] [place] [address] [address] [place] PCP - General 03/20/20
== END 2024-06-29 08:10 | disposition home or self-care (01) ==
LOC: HO.LNP 08:09
PROVIDERS: PCP Family Medicine; Visit Provider Urology
DX: N20.0 Calculus of kidney (principal); N40.1 Benign prostatic hyperplasia with lower urinary tract symptoms; K76.9 Liver disease, unspecified; Z87.442 Personal history of urinary calculi; R82.71 Bacteriuria; N28.1 Cyst of kidney, acquired
CPT/HCPCS: 81003; 87086; 87088; 87186; 99212

== ENCOUNTER 2024-08-17 10:13 | Outpatient (REF) | payer MEDICARE, OTHER, SELFPAY ==
--- NOTE | ~2024-08-17 | US_ITS ---
CLINICAL HISTORY: R82.71 - Bacteriuria --- Additional Notes or Special Instructions: please measure p rostate US Renal Comparison: None Findings: Right kidney normal size and echotexture, 11.1 cm length. Left kidney normal size and echotexture, 10.9 cm length. No hydronephrosis of either kidney. Normal color Doppler. Urinary bladder is unremarkable. Prevoid volume 261 mL. Postvoid volume 75 mL. Prostate volume is 28 cc. Bilateral ureteral jets are visualized. IMPRESSION: 1. Normal kidneys. 2. Small postvoid residual in the urinary bladder. This document has been electronically signed by: Yvonne Alaniz MD on 08/17/2024 15:57:33
--- OUTSIDE RECORDS SUMMARY | 2024-08-17 11:52 | XMS_ITS | Clinical Summary ---
Author Organization [facility] Address [address] [place] [address] [address] [place] [address] Phone Care Team Providers Care Pharmacognosist Name Role Phone Arnold Pandya MD Primary Care Provider [phone] Allergies Active Allergy Reactions Criticality Noted Date [...] age to complete this topic Insurance [facility] Medicare Care Teams Pharmacognosist Relationship Specialty Start Date End Date Arnold Pandya MD [address] [place] [address] [address] [place] PCP - General 03/20/20
== END 2024-08-17 10:14 | disposition home or self-care (01) ==
LOC: HO.US 10:13
PROVIDERS: PCP Family Medicine; Visit Provider Urology
DX: R82.71 Bacteriuria (principal); N28.1 Cyst of kidney, acquired; N40.1 Benign prostatic hyperplasia with lower urinary tract symptoms; Z87.442 Personal history of urinary calculi
CPT/HCPCS: 76770

== ENCOUNTER → 2024-08-17 10:20 | Outpatient (BNV) | payer MEDICARE, OTHER, SELFPAY | PROVIDERS: PCP Family Medicine; Visit Provider Radiology Diagnostic Radiology | DX: R82.71 Bacteriuria (principal) | CPT/HCPCS: 76770 ==

== ENCOUNTER 2024-08-20 10:23 | Outpatient (REF) | payer MEDICARE, OTHER, SELFPAY ==
--- OUTSIDE RECORDS SUMMARY | 2024-08-20 11:23 | XMS_ITS | Clinical Summary ---
Author Organization [facility] Address [address] [place] [address] [address] [place] [address] Phone Care Team Providers Care Electronic Prepress Operator Name Role Phone Arnold Pandya MD Primary Care Provider Allergies Active Allergy Reactions Criticality Noted Date [...] to complete this topic Insurance [facility] Medicare [facility] Medicare Care Teams Electronic Prepress Operator Relationship Specialty Start Date End Date Arnold Pandya MD [address] [place] [address] [address] [place] PCP - General 03/20/20
[2024-08-20 13:08] LABS: MANUAL DIFF FLAG NO
[2024-08-20 13:13] LABS: Basophils Absolute Auto 0.1 X10*3/uL (0.0-0.2); Basophils Percent Auto 1.2 % (0-2); Eosinophils Absolute Auto 0.1 X10*3/uL (0.0-0.4); Eosinophils Percent Auto 1.9 % (0-4); Hematocrit 40.5 % (42.0-52.0); Hemoglobin 14.1 g/dl (14.0-18.0); Imm Gran Abs Auto 0.01 X10*3/uL (0.00-0.03); Imm Gran Pct Auto 0.1 % (0.0-0.4); Lymphocytes Absolute Auto 1.9 X10*3/uL (1.2-4.9); Lymphocytes Percent Auto 27.6 % (20-40); Mean Corpuscular HGB Conc 34.8 g/dl (31.0-36.0); Mean Corpuscular Hemoglobin 32.4 pg (27.0-33.0); Mean Corpuscular Volume 93.1 fL (80.0-98.0); Mean Platelet Volume 9.5 fL (9.4-12.4); Monocytes Absolute Auto 0.7 X10*3/uL (0.1-1.2); Monocytes Percent Auto 10.1 % (2-11); Neutrophils Percent Auto 59.1 % (45-73); Platelet Count 253 X10*3/uL (160-400); Red Blood Count 4.35 X10*6/uL (4.60-5.80); Red Cell Distribution Width 12.3 % (11.0-16.0); White Blood Count 6.7 X10*3/uL (4.8-10.8)
[2024-08-20 13:57] LABS: Alanine Aminotransferase 22 U/L (0-40); Anion Gap 9 (12-20); Aspartate Amino Transferase 21 U/L (5-37); Blood Urea Nitrogen 17 mg/dL (9-16); Carbon Dioxide 26 mmol/L (22-29); Chloride 108 mmol/L (96-108); Estimated Glomerular Filt Rate > 60; Potassium 4.4 mmol/L (3.3-5.1); Sodium 139 mmol/L (135-145)
== END 2024-08-20 10:24 | disposition home or self-care (01) ==
LOC: HO.10HDL 10:23
PROVIDERS: Visit Provider Family Medicine
DX: I10 Essential (primary) hypertension (principal); K76.89 Other specified diseases of liver; D64.9 Anemia, unspecified
CPT/HCPCS: 36415; 80051; 82565; 84450; 84460; 84520; 85025

== ENCOUNTER 2024-09-30 08:29 | Outpatient (AMB) | payer MEDICARE, OTHER, SELFPAY ==
--- OUTSIDE RECORDS SUMMARY | 2024-08-31 10:00 | XMS_ITS ---
Author Organization [facility] Address [address] [place] [address] Care Team Providers Care Gaming Associate Name Role Phone Mumtaz RHODES, Arnold Primary Care Provider Unavailab Lita Love Unavailable [phone] REASON FOR VISIT Seen Sooner Encounters Encounter Location Date Provider Diagnosis [address] [address] 08/31/2024 Lita Mauro Plan Of Treatment No Information Progress Notes * Bony MAS MDOB: 5 (79 yo M)Acc No.[id number]:08/31/2024 Progress Note Patient: Bony MELENDEZ Provider: Heron Mauro DPM :1945 A ge:79 Y S ex:Male Date:08/31/2024 Address:[address] [place], [place] [address] Pcp:Arnold Pandya MD Subjective: * Chief Complaints: [...] Pending * Provider: Heron Mauro DPM Date: 08/31/2024 Generated for Printi ng/Faxing/eTransmitting on: 09/30/2024 08:50 AM EDT
--- OUTSIDE RECORDS SUMMARY | 2024-09-30 08:51 | XMS_ITS | Patient Health Record ---
Author Organization [facility] Address [address] [place] [id number] Care Team Providers Care Goodyear Stitcher Name Role Phone Mumtaz (RETIRED) Arnold RHODES Primary Care Provider Unavailable Eddie Santizo Unavailable [phone] Allergies Allergen (clinical drug ingredient) Drug/Non Drug Allergy documented on EMR Reaction Allergy Type Onset Date Status aspirin Aspirin Unknown Drug Allergy Active Reason For Referral No Information Medications Medication SIG (Take, Route, Fr equency, Duration) Notes Start Date End Date Status Omeprazole 20 MG 1 capsule Orally Once a day/prn Active Multivitamin Adults Active LORazepam 0.5 MG 0.5 ml as needed Orally prn Active Immunizations Vaccine Route Administration Date Status [...] Problem Screening for malignant neoplasm of colon (515351234) Encounter for screening for malignant neoplasm of colon (Z12.11) Active confirmed Problem History of adenomatous polyp of colon (787660026) History of adenomatous polyp of colon (Z86.010) Active confirmed Problem Diverticular disease of colon (331330738) Diverticulosis of large intestine without perforation or abscess without bleeding (K57.30) Active confirmed Problem 715503883 Diverticulitis (K57.92) Active confirmed Problem Family History of Cancer of Colon (Situation) (393917396) Family history of colon cancer (Z80.0) Active confirmed Problem Gallstones (506222337) Gallstones (K80.20) Active confirmed Problem Right upper quadrant pain (964521345) RUQ abdominal pain (R10.11) Active confirmed Problem Diverticulosis of colon (486604517) Diverticulosis of colon (K57.30) Active confirmed Problem Hepatic cyst (K76.89) Active confirmed Problem 508603845 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 confirmed Vital Signs Blood pressure diastolic 77 mm Hg 08/10/2024 Height 67.5 in 08/10/2024 Blood pressure systolic 111 mm Hg 08/10/2024 Weight 155 lbs 08/10/2024 BMI 23.92 kg/m2 08/10/2024 Encounters Encounter Location Date Provider Diagnosis [facility] [address] [place] [phone] 08/10/2024 Eddie Santizo History of adenomato us polyp of colon Z86.010 ; Hepatic cyst K76.89 ; Family history of colon cancer Z80.0 ; Gallstones K80.20 and Diverticulosis of large intestine without perforation or abscess without bleeding K57.30 [facility] [address] [place] [phone] 05/20/2024 Eddie Santizo Assessments Encounter Date Diagnosis (ICD Code) Assessment Notes Treatment Notes Treatment Clinical Notes Section Notes 08/10/2024 History of adenomatous polyp of colon (ICD-10 - Z86.010) Overall, Alberta appears quite well. He is not having any new or worrisome GI complaints at the present time. We did review the findings on his colonoscopy from just over 1 year ago. At this time, given the multiple colonoscopies that he has had, no worrisome GI complaints, and his age of 79, I advised him that I would recommend we hold off on any further screening colonoscopies. I did advise him that certainly if anything changes in regard to his bowel habits such as bleeding, he would need to contact me for reassessment. We did review the MRI findings of the hepatic cysts and these seem to be a benign process based on the MRI's description as well as the fact that they were present back in 2018. I would not recommend any further need for follow-up or biopsy at this time. We did review his gallstones again. We did review that if he develops any right upper quadrant or epigastric pain he would need to seek surgical consultation to consider elective cholecystectomy. If the abdominal pain persists or becomes associated with any other symptoms such as fevers or jaundice, I advised him that he would need to go to the ER for evaluation. At this point, if things remain well I have advised Alberta to see me on a prn basis. Alberta was comfortable with this plan. Thank you again for allowing me to have participated in Alberta's care. Please do not hesitate to contact me if I can be of any further assistance in the future. 08/10/2024 Hepatic cyst (ICD-10 - K76.89) Overall, Alberta appears quite well. He is not having any new or worrisome GI complaints at the present time. We did review the findings on his colonoscopy from just over 1 year ago. At this time, given the multiple colonoscopies that he has had, no worrisome GI complaints, and his age of 79, I advised him that I would recommend we hold off on any further screening colonoscopies. I did advise him that certainly if anything changes in regard to his bowel habits such as bleeding, he would need to contact me for reassessment. We did review the MRI findings of the hepatic cysts and these seem to be a benign process based on the MRI's description as well as the fact that they were present back in 2018. I would not recommend any further need for follow-up or biopsy at this time. We did review his gallstones again. We did review that if he develops any right upper quadrant or epigastric pain he would need to seek surgical consultation to consider elective cholecystectomy. If the abdominal pain persists or becomes associated with any other symptoms such as fevers or jaundice, I advised him that he would need to go to the ER for evaluation. At this point, if things remain well I have advised Alberta to see me on a prn basis. Alberta was comfortable with this plan. Thank you again for allowing me to have participated in Alberta's care. Please do not hesitate to contact me if I can be of any further assistance in the future. 08/10/2024 Family history of colon cancer (ICD-10 - Z80.0) Overall, Alberta appears quite well. He is not having any new or worrisome GI complaints at the present time. We did review the findings on his colonoscopy from just over 1 year ago. At this time, given the multiple colonoscopies that he has had, no worrisome GI complaints, and his age of 79, I advised him that I would recommend we hold off on any further screening colonoscopies. I did advise him that certainly if anything changes in regard to his bowel habits such as bleeding, he would need to contact me for reassessment. We did review the MRI findings of the hepatic cysts and these seem to be a benign process based on the MRI's description as well as the fact that they were present back in 2018. I would not recommend any further need for follow-up or biopsy at this time. We did review his gallstones again. We did review that if he develops any right upper quadrant or epigastric pain he would need to seek surgical consultation to consider elective cholecystectomy. If the abdominal pain persists or becomes associated with any other symptoms such as fevers or jaundice, I advised him that he would need to go to the ER for evaluation. At this point, if things remain well I have advised Alberta to see me on a prn basis. Alberta was comfortable with this plan. Thank you again for allowing me to have participated in Alberta's care. Please do not hesitate to contact me if I can be of any further assistance in the future. 08/10/2024 Gallstones (ICD-10 - K80.20) Call or see a surgeon if the gallbladder and gallstones bother you Overall, Alberta appears quite well. He is not having any new or worrisome GI complaints at the present time. We did review the findings on his colonoscopy from just over 1 year ago. At this time, given the multiple colonoscopies that he has had, no worrisome GI complaints, and his age of 79, I advised him that I would recommend we hold off on any further screening colonoscopies. I did advise him that certainly if anything changes in regard to his bowel habits such as bleeding, he would need to contact me for reassessment. We did review the MRI findings of the hepatic cysts and these seem to be a benign process based on the MRI's description as well as the fact that they were present back in 2018. I would not recommend any further need for follow-up or biopsy at this time. We did review his gallstones again. We did review that if he develops any right upper quadrant or epigastric pain he would need to seek surgical consultation to consider elective cholecystectomy. If the abdominal pain persists or becomes associated with any other symptoms such as fevers or jaundice, I advised him that he would need to go to the ER for evaluation. At this point, if things remain well I have advised Alberta to see me on a prn basis. Alberta was comfortable with this plan. Thank you again for allowing me to have participated in [place] care. Please do not hesitate to contact me if I can be of any further assistance in the future. 08/10/2024 Diverticulosis of large intestine without perforation or abscess without bleeding (ICD-10 - K57.30) Overall, Alberta appears quite well. He is not having any new or worrisome GI complaints at the present time. We did review the findings on his colonoscopy from just over 1 year ago. At this time, given the multiple colonoscopies that he has had, no worrisome GI complaints, and his age of 79, I advised him that I would recommend we hold off on any further screening colonoscopies. I did advise him that certainly if anything changes in regard to his bowel habits such as bleeding, he would need to contact me for reassessment. We did review the MRI findings of the hepatic cysts and these seem to be a benign process based on the MRI's description as well as the fact that they were present back in 2018. I would not recommend any further need for follow-up or biopsy at this time. We did review his gallstones again. We did review that if he develops any right upper quadrant or epigastric pain he would need to seek surgical consultation to consider elective cholecystectomy. If the abdominal pain persists or becomes associated with any other symptoms such as fevers or jaundice, I advised him that he would need to go to the ER for evaluation. At this point, if things remain well I have advised Alberta to see me on a prn basis. Alberta was comfortable with this plan. Thank you again for allowing me to have participated in Alberta's care. Please do not hesitate to contact me if I can be of any further assistance in the future. Plan Of Treatment Future Test Test Name Order Date COLONOSCOPY 10/18/2014 COLONOSCOPY 05/04/2020 COLONOSCOPY 06/22/2020 COLONOSCOPY 01/16/2021 COLONOSCOPY 03/19/2023 Insurance Providers Payer Name Payer Address Payer Phone Subscriber Number Group Number Insured Name Patient Relationship to Insured Coverage Start Date Coverage End Date MEDICARE OF [place] [address] [place] [id number] ALBERTA MAS Self - patient is the insured [employer] ([employer]) [address] [place] [address] [phone] [id number] ALBERTA MAS Self - patient is the insured Medical (General) History Medical History History ICD Code 10/26/2008 Colonoscopy -tubu lar adenoma removed--diverticulosis and internal hemorrhoids; tubular adenoma removed in 2004 Hypertension Hyperlipidemia Hx of known gallstones with occ. RUQ dis comfort Pilonidal cyst Denies OK,DM,CVA,Lung disease,renal dise ase Spinal stenosis Meningioma as [...] as another adenoma in the transverse colon. Colonoscopy 07/2023 with two tubular oliverio omas removed Gallstones--reviewed at the 08/2024 OV Hepatic cysts seen on MRI's and CT scans, most recently as of the 01/2024 MRI--report states no change from 2018 Surgical History Surgery Date(Month/Year) Pilonidal cyst excision Knee surgery Brain tumor surgery w/Dr. Flores--meningi alexandre 02/15/2008 Hospitalization History Reason Date(Month/Year) lower left abdominal pain, ER for the da y 12/30
--- OUTSIDE RECORDS SUMMARY | 2024-09-30 08:51 | XMS_ITS | Clinical Summary ---
Author Organization [facility] Address [address] [place], [place] [id number] Phone Care Team Providers Care Blintze Roller Name Role Phone Arnold Pandya MD Primary Care Provider Allergies Active Allergy Reactions Criticality Noted Date Comments Aspirin Diarrhea 07/19/2020 Medications LORazepam (ATIVAN) 1 MG tablet TAKE 1/2 TABLET BY MOUTH EVERY 12 HOURS NEEDED 05/18/2020 Active lisinopril (PRINIVIL,ZESTR IL) 5 MG tablet Take 5 mg by mouth daily. 06/22/2020 Active ketoconazole 2 % cream 07/07/2020 Active clotrimazole-be tamethasone (LOTRISONE) cream 1 APPL TOPICAL TWICE A DAY FOR 4 WEEKS APPLY THIN COAT 2 TIMES PER DAY 05/18/2020 Active busPIRone (BUSPAR) 5 MG tablet TAKE 1 TABLET BY MOUTH EVERYDAY AT BEDTIME 02/28/2022 Active omeprazole (PRILOSEC) 20 MG capsule 1 capsule 30 minutes before morning meal Active Active Problems Problem Noted Date Diagnosed Date Acquired hammer toe of right foot 04/03/2022 Primary localized osteoarthrosis of ankle and fo ot 04/03/2022 Chronic kidney disease 07/19/2020 Hyperlipidemia 07/19/2020 Hypertensive disorder 07/19/2020 Renal stone 07/19/2020 Simple renal cyst 07/19/2020 Immunizations Immunization Administration Dates Next Due COVID-19 (Pre-12/30) Moderna Vaccine, mRNA, PF 0 05/17/2020,04/19/2020 Influenza High-Dose Quadrivalent Preservative Fr ee IM 12/10/2021 Influenza High-Dose Trivalent Preservative Free IM 12/19/2020 Influenza Quadrivalent Adjuvanted Preservative F ree IM 11/23/2019 Pneumococcal polysaccharide PPSV23 04/05/2016 Social History Tobacco Use Types Packs/Day Years [...] on file Sexual Orientation Not on file Last Filed Vital Signs Vital Sign Reading Time Taken Comments Blood Pressure 139/77 04/03/2022 4:52 PM EST Pulse 71 04/03/2022 4:52 PM EST Temperature 36.4 C (97.5 F) 04/03/2022 4:52 PM EST Respiratory Rate 16 04/03/2022 4:52 PM EST Oxygen Saturation 99% 04/03/2022 4:5 2 PM EST Inhaled Oxygen Concentration - - Weight 73.8 kg (162 lb 12 oz) 04/03/2022 4:52 PM EST patient reported Height 174 cm (5' 8.5 ) 04/03/2022 4:52 PM EST Body Mass Index 24.39 04/03/2022 4:52 PM EST Plan of Treatment Health Maintenance Due Date Last Done Comments Adult Td,Tdap Booster 1944 CREATININE LEVEL 1944 LIPID PANEL 1944 POTASSIUM LEVEL 1944 DEPRESSION SCREENING 1956 ZOSTER VACCINES (1 of 2) 1994 PNEUMOCOCCAL VACCINES (50+ years) (2 of 2 - PCV) 04/05/2017 04/05/2016 RSV VACCINE (1 - 1-dose 75+ series) 2019 BLOOD PRESSURE 10/01/2022 04/03/2022 COVID-19 VACCINE (6 - 2024-25 season) 2023 12/10/2021, 06/14/2021, 01/04/2021, Additional history exists SMOKING STATUS SCREENING (Once After 26 Yrs) Completed 08/11/2020 HEPATITIS A VACCINES Aged Out No long er eligible based on patient's age to complete this topic HIB VACCINES Aged Out No longer eligi ble based on patient's age to complete this topic MENINGOCOCCAL VACCINES (ACWY) Aged Out No longer eligible based on patient's age to complete this topic MENINGOCOCCAL VACCINES (B) Aged Out N o longer eligible based on patient's age to complete this topic Medical Devices Not on file Insurance MEDICARE PART A & B [facility] MEDICARE SUPPLEMENT MEDICARE PART A & B [facility] [employer] MEDICARE SUPPLEMENT MEDICARE PART A & B [facility] [employer] MEDICARE SUPPLEMENT MEDICARE PART A & B [employer] MEDICARE SUPPLEMENT MEDICARE PART A & B [employer] MEDICARE SUPPLEMENT MEDICARE PART A & B [facility] [employer] MEDICARE SUPPLEMENT MEDICARE PART A & B [facility] [employer] MEDICARE SUPPLEMENT MEDICARE PART A & B Member Subscriber Plan / Payer ( fective 2009-Present) Name:Bony Moy Member ID:[id number] Relation to Subscriber:Self Name:Bony Moy Subscriber ID:[id number] Payer ID:[id number] Group ID:Not on file Type:Medicare Address: [employer] [address] [place] [phone] [facility] [employer] MEDICARE SUPPLEMENT MEDICARE PART A & [facility] SUPPLE[facility] Care Teams Blintze Roller Relationship Specialty Start Date End Date Arnold Pandya MD [address] [place] [address] [place] [address] PCP - General Internal Medicine 08/11/20 Additional Source Comments The information contained in this document represents components of the legal health record. It is not the complete legal health record.[facility]
--- OUTSIDE RECORDS SUMMARY | 2024-09-30 08:51 | XMS_ITS | Clinical Summary ---
Author Organization [facility] Address [address] [place] [address] [address] [place] [address] Phone Care Team Providers Care Inspection Engineer Name Role Phone Arnold Pandya MD Primary Care Provider [phone] Allergies Active Allergy Reactions Criticality Noted Date [...] 2 - PCV) 04/05/2017 04/05/2016 Influenza Vaccine (#1) 2024 , 12/19/2020, 11/23/2019 Pneumococcal Vaccine: Peds (0 to 5 Years) and At-Risk Patients (6 to 49 Years) Discontinued 04/05/2016 Hepatitis B Vaccine Aged Out No longe r eligible based on patient's age to complete this topic Insurance [facility] Care Teams Inspection Engineer Relationship Specialty Start Date End Date Arnold Pandya MD [address] [place] [address] [address] [place] PCP - General 03/20/20
--- NOTE | 2024-09-30 08:54 | MHC.OFFVIS ---
Intake Visit Reasons: 3m/US Intake Note: Patient is present for a 3 month follow up/US Renal US 08/17 Urology Med: None Antibiotic Allergy: None Blood Thinner: None PVR:53ml Accompanied by: Spouse Allergies aspirin (Aspirin) Adverse Reaction (Intermediate, Verified 09/30/24 08:54) gastrointestinal upset/pain Medication List - Last Reconciled 09/30/24 by Lyndsey Pulliam MD dutasteride (Avodart) 0.5 mg PO DAILY lorazepam mg PO multivitamin 1 tab PO DAILY prazosin 1 mg PO BEDTIME sertraline 25 mg PO QAM HPI Comments Details: 09/30/2024--Bony is followed for history of kidney stones BPH and elevated PSA he is here in follow-up. He had a renal ultrasound 08/17/2024 kidneys within normal limits. History of Present Illness - The patient is an 79-year-old male presenting for follow-up on kidney stones, benign prostatic hyperplasia, and h/o elevated PSA levels. - History of kidney stones with prior renal ultrasound and CT showing kidneys within normal limits as of 08/17/24. - Benign Prostatic Hyperplasia managed with dutasteride, previously also on tamsulosin - Elevated PSA noted in the past with a previous reading of 18, attributed to infection at the time, current PSA is 0.38, within normal range. - No significant changes in medications, continues on dutasteride, with good urinary function, only waking once at night to urinate. - Engages in outdoor activities such as landscaping, advised to maintain hydration during hot weather. Results - Renal ultrasound --within normal limits as of 08/17/24. - PSA level: 0.38, within normal range (0-4). Plan - Continue current medication regimen with dutasteride for BPH management. Monitor PSA levels annually, with follow-up in one year unless symptoms change. Encourage adequate hydration, especially during outdoor activities in hot weather. 06/29/24--79-year-old male Bony is followed for h/o kidney stones, BPH and elevated PSA presenting for follow-up of a urinary tract infection. The urinary tract infection has been treated previously with antibiotics and his PSA level has normalized to 0.38 ng/mL. The patient experiences improved urinary function. A liver lesion found on MRI. Will send referral to gastroenterology for further examination. The patient's stated that she was and regarding the liver lesion MRI she has a health provider and her family further of the findings. Urinary Symptoms Review - No acute urinary symptoms currently reported - History of urinary tract infection treated with antibiotics Results - Labs: PSA level 06/24/24--at 0.38 ng/mL - Tests and Diagnostics: MRI showing a non-enhancing 3 cm liver lesion; nitrite positive urinalysis conducted 03/22/24--Bony is followed for h/o kidney stones. Prior CT has questionable left kidney indeterminant lesion. MRI abdomen reviewed--No kidney lesion, 3 cm cyst in liver (3 cm nonenhancing cystic lesion with hemorrhagic/blood products components suggesting possible biopsy.) I reviewed MRI results-no suspicious renal lesions.Discussed 24 hour urine results: Total volume 1.94 mL, Calcium 67 mg; Oxalate 27 mg, Sodium 132, Citrate 230 mg. Instructed on importance of fluid intake, adding citrate 2 diet. Low oxalate diet, low sodium diet. Pamphlet provided. The patient states that he was told he had an elevated PSA of up to 18. I will start Avodart and follow-up in 3 months with a PSA at that time. Urinalysis leukocytes present, nitrite positive. Patient denies UTI symptoms. We will send urine culture. 09/19/23--Bony is s/p ureteroscopy, stone extraction and stent removal on 09/09/23--he is here for follow up. On renal US left kidney noted ill defined mass. Plan MRI abd, and discussed metabolic work up. 08/08/23--Bony is a 78-year-old male who was initially evaluated by Dr. Brenner in consultation on 08/01/2023, due to MAURA with UTI sepsis secondary to obstructing left ureteral stone. Both blood cultures and urine cultures were positive for E coli. He is status post cystoscopy left ureteral stent on 08/01/2023. I have discussed definitive management of ureteral stone with ureteroscopy laser lithotripsy. [facility] Medical History Kidney stone Meningioma Spinal stenosis H/O pilonidal cyst Transient global amnesia BPH (benign prostatic hyperplasia) Gall bladder stones Chronic gastritis HTN (hypertension) Tubular adenoma of colon Arthritis Hx of meningioma of the brain GERD (gastroesophageal reflux disease) Hx of renal calculi Hx of spinal stenosis Elevated cholesterol Surgical History History of excision of pilonidal cyst Hx of arthroscopic knee surgery Hx of lithotripsy Hx of brain surgery History of esophagogastroduodenoscopy (EGD) H/O colonoscopy Social History Household Members: Spouse Housing: House Do you presently have visiting nurse or other home services: No Alcohol intake: current Alcohol intake frequency: does not drink Alcohol type: wine Patient Tobacco Use Status: Never used Tobacco Advance Directives Date on File: 12/17/22 service: Yes Review of Systems Const All systems reviewed & are unremarkable except as noted in HPI and below Reports no additional complaints Eyes Reports no additional complaints ENT Reports no additional complaints Card Reports no additional complaints Resp Reports no additional complaints GI Reports no additional complaints Reports as per HPI Musc Reports no additional complaints Skin/Breast Reports system reviewed and no additional complaints, except as documented Neuro Reports no additional complaints Psych Reports no additional complaints Endo Reports no additional complaints Larry/Lymph Reports no additional complaints Aller/Immun Reports no additional complaints Results Reviewed Results Reviewed: Date of Service: 08/17/24 CLINICAL HISTORY: R82.71 - Bacteriuria --- Additional Notes or Special Instructions: please measure prostate US Renal Comparison: None Findings: Right kidney normal size and echotexture, 11.1 cm length. Left kidney normal size and echotexture, 10.9 cm length. No hydronephrosis of either kidney. Normal color Doppler. Urinary bladder is unremarkable. Prevoid volume 261 mL. Postvoid volume 75 mL. Prostate volume is 28 cc. Bilateral ureteral jets are visualized. IMPRESSION: 1. Normal kidneys. 2. Small postvoid residual in the urinary bladder. Date of Service: 01/13/24 MR ABDOMEN WITHOUT AND WITH CONTRAST CLINICAL INFORMATION: Liver lesions. Weight loss. COMPARISON: No prior MRI abdomen. Correlated to CT abdomen dated August 01, 2023. TECHNIQUE: MR abdomen was performed without and with use of 7 mL intravenous Gadavist gadolinium contrast. Postcontrast images are performed in multiphase dynamic sequences. Imaging was performed in 3 planes. No reported immediate complications FINDINGS: Submitted for interpretation on February 26, 2024. LIVER, GALLBLADDER, AND BILIARY TREE: Liver measures 16 cm. There are multifocal, lobulated, less than 2 cm, hypointense T1 and hyperintense T2 nonrestricted diffusion and no arterial enhancing lesions throughout the parenchyma. There is a 3 cm lobulated nonenhancing lesion with a intrinsic hyperintense T1 center in the peripheral posterior right hepatic lobe extending to the hepatic capsule with the a focal parenchymal defect. The main portal veins, hepatic veins and intrahepatic portions of the IVC are patent. There is a 2 cm hypointense T2 intraluminal lesion in the gallbladder. No pericholecystic fluid collection or gallbladder wall thickening. Common bile duct measures 5 mm. PANCREAS: No focal mass. No peripancreatic fluid collection. Volume loss. No main pancreatic ductal dilatation. SPLEEN: 9 cm. No focal mass. ADRENAL GLANDS: No nodular lesions KIDNEYS AND URETERS: No renal mass. No hydronephrosis. Normal enhancement pattern. GASTROINTESTINAL TRACT: Abundant stool within the large intestine with scattered diverticula in the left hemicolon. No intestinal obstruction pattern. No ascites. ABDOMINAL WALL: Small tiny fat-containing umbilical hernia. LYMPH NODES: Nonspecific prominent lymph nodes, retroperitoneal and mesenteric. VASCULAR: No aneurysm or dissection abdominal aorta. OSSEOUS STRUCTURES: Multilevel thoracolumbar spondylosis more conspicuous at T9-10, L1 to, L3-4 and L5-S1 levels. Grade 1 anterolisthesis L4-5. Grade 1 retrolisthesis L5-S1 and likely L1-2.. IMPRESSION: Probable hepatic cysts, stable since prior MRI abdomen dated July 09, 2017. 3 cm nonenhancing cystic lesion with hemorrhagic/blood products components suggesting possible biopsy. Cholelithiasis. Diverticular disease. Multilevel thoracolumbar spondylosis. FOSTER: 09/09/23 STATUS: COMP REQ : [id number] RECD: 09/09/[address]: Lyndsey Pulliam MD COMP: 09/17/23 ENTERED: 09/09/23-[address] [facility] [address]: Arnold Pandya MD ORDERED: Kidney Stone QUERIES: Kidney Stone Source: [id number] Test Result Flag Reference Component 1 SEE NOTE Calcium Oxalate Dihydrate (Weddellite) 20% Calcium Oxalate Monohydrate (Whewellite) 80% Unable to photograph, tiny stone submitted. Stone Weight 0.001 g This test was developed and its analytical performance characteristics have been determined by [employer]. It has not been cleared or approved by FDA. This assay has been validated pursuant to the CLIA regulations and is used for clinical purposes. THIS TEST WAS PERFORMED AT: [email or web address] [place] [address] ROYA SUERO MD,PHD,JENNIFER Stone Source URETERAL STONE Date of Service: 08/01/23 EXAMINATION: CT ABDOMEN AND PELVIS WITH CONTRAST CLINICAL INFORMATION: Abdominal pain. Weight loss. COMPARISON: 12/13/2022 TECHNIQUE: Multidetector volumetric images were obtained from the superior aspect of the liver through the pubic symphysis following administration 85 mL of Omnipaque 350 intravenous contrast. Sagittal and coronal reformatted images were obtained on the technologist's workstation. Oral contrast: No This CT examination was performed using dose optimization techniques as appropriate, variously including the following: *Automated exposure control *Adjustment of mA and/or kV according to patient size (this includes techniques or standardized protocols for targeted exams where dose is matched to indication/reason for exam; i.e. extremities or head) *Use of iterative reconstruction technique DLP: 356 mGy-cm FINDINGS: LUNG BASES: No pleural or pericardial effusion. Small hiatal hernia. LIVER, GALLBLADDER, AND BILIARY TREE: The liver is normal size and contour. There is a hypodensity in the posterior right hepatic lobe measuring 2.1 x 2.7 x 2.4 cm with extension to the hepatic capsule where there is capsular retraction. There are scattered hepatic cysts that require no further imaging follow-up. No biliary ductal dilatation is present. Possible tumefactive sludge in the gallbladder. PANCREAS: No ductal dilatation. Scattered parenchymal calcifications. SPLEEN: Not enlarged. ADRENAL GLANDS: No adrenal mass. KIDNEYS AND URETERS: 5 mm calculus in the mid left ureter with mild to moderate left hydroureteronephrosis. There is irregular appearance of the left renal parenchyma with ill-defined infiltrative hypodensity involving the upper pole of the left kidney. The left kidney enhances entirely heterogeneously with striated nephrograms. There is left perinephric stranding. The right kidney is unremarkable. BLADDER: Mild wall thickening left superior bladder dome. No gas in the urinary bladder. GASTROINTESTINAL TRACT: Pericolonic stranding of the sigmoid colon with extensive underlying diverticular disease. There is a focal diverticulum adherent to the bladder dome with surrounding inflammation on image 31 of series 6. There is no definite fistulous communication on the current study. No small bowel obstruction. ABDOMINAL WALL: No significant hernia is appreciated. LYMPH NODES: No bulky lymphadenopathy. VASCULAR: Normal caliber abdominal aorta. PELVIC VISCERA: Enlarged prostate gland. OSSEOUS STRUCTURES: No destructive bone lesions. IMPRESSION: 5 mm calculus in the left mid ureter with mild to moderate left hydroureteronephrosis. Heterogeneous enhancement and enlargement of the left kidney with associated striated nephrograms. This could represent acute pyelonephritis. Correlation with urinalysis is recommended. Follow-up imaging is advised to exclude underlying mass. Inflammatory stranding of the mid sigmoid colon with extensive underlying diverticular disease. There is an inflamed diverticulum adherent to the left superior bladder dome causing wall thickening. Short interval follow-up imaging is advised. Indeterminate liver hypodensity in the posterior right hepatic lobe measuring 2.1 x 2.7 x 2.4 cm with capsular retraction. MRI abdomen is recommended for further characterization. Assessment & Plan Assessment & Plan (1) BPH loc w urin obs/LUTS: Code(s): N40.1 - Benign prostatic hyperplasia with lower urinary tract symptoms Category: Medical (2) Screening PSA (prostate specific antigen): Code(s): Z12.5 - Encounter for screening for malignant neoplasm of prostate Category: Medical (3) History of recurrent UTIs: Code(s): Z87.440 - Personal history of urinary (tract) infections Category: Medical Plan Plan - Continue current medication regimen with dutasteride for BPH management. Monitor PSA levels annually, with follow-up in one year unless symptoms change. Encourage adequate hydration, especially during outdoor activities in hot weather. Orders: Orders PSA,Total (Free>4and<10) 10 Months N40.0 - Benign prostatic hyperplasia without lower urinary tract symptoms, Z12.5 - Encounter for screening for malignant neoplasm of prostate Medications: Refilled dutasteride (Avodart) 0.5 mg PO DAILY 30 caps 11RF enlarged prostate Patient Instructions: The patient had an opportunity to ask questions regarding treatment plan. The patient expressed understanding and agreement with the above treatment plan. The patient is aware they should contact our office by phone for worsening of their current condition or the appearance of new symptoms. Compliance is encouraged with any medications and followup testing that is ordered. It is a privilege to be allowed the opportunity to participate in the urologic care of your patient. If you have any questions or concerns regarding treatment for the above conditions please do not hesitate to contact me. The office telephone contact is [phone]. This note is constructed in part using voice recognition software. While every effort has been made to ensure accuracy post graduate internship errors may have been included. Yours sincerely, Lyndsey Pulliam MD Scribe Plan - Not visible on output: Patient was informed and verbally consented to the use of an ambient scribe for clinic note documentation during this visit. Coding Level of Care Code Est Pt Level 4 (04548) Diagnoses BPH loc w urin obs/LUTS N40.1 Screening PSA (prostate specific antigen) Z12.5 History of recurrent UTIs Z87.440
== END 2024-09-30 09:43 | disposition home or self-care (01) ==
LOC: HO.HUSH 08:30
PROVIDERS: PCP Family Medicine; Visit Provider Urology
DX: N40.1 Benign prostatic hyperplasia with lower urinary tract symptoms (principal); Z12.5 Encounter for screening for malignant neoplasm of prostate; Z87.440 Personal history of urinary (tract) infections; Z13.9 Encounter for screening, unspecified
CPT/HCPCS: 99214

== ENCOUNTER → 2024-09-30 08:29 | Outpatient (BNVA) | payer MEDICARE, OTHER, SELFPAY | PROVIDERS: PCP Family Medicine; Visit Provider Urology | DX: Z12.5 Encounter for screening for malignant neoplasm of prostate (principal); N40.0 Benign prostatic hyperplasia without lower urinary tract symptoms; Z87.440 Personal history of urinary (tract) infections | CPT/HCPCS: 51798; 81003; 99212 ==

== ENCOUNTER 2024-11-15 07:43 | Outpatient (AMB) | payer MEDICARE, OTHER, SELFPAY ==
--- OUTSIDE RECORDS SUMMARY | 2022-04-03 18:09 | XMS_ITS | Encounter Summary ---
Author Organization [facility] Address [address] [place] [phone] Phone Care Team Providers Care Lead Die Molder Name Role Phone Arnold Pandya MD Primary Care Provider Encounter Details Date Type Department Care Team (Late st Contact Info) Description 04/03/2022 5:09 PM EST Hospital Encounter [facility] [address] [place] [phone] Indira Siegel CNP [address] [place] [phone] [email or web address] Social History Tobacco Use Types Packs/Day Years [...] biceps. No fracture or dislocation. Indira Siegel ASSEMBLER AND TESTER ELECTRONICS IMG XR UPPER EXTREMITY Sherita l Result documented in this encounter Visit Diagnoses Not on filedocumented in this encounter Care Teams Lead Die Molder Relationship Specialty Start Date End Date Arnold Pandya MD [address] [place] [address] [place] [address] PCP - General Internal Medicine 08/11/20 documented as of this encounter Additional Source Comments The information contained in this document represents components of the legal health record. It is not the complete legal health record.[facility]
--- OUTSIDE RECORDS SUMMARY | 2023-07-16 05:50 | XMS_ITS ---
Author Organization [facility] [place] Address [address] [place] [phone] Care Team Providers Care Service Team Leader Name Role Phone Mumtaz (RETIRED) Arnold RHODES Primary Care Provider Unavailable Eddie Santizo Unavailable [phone] REASON FOR VISIT screening,hx polyps,fam hx colon ca Problems Problem Type SNOMED Code ICD Code Onset Dates Problem Status W/U Status Risk Notes Problem Diverticular disease of colon (971365228) Diverticulosis of large intestine without perforation or abscess without bleeding (K57.30) Active confirmed Encounters Encounter Location Date Provider Diagnosis [facility] [place] [address] [place] [phone] 07/16/2023 Eddie Santizo Encounter for scre ening colonoscopy Z12.11 ; Colon polyps K63.5 ; Diverticulosis of large intestine without perforation or abscess without bleeding K57.30 and Other hemorrhoids K64.8 Assessments Encounter Date Diagnosis (ICD Code) Assessment Notes Treatment Notes Treatment Clinical Notes Section Notes 07/16/2023 Encounter for screening colonoscopy (ICD-10 - Z12.11) 07/16/2023 Colon polyps (ICD-10 - K63.5) 07/16/2023 Diverticulosis of large intestine without perforation or abscess without bleeding (ICD-10 - K57.30) 07/16/2023 Other hemorrhoids (ICD-10 - K64.8) Plan Of Treatment No Information Progress Notes * ALBERTA MAS MDOB: 5 (79 yo M)Acc No.[id number]:07/16/2023 COLON WITH MAC Patient: Christopher ALBERTA JIM Provider: Hetal Santizo MD :1945 A ge:78 Y S ex:Male Date:07/16/2023 Address:[address] [place], [place] [phone] Pcp:Arnold Pandya (RETIRED) MD Subjective: * Chief Complaints: * 1 . Screening,hx polyps,fam hx colon ca. * Medical History: Objective: * Vitals: Assessment: * Assessment: 1. E ncounter for screening colonoscopy - Z12.11 (Primary) 2 . C olon polyps - K63.5 3 . D iverticulosis of large intestine without perforation or abscess without bleeding - K57.30 4 . O ther hemorrhoids - K64.8 Plan: * Treatment: * Procedure Codes: 4 5385 LESION REMOVAL COLONOSCOPY, Modifiers: PT , 0529F INTRVL 3+YRS PTS CLNSCP DOCD, Modifiers: 1P , 0528F RCMND FLW-UP 10 YRS DOCD, Modifiers: 1P * * The named appointment provid er may or may not be the originator of this progress note, and it is not deemed complete until electronically signed by the appointment provider. Sign off status: Pending * Provider: Hetal Santizo MD Date: 0 07/16/2023 Generated for Rl ballard/Claudia/Roniitting on: 0 11/15/2024 07:46 AM EDT
--- OUTSIDE RECORDS SUMMARY | 2024-08-10 05:15 | XMS_ITS ---
Author Organization [facility] Address [address] [place] [address] Care Team Providers Care Envelope Maker Name Role Phone Mumtaz RHODES, Arnold Primary Care Provider Unavailab Lita Love Unavailable [phone] Galilea Durham [phone] Encounters Encounter Location Date Provider Diagnosis [facility] [address] [place] [address] 08/10/2024 Galilea Durham Plan Of Treatment No Information Progress Notes * Bony MAS MDOB: 5 (79 yo M)Acc No.[id number]:08/10/2024 Progress Note Patient: Bony MELENDEZ M Provider: Mame Durham DPM :1945 A ge:79 Y S ex:Male Date:08/10/2024 Address:[address] [place], [place] [phone] Pcp:Arnold Pandya MD Subjective: * Chief Complaints: [...] Durham DPM Date: 0 08/10/2024 Generated for Joryi ng/Fajoyceg/eTransmitting on: 0 11/15/2024 07:46 AM EDT
--- OUTSIDE RECORDS SUMMARY | 2024-08-31 10:00 | XMS_ITS ---
Author Organization [facility] Address [address] [place] [address] Care Team Providers Care Instrument Technician Helper Name Role Phone Mumtaz RHODES, Arnold Primary Care Provider Unavailab Lita Love Unavailable [phone] REASON FOR VISIT Seen Sooner Encounters Encounter Location Date Provider Diagnosis [address] [address] 08/31/2024 Lita Mauro Plan Of Treatment No Information Progress Notes * Bony MAS MDOB: 5 (79 yo M)Acc No.[id number]:08/31/2024 Progress Note Patient: Bony MELENDEZ Provider: Heron Mauro DPM :1945 A ge:79 Y S ex:Male Date:08/31/2024 Address:[address] [place], [place] [phone] Pcp:Arnold Pandya MD Subjective: * Chief Complaints: [...] 08/31/2024 Generated for Printi ng/Faxing/eTransmitting on: 0 11/15/2024 07:45 AM EDT
--- OUTSIDE RECORDS SUMMARY | 2024-11-15 07:46 | XMS_ITS | Clinical Summary ---
Author Organization [facility] Address [address] [place], [place] [id number] Phone Care Team Providers Care Fiberglasser Name Role Phone Arnold Pandya MD Primary [...] 75+ series) 2019 BLOOD PRESSURE 10/01/2022 04/03/2022 INFLUENZA VACCINE (#1) 2024 2, 12/19/2020, 12/19/2020, Additional history exists COVID-19 VACCINE (2024- season) 2024 12/10/2021, 06/14/2021, 01/04/2021, Additional history exists SMOKING [...] file Insurance MEDICARE PART A & B [facility] EXT[facility]ION MEDICARE SUPPLEMENT MEDICARE PART A & B [employer]ION MEDICARE SUPPLEMENT MEDICARE PART A & B [employer] MEDICARE SUPPLEMENT MEDICARE PART A & B Member Subscriber Plan / Payer ( fective 2009-Present) Name:Bony Mas Member ID:[id number] Relation to Subscriber:Self Name:Bony Mas Subscriber ID:[id number] Payer ID:[id number] Group ID:Not on file Type:Medicare Address: [employer] [address] [place] [phone] [employer] MEDICARE SUPPLEMENT MEDICARE PART A & B [employer] MEDICARE SUPPLEMENT MEDICARE PART A & B [facility] EXT[facility]ION MEDICARE SUPPLEMENT MEDICARE PART A & B [facility] MEDICARE SUPPLEMENT MEDICARE PART A & B [facility] MEDICARE SUPPLEMENT MEDICARE PART A & B [facility] SUPPLEMENT Care Teams Fiberglasser Relationship Specialty Start Date End Date Arnold Pandya MD [address] [place] [address] [place] [address] PCP - General Internal Medicine 08/11/20 Additional Source Comments The information contained in this document represents components of the legal health record. It is not the complete legal health record.[facility]
--- OUTSIDE RECORDS SUMMARY | 2024-11-15 07:46 | XMS_ITS | Clinical Summary ---
Author Organization [facility] Address [address] [place] [address] [address] [place] [address] Phone Care Team Providers Care Gas Shovel Operator Name Role Phone Arnold Pandya MD Primary Care Provider [phone] Allergies Active Allergy Reactions Criticality Noted Date [...] patient's age to complete this topic Insurance [facility] Medicare Care Teams Gas Shovel Operator Relationship Specialty Start Date End Date Arnold Pandya MD [address] [place] [address] [address] [place] PCP - General 03/20/20
--- OUTSIDE RECORDS SUMMARY | 2024-11-15 07:46 | XMS_ITS | Patient Health Record ---
Author Organization [facility] Address [address] [place] [address] Care Team Providers Care Rn Telephone Triage Name Role Phone Mumtaz RHODES, Arnold Primary Care Provider Unavailab Lita Love Unavailable [phone] Black, Sana Unavailable [phone] Galilea Durham Unavailable [phone] Allergies Allergen (clinical drug ingredient) Drug/Non Drug [...] minutes before morning meal Orally Once a day; Duration: 30 day(s) Active Ammonium Lactate 12 % 1 application Exte rnally to feet except for between the toes Twice a day; Duration: 30 days Active Lisinopril 5 MG 1 tablet Orally Once a day; Duration: 30 day(s) Not-Jesús ing busPIRone HCl 5 MG 1 tablet Orally [...] Problem Status W/U Status Risk Notes Problem Acquired hammer toe of right foot (8534387902255600 ) Hammer toe of right foot (M20.41) Active confirmed Problem Acquired hammer toe of left foot (0621518582864253 ) Hammer toe of left foot (M20.42) Active confirmed Problem Localized, primary osteoarthritis of the ankle and/or foot (816230249) Osteoarthritis of right ankle and foot (M19.071) Active confirmed Problem Ulcer of toe of left foot (disorder) (5675394623935086 2) Skin ulcer of toe of left foot, limited to breakdown of skin (L97.521) Active confirmed Response to treatment, Nonapplica ble Vital Signs Blood pressure diastolic 65 mm Hg 12/01/2023 Height 5 ft 8 in in 12/01/2023 Blood pressure systolic 116 mm Hg 12/01/2023 Weight 150 lbs 12/01/2023 BMI 22.8 kg/m2 12/01/2023 Procedures Procedure Date Ordered Date Performed Result Body Sit e 76079-KQWILKU NAIL, 6 OR MORE 11/17/2023 N/A 15635-Ruhlydag Plate 11/17/2023 N/A 52513- Debride <25 sq cm 12/01/2023 N/A Encounters Encounter Location Date Provider Diagnosis [facility] [address] 11/17/2023 Sana Black Tinea unguium B35.1 ; Xerosis of skin L85.3 ; Pain in right toe(s) M79.674 ; Pain in left toe(s) M79.675 and Ingrown nail L60.[address] [facility] [address] 12/01/2023 Sana Black Skin ulcer of toe of left foot, limited to breakdown of skin L97.521 [facility] [address] 08/06/2024 Lita Mauro Assessments Encounter Date Diagnosis (ICD Code) Assessment [...] Treatment Pending Test Test Name Order Date 07083-FOTAGIV NAIL, 6 OR MORE 11/17/2023 74150-Ihtczdpj Plate 11/17/2023 22114- Debride <25 sq cm 12/01/2023 X ray : Ankle, right 3V 10/30/2021 Insurance Providers Payer Name Payer Address Payer Phone Subscriber Number Group Number Insured Name Patient Relationship to Insured Coverage Start Date Coverage End Date Medicare National [employer]t [employer] [address] [place] [address] [id number] Bony Moy Self - patient is the insured [employer] [address] [place], [place] [address] [phone] [id number] Nathaly Moy Spouse - patient is the spouse of the insured Medical (General) History Medical History History ICD Code Anxiety Back,Hip,and Knee pain Diverticulosis Sciatica Measles Mumps Chicken pox Prostate cancer Surgical History Surgery Date(Month/Year) colonoscopy x2 2020,2021 Brain Meningioma Hospitalization History Reason Date(Month/Year) urinary tract infection[place] [facility] [place]
--- OUTSIDE RECORDS SUMMARY | 2024-11-15 07:46 | XMS_ITS | Patient Health Record ---
Author Organization [facility] Address [address] [place] [address] Care Team Providers Care Restaurant Cook Name Role Phone Mumtaz (RETIRED) Arnold RHODES Primary Care Provider Unavailable Eddie Santizo Unavailable [phone] Allergies Allergen (clinical drug ingredient) Drug/Non Drug [...] Problem Screening for malignant neoplasm of colon (074623301) Encounter for screening for malignant neoplasm of colon (Z12.11) Active confirmed Problem History of adenomatous polyp of colon (775025585) History of adenomatous polyp of colon (Z86.010) Active confirmed Problem Diverticular disease of colon (115243768) Diverticulosis of large intestine without perforation or abscess without bleeding (K57.30) Active confirmed Problem 655847199 Diverticulitis (K57.92) Active confirmed Problem Family History of Cancer of Colon (Situation) (719113978) Family history of colon cancer (Z80.0) Active confirmed Problem Gallstones (621077006) Gallstones (K80.20) Active confirmed Problem Right upper quadrant pain (177146307) RUQ abdominal pain (R10.11) Active confirmed Problem Diverticulosis of colon (116354627) Diverticulosis of colon (K57.30) Active confirmed Problem Hepatic cyst (53280825) Hepatic cyst (K76.89) Active confirmed Problem 213441943 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 confirmed Vital Signs Blood pressure diastolic 77 mm Hg 08/10/2024 Height 67.5 in 08/10/2024 Blood pressure systolic 111 mm Hg 08/10/2024 Weight 155 lbs 08/10/2024 BMI 23.92 kg/m2 08/10/2024 Encounters Encounter Location Date Provider Diagnosis [facility] [address] [place] [address] 08/10/2024 Eddie Santizo History of adenomato us polyp of colon Z86.010 ; Hepatic cyst K76.89 ; Family history of colon cancer Z80.0 ; Gallstones K80.20 and Diverticulosis of large intestine without perforation or abscess without bleeding K57.30 [facility] [address] [place] [address] 05/20/2024 Eddie Santizo Assessments Encounter Date Diagnosis [...] Date MEDICARE OF [place] [address] [place] [address] [id number] ALBERT[place] MAS Self - patient is the insured [employer] Insurance (Secured Mail) [address] [place] [address] [id number] ALBERTA AMS Self - patient is the insured Medical (General) History Medical History History ICD Code 10/26/2008 Colonoscopy -tubu lar adenoma removed--diverticulosis and internal hemorrhoids; tubular adenoma removed in 2004 Hypertension Hyperlipidemia Hx of known gallstones with occ. RUQ dis comfort Pilonidal cyst Denies GA,DM,CVA,Lung disease,renal dise ase Spinal stenosis Meningioma as [...]
--- NOTE | 2024-11-15 07:51 | A.OFFPC_ITS ---
Vital Signs 11/15/24 07:57 Height 5 ft 8 in Weight 69.4 kg BMI 23.3 BP 122/70 Respiration 16 Pulse 86 Pulse Source Pulse Oximeter Temp 98.0 F Temp Source Temporal Artery Scan Pulse Oximetry (%) 99 Oxygen Delivery Method Room Air Intake Visit Reasons: 3 MO F/UP - DANELLE PT Production Inspector Required: No Accompanied by: Self / Same As Patient Allergies aspirin (Aspirin) Adverse Reaction (Intermediate, Verified 11/15/24 07:51) gastrointestinal upset/pain Medication List - Last Reconciled 11/15/24 by PATRICK Granger dicyclomine 10 mg PO BID PRN dutasteride (Avodart) 0.5 mg PO DAILY ketorolac 0.5% [facility] lorazepam 0.5 mg PO BID multivitamin 1 tab PO DAILY prazosin 1 mg PO BEDTIME sertraline 25 mg PO QAM Tobacco use date assessed: 11/15/24 Fall risk assessment: No Falls in past year Last assessed Fall Risk: 11/15/24 Dental Screening Dental Screen Date: 11/15/24 Did you have a dental visit in the last 12 months?: Yes Did you have a dental problem in the last 6 months where you did not have access to dental care?: No Was dental information given to patient?: No HPI HPI Comments History of Present Illness Details 79-year-old male with history of hyperte nsion, diverticulosis, spinal stenosis, BPH, macular degeneration, anxiety, irritable bowel syndrome, history of prostate cancer presenting to the office today for management of chronic con ditions and to establish care. BPH/history of prostate cancer- following with Dr. Lindsay in Urology. On Avodart IBS-previously managed. However, over the last 2 months has had change in bowel habits. Reports he has a bowel movement every morning and then eats breakfast consisting of a bagel, cut have apple, coffee. Unchanged. Does have history of colon polyp. Denies any unintentional weight loss, fevers, nausea, vomiting, melena, hematochezia. Does report diffuse abdominal cramping with some improvement following bowel movement. Last colonoscopy 07/2023 Dr. Santizo Anxiety-prazosin and lorazepam b.i.d.. Controlled. Emmanuel 7 score 0 Hypertension-not on any antihypertensives any longer. BP 120/70 Concerns: As above ROS: See HPI EXAM: Constitutional - Awake and Alert, No apparent distress Eyes - PERRL Cardiovascular - S1S2, RRR, No edema Respiratory - Normal lung expansion, Normal respiratory effort, No respiratory distress, CTA bilaterally Abdomen-bowel sounds x4, soft/nontender. Nondistended Extremities - no calf tenderness bilaterally, no swelling Skin - Warm/Dry Neurological - Alert & oriented x3 Psychological - Appropriate [facility] Medical History (Updated 11/15/24 @ 08:27 by PATRICK Granger) Anxiety Kidney stone Meningioma Spinal stenosis H/O pilonidal cyst Transient global amnesia BPH (benign prostatic hyperplasia) Gall bladder stones Chronic gastritis HTN (hypertension) Tubular adenoma of colon Arthritis Hx of meningioma of the brain GERD (gastroesophageal reflux disease) Hx of renal calculi Hx of spinal stenosis Elevated cholesterol Surgical History History of excision of pilonidal cyst Hx of arthroscopic knee surgery Hx of lithotripsy Hx of brain surgery History of esophagogastroduodenoscopy (EGD) H/O colonoscopy Social History Household Members: Spouse Housing: House Do you presently have visiting nurse or other home services: No Alcohol intake: current Alcohol intake frequency: does not drink Alcohol type: wine Patient Tobacco Use Status: Never used Tobacco e-Cigarette/Vaping Use: Never Used Advance Directives Date on File: 12/17/22 service: Yes Current occupational status: retired Cognitive needs: No Hearing needs: Yes (Bilateral) Vision needs: Yes Questionnaire PHQ-9 Over the last 2 weeks, how often have you been bothered by any of the following problems? 1. Little interest or pleasure in doing things: not at all 2. Feeling down, depressed, or hopeless: several days 3. Trouble falling or staying asleep, or sleeping too much: several days 4. Feeling tired or having little energy: several days 5. Poor appetite or overeating: not at all 6. Feeling bad about yourself - or that you are a failure or have let yourself or your family down: not at all 7. Trouble concentrating on things, such as reading the newspaper or watching television: not at all 8. Moving or speaking so slowly that other people could have noticed. Or the opposite - being so fidgety or restless that you have been moving around a lot more than usual: not at all 9. Thoughts that you would be better off or of hurting yourself in some way: not at all Total score: 3 Depression Screening Interpretation: Negative Depression Screening Done: Yes 80580 - PHQ-9 Billing: Yes Source: Developed by Drs. Eddie Mahoney, Aurora Benton, Cam Hahn and colleagues, with an educational jv from [employer]. Thrive Questionnaire Date Thrive assessed: 08/03/23 EMMANUEL-7 AMB Questionnaire EMMANUEL-7 Feeling nervous, anxious, or on edge: 0 = Not at all Not being able to stop or control worryin = Not at all Worrying too much about different things: 0 = Not at all Trouble relaxin = Not at all Being so restless that it is hard to sit still: 0 = Not at all Becoming easily annoyed or irritable: 0 = Not at all Source: Developed by Drs. Eddie Mahoney, Aurora Benton, Cam Hahn and colleagues, with an educational jv from [employer]. EMMANUEL-7 Assessment Billing EMMANUEL-7 Assessment Tool: EMMANUEL-7 Assessment 70383 Physical exam (Primary Care) Vital Signs: Last Vital Signs Temp 98.0 F 11/15/24 07:57 Pulse 86 11/15/24 07:57 Resp 16 11/15/24 07:57 BP 122/70 11/15/24 07:57 Pulse Ox 99 11/15/24 07:57 Oxygen Delivery Method Room Air 11/15/24 07:57 BMI result Body Mass Index 23.3 Tobacco/Smoking Status: Tobacco use Status Tobacco use date assessed 11/15/24 11/15/24 08:02 Patient Tobacco Use Status Never used Tobacco 11/15/24 07:53 e-Cigarette/Vaping Use Never Used 11/15/24 08:02 PHQ-9: PHQ-9 Score PHQ-9: Total score 3 11/15/24 09:02 Depression Screening Interpretation: Negative Thrive Assessment: Date of Thrive Assessment Date Thrive assessed 08/03/23 11/15/24 07:53 Coding Level of Care Code New Pt Level 4 (84047) Complex EM visit Add On G2211 Diagnoses Change in bowel habit R19.4 Depression F32.A HTN (hypertension) I10 Elevated cholesterol E78.00 Additional Codes EMMANUEL-7 Assessment Billing - EMMANUEL-7 Assessment Tool: EMMANUEL-7 Assessment 05278 ([id number]) PHQ-9 - 21543 - PHQ-9 Billing: Yes ([id number]) Assessment & Plan Assessment & Plan (1) Change in bowel habit: Code(s): R19.4 - Change in bowel habit Category: Medical Plan: Trial dicyclomine. Counseled on side effects. Recommend reaching out to GI. (2) Depression: Code(s): F32.A - Depression, unspecified Category: Medical Plan: With anxiety. Stable. Continue lorazepam and prazosin (3) HTN (hypertension): Code(s): I10 - Essential (primary) hypertension Category: Medical Plan: Controlled. Monitor (4) Elevated cholesterol: Code(s): E78.00 - Pure hypercholesterolemia, unspecified Category: Medical Plan: Lipid panel ordered Plan Follow-up in the office in 4 months with labs to be completed prior to visit Orders: Orders Basic Metabolic Panel 4 Months E78.00 - Pure hypercholesterolemia, unspecified, F41.9 - Anxiety disorder, unspecified, I10 - Essential (primary) hypertension Lipid Panel 4 Months E78.00 - Pure hypercholesterolemia, unspecified, F41.9 - Anxiety disorder, unspecified, I10 - Essential (primary) hypertension Liver Panel 4 Months E78.00 - Pure hypercholesterolemia, unspecified, F41.9 - Anxiety disorder, unspecified, I10 - Essential (primary) hypertension Complete Blood Count Auto Diff 4 Months E78.00 - Pure hypercholesterolemia, unspecified, F41.9 - Anxiety disorder, unspecified, I10 - Essential (primary) hypertension Medications: New dicyclomine 10 mg PO BID PRN 30 caps 0RF abdominal pain Patient Instructions: Trial dicyclomine as needed Call Dr. Santizo regarding change in bowel habits.
[2024-11-15 07:57] VITALS: BP 122/70; PULSE 86; RESP 16; TEMP 36.7; O2SAT 99; BMI 23.3
== END 2024-11-15 08:26 | disposition home or self-care (01) ==
LOC: HO.HMCHD 07:44
PROVIDERS: PCP Family Medicine; Visit Provider Physician Assistant
DX: R19.4 Change in bowel habit (principal); F32.A Depression, unspecified; I10 Essential (primary) hypertension; E78.00 Pure hypercholesterolemia, unspecified

== ENCOUNTER → 2024-11-15 07:43 | Outpatient (BNVA) | payer MEDICARE, OTHER, SELFPAY | PROVIDERS: PCP Family Medicine; Visit Provider Physician Assistant | DX: R19.4 Change in bowel habit (principal); F32.A Depression, unspecified; I10 Essential (primary) hypertension; E78.00 Pure hypercholesterolemia, unspecified | CPT/HCPCS: 96127; 99202 ==

== ENCOUNTER 2024-11-23 09:22 | Outpatient (AMB) | payer MEDICARE, OTHER, SELFPAY ==
--- OUTSIDE RECORDS SUMMARY | 2022-04-03 18:09 | XMS_ITS | Encounter Summary ---
Author Organization [facility] Address [address] [place] [phone] Phone Care Team Providers Care Salesperson Burial Plots Name Role Phone Arnold Pandya MD Primary Care Provider Encounter Details Date Type Department Care Team (Late st Contact Info) Description 04/03/2022 5:09 PM EST Hospital Encounter [facility] [address] [place] [phone] Indira Siegel CNP [address] [place] [id number] [email or web address] Social History Tobacco Use Types Packs/Day Years Used Date Smoking Tobacco: Never Smokeless Tobacco: Never Alcohol Use Standard Drinks/Week Comments Yes 0 (1 standard drink = 0.6 oz pur e alcohol) very rare Education Answer Date Recorded Are you interested in more education? Not on david e 07/06/2022 Are you concerned about learning? Not on file 07/06/2022 No 07/06/2022 No 07/06/2022 Digital Access Answer Date Recorded No 08/06/2022 No 08/06/2022 Reliable internet access at home? Not on file 08/06/2022 Device with a working camera? Not on file Sex and Gender Information Value Date Recorded Sex Assigned at Not on file Legal Sex Male 3:26 PM EDT Gender Identity Not on file Sexual Orientation Not on file documented as of this encounter Plan of Treatment Not on file documented as of this encounter Procedures Procedure Name Priority Date/Time Associated Diagnosis Comments XR HUMERUS (RIGHT) Urgent/patient waiting 04/03/2022 5:17 PM EST Pain in right upper arm documented in this encounter Results * XR Humerus (Right) (04/03/2022 5:17 PM EST) Anatomical Region Laterality Modality Arm Right Computed Radiogr aphy 04/03/2022 5:26 PM EST Narrative 04/03/2022 5:27 PM EST XR HUMERUS (RIGHT) COMPARISON: FINDINGS: 4 mm radiopaque foreign body noted in the superficial soft tissues overlying the biceps. No fracture or dislocation. Procedure Note Preston Villavicencio MD, JENNIFER - 04/03/2022 XR HUMERUS (RIGHT) COMPARISON: FINDINGS: 4 mm radiopaque foreign body noted in the superficial soft tissuesoverlying the biceps. No fracture or dislocation. Indira Siegel HOT STRIP MILL INSPECTOR IMG XR UPPER EXTREMITY Sherita l Result documented in this encounter Visit Diagnoses Not on filedocumented in this encounter Care Teams Salesperson Burial Plots Relationship Specialty Start Date End Date Arnold Pandya MD [address] [place] [address] [place] [phone] PCP - General Internal Medicine 08/11/20 documented as of this encounter Additional Source Comments The information contained in this document represents components of the legal health record. It is not the complete legal health record.[facility]
--- OUTSIDE RECORDS SUMMARY | 2023-07-16 05:50 | XMS_ITS ---
Author Organization [facility] Address [address] [place] [phone] Care Team Providers Care Triple Valve Tester Name Role Phone Mumtaz (RETIRED) Arnold RHODES Primary Care Provider Unavailable Eddie Santizo Unavailable [phone] REASON FOR VISIT screening,hx polyps,fam hx colon ca Problems Problem Type SNOMED Code ICD Code Onset Dates Problem Status W/U Status Risk Notes Problem Diverticular disease of colon (873868935) Diverticulosis of large intestine without perforation or abscess without bleeding (K57.30) Active confirmed Encounters Encounter Location Date Provider Diagnosis [facility] [place] Out[facility] [address] [place] [phone] 07/16/2023 Eddie Santizo Encounter for scre ening [...] ALBERTA MAS MDOB: 5 (79 yo M)Acc No.[id number]:07/16/2023 COLON WITH MAC Patient: Christopher ALBERTA JIM Provider: Hetal Santizo MD :1945 A ge:78 Y S ex:Male Date:07/16/2023 Address:[address] [place], [place] [phone] Pcp:Arnold Pandya (RETIRED) MD Subjective: * Chief [...] 07/16/2023 Generated for Rl ballard/Claudia/Roniitting on: 0 11/23/2024 11:50 AM EDT
--- OUTSIDE RECORDS SUMMARY | 2024-08-10 05:15 | XMS_ITS ---
Author Organization [facility] Address [address] [place] [address] Care Team Providers Care Shirt Operator Name Role Phone Mumtaz RHODES, Arnold Primary Care Provider Unavailab Lita Love Unavailable [phone] Galilea Durham [phone] Encounters Encounter Location Date Provider Diagnosis [facility] [address] [place] [address] 08/10/2024 Galilea Durham Plan Of Treatment No Information Progress Notes * Bony MAS MDOB: 5 (79 yo M)Acc No.[id number]:08/10/2024 Progress Note Patient: Bony MELENDEZ M Provider: Mame Durham DPM :1945 A ge:79 Y S ex:Male Date:08/10/2024 Address:[address] [place], [place] [phone] Pcp:Arnold Pandya MD Subjective: * Chief Complaints: [...] 08/10/2024 Generated for Printi ng/Fajoyceg/eTransmitting on: 0 11/23/2024 11:50 AM EDT
--- OUTSIDE RECORDS SUMMARY | 2024-08-31 10:00 | XMS_ITS ---
Author Organization [facility] Address [address] [place] [address] Care Team Providers Care Lock Tender Name Role Phone Mumtaz RHODES, Arnold Primary Care Provider Unavailab Lita Love Unavailable [phone] REASON FOR VISIT Seen Sooner Encounters Encounter Location Date Provider Diagnosis [address] [address] 08/31/2024 Lita Mauro Plan Of Treatment No Information Progress Notes * Bony MAS MDOB: 5 (79 yo M)Acc No.[id number]:08/31/2024 Progress Note Patient: Bony MELENDEZ Provider: Heron Mauro DPM :1945 A ge:79 Y S ex:Male Date:08/31/2024 Address:[address] [place], [place] [phone] Pcp:Arnold Pandya MD Subjective: * Chief Complaints: [...] 08/31/2024 Generated for Printi ng/Faxing/eTransmitting on: 0 11/23/2024 11:49 AM EDT
--- NOTE | 2024-11-23 09:27 | A.OFFPC_ITS ---
Vital Signs 11/23/24 09:42 Height 5 ft 8 in Weight 68.492 kg BMI 23.0 BP 108/66 Respiration 16 Pulse 66 Pulse Source Pulse Oximeter Temp 97.4 F Temp Source Temporal Artery Scan Pulse Oximetry (%) 99 Oxygen Delivery Method Room Air Intake Visit Reasons: Pre-oP Cat Surg Automotive Dismantler Required: No Accompanied by: Self / Same As Patient Allergies aspirin (Aspirin) Adverse Reaction (Intermediate, Verified 11/23/24 09:27) gastrointestinal upset/pain Medication List - Last Reconciled 11/23/24 by PATRICK Granger dicyclomine 10 mg PO BID dutasteride (Avodart) 0.5 mg PO DAILY lorazepam 0.5 mg PO BID multivitamin 1 tab PO DAILY Tobacco use date assessed: 11/15/24 Dental Screening Dental Screen Date: 11/15/24 HPI HPI Comments History of Present Illness Details 79-year-old male with history of hyperte nsion, diverticulosis, spinal stenosis, BPH, macular degeneration, anxiety, irritable bowel syndrome, history of prostate cancer presenting to the office today for management of chronic conditions and to establish care. BPH- following with Dr. Lindsay in Urology. On Avodart IBS-managed with dicyclomine. Last colonoscopy 07/2023 Dr. Santizo Anxiety/PTSD- [facility] related. [facility] Prazosin and lorazepam once daily, most days. Controlled. Emmanuel 7 score 0. Does sometimes have difficulty sleeping. Came out of surgery 2001. Hypertension-not on any antihypertensives any longer. BP 108/66 Pre-operative clearance Cataract- [facility]. R eye 12/09/24, L eye 12/16/24 No issues with anesthesia historically No dm, cad, CHF, chronic lung disease, MIKO No hx seizures Functional capactity- NO sob, CP. Able to walk distance without any MEHTA (walks 2 miles daily). No MEHTA walking multiple flights of stairs EKG- NSR, rate 62. No st/t wave abnormality. No blocks Concerns: STR memory issues- mild. Occasional forgetfulness, requires reminders at times. Not bothersome. ROS: See HPI EXAM: Constitutional - Awake and Alert, No apparent distress Eyes - PERRL Cardiovascular - S1S2, RRR, No edema Respiratory - Normal lung expansion, Normal respiratory effort, No respiratory distress, CTA bilaterally Abdomen-bowel sounds x4, soft/nontender. Nondistended Extremities - no calf tenderness bilaterally, no swelling Skin - Warm/Dry Neurological - Alert & oriented x3 Psychological - Appropriate affect PFSH Medical History (Updated 11/23/24 @ 10:16 by PATRICK Granger) Bilateral cataracts Anxiety Kidney stone Meningioma Spinal stenosis H/O pilonidal cyst Transient global amnesia BPH (benign prostatic hyperplasia) Gall bladder stones Chronic gastritis HTN (hypertension) Tubular adenoma of colon Arthritis Hx of meningioma of the brain GERD (gastroesophageal reflux disease) Hx of renal calculi Hx of spinal stenosis Elevated cholesterol Surgical History (Updated 11/22/24 @ 15:57 by Radha Woodward) History of excision of pilonidal cyst Hx of arthroscopic knee surgery Hx of lithotripsy Hx of brain surgery History of esophagogastroduodenoscopy (EGD) H/O colonoscopy (~07/17/23) Social History Household Members: Spouse Housing: House Do you presently have visiting nurse or other home services: No Alcohol intake: current Alcohol intake frequency: does not drink Alcohol type: wine Patient Tobacco Use Status: Never used Tobacco e-Cigarette/Vaping Use: Never Used Advance Directives Date on File: 12/17/22 service: Yes Current occupational status: retired Cognitive needs: No Hearing needs: Yes (Bilateral) Vision needs: Yes Questionnaire Thrive Questionnaire Date Thrive assessed: 08/03/23 Physical exam (Primary Care) Vital Signs: Last Vital Signs Temp 97.4 F 11/23/24 09:42 Pulse 66 11/23/24 09:42 Resp 16 11/23/24 09:42 BP 108/66 11/23/24 09:42 Pulse Ox 99 11/23/24 09:42 Oxygen Delivery Method Room Air 11/23/24 09:42 BMI result Body Mass Index 23.0 Tobacco/Smoking Status: Tobacco use Status Tobacco use date assessed 11/15/24 11/23/24 09:30 Patient Tobacco Use Status Never used Tobacco 11/23/24 09:30 e-Cigarette/Vaping Use Never Used 11/23/24 09:30 Thrive Assessment: Date of Thrive Assessment Date Thrive assessed 08/03/23 11/23/24 09:30 Office Procedures EKG Details: NSR, rate 62. No ST/T wave abnormality. No blocks 17083-Vypgyafdfesyoeikx, Complete Coding Level of Care Code Est Pt Level 4 (25894) Complex EM visit Add On G2211 Diagnoses Pre-operative clearance Z01.818 Short-term memory loss R41.3 HTN (hypertension) I10 BPH loc w urin obs/LUTS N40.1 CPT Codes EKG - CPT: 51158-Ppsqxpbltfvvbmvdx, Complete ([id number]) Assessment & Plan Assessment & Plan (1) Pre-operative clearance: Code(s): Z01.818 - Encounter for other preprocedural examination Plan: No issues with anesthesia No dm, cad, CHF, chronic lung disease, MIKO Functional capactity- NO sob, CP. Able to walk distance without any MEHTA (walks 2 miles daily). No MEHTA walking multiple flights of stairs No hx seizures EKG- NSR, rate 62. No st/t wave abnormality. No blocks. Reassuring RCRI score 0. At time of examination, no medical contraindication exists that should preclude patient from undergoing cataract surgery BMP and CBC pending. Labs from 08/20 revealed no anemia. Renal function normal, electrolyte levels normal (2) Short-term memory loss: Code(s): R41.3 - Other amnesia Category: Medical Plan: Maintain sleep wake cycle. Recommendations provided to the patient's to help support memory (3) HTN (hypertension): Code(s): I10 - Essential (primary) hypertension Category: Medical Plan: Controlled. We will continue monitoring (4) BPH loc w urin obs/LUTS: Code(s): N40.1 - Benign prostatic hyperplasia with lower urinary tract symptoms Category: Medical Plan: Overall stable. Continue Avodart and follow-up with urology as scheduled, reviewed last note Plan Follow-up in the office in 4 months as scheduled. Labs to be completed today. Orders: Orders Complete Blood Count Auto Diff Today H26.9 - Unspecified cataract AMB EKG-In Office Today Z13.6 - Encounter for screening for cardiovascular disorders Basic Metabolic Panel Today H26.9 - Unspecified cataract
[2024-11-23 09:42] VITALS: BP 108/66; PULSE 66; RESP 16; TEMP 36.3; O2SAT 99; BMI 23.0
--- OUTSIDE RECORDS SUMMARY | 2024-11-23 11:50 | XMS_ITS | Clinical Summary ---
Author Organization [facility] Address [address] [place] [address] [address] [place] [address] Phone Care Team Providers Care Stock Associate Name Role Phone Arnold Pandya MD Primary Care Provider [phone] Allergies Active Allergy Reactions Criticality Noted Date [...] patient's age to complete this topic Insurance [facility] Medicare [facility] Medicare Care Teams Stock Associate Relationship Specialty Start Date End Date Arnold Pandya MD [address] [place] [address] [address] [place] PCP - General 03/20/20
--- OUTSIDE RECORDS SUMMARY | 2024-11-23 11:50 | XMS_ITS | Clinical Summary ---
Author Organization [facility] Address [address] [place], [place] [id number] Phone Care Team Providers Care Retail Personal Banker Name Role Phone Arnold Pandya MD Primary Care Provider [phone] Allergies Active Allergy Reactions Criticality Noted Date [...] file Insurance MEDICARE PART A & B [facility] MEDICARE SUPPLEMENT MEDICARE PART A & B [employer]ION MEDICARE SUPPLEMENT MEDICARE PART A & B [employer] EX[employer]ION MEDICARE SUPPLEMENT MEDICARE PART A & B Member Subscriber Plan / Payer ( fective 2009-Present) Name:Bony Mas Member ID:[id number] Relation to Subscriber:Self Name:Bony Mas Subscriber ID:[id number] Payer ID:[id number] Group ID:Not on file Type:Medicare Address: [employer] [address] [place] [phone] [employer] MEDICARE SUPPLEMENT MEDICARE PART A & B [employer] [facility] MEDICARE SUPPLEMENT MEDICARE PART A & B [facility] MEDICARE SUPPLEMENT MEDICARE PART A & B [facility] MEDICARE SUPPLEMENT MEDICARE PART A & B [facility] MEDICARE SUPPLEMENT MEDICARE PART A & B [facility] SUPPLEMENT Care Teams Retail Personal Banker Relationship Specialty Start Date End Date Arnold Pandya MD [address] [place] [address] [place] [id number] PCP - General Internal Medicine 08/11/20 Additional Source Comments The information contained in this document represents components of the legal health record. It is not the complete legal health record.[facility]
--- OUTSIDE RECORDS SUMMARY | 2024-11-23 11:50 | XMS_ITS | Patient Health Record ---
Author Organization [facility] Address [address] [place] [address] Care Team Providers Care Geomorphology Teacher Name Role Phone Mumtaz (RETIRED) Arnold RHODES Primary Care Provider Unavailable Eddie Santizo Unavailable [phone] Allergies Allergen (clinical drug ingredient) Drug/Non Drug [...] Problem Screening for malignant neoplasm of colon (898468970) Encounter for screening for malignant neoplasm of colon (Z12.11) Active confirmed Problem History of adenomatous polyp of colon (971747953) History of adenomatous polyp of colon (Z86.010) Active confirmed Problem Diverticular disease of colon (280260336) Diverticulosis of large intestine without perforation or abscess without bleeding (K57.30) Active confirmed Problem 200888106 Diverticulitis (K57.92) Active confirmed Problem Family History of Cancer of Colon (Situation) (617194199) Family history of colon cancer (Z80.0) Active confirmed Problem Gallstones (764666800) Gallstones (K80.20) Active confirmed Problem Right upper quadrant pain (643301842) RUQ abdominal pain (R10.11) Active confirmed Problem Diverticulosis of colon (900241666) Diverticulosis of colon (K57.30) Active confirmed Problem Hepatic cyst (73015726) Hepatic cyst (K76.89) Active confirmed Problem 555582646 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 confirmed Vital Signs Blood pressure diastolic 77 mm Hg 08/10/2024 Height 67.5 in 08/10/2024 Blood pressure systolic 111 mm Hg 08/10/2024 Weight 155 lbs 08/10/2024 BMI 23.92 kg/m2 08/10/2024 Encounters Encounter Location Date Provider Diagnosis [facility] [address] [place] [address] 08/10/2024 Eddie Santizo History of adenomato us polyp of colon Z86.010 ; Hepatic cyst K76.89 ; Family history of colon cancer Z80.0 ; Gallstones K80.20 and Diverticulosis of large intestine without perforation or abscess without bleeding K57.30 [facility] [address] [place] [address] 05/20/2024 Eddie Santizo Assessments Encounter Date Diagnosis [...] ANNA [address] [place] [address] [id number] ALBERTA MAS Self - patient is the insured [employer] ([employer]) [address] [place] [address] [id number] ALBERTA MAS Self - patient is the insured Medical (General) History Medical History History ICD Code 10/26/2008 Colonoscopy -tubu lar adenoma removed--diverticulosis and internal hemorrhoids; tubular adenoma removed in 2004 Hypertension Hyperlipidemia Hx of known gallstones with occ. RUQ dis comfort Pilonidal cyst Denies NE,DM,CVA,Lung disease,renal dise ase Spinal stenosis Meningioma as [...]
--- OUTSIDE RECORDS SUMMARY | 2024-11-23 11:51 | XMS_ITS | Patient Health Record ---
Author Organization [facility] Address [address] [place] [address] Care Team Providers Care Red Hat Linux Administrator Name Role Phone Mumtaz RHODES, Arnold Primary Care Provider Unavailab Lita Love Unavailable [phone] Black, Sana Unavailable [phone] Galilea Durham Unavailable [phone] Allergies Allergen (clinical drug ingredient) Drug/Non Drug [...] Problem Acquired hammer toe of right foot (8820492204803674 ) Hammer toe of right foot (M20.41) Active confirmed Problem Acquired hammer toe of left foot (2031824604419062 ) Hammer toe of left foot (M20.42) Active confirmed Problem Localized, primary osteoarthritis of the ankle and/or foot (286340607) Osteoarthritis of right ankle and foot (M19.071) Active confirmed Problem Ulcer of toe of left foot (disorder) (2852391829350430 2) Skin ulcer of toe of left foot, limited to breakdown of skin (L97.521) Active confirmed Response to treatment, Nonapplica ble Vital Signs Blood pressure diastolic 65 mm Hg 12/01/2023 Height 5 ft 8 in in 12/01/2023 Blood pressure systolic 116 mm Hg 12/01/2023 Weight 150 lbs 12/01/2023 BMI 22.8 kg/m2 12/01/2023 Procedures Procedure Date Ordered Date Performed Result Body Sit e 77706- Debride <25 sq cm 12/01/2023 N/A Encounters Encounter Location Date Provider Diagnosis [facility] [address] [address] 12/01/2023 Sana Black Skin ulcer of toe of left foot, limited to breakdown of skin L97.521 [facility] [address] [address] 08/06/2024 Lita Mauro Assessments Encounter Date Diagnosis (ICD Code) Assessment Notes Treatment Notes Treatment Clinical Notes Section Notes 12/01/2023 Skin ulcer of toe of left foot, limited to breakdown of skin (ICD-10 - L97.521) Response to treatment,Nonap plicable Patient Educated with: WOUND CARE INSTRUCTIONS.p df (WOUND CARE INSTRUCTIONS.p df) 12/01/2023 Other Plan Of Treatment Pending Test Test Name Order Date [id number] NAIL, 6 OR MORE 11/17/2023 [id number] Plate 11/17/2023 71855- Debride <25 sq cm 12/01/2023 X ray : Ankle, right 3V 10/30/2021 Insurance Providers Payer Name Payer Address Payer Phone Subscriber Number Group Number Insured Name Patient Relationship to Insured Coverage Start Date Coverage End Date Medicare [employer] [address] [place] [address] [id number] Bony Moy Self - patient is the insured [employer] [facility] [address] [place] [address] [id number] Nathaly Moy Spouse - patient is the spouse of the insured Medical (General) History Medical History History ICD Code Anxiety Back,Hip,and Knee pain Diverticulosis Sciatica Measles Mumps Chicken pox Prostate cancer Surgical History Surgery Date(Month/Year) colonoscopy x2 2020,2021 Brain Meningioma Hospitalization History Reason Date(Month/Year) [place] [facility] [place]
== END 2024-11-23 10:18 | disposition home or self-care (01) ==
LOC: HO.HMCHD 09:22
PROVIDERS: PCP Physician Assistant; Visit Provider Physician Assistant
DX: Z01.818 Encounter for other preprocedural examination (principal); R41.3 Other amnesia; I10 Essential (primary) hypertension; N40.1 Benign prostatic hyperplasia with lower urinary tract symptoms

== ENCOUNTER → 2024-11-23 09:22 | Outpatient (BNVA) | payer MEDICARE, OTHER, SELFPAY | PROVIDERS: PCP Physician Assistant; Visit Provider Physician Assistant | DX: Z01.818 Encounter for other preprocedural examination (principal); H26.9 Unspecified cataract; R41.3 Other amnesia; I10 Essential (primary) hypertension; N40.1 Benign prostatic hyperplasia with lower urinary tract symptoms; N13.8 Other obstructive and reflux uropathy; K58.9 Irritable bowel syndrome, unspecified; F41.9 Anxiety disorder, unspecified; F43.10 Post-traumatic stress disorder, unspecified; Z13.6 Encounter for screening for cardiovascular disorders | CPT/HCPCS: 93005; 99212 ==

== ENCOUNTER 2024-11-24 10:11 | Outpatient (REF) | payer MEDICARE, OTHER, SELFPAY ==
--- OUTSIDE RECORDS SUMMARY | 2022-04-03 18:09 | XMS_ITS | Encounter Summary ---
Author Organization [facility] Address [address] [place] [phone] Phone Care Team Providers Care Air Brush Decorator Name Role Phone Arnold Pandya MD Primary Care Provider Encounter Details Date Type Department Care Team (Late st Contact Info) Description 04/03/2022 5:09 PM EST Hospital Encounter [facility] [address] [place] [phone] Indira Siegel CNP [address] [place] [phone] [email or web address] Social History Tobacco Use Types Packs/Day Years [...] biceps. No fracture or dislocation. Indira Siegel FURNITURE SERVICER IMG XR UPPER EXTREMITY Sherita l Result documented in this encounter Visit Diagnoses Not on filedocumented in this encounter Care Teams Air Brush Decorator Relationship Specialty Start Date End Date Arnold Pandya MD [address] [place] [address] [place] [address] PCP - General Internal Medicine 08/11/20 documented as of this encounter Additional Source Comments The information contained in this document represents components of the legal health record. It is not the complete legal health record.[facility]
--- OUTSIDE RECORDS SUMMARY | 2023-07-16 05:50 | XMS_ITS ---
Author Organization [facility] Address [address] [place] [phone] Care Team Providers Care Shelf Filler Name Role Phone Mumtaz (RETIRED) Arnold RHODES Primary Care Provider Unavailable Eddie Santizo Unavailable [phone] REASON FOR VISIT screening,hx polyps,fam hx colon ca Problems Problem Type SNOMED Code ICD Code Onset Dates Problem Status W/U Status Risk Notes Problem Diverticular disease of colon (161322030) Diverticulosis of large intestine without perforation or abscess without bleeding (K57.30) Active confirmed Encounters Encounter Location Date Provider Diagnosis [facility] [place] [address] [place] [phone] 07/16/2023 Eddie Santizo Encounter for scre ening [...] ALBERTA MAS MDOB: 5 (79 yo M)Acc No.[id number]:07/16/2023 COLON WITH MAC Patient: Christopher ALBERTA JIM Provider: Hetal Santizo MD :1945 A ge:78 Y S ex:Male Date:07/16/2023 Address:[address] [place], [place] [phone] Pcp:Arnold Pandya (RETIRED) MD Subjective: * Chief [...] 07/16/2023 Generated for Rl ballard/Claudia/Roniitting on: 0 11/24/2024 12:24 PM EDT
--- OUTSIDE RECORDS SUMMARY | 2024-08-10 05:15 | XMS_ITS ---
Author Organization [facility] Address [address] [place] [address] Care Team Providers Care Supplier Relationship Director Name Role Phone Mumtaz RHODES, Arnold Primary Care Provider Unavailab Lita Love Unavailable [phone] Galilea Durham [phone] Encounters Encounter Location Date Provider Diagnosis [facility] [address] [place] [address] 08/10/2024 Galilea Durham Plan Of Treatment No Information Progress Notes * Bony MAS MDOB: 5 (79 yo M)Acc No.[id number]:08/10/2024 Progress Note Patient: Bony MELENDEZ M Provider: Mame Durham DPM :1945 A ge:79 Y S ex:Male Date:08/10/2024 Address:[address] [place], [place] [phone] Pcp:Arnold Pandya MD Subjective: * Chief Complaints: * * Medical History: Objective: * Vitals: Assessment: Plan: * Treatment: * Images: * The named appointment provid er may or may not be the originator of this progress note, and it is not deemed complete until electronically signed by the appointment provider. Sign off status: Pending * Provider: Mame Durham DPM Date: 0 08/10/2024 Generated for Printi ng/Fajoyceg/eTransmitting on: 0 11/24/2024 12:24 PM EDT
--- OUTSIDE RECORDS SUMMARY | 2024-08-31 10:00 | XMS_ITS ---
Author Organization [facility] Address [address] [place] [address] Care Team Providers Care Online Producer Name Role Phone Mumtaz RHODES, Arnold Primary Care Provider Unavailab Lita Love Unavailable [phone] REASON FOR VISIT Seen Sooner Encounters Encounter Location Date Provider Diagnosis [address] [address] 08/31/2024 Lita Mauro Plan Of Treatment No Information Progress Notes * Bony MAS MDOB: 5 (79 yo M)Acc No.[id number]:08/31/2024 Progress Note Patient: Bony MELENDEZ Provider: Heron Mauro DPM :1945 A ge:79 Y S ex:Male Date:08/31/2024 Address:[address] [place], [place] [phone] Pcp:Arnold Pandya MD Subjective: * Chief Complaints: * 1 . Seen Sooner. * Medical History: Objective: * Vitals: Assessment: Plan: * Treatment: * Images: * The named appointment provid er may or may not be the originator of this progress note, and it is not deemed complete until electronically signed by the appointment provider. Sign off status: Pending * Provider: Heron Mauro DPM Date: 0 08/31/2024 Generated for Printi ng/Faxing/eTransmitting on: 0 11/24/2024 12:24 PM EDT
[2024-11-24 10:24] LABS: MANUAL DIFF FLAG NO
[2024-11-24 11:05] LABS: Hematocrit 39.3 % (42.0-52.0); Hemoglobin 13.8 g/dl (14.0-18.0); Imm Gran Abs Auto 0.05 X10*3/uL (0.00-0.03); Imm Gran Pct Auto 0.7 % (0.0-0.4); Lymphocytes Absolute Auto 2.3 X10*3/uL (1.2-4.9); Mean Corpuscular HGB Conc 35.1 g/dl (31.0-36.0); Mean Corpuscular Hemoglobin 32.8 pg (27.0-33.0); Mean Corpuscular Volume 93.3 fL (80.0-98.0); NRBC Abs Auto 0.000 X10*3/uL (0.0-0.012); NRBC Pct Auto 0.0 /100WBC (0.0-0.2); Platelet Count 273 X10*3/uL (160-400); Red Blood Count 4.21 X10*6/uL (4.60-5.80); White Blood Count 6.9 X10*3/uL (4.8-10.8)
[2024-11-24 11:42] LABS: Anion Gap 13 (12-20); Blood Urea Nitrogen 20 mg/dL (9-16); Calcium 9.0 mg/dL (8.4-10.2); Carbon Dioxide 27 mmol/L (22-29); Chloride 107 mmol/L (96-108); Estimated Glomerular Filt Rate > 60; Potassium 4.3 mmol/L (3.3-5.1); Sodium 143 mmol/L (135-145)
--- OUTSIDE RECORDS SUMMARY | 2024-11-24 12:24 | XMS_ITS | Patient Health Record ---
Author Organization [facility] Address [address] [place] [address] Care Team Providers Care Carpentry Instructor Name Role Phone Mumtaz (RETIRED) Arnold RHODES Primary Care Provider Unavailable Eddie Santizo Unavailable [phone] Allergies Allergen (clinical drug ingredient) Drug/Non Drug [...] Problem Screening for malignant neoplasm of colon (906106311) Encounter for screening for malignant neoplasm of colon (Z12.11) Active confirmed Problem History of adenomatous polyp of colon (974818902) History of adenomatous polyp of colon (Z86.010) Active confirmed Problem Diverticular disease of colon (741521930) Diverticulosis of large intestine without perforation or abscess without bleeding (K57.30) Active confirmed Problem 063269029 Diverticulitis (K57.92) Active confirmed Problem Family History of Cancer of Colon (Situation) (525391048) Family history of colon cancer (Z80.0) Active confirmed Problem Gallstones (213547189) Gallstones (K80.20) Active confirmed Problem Right upper quadrant pain (204314540) RUQ abdominal pain (R10.11) Active confirmed Problem Diverticulosis of colon (592254713) Diverticulosis of colon (K57.30) Active confirmed Problem Hepatic cyst (85391156) Hepatic cyst (K76.89) Active confirmed Problem 802462839 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 confirmed Vital Signs Blood pressure diastolic 77 mm Hg 08/10/2024 Height 67.5 in 08/10/2024 Blood pressure systolic 111 mm Hg 08/10/2024 Weight 155 lbs 08/10/2024 BMI 23.92 kg/m2 08/10/2024 Encounters Encounter Location Date Provider Diagnosis [facility] [address] [place] [address] 08/10/2024 Eddie Santizo History of adenomato us polyp of colon Z86.010 ; Hepatic cyst K76.89 ; Family history of colon cancer Z80.0 ; Gallstones K80.20 and Diverticulosis of large intestine without perforation or abscess without bleeding K57.30 [facility] [address] [place] [address] 05/20/2024 Eddie Santizo Assessments Encounter Date Diagnosis [...] ANNA [address] [place] [address] [id number] ALBERTA MAS Self - patient is the insured [employer] ([employer]) [address] [place] [address] [phone] [id number] ALBERTA MAS Self - patient is the insured Medical (General) History Medical History History ICD Code 10/26/2008 Colonoscopy -tubu lar adenoma removed--diverticulosis and internal hemorrhoids; tubular adenoma removed in 2004 Hypertension Hyperlipidemia Hx of known gallstones with occ. RUQ dis comfort Pilonidal cyst Denies AL,DM,CVA,Lung disease,renal dise ase Spinal stenosis Meningioma as [...]
--- OUTSIDE RECORDS SUMMARY | 2024-11-24 12:24 | XMS_ITS | Clinical Summary ---
Author Organization [facility] Address [address] [place], [place] [id number] Phone Care Team Providers Care Bobcat Driver/Labor Name Role Phone Arnold Pandya MD Primary Care Provider [phone] Allergies Active Allergy Reactions Criticality Noted Date [...] file Insurance MEDICARE PART A & B [facility] EXTENSION MEDICARE SUPPLEMENT MEDICARE PART A & B [place] [employer] MEDICARE SUPPLEMENT MEDICARE PART A & B [place] [employer] MEDICARE SUPPLEMENT MEDICARE PART A & B Member Subscriber Plan / Payer ( fective 2009-Present) Name:oBny Mas Member ID:[id number] Relation to Subscriber:Self Name:Bony Mas Subscriber ID:[id number] Payer ID:[id number] Group ID:Not on file Type:Medicare Address: [employer] [address] [place] [phone] [employer] MEDICARE SUPPLEMENT MEDICARE PART A & B [employer] EXTENSION MEDICARE SUPPLEMENT MEDICARE PART A & B [facility] EXTENSION MEDICARE SUPPLEMENT MEDICARE PART A & B [facility] EXTENSION MEDICARE SUPPLEMENT MEDICARE PART A & B [facility] EXTENSION MEDICARE SUPPLEMENT MEDICARE PART A & [facility] SUPPLEMENT Care Teams Bobcat Driver/Labor Relationship Specialty Start Date End Date Arnold Pandya MD [address] [place] [address] [place] [address] PCP - General Internal Medicine 08/11/20 Additional Source Comments The information contained in this document represents components of the legal health record. It is not the complete legal health record.[facility]
--- OUTSIDE RECORDS SUMMARY | 2024-11-24 12:24 | XMS_ITS | Clinical Summary ---
Author Organization [facility] Address [address] [place] [address] [address] [place] [address] Phone Care Team Providers Care Head Of Cytogenetics Name Role Phone Arnold Pandya MD Primary Care Provider [phone] Allergies Active Allergy Reactions Criticality Noted Date [...] age to complete this topic Insurance [facility] Care Teams Head Of Cytogenetics Relationship Specialty Start Date End Date Arnold Pandya MD [address] [place] [address] [address] [place] PCP - General 03/20/20
--- OUTSIDE RECORDS SUMMARY | 2024-11-24 12:25 | XMS_ITS | Patient Health Record ---
Author Organization [facility] Address [address] [place] [address] Care Team Providers Care Electrical Discharge Machine Operator Name Role Phone Mumtaz RHODES, Arnold Primary Care Provider Unavailab Lita Love Unavailable [phone] Black, Sana Unavailable [phone] Galilea Durham Unavailable [phone] Allergies Allergen (clinical drug ingredient) Drug/Non Drug [...] Problem Acquired hammer toe of right foot (9087068544755644 ) Hammer toe of right foot (M20.41) Active confirmed Problem Acquired hammer toe of left foot (2900737826121646 ) Hammer toe of left foot (M20.42) Active confirmed Problem Localized, primary osteoarthritis of the ankle and/or foot (249374464) Osteoarthritis of right ankle and foot (M19.071) Active confirmed Problem Ulcer of toe of left foot (disorder) (1645914351492791 2) Skin ulcer of toe of left foot, limited to breakdown of skin (L97.521) Active confirmed Response to treatment, Nonapplica ble Vital Signs Blood pressure diastolic 65 mm Hg 12/01/2023 Height 5 ft 8 in in 12/01/2023 Blood pressure systolic 116 mm Hg 12/01/2023 Weight 150 lbs 12/01/2023 BMI 22.8 kg/m2 12/01/2023 Procedures Procedure Date Ordered Date Performed Result Body Sit e 95098- Debride <25 sq cm 12/01/2023 N/A Encounters Encounter Location Date Provider Diagnosis [facility] [address] [address] 12/01/2023 Sana Black Skin ulcer of toe of left foot, limited to breakdown of skin L97.521 [facility] [address] [address] 08/06/2024 Lita Mauro Assessments Encounter Date Diagnosis (ICD Code) Assessment Notes Treatment Notes Treatment Clinical Notes Section Notes 12/01/2023 Skin ulcer of toe of left foot, limited to breakdown of skin (ICD-10 - L97.521) Response to treatment,Nonap plicable Patient Educated with: WOUND CARE INSTRUCTIONS.p df (WOUND CARE INSTRUCTIONS.p df) 12/01/2023 Other Plan Of Treatment Pending Test Test Name Order Date [id number] NAIL, 6 OR MORE 11/17/2023 51474-Ciaekvmu Plate 11/17/2023 39637- Debride <25 sq cm 12/01/2023 X ray : Ankle, right 3V 10/30/2021 Insurance Providers Payer Name Payer Address Payer Phone Subscriber Number Group Number Insured Name Patient Relationship to Insured Coverage Start Date Coverage End Date Medicare [employer] [address] [place] [address] [id number] Bony Moy Self - patient is the insured [employer] [address] [place] [address] [phone] [id number] Nathaly Moy Spouse - patient is the spouse of the insured Medical (General) History Medical History History ICD Code Anxiety Back,Hip,and Knee pain Diverticulosis Sciatica Measles Mumps Chicken pox Prostate cancer Surgical History Surgery Date(Month/Year) colonoscopy x2 2020,2021 Brain Meningioma Hospitalization History Reason Date(Month/Year) [place] [facility] [place]
== END 2024-11-24 10:12 | disposition home or self-care (01) ==
LOC: HO.LAB 10:11
PROVIDERS: PCP Physician Assistant; Visit Provider Physician Assistant
DX: H26.9 Unspecified cataract (principal)
CPT/HCPCS: 36415; 80048; 85025